=== PATIENT | female | born 1955 | race Caucasian/White ===

== ENCOUNTER 2021-07-10 10:06 | Emergency (ER) | payer OTHER, SELFPAY ==
[2021-07-10 10:15] VITALS: BP 159/57; PULSE 75; RESP 18; TEMP 36.1; O2SAT 98; BMI 24.0
[2021-07-10 13:01] VITALS: BP 150/71; PULSE 79; RESP 18; TEMP 36.6; O2SAT 96
--- NOTE | 2021-07-10 13:42 | ED_ITS ---
HPI - Headache General Chief Complaint: Headache Stated Complaint: head pain due to brain disease Time Seen by Provider: 07/10/21 12:53 Source: patient Mode of arrival: ambulatory Limitations: no limitations History of Present Illness HPI Narrative: 66-year-old female with a past medical history of white matter brain disease, chronic back and left leg pain after a tumor removal from the thigh here with complaints of generalized headache. Patient tells me that she has chronic headaches which are usually controlled with Fioricet. No associated dizziness, nausea, vomiting, vision changes, weakness, numbness or tingling. No speech change. No fevers or chills or neck pain associated. Patient tells me she ran out of her Fioricet and does not currently have a primary care doctor. She does have a neurologist and was door that she was seeing but is planning on changing to a different neurologist. Of note she tells me this headache is similar previous headaches and does not feel different. Last CT scan during ER visit on 03/05/2021. Also complaining of lower back pain and tells me she has underlying disc problems no radiation of pain. No numbness or tingling in the legs. No bowel or bladder incontinence. No numbness in the groin. No fevers or chills. Patient tells me she is currently taking hijs-lhm-eekisae Tylenol or Motrin with continued pain. 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 She had been taking oxycodone 30 mg several times a day until about 1 year ago. She tells me at that time she was quite confused and lethargic and was admitted to [facility] and polypharmacy was thought to be the cause of her symptoms. Since then she was taken off oxycodone. She is requesting Vicodin for pain for home. Also complaining of left thigh pain at the site of for tumor resection. 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 She had radiation of the site and has chronic pain there. Again requesting Vicodin for home. Related Data Previous Rx's Medication Instructions Recorded sliktypoyo-arhaguyttbceh-qxffowsx 1 cap PO Q6H PRN #10 cap 07/10/21 50 mg-300 mg-40 mg capsule (Fioricet) cyclobenzaprine 10 mg tablet 10 mg PO TID PRN #10 tab 07/10/21 lidocaine 5 % topical patch 1 patch TOPICAL DAILY #15 ea 07/10/21 (Lidoderm) Allergies Allergy/AdvReac Type Severity Reaction Status Date / Time fentanyl Allergy Unknown felt like Verified 07/10/21 10:15 everything was spinning methadone Allergy Unknown pass out Verified 07/10/21 10:15 morphine Allergy Unknown pass out Verified 07/10/21 10:15 Review of Systems Review of Systems: Yes all other systems are reviewed and are negative Constitutional: Constitutional: Reports no additional constitutional complaints, Denies body ache(s), Denies chills, Denies fever(s), Reports headache(s) and Denies weakness Eyes: Eyes: Reports no additional eye complaints and Denies change in vision ENT: Reports system reviewed and no additional complaints, except as documented, Denies dizziness, Reports headache(s), Denies nasal congestion, Denies nasal discharge and Denies neck pain Cardiovascular: Cardiovascular: Reports no additional cardiovascular complaints, Denies chest pain, Denies leg edema and Denies dyspnea Respiratory: Respiratory: Reports no additional respiratory complaints, Denies cough and Denies dyspnea Gastrointestinal: Gastrointestinal: Reports no additional gastrointestinal complaints, Denies abdominal pain, Denies diarrhea, Denies nausea and Denies v omiting Genitourinary: Genitourinary: Reports no additional female genitourinary complaints and Denies urinary incontinence Musculoskeletal: Musculoskeletal: Reports no additional musculoskeletal complaints, Reports back pain, Denies arthralgias, Denies joint swelling, Denies neck pain, Denies numbness and Denies tingling Integumentary/Breasts: Skin/Breast: Reports system reviewed and no additional complaints, except as docu and Denies rash Neurologic: Reports system reviewed and no additional complaints, except as documented, Denies Abnormal speech present, Denies dizziness, Reports headache(s), Denies numbness, Denies tingling and Denies weakness [facility] Past Medical History Attestation statement: The following information was validated with the patient. Source: old records reviewed and nursing notes reviewed Social History Social History Advance Directives: No Advance Directives Information Provided: Yes Physical Exam Vital Signs: Vital Signs: Last Vital Signs Temp 98 F 07/10/21 13:01 Pulse 79 07/10/21 13:01 Resp 18 07/10/21 13:01 BP 150/71 H 07/10/21 13:01 Pulse Ox 96 07/10/21 13:01 Body Mass Index 24.0 Const: General: cooperative, healthy appearing, comfortable and no acute distress Orientation/consciousness: patient oriented x3 Limitations: no limitations HENMT: Head: Yes normal to inspection Ears: hearing grossly normal bilaterally General nose exam: Normal external nose present Face and sinus: Yes normal facial exam Mouth: Normal oral and palatal mucosa present Throat: Yes posterior oropharynx normal, Yes tonsils normal and Yes uvula midli ne Eyes: General: appearance normal, both eyes and all related structures Pupils: Equal, round and reactive pupils present Neck: Neck: Yes normal visual inspection Chest: Chest palpation & inspection: normal inspection of the chest Resp: Effort & Inspection: normal respiratory effort Auscultation: clear to auscultation bilaterally Cardio: Rate: regular rate Rhythm: regular rhythm Peripheral pulses: Peripheral pulses 2+ throughout GI: Inspection: Yes normal to inspection Palpation (GI): Soft to palpation and nontender Auscultation: normal bowel sounds : General: Yes no CVA tenderness Back/Spine/Pelvis: Other: Unable to reproduce any midline tenderness, step- offs deformities Back: no CVA tenderness Thoracic/Lumbar Spine: thoracic and lumbar spine normal to inspection Skin: General skin exam: no rashes or lesions noted Neuro: General: patient oriented x3, no focal motor deficits and normal sensation to monofilament Cranial nerves: Yes CN's II-XII intact bilaterally, Yes Equal, round and reactive pupils present, Yes Bilaterally intact EOM present, Yes Nystagmus not present, Yes Normal facial strength present and Yes Midline tongue present Cognition (Neuro): normal cognition Speech: No Abnormal speech present Gait exam (Neuro): Normal gait present Motor exam (neuro): 5/5 motor strength present throughout Sensory Exam: Normal double simultaneous stimulation for sensation Extrem: Other: To the left side there is a healed surgical scar. Patient reports tenderness around the site. No palpable pain, redness or swelling General: Yes normal to inspection, Yes no pedal edema and Yes no calf tenderness Course Course Course Narrative: 66-year-old female here with chronic headaches which are typically relieved with Fioricet. Pain feels similar to her previous headaches. She relates this to white matter disease although I think this likely room from underlying migraines which she also tells me she has a history of. She had Fioricet which helps her headaches but ran out. Requesting a refill as she does not currently have a primary care doctor and is changing her neurologist. Also requesting pain medication for her chronic lower back and left thigh pain from a prior surgery. Had been taking oxycodone 30 mg 3 times a day until an episode of altered mental status causing her to be admitted to [facility] for 4 months. NO change, new injury or fall. In fact I am unable to reproduce any pain on exam. Requesting vicodin 10mg TID for chronic pain at home. At this point I explained to the patient that I will not be managing her chronic pain from the emergency department. Will be happy to offer alternatives that are nonnarcotic the ninfa cuadra was really not willing to try these. I did also offer Toradol injection while she was here in the emergency room but she declined this. -after lengthy discussion with patient I sent a small amount of refill for her Fioricet, low-dose muscle relaxant and medicated patches. Reviewed worrisome signs and symptoms of when to return to the emergency department. Comfortable discharge home. [facility] - Headache Medical Records Attestation: I reviewed the patient's medical records. Lab Data Attestation: I reviewed the patient's lab results. Discharge Plan Discharge Clinical Impression: Headache Patient Disposition: Home, Self-Care Instructions: Acute Headache (ED) Prescriptions: New stcazhnfxy-jaimdlkwtmewr-ojtx [Fioricet] 50-300-40 mg capsule 1 cap PO Q6H PRN (Reason: pain) Qty: 10 RF: 0 cyclobenzaprine 10 mg tablet 10 mg PO TID PRN (Reason: muscle spasm) Qty: 10 RF: 0 lidocaine [Lidoderm] 5 % adhesive patch,medicated 1 patch topical DAILY Qty: 15 RF: 0 Referrals: Physician,None [Primary Care Provider] - 2 days Discharge Date/Time: 07/10/21 14:05
== END 2021-07-10 14:05 | disposition home or self-care (01) ==
PROVIDERS: Emergency Provider Emergency Medicine
DX: R51.9 Headache, unspecified (principal); G93.89 Other specified disorders of brain; G89.29 Other chronic pain; M54.50 Low back pain, unspecified; M79.652 Pain in left thigh
CPT/HCPCS: 96372; 99283; 99284

== ENCOUNTER 2022-05-21 08:38 | Outpatient (REF) | payer OTHER, SELFPAY ==
--- NOTE | ~2022-05-21 | MM_ITS ---
EXAMINATION: MM SCREENING DIGITAL BREAST TOMOSYNTHESIS, BILATERAL CLINICAL INFORMATION: Screening. Asymptomatic. The lifetime risk of breast cancer based on the Tyrer-Cuzick Model is 10.4%. COMPARISON: Mammography: October 24, 2016 TECHNIQUE: Digital breast tomosynthesis is performed in both the craniocaudal and mediolateral oblique views along with computer-aided detection (CAD). Synthesized 2D images are generated from the tomosynthesis. FINDINGS: There are scattered areas of fibroglandular density (ACR BI-RADS breast composition Category b). There are no significant masses, abnormal calcifications, or other abnormalities. MM/MM tomosynthesis screening BI IMPRESSION: No significant changes from prior exam. ASSESSMENT: BI-RADS 1: Negative RECOMMENDATION: Routine annual mammography screening. This patient's information was entered into a reminder system with a target due date for their next mammogram.
== END 2022-05-21 08:39 | disposition home or self-care (01) ==
LOC: HO.MAMMO 08:38
PROVIDERS: PCP Internal Medicine; Visit Provider Internal Medicine
DX: Z12.31 Encounter for screening mammogram for malignant neoplasm of breast (principal)
CPT/HCPCS: 77063; 77067

== ENCOUNTER 2022-08-08 12:33 | Emergency (ER) | payer OTHER, SELFPAY ==
[2022-08-08 12:45] VITALS: BP 198/90; PULSE 67; RESP 18; O2SAT 97; BMI 30.3
--- NOTE | 2022-08-08 13:43 | ED.HA ---
HPI - Headache General Chief Complaint: Headache Stated Complaint: Medication refill? Brain disease Time Seen by Provider: 08/08/22 13:18 Source: patient Mode of arrival: ambulatory History of Present Illness HPI Narrative: 67-year-old female with a past medical history of white matter brain disease, chronic back and leg pain s/p tumor resection presenting to the ED complaining of acute on chronic headaches. Patient reports Fioricet is the only medication that helps with her chronic headaches. Denies any change or new symptoms from her typical. Denies headache be maximal in onset, visual loss/change, nausea, weakness, numbness MD elicited complaint: headache and migraine Onset (ago): day(s) Related Data Previous Rx's Medication Instructions Recorded ijqkmhqmkz-txirmmklvkhtd-leekugqt 1 cap PO Q6H PRN pain #10 caps 07/10/21 50 mg-300 mg-40 mg capsule (Fioricet) cyclobenzaprine 10 mg tablet 10 mg PO TID PRN muscle spasm #10 07/10/21 tabs lidocaine 5 % topical patch 1 patch topical DAILY #15 ea 07/10/21 (Lidoderm) mjkwyuktqp-mxmtayymbqeal-yojgvfuy 1 cap PO Q6H PRN headache #10 caps 08/08/22 50 mg-300 mg-40 mg capsule (Fioricet) Allergies Allergy/AdvReac Type Severity Reaction Status Date / Time fentanyl Allergy Unknown felt like Verified 07/10/21 10:15 everything was spinning methadone Allergy Unknown pass out Verified 07/10/21 10:15 morphine Allergy Unknown pass out Verified 07/10/21 10:15 Review of Systems Review of Systems: Constitutional: No Fever, No Chills, No Fatigue, No Malaise ENT/Mouth: No Ear Pain, No Nasal Congestion, No sore throat, No Rhinorrhea, No Swallowing Difficulty Eyes: No Eye Pain, No Swelling, No Redness, No Foreign Body, No Discharge, No Vision Changes Cardiovascular: No Chest Pain, No SOB, No Edema, No Palpitations Respiratory: No Cough, No Sputum, No Dyspnea Gastrointestinal: No Nausea, No Vomiting, No Diarrhea, No Constipation, No Abdominal pain Genitourinary: No Dysuria, No Urinary Frequency, No Hematuria, No Urinary Incontinence/retention, No Flank Pain Musculoskeletal: No joint pain, No Myalgias Skin: No Skin Lesions, No rash Neuro: No Weakness, No Numbness, No Paresthesias, No Loss of Consciousness, No Dizziness, + Headache Yes all other systems are reviewed and are negative Constitutional: Constitutional: Reports as per HPI Neurologic: Denies Abnormal speech present [facility] Past Medical History Attestation statement: The following information was validated with the patient. Social History Social History Advance Directives: Yes Advance Directives Information Provided: Yes Advance Directives on File: No Physical Exam Vital Signs: Vital Signs: Last Vital Signs Pulse 67 08/08/22 12:45 Resp 18 08/08/22 12:45 BP 198/90 H 08/08/22 12:45 Pulse Ox 97 08/08/22 12:45 O2 Del Method 08/08/22 12:45 BMI result Body Mass Index 30.3 Const: General: cooperative, healthy appearing, no acute distress, alert and awake Orientation/consciousness: patient oriented x3 Limitations: no limitations HEENT: Head: Yes normal to inspection and Yes atraumatic Ears: hearing grossly normal bilaterally General nose exam: Normal external nose present Face and sinus: Yes normal facial exam Eyes: General: appearance normal, both eyes and all related structures Pupils: Equal, round and reactive pupils present EOM: EOMs intact bilaterally Neck: Neck: Yes normal visual inspection and Yes no meningeal signs Resp: Effort & Inspection: normal respiratory effort and no respiratory distress Cardio: Rate: regular rate Heart sounds: S1 normal heart sound present and S2 normal heart sound present GI: Inspection: Yes normal to inspection Palpation (GI): Soft to palpation, nontender, no guarding and not rigid Skin: Rashes: no rashes Wounds: no wounds Neuro: General: patient oriented x3, gait normal, tone normal, moves all extremities, no meningeal signs, no focal motor deficits and CN's II-XI intact bilaterally Cranial nerves: Yes CN's II-XII intact bilaterally, Yes Equal, round and reactive pupils present and Yes Bilaterally intact EOM present Cognition (Neuro): normal cognition Speech: No Abnormal speech present Gait exam (Neuro): Normal gait present Motor exam (neuro): 5/5 motor strength present throughout Extrem: General: Yes normal to inspection MDM - Headache MDM Narrative Medical decision making narrative: 67-year-old female with a past medical history of white matter brain disease, chronic back and leg pain s/p tumor resection presenting to the ED complaining of acute on chronic headaches. On exam vital signs stable, NAD, nontoxic appearing, no focal neuro deficits. Concern for acute on chronic headaches. Low suspicion for SAH, meningitis/encephalitis, CVA/TIA Patient requesting prescription for Fioricet for 1 month, Will give patient 2 pills of Fioricet while in the ED and short prescription, had lengthy question about needed close follow-up with Neurology Differential Diagnosis Differential diagnosis: Likely migraine and headache Medical Records Attestation: I reviewed the patient's medical records. Lab Data Attestation: I reviewed the patient's lab results. Discharge Plan Discharge Clinical Impression: Chronic headache Patient Disposition: Home, Self-Care Instructions: Acute Headache (ED) Additional Instructions: Fioricet is for headaches, take as needed as prescribed. You need to follow-up with Neurology. Please also follow-up with your primary care doctor. If your symptoms change/persist, have constant worsening headache, nausea, vomiting, weakness return to the emergency department Prescriptions: New qkfhclqigl-zkrwlscvcxwit-tnwp [Fioricet] 50-300-40 mg capsule 1 cap PO Q6H PRN (Reason: headache) Qty: 10 0RF No Action mdubvwecyd-woaoxmbdnesox-jewc [Fioricet] 50-300-40 mg capsule 1 cap PO Q6H PRN (Reason: pain) Qty: 10 0RF cyclobenzaprine 10 mg tablet 10 mg PO TID PRN (Reason: muscle spasm) Qty: 10 0RF lidocaine [Lidoderm] 5 % adhesive patch,medicated 1 patch topical DAILY Qty: 15 0RF Rx Instructions: leave on most painful area for up to 12 hrs Referrals: [facility] [place] [facility] [Provider Group]
[2022-08-08] MEDS: Butalb/Acetamin/Caff 50/325/40 TABLET 2 TAB PO (14:05)
== END 2022-08-08 14:23 | disposition home or self-care (01) ==
PROVIDERS: Emergency Provider Emergency Medicine
DX: R51.9 Headache, unspecified (principal)
CPT/HCPCS: 99283

== ENCOUNTER 2022-08-14 07:59 | Emergency (ER) | payer OTHER, SELFPAY ==
[2022-08-14 08:10] VITALS: BP 240/103; PULSE 67; RESP 16; TEMP 36.7; O2SAT 96; BMI 28.3
[2022-08-14 09:00] VITALS: BP 238/107
--- NOTE | 2022-08-14 09:01 | PC.NURSE ---
Presents to ED with complaint of headaches. increased BP noted. fiorcet is the only thing that works for my headaches . Neuros intact. Amb with steady gait.
--- NOTE | 2022-08-14 09:23 | ED.GENADULT ---
HPI - General Adult General Chief complaint: Headache Stated complaint: headache sts has a brain disease Time Seen by Provider: 08/14/22 09:00 Source: patient Limitations: no limitations History of Present Illness HPI narrative: Patient presents to the ER complaining of a headache that is been ongoing for over 1 year. Patient has longstanding history of white matter disease since fall by a neurologist at [facility]. Patient states she usually takes Fioricet for headaches which makes them tolerable which she does not have any more. Patient also states she has not does not currently have a PCP. Patient is also concerned about her elevated blood pressure. Symptoms are tslj-xc-egvjzrbq pain is 8/10. Patient has made it quite clear she is not having a stroke, and [place] and she does not have MS at that has been ruled out by her neurologist. Patient denies any recent falls or trauma at times she has some associated nausea no vomiting at this time. Headache is similar to past headaches. No other complaints at this time Related Data Previous Rx's Medication Instructions Recorded pgxfcmskcu-nroqzdoazpunm-jzjuvfpp 1 cap PO Q6H PRN pain #10 caps 07/10/21 50 mg-300 mg-40 mg capsule (Fioricet) cyclobenzaprine 10 mg tablet 10 mg PO TID PRN muscle spasm #10 07/10/21 tabs lidocaine 5 % topical patch 1 patch topical DAILY #15 ea 07/10/21 (Lidoderm) amcizleyhm-kzewolycgbcdu-iumfyvby 1 cap PO Q6H PRN headache #10 caps 08/08/22 50 mg-300 mg-40 mg capsule (Fioricet) amlodipine 5 mg tablet 5 mg PO DAILY #30 tabs 08/14/22 iyhuesblol-fyjdxaopxsqqc-eufgzcjq 1 cap PO Q6H PRN pain #20 caps 08/14/22 50 mg-300 mg-40 mg capsule (Fioricet) Allergies Allergy/AdvReac Type Severity Reaction Status Date / Time fentanyl Allergy Unknown felt like Verified 07/10/21 10:15 everything was spinning methadone Allergy Unknown pass out Verified 07/10/21 10:15 morphine Allergy Unknown pass out Verified 07/10/21 10:15 Review of Systems Constitutional: Constitutional: Denies chills, Denies fever(s) and Reports headache(s) Eyes: Eyes: Denies change in vision, Denies diplopia and Denies loss of vision ENT: Reports headache(s) and Denies sore throat Cardiovascular: Cardiovascular: Denies chest pain and Denies dyspnea Respiratory: Respiratory: Denies cough and Denies dyspnea Gastrointestinal: Gastrointestinal: Denies abdominal pain, Reports nausea and Denies vomiting Musculoskeletal: Musculoskeletal: Denies myalgias Neurologic: Reports headache(s) and Denies loss of vision [facility] Social History Social History Advance Directives: No Physical Exam ED Vital Signs: Vital Signs - 24 hr 08/14/22 08:10 08/14/22 09:00 08/14/22 10:47 Temperature 98.0 F Pulse Rate 67 Respiratory Rate 16 Blood Pressure 240/103 H 238/107 H 185/89 H Pulse Oximetry 96 Oxygen Delivery Method Room Air 08/14/22 11:01 Temperature Pulse Rate 60 Respiratory Rate Blood Pressure 185/84 H Pulse Oximetry Oxygen Delivery Method BMI result Body Mass Index 28.3 vital signs have been reviewed as normal and appeared to be correct. Blood pressure normal. Heart rate normal. Respiration rate normal. Temperature normal. Oxygen saturation normal. Appearance: Alert. Oriented X3. No acute distress. Head: Normal external exam. Normocephalic. Atraumatic. No Heath signs noted. No raccoon eyes noted Eyes: PERRLA. EOMI. Conjunctiva and sclera normal. Eyelids normal. ENT: Pharynx normal. Uvula midline. Moist mucous membranes. Neck: Soft full range of motion, no JVD CVS: Heart regular rate and rhythm no murmurs and rubs Respiratory: Breath sounds are clear to auscultation bilaterally. No accessory muscle use noted. Abdomen: Soft nontender no rebound or guarding positive bowel sounds Back: No CVA tenderness. Full range of motion noted. Skin: Skin warm and dry. Normal skin color. Normal skin turgor. No rashes/lesions/lacerations noted. Extremities: No lower extremity edema. Extremities exhibit normal range of motion. Extremities nontender. Neuro: Oriented X 3. 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 No focal deficit noted. Course Course Course Narrative: Migraine headaches Chronic headaches Hypertensive emergency Hypertensive urgency White matter disease One Fioricet p.o. will recheck blood pressure after 20 minutes 09:[address] Lagunas so will give patient 10 mg labetalol IV at this time 5 mg amlodipine p.o. re-evaluate blood pressure. Will also check a CBC and BMP and UA. 11:22 a.m. Patient has responded to the labetalol and amlodipine Patient's blood pressure 197/85 will plan to discharge home start on amlodipine and Fioricet. Patient states symptoms has improved. Medications Administered Discontinued Medications Generic Name Dose Route Start Last Admin Trade Name Gerhardq PRN Reason Stop Dose Admin Acetaminophen/Butalbital/Caffeine 1 tab 08/14/22 09:22 08/14/22 09:36 Butalb/Acetamin/Caff 50/325/40 Tablet PO 08/14/22 09:23 1 tab ONCE ONE Administration Acetaminophen/Butalbital/Caffeine 1 tab 08/14/22 09:55 08/14/22 10:22 Butalb/Acetamin/Caff 50/325/40 Tablet PO 08/14/22 09:56 1 tab ONCE ONE Administration Amlodipine Besylate 5 mg 08/14/22 09:38 08/14/22 10:22 Amlodipine Besylate 5 Mg Tablet PO 08/14/22 09:39 5 mg ONCE ONE Administration Protocol Labetalol HCl 10 mg 08/14/22 09:38 08/14/22 10:35 Labetalol Hcl 100 Mg/20 Ml Vial IVPUSH 08/14/22 09:39 10 mg ONCE ONE Administration Medical Decision Making Lab Data Result diagrams: 08/14/22 10:29 08/14/22 10:29 Labs: Lab Results 08/14/22 08/14/22 Range/Units 10:29 10:29 WBC 8.1 (4.8-10.8) X10*3/uL RBC 5.15 (4.20-5.50) X10*6/uL Hgb 15.2 (12.0-16.0) g/dl Hct 45.1 (37.0-47.0) % MCV 87.6 (80.0-98.0) fL MCH 29.5 (27.0-33.0) pg MCHC 33.7 (31.0-35.0) g/dl RDW 11.9 (11.0-16.0) % Plt Count 261 (160-400) X10*3/uL MPV 10.4 (9.4-12.3) fL Immature Gran % (Auto) 0.2 (0.0-0.4) % Neut % (Auto) 60.5 (45-73) % Lymph % (Auto) 25.6 (20-40) % [place] % (Auto) 9.9 (2-11) % Eos % (Auto) 2.9 (0-4) % Baso % (Auto) 0.9 (0-2) % Lymph # (Auto) 2.1 (1.2-4.9) X10*3/uL [place] # (Auto) 0.8 (0.1-1.2) X10*3/uL Eos # (Auto) 0.2 (0.0-0.4) X10*3/uL Baso # (Auto) 0.1 (0.0-0.2) X10*3/uL Abs Immat Gran (auto) 0.02 (0.00-0.03) X10*3/uL Absolute Neuts (auto) 4.9 (2.0-8.3) x10*3/uL Absolute Nucleated RBC 0.000 (0.0-0.012) X10*3/uL Nucleated RBC % (auto) 0.0 (0.0-0.2) /100WBC Sodium 140 (135-145) mmol/L Potassium 4.4 (3.3-5.1) mmol/L Chloride 101 (96-108) mmol/L Carbon Dioxide 26 (22-29) mmol/L Anion Gap 17 (12-20) BUN 18 H (9-16) mg/dL Creatinine 0.78 (0.5-1.4) mg/dL Estim Creat Clear Calc 64.9 Estimated GFR > 60 Random Glucose 95 (60-115) mg/dL Calcium 9.4 (8.4-10.2) mg/dL Discharge Plan Discharge Clinical Impression: Headache, Hypertension Patient Disposition: Home, Self-Care Instructions: Acute Headache (ED), Hypertension (ED) Additional Instructions: Take medications as directed For further evaluation of hypertension needed to follow-up with PCP Return if symptoms worsen Prescriptions: New nzarcjnqkd-phzdoccossgfe-nvnh [Fioricet] 50-300-40 mg capsule 1 cap PO Q6H PRN (Reason: pain) Qty: 20 0RF amlodipine 5 mg tablet 5 mg PO DAILY Qty: 30 0RF No Action tyswmwblwp-xulhfcntqszle-oenk [Fioricet] 50-300-40 mg capsule 1 cap PO Q6H PRN (Reason: headache) Qty: 10 0RF mkijxydeud-qtwhqkwrrprng-jpcu [Fioricet] 50-300-40 mg capsule 1 cap PO Q6H PRN (Reason: pain) Qty: 10 0RF cyclobenzaprine 10 mg tablet 10 mg PO TID PRN (Reason: muscle spasm) Qty: 10 0RF lidocaine [Lidoderm] 5 % adhesive patch,medicated 1 patch topical DAILY Qty: 15 0RF Rx Instructions: leave on most painful area for up to 12 hrs
[2022-08-14] MEDS: Butalb/Acetamin/Caff 50/325/40 TABLET 1 TAB PO ×2 (09:36→10:22)
[2022-08-14] MEDS: amLODIPine Besylate 5 MG TABLET PO (10:22)
[2022-08-14] MEDS: Labetalol HCL 100 MG/20 ML VIAL 10 MG IVPUSH (10:35)
[2022-08-14 10:47] VITALS: BP 185/89
[2022-08-14 10:53] LABS: MANUAL DIFF FLAG NO
[2022-08-14 10:55] LABS: Basophils Absolute Auto 0.1 X10*3/uL (0.0-0.2); Basophils Percent Auto 0.9 % (0-2); Eosinophils Absolute Auto 0.2 X10*3/uL (0.0-0.4); Eosinophils Percent Auto 2.9 % (0-4); Hematocrit 45.1 % (37.0-47.0); Hemoglobin 15.2 g/dl (12.0-16.0); Imm Gran Abs Auto 0.02 X10*3/uL (0.00-0.03); Imm Gran Pct Auto 0.2 % (0.0-0.4); Lymphocytes Absolute Auto 2.1 X10*3/uL (1.2-4.9); Lymphocytes Percent Auto 25.6 % (20-40); Mean Corpuscular HGB Conc 33.7 g/dl (31.0-35.0); Mean Corpuscular Hemoglobin 29.5 pg (27.0-33.0); Mean Corpuscular Volume 87.6 fL (80.0-98.0); Mean Platelet Volume 10.4 fL (9.4-12.3); Monocytes Absolute Auto 0.8 X10*3/uL (0.1-1.2); Monocytes Percent Auto 9.9 % (2-11); Neutrophils Absolute Auto 4.9 x10*3/uL (2.0-8.3); Neutrophils Percent Auto 60.5 % (45-73); Platelet Count 261 X10*3/uL (160-400); Red Blood Count 5.15 X10*6/uL (4.20-5.50); Red Cell Distribution Width 11.9 % (11.0-16.0); White Blood Count 8.1 X10*3/uL (4.8-10.8)
[2022-08-14 11:01] VITALS: BP 185/84; PULSE 60
[2022-08-14 11:15] LABS: Anion Gap 17 (12-20); Blood Urea Nitrogen 18 mg/dL (9-16); Calcium 9.4 mg/dL (8.4-10.2); Carbon Dioxide 26 mmol/L (22-29); Chloride 101 mmol/L (96-108); Creatinine Clr Calc Pharmacy 64.9; Estimated Glomerular Filt Rate > 60; Glucose Random 95 mg/dL (60-115); Potassium 4.4 mmol/L (3.3-5.1); Sodium 140 mmol/L (135-145)
== END 2022-08-14 11:34 | disposition home or self-care (01) ==
PROVIDERS: Physician Assistant; Emergency Provider Emergency Medicine
DX: R51.9 Headache, unspecified (principal); I10 Essential (primary) hypertension; Z79.899 Other long term (current) drug therapy
CPT/HCPCS: 36415; 80048; 85025; 99283

== ENCOUNTER 2022-08-20 08:03 | Emergency (ER) | payer OTHER, SELFPAY ==
[2022-08-20 08:15] VITALS: BP 185/91; BP 187/84; PULSE 79; PULSE 88; RESP 18; TEMP 36.8; O2SAT 98; BMI 27.4
--- NOTE | 2022-08-20 08:16 | ED_ITS ---
HPI - General Adult General Chief complaint: Headache Stated complaint: REZA,BACK PAIN,HX BRAIN LESIONS PER EMS Time Seen by Provider: 08/20/22 08:07 Source: patient and EMS Mode of arrival: EMS Limitations: no limitations History of Present Illness HPI narrative: Patient is a 67 year old assigned female at with a history of migraines presenting to the emergency department today with a headache. Patient states that she was prescribed fioricet and that helped her headache but she ran out last night. Patient denies any dizziness, lightheadedness, abdominal pain, nausea, vomiting, fever, chills, blurry vision, double vision, loss of vision, chest pain, difficulty breathing, shortness of breath, back pain, night sweats, pain with urination, increased urinary frequency, increased urinary urgency, blood in her urine or stool, syncope or a near syncopal episode, recent trauma or falls, bowel incontinence, bladder incontinence, bowel retention, bladder retention, or any other complaints at this time. Onset (ago): hour(s) Location: head Radiation: non-radiation Severity: mild Severity scale (1-10): 3 Quality: aching and dull Pain Consistency: constant Relieving factors: other (fioricet) Exacerbating factors: none Associated symptoms: denies other symptoms Treatments prior to arrival: none Related Data Previous Rx's Medication Instructions Recorded xtfkzyhuhh-pewnqeckqhmic-nswtugyw 1 cap PO Q6H PRN pain #10 caps 07/10/21 50 mg-300 mg-40 mg capsule (Fioricet) cyclobenzaprine 10 mg tablet 10 mg PO TID PRN muscle spasm #10 07/10/21 tabs lidocaine 5 % topical patch 1 patch topical DAILY #15 ea 07/10/21 (Lidoderm) zwmyjgnavz-slnmicqqwnjvk-qqcbhpnc 1 cap PO Q6H PRN headache #10 caps 08/08/22 50 mg-300 mg-40 mg capsule (Fioricet) amlodipine 5 mg tablet 5 mg PO DAILY #30 tabs 08/14/22 pwrycsqvbf-raacgmsyvvrbm-xgbpwhcv 1 cap PO Q6H PRN pain #20 caps 08/14/22 50 mg-300 mg-40 mg capsule (Fioricet) czqmudulsu-szpjdqirwzpcb-vijeuryh 1 cap PO Q4H PRN pain #30 caps 08/20/22 50 mg-300 mg-40 mg capsule (Fioricet) Allergies Allergy/AdvReac Type Severity Reaction Status Date / Time fentanyl Allergy Unknown felt like Verified 07/10/21 10:15 everything was spinning methadone Allergy Unknown pass out Verified 07/10/21 10:15 morphine Allergy Unknown pass out Verified 07/10/21 10:15 Review of Systems Constitutional: Constitutional: Reports no additional constitutional complaints, Denies chills, Denies fever(s), Reports headache(s) and Denies night sweats Eyes: Eyes: Reports no additional eye complaints, Denies blurry vision, Denies change in vision, Denies diplopia, Denies eye discharge, Denies loss of vision and Denies eye pain ENT: Denies dizziness and Reports headache(s) Cardiovascular: Cardiovascular: Reports no additional cardiovascular complaints, Denies chest pain, Denies lightheadedness, Denies Loss of Consciousness and Denies dyspnea Respiratory: Respiratory: Reports no additional respiratory complaints and Denies dyspnea Gastrointestinal: Gastrointestinal: Reports no additional gastrointestinal complaints, Denies abdominal pain, Denies melena, Denies hematochezia, Denies change in bowel habits and Denies change in stool character Genitourinary: Genitourinary: Denies hematuria, Denies urinary frequency, Denies dysuria, Denies urinary incontinence, Denies urinary hesitancy and Denies urinary urgency Musculoskeletal: Musculoskeletal: Reports no additional musculoskeletal complaints, Denies numbness and Denies tingling Neurologic: Denies dizziness, Reports headache(s), Denies loss of vision, Denies numbness and Denies tingling Psychiatric: Psychiatric: Reports no additional psychiatric complaints Endocrine: Endocrine: Reports no additional endocrine complaints Hematologic/Lymphatic: Hematologic/Lymphatic: Reports no additional hematologic/lymphatic complaints Allergic/Immunologic: Allergic/Immunologic: Reports no additional al lergic/immunologic complaints FORMERLY [facility], 1928–1983 Past Medical History Attestation statement: The following information was validated with the patient. Source: old records reviewed Social History Social History Alcohol intake: never Smoked in Last 30 Days: No Use of substances other than those prescribed or required for medical reasons: No Advance Directives: No Physical Exam ED Vital Signs: Vital Signs - 24 hr 08/20/22 08:15 08/20/22 08:56 Temperature 98.2 F Pulse Rate 79 76 Respiratory Rate 18 14 Blood Pressure 185/91 H 147/73 H Pulse Oximetry 98 97 Oxygen Delivery Method Room Air Room Air BMI result Body Mass Index 27.4 Const General: cooperative, no acute distress, alert and awake Nutritional Appearance: well nourished Orientation/consciousness: patient oriented x3 Limitations: no limitations HENMT Head: Yes normal to inspection and Yes atraumatic Ears: hearing grossly normal bilaterally and external ears normal General nose exam: Normal external nose present, no nasal discharge noted and no epistaxis Face and sinus: Yes normal facial exam, No abrasion and No laceration Mouth: Normal oral and palatal mucosa present, no drooling and no muffled voice Eyes General: appearance normal, both eyes and all related structures Periorbital: periorbital findings normal Eyelids: Yes eyelids normal Conjunctivae: conjunctivae normal Pupils: Equal, round and reactive pupils present EOM: EOMs intact bilaterally Neck Neck: Yes normal visual inspection, Yes full ROM and Yes no lymphadenopathy Chest Chest palpation & inspection: normal inspection of the chest Resp Effort & Inspection: normal respiratory effort and able to speak in complete sentences Auscultation: clear to auscultation bilaterally Cardio Rate: regular rate Rhythm: regular rhythm GI Inspection: Yes normal to inspection Neuro General: patient oriented x3 and moves all extremities Cranial nerves: Yes Equal, round and reactive pupils present Cognition (Neuro): normal cognition Motor exam (neuro): 5/5 motor strength present throughout Sensory Exam: Normal double simultaneous stimulation for sensation Coordination: ymhwpv-af-npdv test normal Extrem General: Yes normal to inspection, Yes full ROM and Yes capillary refill normal Psych Appearance: grossly normal Mental Status: mental status grossly normal Affect: normal affect Attitude: cooperative Thought process: Normal thought process present Thought content: Normal thought content present Insight: Good insight present (Psych) Medications Administered Discontinued Medications Generic Name Dose Route Start Last Admin Trade Name Freq PRN Reason Stop Dose Admin Acetaminophen/Butalbital/Caffeine 1 tab 08/20/22 08:40 08/20/22 08:56 Butalb/Acetamin/Caff 50/325/40 Tablet PO 08/20/22 08:41 1 tab ONCE ONE Administration Hydrocodone Bitart/Acetaminophen 1 tab 08/20/22 08:40 08/20/22 08:56 Hydrocodone Bit/Acetam 5/325 Tablet PO 08/20/22 08:41 1 tab ONCE ONE Administration Medical Decision Making MDM Narrative Medical decision making narrative: Patient is a 67 year old assigned female at with a history of migraine headaches presenting to the emergency department today with a headache. Patient's physical exam was unremarkable. I explained my physical exam findings to the patient. I answered all questions asked by the patient. Patient received PO fioricet and [place] which she stated helped her symptoms significantly. I stressed the importance of the patient taking her medication as prescribed. I stressed the importance of the patient following up with her primary care provider. I stressed the importance of the patient returning to the emergency department immediately if her symptoms were to worsen or if she were to develop any dizziness, shortness of breath, difficulty breathing, chest pain, blurry vision, loss of vision, nausea, vomiting, abdominal pain, fever, chills, back pain, or any other complaints. Patient verbalized agreement and understanding with this treatment plan and discharge. Medical Records Medical records reviewed: Yes I reviewed the patient's medical records. Discharge Plan Discharge Clinical Impression: Migraine Patient Disposition: Home, Self-Care Instructions: Migraine Headache (ED) Additional Instructions: Follow up with your primary care provider. Return to the emergency department immediately if your symptoms worsen or if you develop any dizziness, shortness of breath, difficulty breathing, chest pain, blurry vision, loss of vision, nausea, vomiting, abdominal pain, fever, chills, back pain, or any other complaints. Prescriptions: New rdkptguksi-ntxwnfpsfbehg-ybgh [Fioricet] 50-300-40 mg capsule 1 cap PO Q4H PRN (Reason: pain) Qty: 30 0RF No Action xogvmiwdoa-thvggtetlvxkf-pdgo [Fioricet] 50-300-40 mg capsule 1 cap PO Q6H PRN (Reason: headache) Qty: 10 0RF hfzzlihxlm-ruurmsxuwzosm-bqlg [Fioricet] 50-300-40 mg capsule 1 cap PO Q6H PRN (Reason: pain) Qty: 20 0RF amlodipine 5 mg tablet 5 mg PO DAILY Qty: 30 0RF fjftlofomc-qycpfluatbktu-lwyj [Fioricet] 50-300-40 mg capsule 1 cap PO Q6H PRN (Reason: pain) Qty: 10 0RF cyclobenzaprine 10 mg tablet 10 mg PO TID PRN (Reason: muscle spasm) Qty: 10 0RF lidocaine [Lidoderm] 5 % adhesive patch,medicated 1 patch topical DAILY Qty: 15 0RF Rx Instructions: leave on most painful area for up to 12 hrs Referrals: [facility] [Provider Group] (Call to establish and follow up with a primary care provider. If you already have a primary care provider, please follow up with them. ) [facility], [facility] [Provider Group] (Call to establish and follow up with a primary care provider. If you already have a primary care provider, please follow up with them. ) [facility] [Provider Group] (Call to establish and follow up with a primary care provider. If you already have a primary care provider, please follow up with them. ) Print Language: Chilean
[2022-08-20 08:56] VITALS: BP 147/73; PULSE 76; RESP 14; O2SAT 97
[2022-08-20] MEDS: Butalb/Acetamin/Caff 50/325/40 TABLET 1 TAB PO (08:56)
[2022-08-20] MEDS: HYDROcodone Bit/Acetam 5/325 TABLET 1 TAB PO (08:56)
== END 2022-08-20 09:20 | disposition home or self-care (01) ==
PROVIDERS: Emergency Provider Emergency Medicine
DX: R51.9 Headache, unspecified (principal); M54.50 Low back pain, unspecified; Z79.899 Other long term (current) drug therapy
CPT/HCPCS: 99283; 99284

== ENCOUNTER 2022-08-26 02:23 | Emergency (ER) | payer OTHER, SELFPAY ==
--- NOTE | ~2022-08-26 | XR_ITS ---
EXAMINATION: XR CHEST CLINICAL INFORMATION: Cough, rule out pneumonia COMPARISON: None TECHNIQUE: Frontal view of the chest was obtained. FINDINGS: Lung volumes are symmetric. No focal consolidation is seen. No evidence of pneumothorax, pleural effusion, or pulmonary edema. The cardiomediastinal contour is unremarkable. Degenerative changes are noted in the spine. XR/XR chest 1V IMPRESSION: No acute cardiopulmonary findings.
--- NOTE | 2022-08-26 02:29 | ED.URI ---
HPI - URI/Sore Throat General Chief Complaint: General Medical Stated Complaint: strep throat Time Seen by Provider: 08/26/22 02:26 Source: patient and EMS Mode of arrival: EMS Limitations: no limitations History of Present Illness HPI Narrative: Patient comes to the emergency room complaining of 2-3 hours of sore throat. Patient denies fever chills, patient has been coughing for a couple of hours. Patient denies nausea vomiting or diarrhea, no shortness of breath, no chest pain. Related Data Previous Rx's Medication Instructions Recorded oztxhjqjzz-cujhvahnijhct-wyliacyp 1 cap PO Q6H PRN pain #10 caps 07/10/21 50 mg-300 mg-40 mg capsule (Fioricet) cyclobenzaprine 10 mg tablet 10 mg PO TID PRN muscle spasm #10 07/10/21 tabs lidocaine 5 % topical patch 1 patch topical DAILY #15 ea 07/10/21 (Lidoderm) rgmqidbuvo-dngfvoqxbfsta-riujwgbc 1 cap PO Q6H PRN headache #10 caps 08/08/22 50 mg-300 mg-40 mg capsule (Fioricet) amlodipine 5 mg tablet 5 mg PO DAILY #30 tabs 08/14/22 evfumewijq-mvexrvjytyfcv-fvgzhluf 1 cap PO Q6H PRN pain #20 caps 08/14/22 50 mg-300 mg-40 mg capsule (Fioricet) auatehkuxv-dvvroekqtwuxk-lauapdff 1 cap PO Q4H PRN pain #30 caps 08/20/22 50 mg-300 mg-40 mg capsule (Fioricet) ngobbfvahe-yjfitqlzhtozp-yhpteajo 1 cap PO .B.i.d. PRN pain #14 caps 08/26/22 50 mg-300 mg-40 mg capsule (Fioricet) Allergies Allergy/AdvReac Type Severity Reaction Status Date / Time fentanyl Allergy Unknown felt like Verified 07/10/21 10:15 everything was spinning methadone Allergy Unknown pass out Verified 07/10/21 10:15 morphine Allergy Unknown pass out Verified 07/10/21 10:15 Review of Systems Review of Systems: Constitutional : No Weight loss, No Fever, No Chills, No Night Sweats, No Fatigue, No Malaise ENT/Mouth : No Hearing loss, No Ear Pain, No Nasal Congestion, No Sinus Pain, No Hoarseness, complaining of mild sore throat, No Rhinorrhea, No Swallowing Difficulty Eyes: No Eye Pain, No Swelling, No Redness, No Foreign Body, No Discharge, No Vision Changes Cardiovascular : No Chest Pain, No SOB, No Dyspnea on Exertion, No Orthopnea, No Edema, No Palpitations Respiratory : No Cough, No Sputum, No Wheezing, No Smoke Exposure, No Dyspnea Gastrointestinal : No Nausea, No Vomiting, No Diarrhea, No Constipation, No abdominal Pain, No Hematochezia, No Melena Genitourinary : no irregular bleeding, No Dysuria, No Urinary Frequency, No Hematuria, No Urinary Incontinence, No Urgency, No Flank Pain, No Urinary Flow Changes, No Hesitancy Musculoskeletal : No joint pain, No Myalgias, No Joint Swelling Skin : No Skin Lesions, No rash Neuro : No Weakness, No Numbness, No Paresthesias, No Loss of Consciousness, No Dizziness, No Headache Psych : No Anxiety/Panic, No Depression, No SI/HI/AH/VH, No Social Issues, Heme/Lymph: No Bruising, No Bleeding,No Lymphadenopathy Endocrine : No Polyuria, No Polydipsia, No Temperature Intolerance [facility] Social History Social History Alcohol intake: never Advance Directives: No Advance Directives Information Provided: Yes Physical Exam Vital Signs: Vital Signs: Last Vital Signs Temp 98.3 F 08/26/22 02:30 Pulse 75 08/26/22 02:30 Resp 18 08/26/22 02:30 BP 156/89 H 08/26/22 02:30 Pulse Ox 95 08/26/22 02:30 O2 Del Method 08/26/22 02:30 BMI result Body Mass Index 31.8 Const: Other: Appearance: Alert. Oriented X3. No acute distress. Eyes: Pupils equal, round and reactive to light. ENT: Pharynx normal. Patient does not have tonsils, mildly erythematous oropharynx Neck: Normal inspection. Neck supple. No lymph nodes noted. No crepitus CVS: Normal heart rate and rhythm. Pulses normal. Normal S1 and S2 Respiratory: No respiratory distress. Breath sounds normal. No Wheezing. No rales Abdomen: Soft and nontender. No rigidity. No distention. Skin: Skin warm and dry. Normal skin color. Normal skin turgor. Extremities: No lower extremity edema. No Lacerations. No Rash Neuro: Oriented X 3. No motor deficit. No sensory deficit. Moving all extremities. No slurred speech. CN 2 through 12 grossly intact Psych: calm, cooperative, normal affect Course Course Course Narrative: Patient likely has a viral URI, strep test, COVID test, influenza and chest x-ray pending. Patient tested negative for strep, COVID, influenza, chest x-ray negative. Patient likely having a viral illness Patient was seen 1 dose of p.o. viscous lidocaine for symptomatic relief. Patient is requesting a refill for her migraine medication. Patient was seen here approximately 1 week ago, prescribed 30 tablets of Fioricet. Patient states that she takes 2 tablets b.i.d. and she ran out of them. I discussed with the patient that if she is using the mentalis, she needs to be seen by her primary care physician and by her neurologist. I agreed to give her a prescription of 14 tablets to give her enough time to get in touch with the PCP and with her neurologist, who she sees in [place], [place] Medications Administered Discontinued Medications Generic Name Dose Route Start Last Admin Trade Name Freceli PRN Reason Stop Dose Admin Lidocaine HCl 15 ml 08/26/22 03:36 08/26/22 03:44 Lidocaine Hcl Viscous 2 % 15 Ml Solution MUCOUS MEM 08/26/22 03:37 15 ml ONCE ONE Administration MDM - URI/Sore Throat Lab Data Labs: Lab Results 08/26/22 08/26/22 08/26/22 Range/Units 02:47 02:47 02:47 COVID-19 (GURDEEP) Negative (Negative) COVID-19 Clin Com See Note Influenza Type A (LAZARUS) Negative (Negative) Influenza Type B (LAZARUS) Negative (Negative) Influenza A & B Note See Note S. pyogenes GrpA LAZARUS Negative (Negative) Imaging Data Chest x-ray: Radiologist's impression: [address] [address] XRay Report Signed Patient: Rosa Elena Berger MR#: [id number] : 1955 Acct:[id number] Age/Sex: 67 / F ADM Date: 08/26/22 Loc: HO.ED Attending Dr: Ordering Physician: Madelyn Hernadez MD Date of Service: 08/26/22 Procedure(s): XR chest 1V Accession Number(s): [id number] cc: Madelyn Hernadez MD~ EXAMINATION: XR CHEST CLINICAL INFORMATION: Cough, rule out pneumonia COMPARISON: None TECHNIQUE: Frontal view of the chest was obtained. FINDINGS: Lung volumes are symmetric. No focal consolidation is seen. No evidence of pneumothorax, pleural effusion, or pulmonary edema. The cardiomediastinal contour is unremarkable. Degenerative changes are noted in the spine. XR/XR chest 1V IMPRESSION: No acute cardiopulmonary findings. Discharge Plan Discharge Clinical Impression: Acute viral pharyngitis Patient Disposition: Home, Self-Care Instructions: Pharyngitis (ED) Additional Instructions: Please follow-up with your primary care physician tomorrow. If you have any worsening or new symptoms, please return to the emergency room or call 911 Prescriptions: New xikktaqvmr-slukjkiweoltn-hbgg [Fioricet] 50-300-40 mg capsule 1 cap PO .B.i.d. PRN (Reason: pain) Qty: 14 0RF No Action tihenboqjs-xphkwzdvnzbga-hljy [Fioricet] 50-300-40 mg capsule 1 cap PO Q6H PRN (Reason: headache) Qty: 10 0RF xxxmbdsbxd-zwojvuivivmbl-cwbl [Fioricet] 50-300-40 mg capsule 1 cap PO Q6H PRN (Reason: pain) Qty: 20 0RF amlodipine 5 mg tablet 5 mg PO DAILY Qty: 30 0RF qjleohvxso-qjzmwcunpgmbq-tibe [Fioricet] 50-300-40 mg capsule 1 cap PO Q4H PRN (Reason: pain) Qty: 30 0RF gabxqjbzff-xhiivxpddyshl-luhu [Fioricet] 50-300-40 mg capsule 1 cap PO Q6H PRN (Reason: pain) Qty: 10 0RF cyclobenzaprine 10 mg tablet 10 mg PO TID PRN (Reason: muscle spasm) Qty: 10 0RF lidocaine [Lidoderm] 5 % adhesive patch,medicated 1 patch topical DAILY Qty: 15 0RF Rx Instructions: leave on most painful area for up to 12 hrs
[2022-08-26 02:30] VITALS: BP 130/80; BP 156/89; PULSE 75; RESP 18; TEMP 36.8; O2SAT 95; O2SAT 99; BMI 31.8
--- OUTSIDE RECORDS SUMMARY | 2022-08-26 02:44 | XMS_ITS | Continuity of Care Document ---
:1955 Author Organization [facility] Address [address] [place] [address]- Care Team Providers Name Role Phone Terell Mello MD Primary Care Physician Encounter [facility] Date(s): 07/02/21 - 07/02/[address] [address]- Encounter Diagnosis Headache (Final) - 07/02/21 Discharge Disposition: A-D/C Home Attending Physician: Colt Emery MD Admitting Physician: Colt Emery MD Referring Physician: Not on Staff, Referring MD Allergies, Adverse Reactions, Alerts Substance Reaction Severity Status codeine nausea Active ibuprofen Active clindamycin c diff Active morphine dizzy Active Antivert double vision Active Leslie liver enzymes off Active Benadryl Active Muscle Rub liver enzymes off Active statins swelling/rash Active fentaNYL diff breathing Active LaMICtal Drug fever Active Macular rash NexIUM liver enzymes off Active Immunizations Given and Recorded Vaccine Date Status Refusal Reason SARS-CoV-2 (COVID-19) mRNA BNT-162b2 vac 01/29/21 Given SARS-CoV-2 (COVID-19) mRNA BNT-162b2 vac 01/08/21 Given Medications aspirin 325 mg oral capsule 2 capsule = 650 mg, By Mouth, Daily, 0 Refills, Maintenance, 07/02/21 6:35:00 EDT, Partial fill uponpatient request if the prescription is for a schedule II opioid drug. Start Date: 07/02/21 Status: OrderedDocusate/Senna Tablet 2 tablet, By Mouth, 2 times a day, 0 Refills, Maintenance, 12/06/20 14:34:00 EST, Tablet, Partial fill upon patient request if the prescription is for a schedule II opioid drug. Start Date: 12/06/20 Status: Orderedduloxetine 30 mg oral enteric coated capsule 1 capsule = 30 mg, By Mouth, Daily, 0 Refills, Maintenance, 12/06/20 14:34:00 EST, Capsule, Partial fill upon patient request if the prescription is for a schedule II opioid drug. Start Date: 12/06/20 Status: OrderedFioricet oral capsule 1 capsule, By Mouth, Every 6 hours, PRN as needed, # 30 capsule, 0 Refills, Acute 07/03/21 7:20:00 EDT, 07/02/21 7:20:00 EDT, Capsule, [facility]/pharmacy #[id number], Partial fill upon patient request if the prescription is for a schedule II opioid drug., 1 capsu... Start Date: 07/02/21 Stop Date: 07/03/21 Status: OrderedFioricet Tablet 1 tab every 6, By Mouth, PRN Headache, 0 Refills, Maintenance, 07/02/21 6:36:00 EDT, Tablet, Partialfill upon patient request if the prescription is for a schedule II opioid drug. Start Date: 07/02/21 Status: OrderedFioricet Tablet 1 tablet, Tablet, By Mouth, Once, STAT, 07/02/21 7:13:00 EDT, Stop date 07/02/21 7:13:00 EDT Notes: Butalbital 50mg, Not to exceed 4000mg of Acetaminophen per 24 hours. 325mg, Caffeine 40mg pertablet Start Date: 07/02/21 Stop Date: 07/02/21 Status: Completedgabapentin 300 mg oral capsule 300 mg, 1, capsule, By Mouth, 3 times a day, # 90 capsule, Refills 0, Tot. Refills 0, Maintenance, 11/27/20 14:19:00 EST, Print Requisition Start Date: 11/27/20 Status: OrderedMaalox Plus Liquid 30 mL, By Mouth, Every 4 hours, PRN Dyspepsia, 0 Refills, Maintenance, 12/14/20 11:05:00 EDT, Suspension, Partial fill upon patient request if the prescription is for a schedule II opioid drug. Start Date: 12/14/20 Status: Orderedoxycodone 30 mg oral tablet, extended release 1 tablet = 30 mg, By Mouth, Every 12 hours, # 12 tablet, 0 Refills, Maintenance, 12/14/20 11:05:00 EDT, ER Tablet Start Date: 12/14/20 Status: OrderedRisperDAL 0.25 mg oral tablet 0.25 mg, 1, tablet, By Mouth, Daily at bedtime, Refills 0, Maintenance, 12/14/20 11:05:00 EDT, Partial fill upon patient request if the prescription is for a schedule II opioid drug. Start Date: 12/14/20 Status: OrderedTimolol 0.5% Ophth 1, drops, Eyes, Both, 2 times a day, Refills 0, Maintenance, 11/27/20 14:53:00 EST, Ophth Solution Start Date: 11/27/20 Status: Ordered Problem List Condition Effective Dates Status Health Status Informant Opiate dependence, Active continuous(Confirmed) Vital Signs Most recent to oldest 1 2 3 [Reference Range]: Height 160 cm 160 cm 160 cm (07/02/21 7:42 AM) (07/02/21 6:28 AM) (07/02/21 6:1 0 AM) Weight 60 kg 60 kg 60 kg (07/02/21 7:42 AM) (07/02/21 6:28 AM) (07/02/21 6:1 0 AM) Oxygen Saturation [94-100 99 % 99 % 99 % %] (07/02/21 7:42 AM) (07/02/21 6:28 AM) (07/02/21 6:1 0 AM) Pulse Rate [55-90 bpm] 74 bpm 71 bpm 74 bpm (07/02/21 7:42 AM) (07/02/21 6:28 AM) (07/02/21 6:1 0 AM) Body Mass Index 23.44 23.44 [18.5-24.99] (07/02/21 7:42 AM) (07/02/21 6:10 AM) Blood Pressure 152/99 mm Hg 146/88 mm Hg 125/86 mm Hg [90-138/55-84 mm Hg] *H* *H* (07/02/21 6: 10 AM) (07/02/21 7:42 AM) (07/02/21 6:28 AM) Respiratory Rate [16-30 16 br/min 16 br/min 20 br/mi n br/min] (07/02/21 7:44 AM) (07/02/21 7:42 AM) (07/02/21 6:2 8 AM) Temperature [96.8-100.4 98 DegF DegF] (07/02/21 6:10 AM) Mode of Delivery (Oxygen) Room air Room air Room a ir (07/02/21 7:42 AM) (07/02/21 6:28 AM) (07/02/21 6:1 0 AM) Blood pressure sites Arm, left Arm, left Arm, left (07/02/21 7:42 AM) (07/02/21 6:28 AM) (07/02/21 6:1 0 AM) Temperature Route Oral (07/02/21 6:10 AM) Dry Weight 60 kg 60 kg 60 kg (07/02/21 7:42 AM) (07/02/21 6:28 AM) (07/02/21 6:1 0 AM) Weight Obtained Via Patient/family stated Patient/family stated (07/02/21 6:28 AM) (07/02/21 6:10 AM) Dry Weight Obtained Via Patient/family stated Patient/family sta [place] (07/02/21 6:28 AM) (07/02/21 6:10 AM) Social History Social History Type Response Smoking Status Former smoker; Tobacco user in household: No entered on: 03/27/14 Sex
--- OUTSIDE RECORDS SUMMARY | 2022-08-26 02:44 | XMS_ITS | Continuity of Care Document ---
:1955 Author Organization [facility] Address Unavailable , Care Team Providers Name Role Phone Riaz SIMON, Terell Ornelas Primary Care Physician [place] [facility] [place]01[place] - 07/31/21 [facility] Allergies, Adverse Reactions, Alerts Substance Reaction Severity [...] opioid drug. Start Date: 12/06/20 Status: OrderedFioricet Tablet 1 tab every 6, By Mouth, PRN Headache, 0 Refills, Maintenance, 07/02/21 6:36:00 EDT, Tablet, Partialfill upon patient request if the prescription is for a schedule II opioid drug. Start Date: 07/02/21 Status: Orderedgabapentin 300 mg oral capsule 300 mg, 1, [...] Health Status Informant Opiate dependence, Active continuous(Confirmed) Social History Social History Type Response Smoking Status Former smoker; Tobacco user in household: No entered on: 03/27/14 Sex
--- OUTSIDE RECORDS SUMMARY | 2022-08-26 02:44 | XMS_ITS | Continuity of Care Document ---
:1955 Author Organization [facility] Address [address] [place] [address]- Care Team Providers Name Role Phone Riaz SIMON, Terell Ornelas Primary Care Physician Encounter [facility] Date(s): 10/25/20 - 11/27/[address] [address]- Discharge Disposition: A-Transfer SNF Attending Physician: Elver SIMON, Zoya Shin Admitting Physician: Justin Cornejo DO Referring Physician: Anjana SIMON, Yi Patricio Allergies, Adverse Reactions, Alerts Substance Reaction Severity Status codeine nausea Active clindamycin c diff Active morphine dizzy Active Antivert double vision Active Muscle Rub liver enzymes off Active statins swelling/rash Active NexIUM liver enzymes off Active LaMICtal Drug fever Active Macular rash ibuprofen Active Benadryl Active fentaNYL diff breathing Active Leslie liver enzymes off Active Medications acetaminophen 325 mg oral tablet 650 mg, By Mouth, Every 4 hours, PRN, Temperature Greater than 100.5, Refills 0, Maintenance, Pain ,Mild, 11/27/20 14:18:00 EST, Partial fill upon patient request if the prescription is for a scheduleII opioid drug. Start Date: 11/27/20 Status: Ordereddivalproex sodium 250 mg oral enteric coated tablet = 250 mg, By Mouth, 3 times a day, 0 Refills, Maintenance, 11/27/20 14:18:00 EST, Tablet, Partial fill upon patient request if the prescription is for a schedule II opioid drug. Start Date: 11/27/20 Status: Orderedduloxetine 60 mg oral enteric coated capsule 1 capsule = 60 mg, By Mouth, Daily, 0 Refills, Maintenance, 11/27/20 14:18:00 EST, Capsule, Partial fill upon patient request if the prescription is for a schedule II opioid drug. Start Date: 11/27/20 Status: Orderedgabapentin 300 mg oral capsule 300 mg, Capsule, By Mouth, 11/27/20 9:00:00 EST Start Date: 11/27/20 Stop Date: 11/27/20 Status: Completedgabapentin 300 mg oral capsule 300 mg, 1, capsule, By Mouth, 3 times a day, # 90 capsule, Refills 0, Tot. Refills 0, Maintenance, 11/27/20 14:19:00 EST, Print Requisition Start Date: 11/27/20 Status: Orderedmetoprolol 25 mg oral tablet 50 mg, Tablet, By Mouth, 11/27/20 9:00:00 EST Start Date: 11/27/20 Stop Date: 11/27/20 Status: Completedmetoprolol 25 mg oral tablet 50 mg, 2, tablet, By Mouth, 2 times a day, Refills 0, Maintenance, 11/27/20 14:19:00 EST, Partial fill upon patient request if the prescription is for a schedule II opioid drug. Start Date: 11/27/20 Status: Orderedmetoprolol 25 mg oral tablet 50 mg, Tablet, By Mouth, 11/26/20 21:00:00 EST Start Date: 11/26/20 Stop Date: 11/26/20 Status: CompletedMiraLax Powder 1 pack/packet = 17 Gm, By Mouth, Daily, PRN Constipation, 0 Refills, Maintenance, 11/27/20 14:19:00 EST, Powder, Partial fill upon patient request if the prescription is for a schedule II opioid drug. Start Date: 11/27/20 Status: OrderedoxyCODONE 10 mg oral tablet, extended release 30 mg, ER Tablet, By Mouth, Must be at least 10 hours between doses, 11/27/20 6:00:00 EST Start Date: 11/27/20 Stop Date: 11/27/20 Status: Completedoxycodone 30 mg oral tablet, extended release 1 tablet = 30 mg, By Mouth, Every 12 hours, # 60 tablet, 0 Refills, Maintenance, 11/27/20 14:18:00 EST, ER Tablet Start Date: 11/27/20 Status: OrderedSenna 8.6 mg oral tablet 17.2 mg, 2, tablet, By Mouth, 2 times a day, Refills 0, Maintenance, 11/27/20 14:19:00 EST, Tablet, Partial fill upon patient request if the prescription is for a schedule II opioid drug. Start Date: 11/27/20 Status: OrderedTimolol 0.5% Ophth 1, drops, Eyes, Both, 2 times a day, Refills 0, Maintenance, 11/27/20 14:53:00 EST, Ophth Solution Start Date: 11/27/20 Status: Ordered Problem List Condition Effective Dates Status Health Status Informant Opiate dependence, Active continuous(Confirmed) Results Orders for Microbiology Reports Name Date Blood Culture 11/20/20 Blood Culture #2 11/20/20 Urine Culture (URINE CULTURE) 11/19/20 Urine Culture (URINE CULTURE) 11/01/20 Microbiology Reports TEST:Blood Culture, Second Order STATUS:Auth (Verified) BODY SITE: SOURCE:Blood COLLECTED DATE/TIME:11/20/20 8:30 AMBlood Culture, Second Order SPECIMEN DESCRIPTION : BLOOD L AC SPECIAL REQUESTS : NONE CULTURE : NO GROWTH 5 DAYS. REPORT STATUS : FINAL 11/25/2020TEST:Blood Culture STATUS:Auth (Verified) BODY SITE: SOURCE:Blood COLLECTED DATE/TIME:11/20/20 8:20 AMBlood Culture SPECIMEN DESCRIPTION : BLOOD R AC SPECIAL REQUESTS : NONE CULTURE : NO GROWTH 5 DAYS. REPORT STATUS : FINAL 11/25/2020TEST:Urine Culture STATUS:Auth (Verified) BODY SITE: SOURCE:URINE COLLECTED DATE/TIME:11/19/20 10:58 AMUrine Culture SPECIMEN DESCRIPTION : URINE SPECIAL REQUESTS : NONE Reflexed from [id number] CULTURE : NO GROWTH REPORT STATUS : FINAL 11/20/2020TEST:Urine Culture STATUS:Auth (Verified) BODY SITE: SOURCE:URINE COLLECTED DATE/TIME:11/01/20 1:15 PMUrine Culture SPECIMEN DESCRIPTION : URINE SPECIAL REQUESTS : NONE Reflexed from [id number] CULTURE : >100,000 COL/ML CITROBACTER AMALONATICUS REPORT STATUS : FINAL 11/03/2020 ORGANISM >100,000 COL/ML CITROBACTER AMALONATICUS METHOD MIN. INHIB. CONC. (MCG/ML) AMPICILLIN RESISTANT AMPICILLIN/SULBACTAM RESISTANT AMOXICILLIN/CLAVULAN RESISTANT CEFAZOLIN RESISTANT CEFEPIME SUSCEPTIBLE CEFTRIAXONE RESISTANT CIPROFLOXACIN SUSCEPTIBLE ERTAPENEM SUSCEPTIBLE GENTAMICIN SUSCEPTIBLE LEVOFLOXACIN SUSCEPTIBLE MEROPENEM SUSCEPTIBLE NITROFURANTOIN INTERMEDIATE PIPERACILLIN/TAZOBAC SUSCEPTIBLE TRIMETH/SULFAMETHOX SUSCEPTIBLE TETRACYCLINE SUSCEPTIBLERadiology Reports Exam Date Time Procedure Performing Provider Status 11/19/20 10:00 AM Chest 2 Views Frontal and Lat Hudson Samuel; [facility] (Verified) Notes:(Chest 2 Views Frontal and Lat) Reason For Exam: FeverRESULT: Chest 2 Views Frontal and Lat Chest 2 Views Frontal and Lat Reason: Fever; Clinical Question(s): Pneumonia COMPARISON: 06/27/2019. FINDINGS: LINES AND TUBES: None. LUNGS AND PLEURA: Large lung volumes. Otherwise, lungs are clear. Normal pulmonary vascularity. No pleural effusion. No pneumothorax. HEART, MEDIASTINUM AND ALMA ROSA: Heart is normal in size. Aorta is somewhat tortuous. BONES AND SOFT TISSUES: No acute abnormality. Degenerative changes in the spine. Right upper quadrant, likely cholecystectomy clips. IMPRESSION: No acute abnormality. WSN: [id number] Ordering Physician: Denisse Eden Dictated By: Bryan Machado MD Dictated Date/Time: 11/19/20 11:19 a Reviewed By: Bryan Mcahado MD Signed By: Bryan Machado MD Signed Date/Time: 11/19/20 11:19 am Transcribed By: JAYLENE Transcribed Date/Time: 11/19/20 11:16 am Exam Date Time Procedure Performing Provider Status 10/25/20 5:03 AM Finger 4th Left Hand Donnie Becerril (Verif ied) Notes:(Finger 4th Left Hand) Reason For Exam: DeformityRESULT: Finger 4th Left Hand Left hand 3 views dated October 25, 2020. No prior studies are available. HISTORY: Pain. FINDINGS: This examination is mildly limited with the presence of a metallic ring on the third finger. There is dislocation of the total phalanx of the fourth finger posteriorly. This is associated with a fracture off the proximal portion of the terminal phalanx. The fracture fragment is displaced proximally and dorsally. There are significant arthritic changes in the visualized additional interphalangeal joints with loss of joint space and osteophyte formation. In addition, there are several small metallic foreign bodies demonstrated in the region of the interdigitating webspace between the third and fourth fingers and within the interdigital space of the fourth and fifth fingers. IMPRESSION: Fracture dislocation of the distal interphalangeal joint as described above. Significant arthritic changes elsewhere. Metallic foreign bodies. I am uncertain if these are in or on the patient. Examination 689[address]. Thank you for allowing me to participate in the care of this patient. WSN: [id number] Ordering Physician: Yi Yeung Dictated By: Hay Jay MD Dictated Date/Time: 10/25/20 7:51 am Reviewed By: Hay Jay MD Signed By: Hay Jay MD Signed Date/Time: 10/25/20 7:51 am Transcribed By: JAYLENE Transcribed Date/Time: 10/25/20 7:49 am Vital Signs Most recent to oldest 1 2 3 [Reference Range]: Height 160 cm 160 cm 160 cm (11/27/20 5:33 AM) (11/26/20 5:35 AM) (11/25/20 2:43 PM) Weight 50.4 kg 48.9 kg 70 kg (11/23/20 10:42 PM) (10/25/20 6:18 PM) (10/25/20 4: 24 PM) Oxygen Saturation [94-100 %] 97 % 99 % 96 % (11/27/20 5:33 AM) (11/26/20 8:00 PM) (11/26/20 5:35 A M) Pulse Rate [55-90 bpm] 85 bpm 67 bpm 73 bpm (11/27/20 9:45 AM) (11/27/20 5:33 AM) (11/26/20 8:02 P M) Body Mass Index [18.5-24.99] 19.1 27.34 27. 34 (10/25/20 6:18 PM) *H* *H* (10/25/20 4:24 PM) (10/25/20 2:12 PM) Blood Pressure [90-138/55-84 147/64 mm Hg 125/63 mm Hg 132 /65 mm Hg mm Hg] *H* (11/27/20 5:33 AM) (11/26/20 8:02 PM ) (11/27/20 9:45 AM) Respiratory Rate [16-30 16 br/min 16 br/min 18 br/mi n br/min] (11/27/20 10:37 AM) (11/27/20 9:45 AM) (11/27/20 6:16 AM) Temperature [96.8-100.4 DegF] 97.9 DegF 98.5 DegF 98 .3 DegF (11/27/20 5:33 AM) (11/26/20 8:00 PM) (11/26/20 5:35 A M) Liters per Minute 0 L/min (11/24/20 6:14 AM) Mode of Delivery (Oxygen) Room air Room air Room a ir (11/27/20 5:33 AM) (11/26/20 8:00 PM) (11/26/20 5:35 A M) Blood pressure sites Arm, left Arm, right Arm, left (11/27/20 5:33 AM) (11/26/20 8:00 PM) (11/26/20 5:35 A M) Temperature Route Oral Oral Oral (11/27/20 5:33 AM) (11/26/20 8:00 PM) (11/26/20 5:35 A M) Dry Weight 48.9 kg 70 kg 70 kg (10/25/20 6:18 PM) (10/25/20 4:24 PM) (10/25/20 2:1 2 PM) Weight Obtained Via Standing scale Bed scale Standing sca le (11/23/20 10:42 PM) (10/25/20 6:18 PM) (10/25/20 5: 32 AM) Dry Weight Obtained Via Standing scale (10/25/20 5:32 AM) Social History Social History Type Response Smoking Status Former smoker; Tobacco user in household: No entered on: 03/27/14 Sex
--- OUTSIDE RECORDS SUMMARY | 2022-08-26 02:44 | XMS_ITS | Continuity of Care Document ---
:1955 Author Organization [facility] Address [address] [place] [address]- Care Team Providers Name Role Phone Terell Mello MD Primary Care Physician Encounter [facility] Date(s): 02/26/21 - 02/26/[address] [address]- Discharge Disposition: A-D/C Home Attending Physician: Karen Ashton MD Admitting Physician: Karen Ashton MD Referring Physician: Not on Staff, Referring MD Allergies, Adverse Reactions, Alerts Substance Reaction Severity Status codeine nausea Active Antivert double vision Active statins swelling/rash Active NexIUM liver enzymes off Active ibuprofen Active Benadryl Active clindamycin c diff Active morphine dizzy Active fentaNYL diff breathing Active Leslie liver enzymes off Active Muscle Rub liver enzymes off Active LaMICtal Drug fever Active Macular rash Immunizations Given and Recorded Vaccine Date Status Refusal Reason SARS-CoV-2 (COVID-19) mRNA BNT-162b2 vac 01/29/21 Given SARS-CoV-2 (COVID-19) mRNA BNT-162b2 vac 01/08/21 Given Medications acetaminophen 325 mg oral tablet 650 mg, By Mouth, Every 4 hours, PRN, Temperature Greater than 100.5, Refills 0, Maintenance, Pain ,Mild, 11/27/20 14:18:00 EST, Partial fill upon patient request if the prescription is for a scheduleII opioid drug. Start Date: 11/27/20 Status: Ordereddivalproex sodium 500 mg oral enteric coated tablet = 500 mg, By Mouth, 2 times a day, 0 Refills, Maintenance, 12/06/20 14:34:00 EST, Tablet, Partial fill upon patient request if the prescription is for a schedule II opioid drug. Start Date: 12/06/20 Status: OrderedDocusate/Senna Tablet 2 tablet, By Mouth, [...] II opioid drug. Start Date: 12/06/20 Status: Orderedgabapentin 300 mg oral capsule 300 [...] II opioid drug. Start Date: 12/14/20 Status: OrderedrisperiDONE 0.5 mg oral tablet, disintegrating = 0.5 mg, By Mouth, 2 times a day, PRN Agitation, Psychosis, 0 Refills, Maintenance, 12/14/20 11:06:00 EDT, DIS Tablet, Partial fill upon patient request if the prescription is for a schedule II opioiddrug. Start Date: 12/14/20 Status: OrderedTimolol 0.5% Ophth 1, drops, Eyes, Both, 2 times a day, Refills 0, Maintenance, 11/27/20 14:53:00 EST, Ophth Solution Start Date: 11/27/20 Status: OrderedtraZODone 50 mg oral tablet 25 mg, 0.5, tablet, By Mouth, Daily at bedtime, PRN, MAY REPEAT X1, Refills 0, Maintenance, Insomnia, 12/14/20 11:06:00 EDT, Partial fill upon patient request if the prescription is for a schedule II opioid drug. Start Date: 12/14/20 Status: Ordered Problem List Condition Effective Dates Status Health Status Informant Opiate dependence, Active continuous(Confirmed) Vital Signs Most recent to oldest [Reference Range]: 1 Height 160 cm (02/26/21 4:59 AM) Weight 56.1 kg (02/26/21 4:59 AM) Oxygen Saturation [94-100 %] 100 % (02/26/21 4:59 AM) Pulse Rate [55-90 bpm] 89 bpm (02/26/21 4:59 AM) Blood Pressure [90-138/55-84 mm Hg] 164/97 mm Hg *H* (02/26/21 4:59 AM) Respiratory Rate [16-30 br/min] 16 br/min (02/26/21 4:59 AM) Temperature [96.8-100.4 DegF] 97.0 DegF (02/26/21 4:59 AM) Mode of Delivery (Oxygen) Room air (02/26/21 4:59 AM) Temperature Route Temporal (02/26/21 4:59 AM) Dry Weight 56.1 kg (02/26/21 4:59 AM) Weight Obtained Via Standing scale (02/26/21 4:59 AM) Dry Weight Obtained Via Standing scale (02/26/21 4:59 AM) Social History Social History Type Response Smoking Status Former smoker; Tobacco user in household: No entered on: 03/27/14 Sex
--- OUTSIDE RECORDS SUMMARY | 2022-08-26 02:44 | XMS_ITS | Continuity of Care Document ---
:1955 Author Organization [facility] Address Unavailable , Care Team Providers Name Role Phone Riaz SIMON, Terell Ornelas Primary Care Physician Encounter [facility] Date(s): 11/01/21 - 12/01/21 [facility] Allergies, Adverse Reactions, Alerts Substance [...]
--- OUTSIDE RECORDS SUMMARY | 2022-08-26 02:44 | XMS_ITS | Continuity of Care Document ---
:1955 Author Organization [facility] Address [address] [place] [address]- Care Team Providers Name Role Phone Terell Mello MD Primary Care Physician Encounter [facility] [id number] Date(s): 01/05/22 - 01/05/[address] [address]- Encounter Diagnosis Tooth pain (Final) - 01/05/22 Discharge Disposition: A-D/C Home Attending Physician: Toro Garza MD Admitting Physician: Toro Garza MD Referring Physician: Not on Staff, Referring [...] Start Date: 12/06/20 Status: OrderedFioricet oral capsule 2 capsule, By Mouth, 2 times a day, PRN as needed, not to exceed 6 capsules/day, # 40 capsule, 0 Refills, Acute 01/19/22 7:47:00 EDT, 01/05/22 7:47:00 EDT, Capsule, [id number], Partial fill upon patient request if the prescription is for a matthew... Start Date: 01/05/22 Stop Date: 01/19/22 Status: OrderedFioricet oral capsule 2 capsule, By Mouth, 2 times a day, PRN as needed, not to exceed 6 capsules/day, # 40 capsule, 0 Refills, Acute 01/19/22 8:17:00 EDT, 01/05/22 8:17:00 EDT, Capsule, [id number], Partial fill upon patient request if the prescription is fo... Start Date: 01/05/22 Stop Date: 01/19/22 Status: OrderedFioricet Tablet 1 tab every 6, By Mouth, PRN Headache, 0 Refills, Maintenance, 07/02/21 6:36:00 EDT, Tablet, Partialfill upon patient request if the prescription is for a schedule II opioid drug. Start Date: 07/02/21 Status: OrderedFioricet Tablet 2 tablet, Tablet, By Mouth, Once, PRN for Headache, STAT, 01/05/22 7:19:00 EDT Notes: Butalbital 50mg, Not to exceed 4000mg of Acetaminophen per 24 hours. 325mg, Caffeine 40mg pertablet Start Date: 01/05/22 Stop Date: 01/05/22 Status: Completedgabapentin 300 mg oral capsule 300 [...] EDT, ER Tablet Start Date: 12/14/20 Status: Orderedpenicillin V potassium 500 mg oral tablet 1 tablet = 500 mg, By Mouth, Every 8 hours, for 10 days, # 30 tablet, 0 Refills, Acute 01/15/22 7:48:00 EDT, 01/05/22 7:48:00 EDT, Tablet, [id number], Partial fill upon patient request if the prescription is for a schedule II opioid drug., 160... Start Date: 01/05/22 Stop Date: 01/15/22 Status: Orderedpenicillin V potassium 500 mg oral tablet 1 tablet = 500 mg, By Mouth, Every 8 hours, for 10 days, # 30 tablet, 0 Refills, Acute 01/15/22 8:17:00 EDT, 01/05/22 8:17:00 EDT, Tablet, [id number], Partial fill upon patient request if the prescription is for a schedule II opioid tere... Start Date: 01/05/22 Stop Date: 01/15/22 Status: OrderedPropranolol 160 mg, By Mouth, Daily in AM, Refills 0, Maintenance, 12/20/21 6:58:00 EDT, Partial fill upon patient request if the prescription is for a schedule II opioid drug. Start Date: 12/20/21 Status: OrderedRisperDAL 0.25 mg oral tablet 0.25 [...] [Reference Range]: Height 160 cm 160 cm (01/05/22 7:59 AM) (01/05/22 7:17 AM) Weight 65 kg 65 kg (01/05/22 7:59 AM) (01/05/22 7:17 AM) Oxygen Saturation [94-100 97 % 98 % %] (01/05/22 7:59 AM) (01/05/22 6:39 AM) Pulse Rate [55-90 bpm] 70 bpm 73 bpm (01/05/22 7:59 AM) (01/05/22 6:39 AM) Body Mass Index 25.39 [18.5-24.99] *H* (01/05/22 7:59 AM) Blood Pressure 189/91 mm Hg 179/83 mm Hg [90-138/55-84 mm Hg] *H* *H* (01/05/22 7:59 AM) (01/05/22 6:39 AM) Respiratory Rate [16-30 18 br/min 18 br/min 18 br/mi n br/min] (01/05/22 7:59 AM) (01/05/22 7:56 AM) (01/05/22 6:3 9 AM) Temperature [96.8-100.4 98.7 DegF 98.3 DegF DegF] (01/05/22 7:59 AM) (01/05/22 6:39 AM) Liters per Minute 0 L/min (01/05/22 6:39 AM) Mode of Delivery (Oxygen) Room air Room air (01/05/22 7:59 AM) (01/05/22 6:39 AM) Blood pressure sites Arm, left Arm, left (01/05/22 7:59 AM) (01/05/22 6:39 AM) Temperature Route Temporal Oral (01/05/22 7:59 AM) (01/05/22 6:39 AM) Dry Weight 65 kg 65 kg (01/05/22 7:59 AM) (01/05/22 7:17 AM) Weight Obtained Via Patient/family stated (01/05/22 7:17 AM) Dry Weight Obtained Via Patient/family stated (01/05/22 7:17 AM) Social History Social History Type Response Smoking Status Former smoker; Tobacco user in household: No entered on: 03/27/14 Sex
--- OUTSIDE RECORDS SUMMARY | 2022-08-26 02:44 | XMS_ITS | Continuity of Care Document ---
:1955 Author Organization [facility] Address [address] [place] [id number]- Care Team Providers Name Role Phone Terell Mello MD Primary Care Physician Encounter [facility] Date(s): 02/26/21 - 03/28/21 [facility] [address] [place] [id number] Attending Physician: Trudy Hinson Admitting Physician: [id number] Referring Physician: Admtr, [id number] Allergies, Adverse Reactions, Alerts Substance Reaction Severity Status codeine nausea Active ibuprofen Active Leslie liver enzymes off Active Benadryl Active Muscle Rub liver enzymes off Active statins swelling/rash Active fentaNYL diff breathing Active LaMICtal Drug fever Active Macular rash NexIUM liver enzymes off Active Antivert double vision Active clindamycin c diff Active morphine dizzy Active Immunizations Given and Recorded Vaccine Date [...]
--- OUTSIDE RECORDS SUMMARY | 2022-08-26 02:44 | XMS_ITS | Continuity of Care Document ---
:1955 Author Organization [facility] Address [address] [place] [address]- Care Team Providers Name Role Phone Terell Mello MD Primary Care Physician Encounter [facility] [id number] Date(s): 02/18/22 - 02/18/[address] [address]- Discharge Disposition: A-D/C Home Attending Physician: Toro Garza MD Admitting Physician: Toro Garza MD Referring Physician: Not on Staff, Referring MD Allergies, Adverse Reactions, Alerts Substance Reaction Severity Status codeine nausea Active NexIUM liver enzymes off Active ibuprofen Active Benadryl Active statins swelling/rash Active clindamycin c diff Active morphine dizzy Active fentaNYL diff breathing Active Antivert double vision Active Leslie liver enzymes off Active Muscle Rub liver enzymes off Active LaMICtal Drug fever Active Macular rash Immunizations Given and Recorded Vaccine Date Status Refusal Reason SARS-CoV-2 (COVID-19) mRNA BNT-162b2 vac 01/29/21 Given SARS-CoV-2 (COVID-19) mRNA BNT-162b2 vac 01/08/21 Given Medications acetaminophen-caffeine 325 mg-65 mg oral tablet 2 tablet, By Mouth, Every 12 hours, not to exceed 8 tablets/day, # 30 tablet, 0 Refills, Acute 03/21/22 7:02:00 EDT, 02/18/22 7:01:00 EDT, Tablet, [facility] #[id number], Partial fill upon patient request if the prescription is for a schedule II opioid . Start Date: 02/18/22 Stop Date: 03/21/22 Status: Orderedaspirin 325 mg oral capsule 2 capsule = [...] Tablet 2 tablet, Tablet, By Mouth, Once, STAT, 02/18/22 6:54:00 EDT, Stop date 02/18/22 6:54:00 EDT Notes: Butalbital 50mg, Not to exceed 4000mg of Acetaminophen per 24 hours. 325mg, Caffeine 40mg pertablet Start Date: 02/18/22 Stop Date: 02/18/22 Status: Completedgabapentin 300 mg oral capsule 300 [...] EDT, ER Tablet Start Date: 12/14/20 Status: OrderedPropranolol 160 mg, By Mouth, Daily [...] 2 3 [Reference Range]: Height 160 cm (02/18/22 6:12 AM) Weight 68 kg (02/18/22 6:12 AM) Oxygen Saturation [94-100 100 % 97 % %] (02/18/22 7:38 AM) (02/18/22 6:00 AM) Pulse Rate [55-90 bpm] 63 bpm 64 bpm (02/18/22 7:38 AM) (02/18/22 6:00 AM) Blood Pressure 157/92 mm Hg 124/62 mm Hg [90-138/55-84 mm Hg] *H* (02/18/22 6:00 AM) (02/18/22 7:38 AM) Respiratory Rate [16-30 18 br/min 18 br/min 18 br/mi n br/min] (02/18/22 7:38 AM) (02/18/22 7:32 AM) (02/18/22 6:0 0 AM) Temperature [96.8-100.4 97.8 DegF 97.8 DegF DegF] (02/18/22 7:38 AM) (02/18/22 6:00 AM) Liters per Minute 0 L/min (02/18/22 6:00 AM) Mode of Delivery (Oxygen) Room air Room air (02/18/22 7:38 AM) (02/18/22 6:00 AM) Blood pressure sites Arm, right Arm, right (02/18/22 7:38 AM) (02/18/22 6:00 AM) Temperature Route Temporal Oral (02/18/22 7:38 AM) (02/18/22 6:00 AM) Dry Weight 68 kg (02/18/22 6:12 AM) Weight Obtained Via Patient/family stated (02/18/22 6:12 AM) Dry Weight Obtained Via Patient/family stated (02/18/22 6:12 AM) Social History Social History Type Response Smoking Status Former smoker; Tobacco user in household: No entered on: 03/27/14 Sex
--- OUTSIDE RECORDS SUMMARY | 2022-08-26 02:44 | XMS_ITS | Continuity of Care Document ---
:1955 Author Organization [facility] Address [address] [place] [address]- Care Team Providers Name Role Phone Terell Mello MD [id number] [address] [place] [id number] Attending Physician: Jose Luis Curran DO Admitting Physician: Jose Luis Curran DO Referring Physician: Terell Mello MD Allergies, Adverse Reactions, Alerts Substance Reaction [...]
--- OUTSIDE RECORDS SUMMARY | 2022-08-26 02:44 | XMS_ITS | Continuity of Care Document ---
:1955 Author Organization [facility] Address Unavailable , Care Team Providers Name Role Phone Riaz SIMON, Terell Ornelas Primary Care Physician Encounter [facility] Date(s): 10/28/21 - 11/27/21 [facility] Allergies, Adverse Reactions, Alerts Substance [...]
--- OUTSIDE RECORDS SUMMARY | 2022-08-26 02:44 | XMS_ITS | Continuity of Care Document ---
:1955 Author Organization [facility] Address [address] [place] [address]- Care Team Providers Name Role Phone Terell Mello MD Primary Care Physician Encounter [facility] Date(s): 03/13/21 - 03/13/[address] [address]- Discharge Disposition: A-D/C Walkout Attending Physician: John Lawson MD Admitting Physician: John Lawson MD Referring Physician: Not on Staff, Referring [...]
--- OUTSIDE RECORDS SUMMARY | 2022-08-26 02:44 | XMS_ITS | Continuity of Care Document ---
:1955 Author Organization [facility] Address [address] [place] [address]- Care Team Providers Name Role Phone Terell Mello MD Primary Care Physician Encounter [facility] NBR [id number] Date(s): 12/20/21 - 12/20/[address] [address]- Discharge Disposition: A-D/C Home Attending Physician: Toro [...] oral capsule 1 capsule, By Mouth, Every 4 hours, PRN as needed, # 30 capsule, 0 Refills, Acute 12/27/21 8:06:00 EDT, 12/20/21 8:06:00 EDT, Capsule, [id number], Partial fill upon patient request if the prescription is for a schedule II opioid drug.,... Start Date: 12/20/21 Stop Date: 12/27/21 Status: OrderedFioricet Tablet 1 tab every 6, By Mouth, PRN Headache, 0 Refills, Maintenance, 07/02/21 6:36:00 EDT, Tablet, Partialfill upon patient request if the prescription is for a schedule II opioid drug. Start Date: 07/02/21 Status: OrderedFioricet Tablet 1 tablet, Tablet, By Mouth, Once, PRN for Headache, STAT, 12/20/21 7:59:00 EDT Notes: Butalbital 50mg, APAP 325mg, Caffeine 40mg per tablet Start Date: 12/20/21 Stop Date: 12/20/21 Status: Completedgabapentin 300 mg oral capsule 300 [...] EDT, ER Tablet Start Date: 12/14/20 Status: OrderedoxyCODONE 5 mg oral tablet 5 mg, Tablet, By Mouth, Once, STAT, 12/20/21 8:00:00 EDT, Stop date 12/20/21 8:00:00 EDT Start Date: 12/20/21 Stop Date: 12/20/21 Status: CompletedoxyCODONE 5 mg oral tablet 5 mg, 1, tablet, By Mouth, Every 6 hours, PRN, may partially fill, # 7 tablet, Refills 0, Tot. Refills 0, Acute 12/23/21 12:01:00 EDT, for pain, 12/20/21 12:01:00 EDT, Route to Pharmacy Electronically,[facility]/pharmacy #[id number], Partial fill upon patient req... Start Date: 12/20/21 Stop Date: 12/23/21 Status: OrderedPropranolol 160 mg, By Mouth, Daily [...] [Reference Range]: Height 160 cm 160 cm (12/20/21 6:54 AM) (12/20/21 6:49 AM) Weight 66 kg (12/20/21 6:54 AM) Oxygen Saturation [94-100 98 % %] (12/20/21 6:49 AM) Pulse Rate [55-90 bpm] 66 bpm (12/20/21 6:49 AM) Blood Pressure 169/106 mm Hg [90-138/55-84 mm Hg] *H* (12/20/21 6:49 AM) Respiratory Rate [16-30 18 br/min 18 br/min 16 br/mi n br/min] (12/20/21 8:12 AM) (12/20/21 8:12 AM) (12/20/21 6:4 9 AM) Temperature [96.8-100.4 98.4 DegF DegF] (12/20/21 6:49 AM) Mode of Delivery (Oxygen) Room air (12/20/21 6:49 AM) Blood pressure sites Arm, left (12/20/21 6:49 AM) Temperature Route Oral (12/20/21 6:49 AM) Dry Weight 66 kg 66 kg (12/20/21 6:54 AM) (12/20/21 6:49 AM) Weight Obtained Via Patient/family stated (12/20/21 6:49 AM) Dry Weight Obtained Via Patient/family stated (12/20/21 6:49 AM) Social History Social History Type Response Smoking Status Former smoker; Tobacco user in household: No entered on: 03/27/14 Sex
--- OUTSIDE RECORDS SUMMARY | 2022-08-26 02:44 | XMS_ITS | Continuity of Care Document ---
:1955 Author Organization [facility] Address [address] [place] [address]- Care Team Providers Name Role Phone Terell Mello MD Primary Care Physician [id number] Date(s): 06/28/22 - 06/28/[address] [address]- Encounter Diagnosis Drug-seeking behavior (Final) - 06/28/22 Encounter for medication counseling (Final) - 06/28/22 Chronic headache disorder (Final) - 06/28/22 Discharge Disposition: A-D/C Home Attending Physician: Clovis Berrios MD Admitting Physician: Clovis Berrios MD Referring Physician: Not on Staff, Referring MD Allergies, Adverse Reactions, Alerts Substance Reaction Severity Status codeine nausea Active ibuprofen Active morphine dizzy Active Antivert double vision Active Leslie liver enzymes off Active statins swelling/rash Active fentaNYL diff breathing Active Immunizations Given and Recorded Vaccine Date [...] EST, Print Requisition Start Date: 11/27/20 Status: OrderedLisinopril By Mouth, Daily, 0 Refills, Maintenance, 06/28/22 9:08:00 EDT, Partial fill upon patient request if the prescription is for a schedule II opioid drug. Start Date: 06/28/22 Status: OrderedRisperDAL 0.25 mg oral tablet 0.25 [...] Date: 11/27/20 Status: Ordered Problem List Condition Confirmation Course Effective Dates Status Health I nformant Status Opiate dependence, Confirmed Active continuous Chronic dementia with Confirmed Active behavioral disturbance Drug-seeking behavior Confirmed Active Benzodiazepine abuse, Confirmed Active episodic Opiate abuse, Confirmed Active episodic Polypharmacy Confirmed Active Vital Signs Most recent to oldest [Reference Range]: 1 2 Height 160 cm 160 cm (06/28/22 10:12 AM) (06/28/22 9:03 AM) Weight 73 kg 73 kg (06/28/22 10:12 AM) (06/28/22 9:03 AM) Oxygen Saturation [94-100 %] 95 % (06/28/22 9:04 AM) Pulse Rate [55-90 bpm] 80 bpm (06/28/22 9:04 AM) Blood Pressure [90-138/55-84 mm Hg] 140/89 mm Hg *H* (06/28/22 9:04 AM) Respiratory Rate [16-30 br/min] 18 br/min (06/28/22 9:04 AM) Temperature [96.8-100.4 DegF] 97.0 DegF (06/28/22 9:04 AM) Mode of Delivery (Oxygen) Room air (06/28/22 9:04 AM) Temperature Route Temporal (06/28/22 9:04 AM) Dry Weight 73 kg 73 kg (06/28/22 10:12 AM) (06/28/22 9:03 AM) Social History Social History Type Response Smoking Status Former smoker; Tobacco user in household: No entered on: 03/27/14 Sex Patient Care team information PersonnelName: Riaz SIMON, Terell Ornelas Address: Address: [address] [place], [place] [address]
--- OUTSIDE RECORDS SUMMARY | 2022-08-26 02:44 | XMS_ITS | Continuity of Care Document ---
:1955 Author Organization [facility] Address Unavailable , Care Team Providers Name Role Phone Riaz SIMON, Terell Ornelas Primary Care Physician [place] [facility] [place] Date(s): 10/31/21 - 01/05/22 [facility] Attending Physician: Verito Brush NP Admitting Physician: Verito Brush NP Allergies, Adverse Reactions, Alerts Substance Reaction Severity [...] 01/15/22 7:48:00 EDT, 01/05/22 7:48:00 EDT, Tablet, [facility]/pharmacy #[id number], Partial fill upon patient request if [...]
--- OUTSIDE RECORDS SUMMARY | 2022-08-26 02:44 | XMS_ITS | Continuity of Care Document ---
:1955 Author Organization [facility] Address [address] [place] [address]- Care Team Providers Name Role Phone Terell Mello MD Primary Care Physician Encounter [facility] Date(s): 06/03/21 - 06/03/[address] [address]- Encounter Diagnosis Headache (Final) - 06/03/21 Back pain (Final) - 06/03/21 Discharge Disposition: A-D/C Home Attending Physician: John Lawson MD Admitting Physician: [...] (COVID-19) mRNA BNT-162b2 vac 01/08/21 Given Medications Docusate/Senna Tablet 2 tablet, By Mouth, 2 times [...] needed, # 30 capsule, 0 Refills, Acute 06/04/21 9:16:00 EDT, 06/03/21 9:15:00 EDT, Capsule, [facility]/pharmacy #[id number], Partial fill upon patient request if the prescription is for a schedule II opioid drug., 1 capsu... Start Date: 06/03/21 Stop Date: 06/04/21 Status: Orderedgabapentin 300 mg oral capsule 300 [...] OrderedoxyCODONE 5 mg oral tablet 5 mg, 1, tablet, By Mouth, Every 6 hours, PRN, # 7 tablet, Refills 0, Tot. Refills 0, Acute :16:00 EDT, as needed for pain, 06/03/21 9:16:00 EDT, Route to Pharmacy Electronically, [facility]/pharmacy #[id number], Partial fill upon patient request if the... Start Date: 06/03/21 Stop Date: 06/04/21 Status: OrderedRisperDAL 0.25 mg oral tablet 0.25 [...] 1 2 Height 160 cm 160 cm (06/03/21 9:40 AM) (06/03/21 5:58 AM) Weight 57 kg 57 kg (06/03/21 9:40 AM) (06/03/21 5:58 AM) Oxygen Saturation [94-100 %] 99 % (06/03/21 5:58 AM) Pulse Rate [55-90 bpm] 81 bpm (06/03/21 5:58 AM) Blood Pressure [90-138/55-84 mm Hg] 164/83 mm Hg *H* (06/03/21 5:58 AM) Respiratory Rate [16-30 br/min] 16 br/min (06/03/21 5:58 AM) Temperature [96.8-100.4 DegF] 98.4 DegF (06/03/21 5:58 AM) Mode of Delivery (Oxygen) Room air (06/03/21 5:58 AM) Blood pressure sites Arm, left (06/03/21 5:58 AM) Temperature Route Oral (06/03/21 5:58 AM) Dry Weight 57 kg 57 kg (06/03/21 9:40 AM) (06/03/21 5:58 AM) Weight Obtained Via Patient/family stated (06/03/21 5:58 AM) Dry Weight Obtained Via Patient/family stated (06/03/21 5:58 AM) Social History Social History Type Response Smoking Status Former smoker; Tobacco user in household: No entered on: 03/27/14 Sex
--- OUTSIDE RECORDS SUMMARY | 2022-08-26 02:44 | XMS_ITS | Continuity of Care Document ---
:1955 Author Organization [facility] Address [address] [place] [address]- Care Team Providers Name Role Phone Abel Diamond MD Primary Care Physician Encounter [facility] Date(s): 03/29/20 - 04/28/20 [facility] [address] [place] [address]- Attending Physician: Trudy Hinson Admitting Physician: Trudy Hinson Referring Physician: AdmtrTrudy Allergies, Adverse Reactions, Alerts Substance Reaction Severity Status codeine nausea Active ibuprofen Active clindamycin c diff Active morphine dizzy Active Antivert double vision Active Leslie liver enzymes off Active Benadryl Active Muscle Rub liver enzymes off Active statins swelling/rash Active fentaNYL diff breathing Active LaMICtal Drug fever Active Macular rash NexIUM liver enzymes off Active Medications MiraLax = 17 Gm, By Mouth, 0 Refills, Maintenance, 01/05/18 13:10:39 EDT Start Date: 01/05/18 Status: Orderedmorphine 30 mg oral tablet, immediate release = 30 mg, By Mouth, Every 4 hours, PRN Pain , Severe, hold for sedation, 0 Refills, Maintenance, 06/28/19 13:22:31 EDT, Tablet, Partial fill upon patient request Start Date: 06/28/19 Status: Orderedpotassium chloride 20 mEq oral powder for reconstitution 1 pack/packet, By Mouth, Daily, # 7 pack/packet, 0 Refills, Maintenance, 06/28/19 13:45:10 EDT, REC Powder Start Date: 06/28/19 Stop Date: 07/05/19 Status: OrderedTimolol By Mouth, 2 times a day, 0 Refills, Maintenance, 03/27/14 8:49:54 Start Date: 03/27/14 Status: OrderedXanax 0.5 mg oral tablet 2 mg, By Mouth, Every 6 hours, hold for sedation, Refills 0, Maintenance, 06/28/19 13:22:41 EDT Start Date: 06/28/19 Status: Ordered Problem List Condition Effective Dates Status Health Status Informant History of medical Active problems(Confirmed)1 Low back pain(Confirmed) Active 1Pain relevant problem list includes: See below Social History Social History Type Response Smoking Status Former smoker; Tobacco user in household: No entered on: 03/27/14 Sex
--- OUTSIDE RECORDS SUMMARY | 2022-08-26 02:44 | XMS_ITS | Continuity of Care Document ---
:1955 Author Organization [facility] Address [address] [place] [address]- Care Team Providers Name Role Phone Terell Mello MD Primary Care Physician [place] [facility] 04/22[place]22 - 05/22/22 [facility] [address] [place] [id number] Attending Physician: Trudy Hinson Admitting Physician: AdmNikko [id number] Referring Physician: Admtr, Ar8 Allergies, Adverse Reactions, [...] Health Status Informant Opiate dependence, Active continuous(Confirmed) Chronic dementia with behavioral Active disturbance(Confirmed) Drug-seeking behavior(Confirmed) Active Benzodiazepine abuse, Active episodic(Confirmed) Opiate abuse, episodic(Confirmed) Active Polypharmacy(Confirmed) Active Social History Social History Type Response Smoking Status Former smoker; Tobacco user in household: No entered on: 03/27/14 Sex Care Team PersonnelName: Riaz SIMON, Terell Ornelas Address: [address] [place] [id number]
--- OUTSIDE RECORDS SUMMARY | 2022-08-26 02:44 | XMS_ITS | Continuity of Care Document ---
:1955 Author Organization [facility] Address Unavailable , Care Team Providers Name Role Phone Riaz SIMON, Terell Ornelas Primary Care Physician [place] [facility] [place](s): 08/20/21 - 12/18/21 [facility] Attending Physician: Verito Beckford NP Admitting Physician: Verito Beckford NP Allergies, Adverse Reactions, Alerts Substance Reaction [...]
--- OUTSIDE RECORDS SUMMARY | 2022-08-26 02:44 | XMS_ITS | Continuity of Care Document ---
:1955 Author Organization [facility] Address [address] [place] [address]- Care Team Providers Name Role Phone Terell Mello MD Primary Care Physician Encounter [facility] NBR [id number] Date(s): 01/21/22 - 01/21/[address] [address]- Discharge Disposition: A-D/C Walkout Attending Physician: Toro Garza MD Admitting Physician: Toro Garza MD Referring Physician: Not on Staff, Referring MD Allergies, Adverse Reactions, Alerts Substance Reaction Severity Status codeine nausea Active ibuprofen Active clindamycin c diff Active morphine dizzy Active Benadryl Active fentaNYL diff breathing Active NexIUM liver enzymes off Active statins swelling/rash Active Antivert double vision Active Leslie liver [...]
--- OUTSIDE RECORDS SUMMARY | 2022-08-26 02:44 | XMS_ITS | Continuity of Care Document ---
:1955 Author Organization [facility] Address [address] [place] [address]- Care Team Providers Name Role Phone Riaz SIMON, Terell Ornelas Primary Care Physician Encounter [facility] [place] Date(s): 07/11/21 - 10/26/[address] [address]- Attending Physician: Katerin Ramos NP Admitting Physician: Katerin Ramos NP Referring Physician: Katerin Ramos NP Allergies, Adverse Reactions, Alerts Substance Reaction Severity Status codeine nausea Active statins swelling/rash Active fentaNYL diff breathing Active NexIUM liver enzymes off Active ibuprofen [...]
--- OUTSIDE RECORDS SUMMARY | 2022-08-26 02:44 | XMS_ITS | Continuity of Care Document ---
:1955 Author Organization [facility] Address Unavailable , Care Team Providers Name Role Phone Riaz SIMON, Terell Ornelas Primary Care Physician Encounter [facility] Date(s): 07/01/21 - 07/31/21 [facility] Allergies, Adverse Reactions, Alerts Substance Reaction [...]
--- OUTSIDE RECORDS SUMMARY | 2022-08-26 02:44 | XMS_ITS | Continuity of Care Document ---
:1955 Author Organization [facility] Address [address] [place] [address]- Care Team Providers Name Role Phone Terell Mello MD Primary Care Physician Encounter [facility] Date(s): 02/12/22 - 02/12/[address] [address]- Discharge Disposition: A-D/C Walkout Attending Physician: Wilman Styles DO Admitting Physician: Wilman Styles DO Referring Physician: Not on Staff, Referring MD Allergies, Adverse Reactions, Alerts Substance Reaction Severity Status codeine nausea Active ibuprofen Active clindamycin c diff Active morphine dizzy Active Benadryl Active statins swelling/rash Active fentaNYL diff breathing Active NexIUM liver enzymes off Active Antivert double vision Active Leslie liver [...] 1 2 Height 160 cm 160 cm (02/12/22 6:17 AM) (02/12/22 6:14 AM) Weight 66 kg 66 kg (02/12/22 6:17 AM) (02/12/22 6:14 AM) Oxygen Saturation [94-100 %] 98 % (02/12/22 6:14 AM) Pulse Rate [55-90 bpm] 68 bpm (02/12/22 6:14 AM) Body Mass Index [18.5-24.99] 25.78 *H* (02/12/22 6:14 AM) Blood Pressure [90-138/55-84 mm Hg] 164/82 mm Hg *H* (02/12/22 6:14 AM) Respiratory Rate [16-30 br/min] 16 br/min (02/12/22 6:14 AM) Temperature [96.8-100.4 DegF] 99 DegF (02/12/22 6:14 AM) Mode of Delivery (Oxygen) Room air (02/12/22 6:14 AM) Blood pressure sites Arm, right (02/12/22 6:14 AM) Temperature Route Temporal (02/12/22 6:14 AM) Dry Weight 66 kg 66 kg (02/12/22 6:17 AM) (02/12/22 6:14 AM) Social History Social History Type Response Smoking Status Former smoker; Tobacco user in household: No entered on: 03/27/14 Sex
--- OUTSIDE RECORDS SUMMARY | 2022-08-26 02:45 | XMS_ITS | Continuity of Care Document ---
:1955 Author Organization [facility] Address [address] [place] [address]- Care Team Providers Name Role Phone Terell Mello MD Primary Care Physician [place] [facility] [place]s): 08/20/21 - 09/19/21 [facility] [address] [place] [id number] Attending Physician: Trudy Hinson Admitting Physician: AdmTrudy milligan Referring Physician: [id number] Allergies, Adverse Reactions, Alerts Substance Reaction Severity [...]
--- OUTSIDE RECORDS SUMMARY | 2022-08-26 02:45 | XMS_ITS | Continuity of Care Document ---
:1955 Author Organization [facility] Address [address] [place] [address]- Care Team Providers Name Role Phone Terell Mello MD Primary Care Physician Encounter [facility] Date(s): 09/06/21 - 09/06/[address] [address]- Discharge Disposition: A-D/C Walkout Attending Physician: Monty Olivo MD Admitting Physician: Monty Olivo MD Referring Physician: Not on Staff, Referring [...]
--- OUTSIDE RECORDS SUMMARY | 2022-08-26 02:45 | XMS_ITS | Continuity of Care Document ---
:1955 Author Organization [facility] Address Unavailable , Care Team Providers Name Role Phone Riaz SIMON, Terell Ornelas Primary Care Physician Encounter [facility] Date(s): 12/06/21 - 01/05/22 [facility] Attending Physician: Trudy Hinson Admitting Physician: Trudy Hinson Referring Physician: Trudy Hinson Allergies, Adverse Reactions, Alerts Substance Reaction Severity Status codeine nausea Active ibuprofen Active Benadryl Active NexIUM liver enzymes off Active statins swelling/rash Active clindamycin c diff [...] 01/15/22 7:48:00 EDT, 01/05/22 7:48:00 EDT, Tablet, [facility]/pharmacy #[id number], Partial fill upon patient request [...]
--- OUTSIDE RECORDS SUMMARY | 2022-08-26 02:45 | XMS_ITS | Continuity of Care Document ---
:1955 Author Organization [facility] Address [address] [place] [address]- Care Team Providers Name Role Phone Terell Mello MD Primary Care Physician Encounter [facility] Date(s): 02/02/22 - 02/02/[address] [address]- Discharge Disposition: A-D/C Home Attending Physician: Colt [...] (COVID-19) mRNA BNT-162b2 vac 01/08/21 Given Medications acetaminophen/butalbital/caffeine 325 mg-50 mg-40 mg oral tablet 2 tablet, By Mouth, Every 4 hours, PRN as needed, for 7 days, not to exceed 6 tablets/day, # 42 tablet, 0 Refills, Acute 02/09/22 7:30:00 EDT, 02/02/22 7:30:00 EDT, Tablet, [facility] #[id number], Partial fill upon patient request if the prescripti... Start Date: 02/02/22 Stop Date: 02/09/22 Status: Orderedaspirin 325 mg oral capsule 2 [...] drug. Start Date: 12/06/20 Status: OrderedFioricet Tablet 2 tablet, Tablet, By Mouth, Once, PRN for Headache, STAT, 02/02/22 7:08:00 EDT Notes: Butalbital 50mg, Not to exceed 4000mg of Acetaminophen per 24 hours. 325mg, Caffeine 40mg pertablet Start Date: 02/02/22 Stop Date: 02/02/22 Status: CompletedFioricet Tablet 1 tab every 6, By Mouth, [...] to oldest [Reference Range]: 1 2 Height 0 cm (02/02/22 6:51 AM) Weight 64 kg (02/02/22 6:51 AM) Oxygen Saturation [94-100 %] 100 % (02/02/22 6:04 AM) Pulse Rate [55-90 bpm] 61 bpm (02/02/22 6:04 AM) Blood Pressure [90-138/55-84 mm Hg] 161/66 mm Hg *H* (02/02/22 6:04 AM) Respiratory Rate [16-30 br/min] 18 br/min 18 br/mi n (02/02/22 7:41 AM) (02/02/22 6:04 AM) Temperature [96.8-100.4 DegF] 98.4 DegF (02/02/22 6:04 AM) Liters per Minute 0 L/min (02/02/22 6:04 AM) Mode of Delivery (Oxygen) Room air (02/02/22 6:04 AM) Blood pressure sites Arm, right (02/02/22 6:04 AM) Temperature Route Oral (02/02/22 6:04 AM) Dry Weight 64 kg (02/02/22 6:51 AM) Social History Social History Type Response Smoking Status Former smoker; Tobacco user in household: No entered on: 03/27/14 Sex
--- OUTSIDE RECORDS SUMMARY | 2022-08-26 02:45 | XMS_ITS ---
:1955 External Reference #:[id number] Author Care Team Providers Name Role Phone [facility] Referring Provider [phone] Allergies None recorded. Medications Name Status Start Date Stop Date ? ? Aimovig Autoinjector 140 mg/mL subcutaneous auto-injector Active ? Not available INJECT 1 ML UNDER THE SKIN FOR ONE DOSE amlodipine 2.5 mg tablet Active ? Not tk ilable TAKE 1 TABLET BY MOUTH EVERY DAY amoxicillin 500 mg capsule Active ? Not a vailable TAKE 1 CAPSULE BY MOUTH 3 TIMES A DAY FOR 10 DAYS amoxicillin 500 mg tablet Active ? Not av ailable TAKE 1 TABLET BY MOUTH EVERY 8 HOURS UNTIL GONE cffvizddik-unnncyxifwzxo-meixzybx 50 mg-300 mg-40 mg capsule Act irma ? Not available TAKE 2 CAPSULES BY MOUTH TWICE A DAY NEEDED DO NOT EXCEED 6 CAPSULES/DAY sgcysuzgjh-ztjdtkqpxogmm-gsxnguhj 50 mg-325 mg-40 mg tablet Acti ve ? Not available TAKE 2 TABLETS BY MOUTH EVERY 12 HOURS NEEDED cetirizine 10 mg tablet Active ? Not avai lable TAKE 1 TABLET BY MOUTH EVERY DAY NEEDED FOR ITCHING FOR 30 D AYS clonazepam 0.5 mg tablet Active ? Not tk ilable TAKE 1 TABLET BY MOUTH NIGHTLY clonazepam 1 mg tablet Active ? Not avail able TAKE ONE TABLET BY MOUTH TWICE A DAY NEEDED cyclobenzaprine 10 mg tablet Active ? Not available TAKE 1 TABLET BY MOUTH 3 TIMES A DAY NEEDED FOR MUSCLE SPASM divalproex 500 mg tablet,delayed release Active ? Not available TAKE ONE TABLET BY MOUTH EVERY EVENING duloxetine 30 mg capsule,delayed release Active ? Not available TAKE 1 CAPSULE BY MOUTH EVERY DAY hydroxyzine HCl 10 mg tablet Active ? Not available TAKE 1 TABLET BY MOUTH TWICE A DAY NEEDED FOR 15 DAYS hydroxyzine HCl 25 mg tablet Active ? Not available TAKE 1 TABLET BY MOUTH EVERY 8 HOURS FOR 2 DAYS indomethacin 50 mg capsule Active ? Not a vailable TAKE ONE CAPSULE BY MOUTH EVERY DAY WITH MEALS NEEDED FOR HE ADACHE ketorolac 30 mg/mL (1 mL) injection solution Active ? Not available Inject 15 mg by intramuscular route for 1 day. lisinopril 10 mg-hydrochlorothiazide 12.5 mg tablet Active ? Not available TAKE 1 TABLET BY MOUTH EVERY DAY lisinopril 20 mg-hydrochlorothiazide 25 mg tablet Active ? Not available TAKE ONE TABLET BY MOUTH ONCE DAILY lisinopril 40 mg tablet Active ? Not avai lable TAKE ONE TABLET BY MOUTH DAILY melatonin 3 mg tablet Active ? Not availa ble TAKE 1 TABLET BY MOUTH EVERY DAY AT BEDTIME NEEDED FOR 30 DA YS naltrexone 50 mg tablet Active ? Not avai lable TAKE 1 TABLET BY MOUTH EVERY DAY AT NIGHT nortriptyline 25 mg capsule Active ? Not available TAKE 1 CAPSULE BY MOUTH ONCE DAILY AT B EDTIME FOR 1 WEEK, THEN INCREASE 2 CAPSULES DAILY AT BEDTIME ondansetron HCl 4 mg tablet Active ? Not available TAKE 1 TABLET BY MOUTH 3 TIMES A DAY NEEDED FOR NAUSEA FOR 1 0 DAYS oxycodone 5 mg tablet Active ? Not availa ble TAKE 1 TABLET BY MOUTH EVERY 6 HOURS NEEDED FOR PAIN penicillin V potassium 500 mg tablet Active ? Not available TAKE 1 TABLET BY MOUTH EVERY 8 HOURS FOR 10 DAYS promethazine 25 mg tablet Active ? Not av ailable TAKE 1 TABLET (25 MG TOTAL) BY MOUTH DAILY NEEDED (HEADACHE) . propranolol ER 120 mg capsule,24 hr,extended release Active ? Not available TAKE 1 CAPSULE BY MOUTH EVERY DAY FOR 30 DAYS propranolol ER 160 mg capsule,24 hr,extended release Active ? Not available TAKE 1 CAPSULE BY MOUTH EVERY DAY FOR 30 DAYS propranolol ER 80 mg capsule,24 hr,extended release Active ? Not available TAKE 1 CAPSULE BY MOUTH EVERY DAY FOR 30 DAYS risperidone 0.25 mg tablet Active ? Not a vailable TAKE 1 TABLET (0.25 MG TOTAL) BY MOUTH EVERY EVENING. rizatriptan 10 mg tablet Active ? Not tk ilable 1 TABLET ORALLY ONCE A DAY NEEDED FOR HEADACHE 15 DAYS ropinirole 0.25 mg tablet Active ? Not av ailable TAKE 1 TABLET BY MOUTH NIGHTLY ropinirole 0.5 mg tablet Active ? Not tk ilable TAKE 1 TABLET BY MOUTH 1-3 HOURS BEFORE BEDTIME DAILY rosuvastatin 10 mg tablet Active ? Not av ailable TAKE ONE TABLET BY MOUTH ONCE DAILY timolol maleate 0.5 % eye drops Active ? Not available INSTILL 1 DROP INTO BOTH EYES TWICE DAILY topiramate 100 mg tablet Active ? Not tk ilable TAKE 1 TABLET BY MOUTH EVERY DAY FOR 30 DAYS topiramate 25 mg tablet Active ? Not avai lable TAKE 1 TABLET BY MOUTH EVERY DAY FOR 30 DAYS trazodone 100 mg tablet Active ? Not avai lable TAKE 1 TABLET BY MOUTH NIGHTLY Ubrelvy 50 mg tablet Active ? Not availab le PLEASE SEE ATTACHED FOR DETAILED DIRECTIONS venlafaxine 37.5 mg tablet Active ? Not a vailable TAKE 1 TABLET BY MOUTH EVERY DAY WITH FOOD FOR 30 DAYS venlafaxine ER 150 mg capsule,extended release 24 hr Active ? Not available TAKE 1 CAPSULE BY MOUTH DAILY WITH FOOD Problems None recorded. Procedures None recorded. Results Lab Results None recorded. Past Encounters 08/06/2022 Headache Micaela Plata MD: [address] [place] [address], [place] [address], Ph. 08/05/2022 Migraine Taryn Jenkins MD: [address] [place], [place] [address] [address], Ph. 11/24/2021 Headache Amara Hall MD: [address] [place], [place] [address] [address], Ph. 11/23/2021 Natalio Cody MD: [address] [place] [address], [place] [address], Ph. Social History None recorded. Vaccine List None recorded. Plan of Care Reminders Provider Appointments None recorded. ? ? Lab None recorded. ? ? Referral None recorded. ? ? Procedures None recorded. ? ? Surgeries None recorded. ? ? Imaging None recorded. ? ? Vitals 08/06/2022 02:13PM Urgent Care Blood Pressure (1) 180/90 mm[Hg] (2) 180/90 mm[Hg] 08/05/2022 04:50PM Urgent Care Blood Pressure (1) 162/98 mm[Hg] (2) 162/98 mm[Hg] 11/24/2021 09:32AM Urgent Care Blood Pressure 161/100 mm[Hg] 11/23/2021 09:41PM Urgent Care Blood Pressure 142/82 mm[Hg]
--- OUTSIDE RECORDS SUMMARY | 2022-08-26 02:45 | XMS_ITS | Continuity of Care Document ---
:1955 Author Organization [facility] Address [address] [place] [address]- Care Team Providers Name Role Phone Julian SIMON, Carter Boggs Primary Care Physician Encounter [facility] Date(s): 02/26/22 - 02/26/[address] [address]- Discharge Disposition: A-D/C Walkout Attending Physician: Neo Liz MD Admitting Physician: Neo Liz MD Referring Physician: Not on Staff, Referring [...] 03/21/22 7:02:00 EDT, 02/18/22 7:01:00 EDT, Tablet, [id number], Partial fill upon patient request if the [...] oldest [Reference Range]: 1 Height 160 cm (02/26/22 11:47 AM) Weight 68 kg (02/26/22 11:47 AM) Oxygen Saturation [94-100 %] 98 % (02/26/22 11:49 AM) Pulse Rate [55-90 bpm] 76 bpm (02/26/22 11:49 AM) Blood Pressure [90-138/55-84 mm Hg] 152/72 mm Hg *H* (02/26/22 11:49 AM) Respiratory Rate [16-30 br/min] 16 br/min (02/26/22 11:49 AM) Temperature [96.8-100.4 DegF] 98.2 DegF (02/26/22 11:49 AM) Mode of Delivery (Oxygen) Room air (02/26/22 11:49 AM) Blood pressure sites Arm, left (02/26/22 11:49 AM) Temperature Route Oral (02/26/22 11:49 AM) Dry Weight 68 kg (02/26/22 11:47 AM) Social History Social History Type Response Smoking Status Former smoker; Tobacco user in household: No entered on: 03/27/14 Sex
--- OUTSIDE RECORDS SUMMARY | 2022-08-26 02:45 | XMS_ITS | Continuity of Care Document ---
:1955 Author Organization [facility] Address [address] [place] [address]- Care Team Providers Name Role Phone Riaz SIMON, Terell Ornelas Primary Care Physician Encounter [facility] Date(s): 12/31/21 - 02/05/[address] [address] Attending Physician: Verito Brush NP Admitting Physician: Verito Brush NP Referring Physician: Verito Brush NP Allergies, Adverse Reactions, [...]
--- OUTSIDE RECORDS SUMMARY | 2022-08-26 02:45 | XMS_ITS | Encounter Summary ---
:1955 External Reference #:[id number] Author Care Team Providers Name Role Phone [facility] Referring Provider [phone] Reason for Visit Headache, Pain Assessment and Plan Assessment Note service called for migraine REZA found 67 elissa with hx chronic migraine REZA , white matter lesion smost likely due to chronic small vessel changes ([facility] note 12/02/2021), c/o 1d acute REZA c/w prior migraine features with improvement to IM ketorlac no new neurologic impairment A&Ox3, not confused, easily answers ques tions, no new focal neurologic deficit administed IM ketorlac, known to be effe ctive for pt return to primary team and oingoing atte mpts prevent REZA notify service if worsening/no improveme nt 1. Migraine Discussion Note: None recorded.Patient educational handouts: No information available. Plan of Care Reminders Provider Appointments None recorded. ? ? Lab None recorded. ? ? Referral None recorded. ? ? Procedures None recorded. ? ? Surgeries None recorded. ? ? Imaging None recorded. ? ? Medications Name Start Date ? ? Aimovig Autoinjector 140 mg/mL subcutaneous auto-injec tor ? INJECT 1 ML UNDER THE SKIN FOR ONE DOSE amlodipine 2.5 mg tablet ? TAKE 1 TABLET BY MOUTH EVERY DAY amoxicillin 500 mg capsule ? TAKE 1 CAPSULE BY MOUTH 3 TIMES A DAY FOR 10 DAYS amoxicillin 500 mg tablet ? TAKE 1 TABLET BY MOUTH EVERY 8 HOURS UNTIL GONE cseanzzxrw-xxxpbzxbegqno-vkpdilim 50 mg-300 mg-40 mg c apsule ? TAKE 2 CAPSULES BY MOUTH TWICE A DAY NEEDED DO NOT EXCEED 6 CAPSULES/DAY dghftfycsp-nphfhiywbekyo-fwybdhga 50 mg-325 mg-40 mg t ablet ? TAKE 2 TABLETS BY MOUTH EVERY 12 HOURS NEEDED cetirizine 10 mg tablet ? TAKE 1 TABLET BY MOUTH EVERY DAY NEEDED FOR ITCHIN G FOR 30 DAYS clonazepam 0.5 mg tablet ? TAKE 1 TABLET BY MOUTH NIGHTLY clonazepam 1 mg tablet ? TAKE ONE TABLET BY MOUTH TWICE A DAY NEEDED cyclobenzaprine 10 mg tablet ? TAKE 1 TABLET BY MOUTH 3 TIMES A DAY NEEDED FOR MU SCLE SPASM divalproex 500 mg tablet,delayed release ? TAKE ONE TABLET BY MOUTH EVERY EVENING duloxetine 30 mg capsule,delayed release ? TAKE 1 CAPSULE BY MOUTH EVERY DAY hydroxyzine HCl 10 mg tablet ? TAKE 1 TABLET BY MOUTH TWICE A DAY NEEDED FOR 15 D AYS hydroxyzine HCl 25 mg tablet ? TAKE 1 TABLET BY MOUTH EVERY 8 HOURS FOR 2 DAYS indomethacin 50 mg capsule ? TAKE ONE CAPSULE BY MOUTH EVERY DAY WITH MEALS NEE DED FOR HEADACHE ketorolac 30 mg/mL (1 mL) injection solution ? Inject 15 mg by intramuscular route for 1 day. lisinopril 10 mg-hydrochlorothiazide 12.5 mg tablet ? TAKE 1 TABLET BY MOUTH EVERY DAY lisinopril 20 mg-hydrochlorothiazide 25 mg tablet ? TAKE ONE TABLET BY MOUTH ONCE DAILY lisinopril 40 mg tablet ? TAKE ONE TABLET BY MOUTH DAILY melatonin 3 mg tablet ? TAKE 1 TABLET BY MOUTH EVERY DAY AT BEDTIME NEEDED FOR 30 DAYS naltrexone 50 mg tablet ? TAKE 1 TABLET BY MOUTH EVERY DAY AT NIGHT nortriptyline 25 mg capsule ? TAKE 1 CAPSULE BY MOUTH ONCE DAILY AT B EDTIME FOR 1 WEEK, THEN INCREASE 2 CAPSULES DAILY AT BEDTIME ondansetron HCl 4 mg tablet ? TAKE 1 TABLET BY MOUTH 3 TIMES A DAY NEEDED FOR NA USEA FOR 10 DAYS oxycodone 5 mg tablet ? TAKE 1 TABLET BY MOUTH EVERY 6 HOURS NEEDED FOR PA IN penicillin V potassium 500 mg tablet ? TAKE 1 TABLET BY MOUTH EVERY 8 HOURS FOR 10 DAYS promethazine 25 mg tablet ? TAKE 1 TABLET (25 MG TOTAL) BY MOUTH DAILY NEEDED (HEADACHE). propranolol ER 120 mg capsule,24 hr,extended release ? TAKE 1 CAPSULE BY MOUTH EVERY DAY FOR 30 DAYS propranolol ER 160 mg capsule,24 hr,extended release ? TAKE 1 CAPSULE BY MOUTH EVERY DAY FOR 30 DAYS propranolol ER 80 mg capsule,24 hr,extended release ? TAKE 1 CAPSULE BY MOUTH EVERY DAY FOR 30 DAYS risperidone 0.25 mg tablet ? TAKE 1 TABLET (0.25 MG TOTAL) BY MOUTH EVERY EVENING. rizatriptan 10 mg tablet ? 1 TABLET ORALLY ONCE A DAY NEEDED FOR HEADACHE 15 DAYS ropinirole 0.25 mg tablet ? TAKE 1 TABLET BY MOUTH NIGHTLY ropinirole 0.5 mg tablet ? TAKE 1 TABLET BY MOUTH 1-3 HOURS BEFORE BEDTIME DAILY rosuvastatin 10 mg tablet ? TAKE ONE TABLET BY MOUTH ONCE DAILY timolol maleate 0.5 % eye drops ? INSTILL 1 DROP INTO BOTH EYES TWICE DAILY topiramate 100 mg tablet ? TAKE 1 TABLET BY MOUTH EVERY DAY FOR 30 DAYS topiramate 25 mg tablet ? TAKE 1 TABLET BY MOUTH EVERY DAY FOR 30 DAYS trazodone 100 mg tablet ? TAKE 1 TABLET BY MOUTH NIGHTLY Ubrelvy 50 mg tablet ? PLEASE SEE ATTACHED FOR DETAILED DIRECTIONS venlafaxine 37.5 mg tablet ? TAKE 1 TABLET BY MOUTH EVERY DAY WITH FOOD FOR 30 DAY S venlafaxine ER 150 mg capsule,extended release 24 hr ? TAKE 1 CAPSULE BY MOUTH DAILY WITH FOOD Medications Administered None recorded. Vitals Blood Pressure (1) 162/98 mm[Hg] (2) 162/98 mm[Hg] Results Lab Results None recorded. Allergies None recorded. Problems None recorded. Procedures None recorded. Vaccine List None recorded. Social History None recorded. Functional Status Unknown. Past Encounters 08/05/2022 Migraine Taryn Jenkins MD: [address] [facility], [place] [address], Ph. History of Present Illness Note: <p><strong>HPI: </strong>

Danial is a 67 y/o reporting she has a white matter brain dx and has been told she has a ton of lesions on her brain. Today, she is reporting a REZA 8/10 & backache 8/10. Reports pain in her coccyx going up her back all the way to her head. Reports pain is radiating into her left leg. Reports some abd pain but pain is not unbearable. Back pain is chronic but is worse today. Mbr reports a hx of 2 back surgeries. Mbr states head feels like it has knives in it and today. Denies any weakness to arm, face or leg. Reports some facial, BUE&BLE numbness that is due to having received chemo in the past. Speech is clr. Mbr is able tospeak in complete sentences. Mbr doesn't sound confused over the phone. Mbr reports being able to ambulate without difficulty. Mbr reports being able to void without difficulty. Denies any incon tinence or urinary retention. Given her s/sxs mbkathrin was advised to go to the ED. Mbr declined stating that it is not practical. Mbr also states that the trip is too long and she thinks she would vomit ifshe would have to ride in a vehicle. Mbr states that she would like for a medic to come check her out & take her vitals and maybe give her injection. Reports having received this service before. CODE: Unknown ALLERGIES: Leslie, benadryl, codeine, clindamycin, fentanyl, morphine, nexium, statins, seroquel PMHx: Brain lesion, white matter dx, Malignant neoplasm, DDD, post laminectomy, OA, glaucoma, anxiety d/o, HTN, chronic daily REZA, chronic back pain, cerebrovascular dx
............ ................................................................................ .................................................

<strong>[facility] Nursing Assessment: </strong>

Comments: 1:10p- Call to member several times to further triage and assess stability and safety of waiting for an [facility] visit vs seeking higher level of care. No answer, bozena Pennington Spoke to member request [facility] visit for complaint of headache requesting IM Toradol injection has had good relief with similar symptoms Refuse ED at this time but agree is symptoms progress to seek more emergent care</p><p>............................................................... ..............................................................................<b r>
<strong>Business Center Attendant Note: </strong>

Pt presents awake and alert c/o chronic headache and back ache. Pt sts when headache gets this bad she usually receives a toradol injectionand that makes the pain bearable. [facility] contacted and pay was administered 30 mg IM toradol in the right deltoid w/o any adverse reactions.
...................................................... ................................................................................ .......

<strong>Disposition: </strong>

Fulfilled</p> Review of Systems None recorded. Physical Exam None recorded.
--- OUTSIDE RECORDS SUMMARY | 2022-08-26 02:45 | XMS_ITS | Encounter Summary ---
:1955 External Reference #:[id number] Author Care Team Providers Name Role Phone [facility] Referring Provider [phone] Reason for Visit Headache, Pain Assessment and Plan Assessment Note Ms. Rosa Elena Berger is a 67yoF w/ a PmHx of neurodegenerative white matter disease and chronic headache/pain who is seen today for her chronic pain symptoms. Ms. Berger reports that over the past few days she has had worsening of her chronic leg an d head pain. She was seen by [facility] yesterday and given a dose of IM toradol, which she states helped her pain and is hoping for a second dose today. She has no new symptoms and is otherwise at her baseline. VSS. Irrigation Supervisor on site reports that she appears at her baseline. Will provide a dose of IM toradol for pain control and she will follow up with her providers as scheduled. 1. Headache Discussion Note: None recorded.Patient educational handouts: No [...] BY MOUTH EVERY 8 HOURS UNTIL GONE eydkwhswyn-qdhvlcjxhbgww-vcposvsc 50 mg-300 mg-40 mg c apsule ? TAKE 2 CAPSULES BY MOUTH TWICE A DAY NEEDED DO NOT EXCEED 6 CAPSULES/DAY mmvulwgrmi-vhrcjstormqib-wqtzmzab 50 mg-325 mg-40 mg t ablet ? [...] Administered None recorded. Vitals Blood Pressure (1) 180/90 mm[Hg] (2) 180/90 mm[Hg] Results Lab Results None recorded. Allergies None recorded. Problems None recorded. Procedures None recorded. Vaccine List None recorded. Social History None recorded. Functional Status Unknown. Past Encounters 08/06/2022 Headache Micaela Plata MD: [address] [place] [phone], Ph. 08/05/2022 Migraine Taryn Jenkins MD: [address] [place] [address] [place] [address], Ph. History of Present Illness Note: <p><strong>HPI: </strong>

Mbr calling into the [facility] asking for I [facility] to come back out to see her again for same headache, leg and back pain that she had yesterday.Pleease see 08/05/22 [facility] referral and [facility] HV report. Mbr reported [facility] saw her yesterday for same s/s and they gave her a Toradol injection which was effective. Mbr stated that she is hoping to get another injection today. Placed [facility] HV request for today. Danial is a 67 y/o female with white matter brain dx. PMHx: Brain lesion, white matter dx, Malignant neoplasm, DDD, post laminectomy, OA, glaucoma, anxiety d/o, HTN, chronic daily REZA, chronic back pain, cerebrovascular dx. ALLERGIES: Leslie, benadryl, codeine, clindamycin, fentanyl, morphine, nexium, statins, seroquel. Call back number for Danial is [phone]. Sent GC activity to CP alerting CP about this call and TE. Danial is also cortney=opal reach her PCP for follow up as well but has not been able to get through to PCP.
........ ................................................................................ .....................................................

<strong>CRC Nursing Assessment: </strong>

Comments: CRC RN DID NOT NEED FURTHER INFO</p><p>................ ................................................................................ .............................................

<strong>Irrigation Supervisor Note: </strong>

Sent to evaluate pt c/o chronic reza/back pain/l leg pain. Upon arrival, pt is found dancing to music in living room. Pt is awake and alert, airway open and patent, breathing regular. Pt states that she had [facility] visit yesterday and received toradol IM, found relief and is requesting more toradol today. Pt is in no acute distress at this time, speaking in complete sentences. Skin is pink, warm, dry. PERRL. Speaking in full sentences. Pt states pain is no different than normal and cannot take OTCoral pain medication due to GI upset. Pain is reported 05/07 and baseline. Consulted [facility] who ordered 30mg of IM toradol at this time. Medication administered without incident. There were no further concerns or questions and pt is well-aware of red flags.
....................................... ................................................................................ ......................

<strong>Disposition: </strong>

Fulfilled</p> Review of Systems None recorded. Physical Exam None recorded.
--- OUTSIDE RECORDS SUMMARY | 2022-08-26 02:45 | XMS_ITS | Continuity of Care Document ---
:[address] [facility] Address [address] [place] [address]- Care Team Providers Name Role Phone Abel Diamond MD Primary Care Physician Encounter [facility] [id number] Date(s): 03/13/20 - 04/28/20 [facility] [address] [place] [address]- Attending Physician: Nikhil Lewis MD Allergies, Adverse Reactions, Alerts Substance Reaction [...]
--- OUTSIDE RECORDS SUMMARY | 2022-08-26 02:45 | XMS_ITS | Continuity of Care Document ---
:1955 Author Organization [facility] Address [address] [place] [address]- Care Team Providers Name Role Phone Terell Mello MD Primary Care Physician Encounter [facility] Date(s): 05/19/22 - 06/18/22 [facility] [address] [place] [address]- [place] Allergies, Adverse Reactions, Alerts Substance Reaction Severity [...] Team PersonnelName: Riaz SIMON, Terell Ornelas Address: [address] [place] [id number]
--- OUTSIDE RECORDS SUMMARY | 2022-08-26 02:45 | XMS_ITS | Continuity of Care Document ---
:1955 Author Organization [facility] Address [address] [place] [address]- Care Team Providers Name Role Phone Riaz SIMON, Terell Ornelas Primary Care Physician Encounter [facility] Date(s): 08/29/21 - 10/30/[address] [address]- Attending Physician: Katerin Ramos NP Admitting Physician: [...]
[2022-08-26 03:01] LABS: Strep A Nucleic Acid Negative (Negative)
[2022-08-26 03:04] LABS: COVID-19 Test Negative (Negative); IDNOW Serial# BCCEAD1C
[2022-08-26 03:08] LABS: IDNOW Serial# 16C4AD1C; Influenza A Negative (Negative); Influenza B2 Negative (Negative)
[2022-08-26] MEDS: Lidocaine HCl Viscous 2 % 15 ML SOLUTION MUCOUS MEM (03:44)
--- NOTE | 2022-08-26 04:20 | PC.NURSE ---
pt requesting to speak with Dr. Hernadez regarding script for fioricet. pt states she has a brain disease and needs a new script for fioricet, pt states to this rn that cannot get in to see new PCP until november 2022. made aware. will discuss with franca
== END 2022-08-26 04:23 | disposition home or self-care (01) ==
PROVIDERS: Emergency Provider Emergency Medicine
DX: J02.9 Acute pharyngitis, unspecified (principal); R05.9 Cough, unspecified; Z79.899 Other long term (current) drug therapy; Z20.822 Contact with and (suspected) exposure to COVID-19
CPT/HCPCS: 71045; 87502; 87635; 87651; 99283

== ENCOUNTER 2022-08-30 07:20 | Emergency (ER) | payer OTHER, SELFPAY ==
[2022-08-30 07:38] VITALS: BP 196/100; BP 210/110; PULSE 77; PULSE 78; RESP 18; TEMP 36.3; O2SAT 96; O2SAT 97; BMI 29.7
[2022-08-30 08:48] VITALS: BP 185/96; PULSE 83; RESP 18; TEMP 36.8; O2SAT 98
--- NOTE | 2022-08-30 09:19 | ED_ITS ---
HPI - General Adult General Chief complaint: Headache Stated complaint: REZA,BACK PAIN PER EMS Time Seen by Provider: 08/30/22 08:54 Source: patient History of Present Illness HPI narrative: 67-year-old female presents to the emergency department today complaining of headache and hypertension. The patient states she ran out of her medications. There are no new complaints. Patient states she will be seeing a new physician next month. The patient was recently seen here and had prescriptions for Fioricet and amlodipine filled. Reviewed numbers with patient and it appears that she has been taking too many of the pills, as there are no more left. Advised patient of such. She states she is not taking them inappropriately. Related Data Previous Rx's Medication Instructions Recorded jdtiwlgshu-tdjxnhehgfffr-grhkbuca 1 cap PO Q6H PRN pain #10 caps 07/10/21 50 mg-300 mg-40 mg capsule (Fioricet) cyclobenzaprine 10 mg tablet 10 mg PO TID PRN muscle spasm #10 07/10/21 tabs lidocaine 5 % topical patch 1 patch topical DAILY #15 ea 07/10/21 (Lidoderm) liplgbsjum-heugbvcemlkfd-oyeettic 1 cap PO Q6H PRN headache #10 caps 08/08/22 50 mg-300 mg-40 mg capsule (Fioricet) amlodipine 5 mg tablet 5 mg PO DAILY #30 tabs 08/14/22 zjglrjvtyn-tmonyuuevxzgs-adkxuqwf 1 cap PO Q6H PRN pain #20 caps 08/14/22 50 mg-300 mg-40 mg capsule (Fioricet) wirxstylqd-ddumyocyqgexk-xtzjqiom 1 cap PO Q4H PRN pain #30 caps 08/20/22 50 mg-300 mg-40 mg capsule (Fioricet) ohvinnpnay-tbzgxxjsppasf-dhpoochq 1 cap PO .B.i.d. PRN pain #14 caps 08/26/22 50 mg-300 mg-40 mg capsule (Fioricet) amlodipine 5 mg tablet 5 mg PO DAILY #30 tabs 08/30/22 awzguwkyeh-hxqtmvgtzhvxc-pavezpda 2 cap PO QAM #30 caps 08/30/22 50 mg-300 mg-40 mg capsule (Fioricet) Allergies Allergy/AdvReac Type Severity Reaction Status Date / Time fentanyl AdvReac Intermediate felt like Verified 08/30/22 07:38 everything was spinning methadone AdvReac Intermediate pass out Verified 08/30/22 07:38 morphine AdvReac Intermediate pass out Verified 08/30/22 07:38 Review of Systems Constitutional: Constitutional: Denies chills, Denies fatigue and Reports headache(s) ENT: Reports headache(s) Cardiovascular: Cardiovascular: Denies chest pain and Denies dyspnea Respiratory: Respiratory: Denies cough and Denies dyspnea Neurologic: Reports headache(s) Endocrine: Endocrine: Denies fatigue [facility] Social History Social History Alcohol intake: never Smoked in Last 30 Days: Yes Use of substances other than those prescribed or required for medical reasons: No Advance Directives: No Advance Directives Information Provided: Yes Physical Exam ED Vital Signs: Vital Signs - 24 hr 08/30/22 07:38 08/30/22 08:48 Temperature 97.4 F 98.2 F Pulse Rate 77 83 Respiratory Rate 18 18 Blood Pressure 210/110 H 185/96 H Pulse Oximetry 96 98 Oxygen Delivery Method Room Air Room Air BMI result Body Mass Index 29.7 Medical Decision Making MDM Narrative Medical decision making narrative: Discussed potential misuse of the patient's medications. Instructed the patient that she needed to get a primary care doctor for continuance of prescription medications. Discharge Plan Discharge Clinical Impression: Prescription refill Headache Qualifiers: Headache type: unspecified Hypertension Qualifiers: Hypertension type: unspecified Qualified Code(s): I10 - Essential (primary) hypertension Patient Disposition: Home, Self-Care Instructions: Chronic Hypertension (ED), General Headache (ED) Additional Instructions: It is important that you follow up with a primary care doctor. It is not ideal for you to be coming to the ER for prescription refills, as this is something you should have done through a primary doctor who can follow your progress and make changes as needed. Prescriptions: New amlodipine 5 mg tablet 5 mg PO DAILY Qty: 30 0RF zdkmuuopid-nqgokxtrljims-nlic [Fioricet] 50-300-40 mg capsule 2 cap PO QAM Qty: 30 0RF Rx Instructions: do not exceed 6 caps per day No Action vcpjapuiiw-tdayfzitomnzs-zaqb [Fioricet] 50-300-40 mg capsule 1 cap PO Q6H PRN (Reason: headache) Qty: 10 0RF vqqtcjmjho-rwirepjbrxluo-iaza [Fioricet] 50-300-40 mg capsule 1 cap PO Q6H PRN (Reason: pain) Qty: 20 0RF amlodipine 5 mg tablet 5 mg PO DAILY Qty: 30 0RF owaltroehw-oksvvuaefqkco-dxlq [Fioricet] 50-300-40 mg capsule 1 cap PO Q4H PRN (Reason: pain) Qty: 30 0RF litffrgjvp-nsyokmrnhcgqf-vhco [Fioricet] 50-300-40 mg capsule 1 cap PO .B.i.d. PRN (Reason: pain) Qty: 14 0RF rdcotushrr-nrivujgdqjgeu-ftsx [Fioricet] 50-300-40 mg capsule 1 cap PO Q6H PRN (Reason: pain) Qty: 10 0RF cyclobenzaprine 10 mg tablet 10 mg PO TID PRN (Reason: muscle spasm) Qty: 10 0RF lidocaine [Lidoderm] 5 % adhesive patch,medicated 1 patch topical DAILY Qty: 15 0RF Rx Instructions: leave on most painful area for up to 12 hrs
== END 2022-08-30 09:37 | disposition home or self-care (01) ==
PROVIDERS: Emergency Provider Emergency Medicine
DX: R51.9 Headache, unspecified (principal); I10 Essential (primary) hypertension
CPT/HCPCS: 99282; 99283; 99284

== ENCOUNTER 2022-09-06 05:30 | Emergency (ER) | payer OTHER, SELFPAY ==
[2022-09-06 05:37] VITALS: BP 176/87; BP 192/82; PULSE 64; PULSE 67; RESP 14; TEMP 36.7; O2SAT 97; O2SAT 98; BMI 29.7
[2022-09-06 05:51] VITALS: BP 192/82; PULSE 59; RESP 11; TEMP 36.6; O2SAT 98
--- NOTE | 2022-09-06 06:09 | ED_ITS ---
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 When asked if she understands this can cause harm she talks about going to [employer] for 2 years and mentions she is friends with a surgeon from [facility]. She reports she last took fioricet at 2am today jsut prior to arrival but needs more and her PCP and Neurologist in [place] will not Rx it. No change in baseline from her chronic headaches MD elicited complaint: headache and migraine Pertinent past history: migraines Onset (ago): year(s) Onset description: gradually and while at rest Location: diffuse Severity: similar to previous episodes Quality & Timing: dull, squeezing, constant and pressure Exacerbating factors: none Relieving factors: prescription medication (fioricet is the only thing that helps her) Context: other (chronic pain) Associated symptoms: none Treatments prior to arrival: other (aspirin, benadryl, fioricet 2am) Related Data Previous Rx's Medication Instructions Recorded wsvmcawhbg-qiebqyrtibmsa-mwvtjfnx 1 cap PO Q6H PRN pain #10 caps 07/10/21 50 mg-300 mg-40 mg capsule (Fioricet) cyclobenzaprine 10 mg tablet 10 mg PO TID PRN muscle spasm #10 07/10/21 tabs lidocaine 5 % topical patch 1 patch topical DAILY #15 ea 07/10/21 (Lidoderm) tomgrldciy-xtfgdagenxxbs-ciicckyo 1 cap PO Q6H PRN headache #10 caps 08/08/22 50 mg-300 mg-40 mg capsule (Fioricet) amlodipine 5 mg tablet 5 mg PO DAILY #30 tabs 08/14/22 bfgpbjfisa-wexsptaswqnly-qoclowlc 1 cap PO Q6H PRN pain #20 caps 08/14/22 50 mg-300 mg-40 mg capsule (Fioricet) mbptdybdaa-zhrgghjghpkru-vvhjoebn 1 cap PO Q4H PRN pain #30 caps 08/20/22 50 mg-300 mg-40 mg capsule (Fioricet) btcqstvwxg-qfukibxodvprg-mhirdkjz 1 cap PO .B.i.d. PRN pain #14 caps 08/26/22 50 mg-300 mg-40 mg capsule (Fioricet) amlodipine 5 mg tablet 5 mg PO DAILY #30 tabs 08/30/22 pmqqervyfj-nivratajwcszj-ffuudvjk 2 cap PO QAM #30 caps 08/30/22 50 mg-300 mg-40 mg capsule (Fioricet) clywgirqzb-hczzvxljfdzvg-retdptca 2 tab PO Q6H PRN pain #12 tabs 09/06/22 50 mg-325 mg-40 mg tablet Allergies Allergy/AdvReac Type Severity Reaction Status Date / Time fentanyl AdvReac Intermediate felt like Verified 08/30/22 07:38 everything was spinning methadone AdvReac Intermediate pass out Verified 08/30/22 07:38 morphine AdvReac Intermediate pass out Verified 08/30/22 07:38 Review of Systems Review of Systems: Constitutional : No Fever, No Chills, No Fatigue ENT/Mouth : No sore throat, No Rhinorrhea Eyes: No Eye Pain, No Swelling, No Redness Cardiovascular : No Chest Pain, No SOB, No Dyspnea on Exertion Respiratory : No Cough, No Sputum Gastrointestinal : No Nausea, No Vomiting, No Diarrhea, No abdominal Pain Genitourinary : No Dysuria, No Urinary Frequency, No Hematuria, Musculoskeletal : No joint pain, No Myalgias, No Joint Swelling Skin : No Skin Lesions, No rash Neuro : No Weakness, No Numbness, No Dizziness, positive Headache Psych : No Anxiety/Panic, No Depression Heme/Lymph: No Bruising, No Bleeding,No Lymphadenopathy Endocrine : No Polyuria, No Polydipsia All other systems reviewed and are negative PMFSH Past Medical History Attestation statement: The following information was validated with the patient. 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7 Appearance: Alert. Oriented X3. No acute distress. Eyes: Pupils equal, round and reactive to light. ENT: Pharynx normal. Neck: Normal inspection. Neck supple. CVS: Normal heart rate and rhythm. Pulses normal. Respiratory: No respiratory distress. Breath sounds normal. Abdomen: Soft and nontender. Skin: Skin warm and dry. Normal skin color. Normal skin turgor. Extremities: No lower extremity edema. No calf ttp Neuro: Oriented X 3. No motor deficit. No sensory deficit. 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 This is a chronic issue no fevers no focal deficits not on thinners doubt [employer] infection or SAH. The patient had fioricet at 2am. I have agreed to get her through the weekend only but then she needs to see a PCP or her Neurologist it is inappropriate at this time for the ED to continue to schedule these medications for weeks at a time. The patient made references I will just pay out of pocket if insurance won't cover it . The patient is asking for more fioricet in the ED which I have refused. The patient was offered other medications but she refused. She is repeatedly asking for fioricet in the ED but at this time I am refusing, she is only here wanting fioricet refusing labs, workup, other medications. Stable for DC and PCP follow up. Message sent to case management at this time for them to follow up given her repeat visits Differential Diagnoses: Differential diagnosis (chronic headache, tension headache, medication overuse headache) Non-ED record review: Review of External (Non-ED) Record External record reviewed:: Office record ([facility]urology notes from [facility]) and Prior outpatient radiology Tests considered but not performed: Tests Considered But Not Performed (CT scan but patient did not want workup in ED) Discharge Plan Discharge Clinical Impression: Headache Qualifiers: Headache type: unspecified Headache chronicity pattern: acute headache Intractability: intractable Qualified Code(s): R51.9 - Headache, unspecified Patient Disposition: Home, Self-Care Instructions: General Headache (ED) Additional Instructions: return to ED for any worsening symptoms or concerns please follow up with your primary care as soon as possible, liver enzyme testing was offered given the fioricet you take - please avoid additional tylenol products Prescriptions: New zhuoyahwpd-ehivvqgrooyvr-xvgb 50-325-40 mg tablet 2 tab PO Q6H PRN (Reason: pain) Qty: 12 0RF Rx Instructions: do not exceed 6 tabs per 24 hrs No Action lmqowfmdhv-guiyvijyvoico-yeog [Fioricet] 50-300-40 mg capsule 1 cap PO Q6H PRN (Reason: headache) Qty: 10 0RF laxpkcauxy-qoettpeyuehhq-qayq [Fioricet] 50-300-40 mg capsule 1 cap PO Q6H PRN (Reason: pain) Qty: 20 0RF amlodipine 5 mg tablet 5 mg PO DAILY Qty: 30 0RF ncsajasvuy-qmzgnxpsmfvhk-jwpr [Fioricet] 50-300-40 mg capsule 1 cap PO Q4H PRN (Reason: pain) Qty: 30 0RF febrnzuwty-mflkonsprpshg-ippa [Fioricet] 50-300-40 mg capsule 1 cap PO .B.i.d. PRN (Reason: pain) Qty: 14 0RF sztcwnytcv-iwxcnlqdnbcci-wwws [Fioricet] 50-300-40 mg capsule 1 cap PO Q6H PRN (Reason: pain) Qty: 10 0RF cyclobenzaprine 10 mg tablet 10 mg PO TID PRN (Reason: muscle spasm) Qty: 10 0RF lidocaine [Lidoderm] 5 % adhesive patch,medicated 1 patch topical DAILY Qty: 15 0RF Rx Instructions: leave on most painful area for up to 12 hrs amlodipine 5 mg tablet 5 mg PO DAILY Qty: 30 0RF uwinqkmftg-encqfyhjptymf-ytzt [Fioricet] 50-300-40 mg capsule 2 cap PO QAM Qty: 30 0RF Rx Instructions: do not exceed 6 caps per day
--- NOTE | 2022-09-06 06:27 | PC.NURSE ---
Discharge instructions reviewed with pt. Pt verbalizes understanding.
== END 2022-09-06 06:28 | disposition home or self-care (01) ==
PROVIDERS: Emergency Provider Emergency Medicine; PCP Internal Medicine
DX: R51.9 Headache, unspecified (principal); Z79.899 Other long term (current) drug therapy
CPT/HCPCS: 99283; 99284

== ENCOUNTER 2022-09-08 05:30 | Emergency (ER) | payer OTHER, SELFPAY ==
[2022-09-08 05:35] VITALS: BP 158/100; BP 186/91; PULSE 76; RESP 16; O2SAT 97; O2SAT 99; BMI 29.4
--- NOTE | 2022-09-08 05:48 | ED_ITS ---
HPI - Headache General Chief Complaint: Headache Stated Complaint: REZA Time Seen by Provider: 09/08/22 05:33 Source: patient and EMS Mode of arrival: EMS Limitations: no limitations History of Present Illness HPI Narrative: Patient comes to the emergency room complaining of a chronic headache that she has had 480 years. Patient has had multiple ED visits, complaining of chronic headache. Patient denies visual changes, no chest pain or shortness of breath. Of note, patient has been seen here 7 times in the last 2 months, always requesting a prescription for Fioricet. Related Data Previous Rx's Medication Instructions Recorded qevtpspvjv-gljgsxesgpqzn-susxuyyu 1 cap PO Q6H PRN pain #10 caps 07/10/21 50 mg-300 mg-40 mg capsule (Fioricet) cyclobenzaprine 10 mg tablet 10 mg PO TID PRN muscle spasm #10 07/10/21 tabs lidocaine 5 % topical patch 1 patch topical DAILY #15 ea 07/10/21 (Lidoderm) wbvonepaym-rwfaqmbvnywca-axbijgwc 1 cap PO Q6H PRN headache #10 caps 08/08/22 50 mg-300 mg-40 mg capsule (Fioricet) amlodipine 5 mg tablet 5 mg PO DAILY #30 tabs 08/14/22 jslxuywszx-yfqzcrxreztlj-hotesrsu 1 cap PO Q6H PRN pain #20 caps 08/14/22 50 mg-300 mg-40 mg capsule (Fioricet) twhkgpwazc-mrcesbcfoibmx-nvrzndci 1 cap PO Q4H PRN pain #30 caps 08/20/22 50 mg-300 mg-40 mg capsule (Fioricet) tlbrojxwgj-zjmkvbltzdmoq-jnfrjqsl 1 cap PO .B.i.d. PRN pain #14 caps 08/26/22 50 mg-300 mg-40 mg capsule (Fioricet) amlodipine 5 mg tablet 5 mg PO DAILY #30 tabs 08/30/22 ktqdttunys-zdhlfbwbopydz-igybrctp 2 cap PO QAM #30 caps 08/30/22 50 mg-300 mg-40 mg capsule (Fioricet) sgjdbechfp-ridfsndakwels-yembqqgw 2 tab PO Q6H PRN pain #12 tabs 09/06/22 50 mg-325 mg-40 mg tablet Allergies Allergy/AdvReac Type Severity Reaction Status Date / Time fentanyl AdvReac Intermediate felt like Verified 08/30/22 07:38 everything was spinning methadone AdvReac Intermediate pass out Verified 08/30/22 07:38 morphine AdvReac Intermediate pass out Verified 08/30/22 07:38 Review of Systems Review of Systems: Constitutional : No Weight loss, No Fever, No Chills, No Night Sweats, No Fatigue, No Malaise ENT/Mouth : No Hearing loss, No Ear Pain, No Nasal Congestion, No Sinus Pain, No Hoarseness, No sore throat, No Rhinorrhea, No Swallowing Difficulty Eyes: No Eye Pain, No Swelling, No Redness, No Foreign Body, No Discharge, No Vision Changes Cardiovascular : No Chest Pain, No SOB, No Dyspnea on Exertion, No Orthopnea, No Edema, No Palpitations Respiratory : No Cough, No Sputum, No Wheezing, No Smoke Exposure, No Dyspnea Gastrointestinal : No Nausea, No Vomiting, No Diarrhea, No Constipation, No abdominal Pain, No Hematochezia, No Melena Genitourinary : no irregular bleeding, No Dysuria, No Urinary Frequency, No Hematuria, No Urinary Incontinence, No Urgency, No Flank Pain, No Urinary Flow Changes, No Hesitancy Musculoskeletal : No joint pain, No Myalgias, No Joint Swelling Skin : No Skin Lesions, No rash Neuro : No Weakness, No Numbness, No Paresthesias, No Loss of Consciousness, No Dizziness, chronic Headache Psych : No Anxiety/Panic, No Depression, No SI/HI/AH/VH, No Social Issues, Heme/Lymph: No Bruising, No Bleeding,No Lymphadenopathy Endocrine : No Polyuria, No Polydipsia, No Temperature Intolerance PMFSH Past Medical History Medical History HTN (hypertension) Migraines 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 Oriented X3. No acute distress. Well-appearing Eyes: Pupils equal, round and reactive to light. ENT: Pharynx normal. No photophobia Neck: Normal inspection. Neck supple. No lymph nodes noted. No crepitus CVS: Normal heart rate and rhythm. Pulses normal. Normal S1 and S2 Respiratory: No respiratory distress. Breath sounds normal. No Wheezing. No rales Abdomen: Soft and nontender. No rigidity. No distention. Skin: Skin warm and dry. Normal skin color. Normal skin turgor. Extremities: No lower extremity edema. No Lacerations. No Rash Neuro: Oriented X 3. No motor deficit. No sensory deficit. Moving all extremities. No slurred speech. CN 2 through 12 grossly intact Psych: calm, cooperative, normal affect Course Course Course Narrative: I offered the patient to treat her current headache episode with Toradol, patient refused. Patient has been seen here multiple times for Fioricet prescription. I have seen the patient in the past, I had a prolonged discussion with the patient in her other visit the patient needs to follow-up with Neurology. Every time the patient comes, she states that she is unable and unwilling to go to see her neurologist in [place]. Patient has been given referrals to our neurologist, she has not set up appointments. Patient comes every time she runs out of [email or web address] for more prescriptions. Reviewing patient's medical chart, Dr. Almanzar saw the patient and had the same conversation with the patient. Patient is very adamant and insistent that she wants prescriptions for Fioricet. At this time, after another prolonged discussion with the patient, patient will receive 2 tablets of Fioricet, and I will not provide a prescription. Per Dr. Almanzar's note, she also ask Case Management to be involved due to her repeated visits. I will provide patient with the phone number for Dr. Dela Cruz to follow up with him. Patient refused any other medications other than Fioricet, patient declined any further workup. Patient is stable for discharge, discussed with the patient she needs to follow-up with primary care physician and also to call Dr. Dela Cruz office today to schedule an appointment. Of note, patient is very talkative, walking around the emergency room, talking to patient's and sitters. Patient does not seem in pain. Patient is receiving 2 tablets of Fioricet, and as mentioned above, she will be discharged without a prescription. Patient is overusing her medication. In July of this year, patient felt a prescription for 74 tablets. On September 01, patient was given a prescription for 24 tablets. Patient states that she only takes 2 tablets a day. However, she already ran out of her previous prescription which was provided from this ED. Today she is supposed to have 10 tablets left, but already used them. Medical Decision Making Medical Decision Making Differential Diagnoses: Differential diagnosis Discharge Plan Discharge Clinical Impression: Chronic headache Patient Disposition: Home, Self-Care Instructions: Acute Headache (ED) Additional Instructions: Please follow-up with your primary care physician tomorrow. If you have any worsening or new symptoms, please return to the emergency room or call 911 Prescriptions: No Action buriosxfrk-lpdgbvnobhscd-iwxw [Fioricet] 50-300-40 mg capsule 1 cap PO Q6H PRN (Reason: headache) Qty: 10 0RF efsgzifeqg-vssauiydfrfev-qkpp [Fioricet] 50-300-40 mg capsule 1 cap PO Q6H PRN (Reason: pain) Qty: 20 0RF amlodipine 5 mg tablet 5 mg PO DAILY Qty: 30 0RF wmogaynbjs-pjbtlyarbirbb-vsvl [Fioricet] 50-300-40 mg capsule 1 cap PO Q4H PRN (Reason: pain) Qty: 30 0RF mvvgtxqcyh-gxwnlkihlceyf-tnzf [Fioricet] 50-300-40 mg capsule 1 cap PO .B.i.d. PRN (Reason: pain) Qty: 14 0RF oqoipbxrfb-whuqztoovyhls-fenv 50-325-40 mg tablet 2 tab PO Q6H PRN (Reason: pain) Qty: 12 0RF Rx Instructions: do not exceed 6 tabs per 24 hrs rdsmuiocta-vxdxrpijbpzbs-acdo [Fioricet] 50-300-40 mg capsule 1 cap PO Q6H PRN (Reason: pain) Qty: 10 0RF cyclobenzaprine 10 mg tablet 10 mg PO TID PRN (Reason: muscle spasm) Qty: 10 0RF lidocaine [Lidoderm] 5 % adhesive patch,medicated 1 patch topical DAILY Qty: 15 0RF Rx Instructions: leave on most painful area for up to 12 hrs amlodipine 5 mg tablet 5 mg PO DAILY Qty: 30 0RF gsceooieeh-turziwalrfwzc-lvyp [Fioricet] 50-300-40 mg capsule 2 cap PO QAM Qty: 30 0RF Rx Instructions: do not exceed 6 caps per day Referrals: Nabil Dela Cruz MD [Physician] - 1 day (chronic headache)
[2022-09-08 05:52] VITALS: BP 163/86; PULSE 70; RESP 16; TEMP 36.8; O2SAT 98
[2022-09-08] MEDS: Butalb/Acetamin/Caff 50/325/40 TABLET 1 TAB PO ×2 (06:00)
== END 2022-09-08 06:16 | disposition home or self-care (01) ==
PROVIDERS: Emergency Provider Emergency Medicine; PCP Internal Medicine
DX: R51.9 Headache, unspecified (principal); Z76.5 Malingerer [conscious simulation]
CPT/HCPCS: 99283; 99284

== ENCOUNTER 2022-09-10 03:31 | Emergency (ER) | payer OTHER, SELFPAY ==
[2022-09-10 03:36] VITALS: BP 189/92; BP 196/95; PULSE 72; PULSE 77; RESP 18; TEMP 36.3; O2SAT 97; O2SAT 98; BMI 28.3
[2022-09-10] MEDS: Ondansetron ODT 4 MG TAB.RAPDIS TRANSLINGU (03:58)
--- NOTE | 2022-09-10 05:52 | PC.NURSE ---
Pt called for triage reassessment, pt refused vitals. Pt states they have a friend coming to pick them up. This RN explained the risk of leaving with out see an MD. Pt still understands, pt is leaving.
== END 2022-09-10 06:35 | disposition left against medical advice (07) ==
PROVIDERS: Emergency Provider Emergency Medicine
DX: R51.9 Headache, unspecified (principal)
CPT/HCPCS: 99281; 99283

== ENCOUNTER 2022-09-23 02:49 | Emergency (ER) | payer OTHER, SELFPAY ==
[2022-09-23 03:14] VITALS: BP 186/139; PULSE 103; RESP 20; TEMP 36.8; O2SAT 94; BMI 29.2
--- NOTE | 2022-09-23 06:00 | PC.NURSE ---
Pt was called for triage reassessment, pt was not in waiting room. Pt was outside in front ER, Pt refused reassessment are reported that they were leaving. This RN educated on risk of LWBS. Pt still left.
== END 2022-09-23 06:02 | disposition left against medical advice (07) ==
PROVIDERS: Emergency Provider Emergency Medicine
DX: R51.9 Headache, unspecified (principal)
CPT/HCPCS: 99281

== ENCOUNTER 2022-10-06 12:15 | Emergency (ER) | payer OTHER, SELFPAY ==
[2022-10-06 12:39] VITALS: BP 158/88; PULSE 80; RESP 18; TEMP 36.7; O2SAT 98; BMI 29.7
--- NOTE | 2022-10-06 13:02 | ED_ITS ---
HPI - Headache General Chief Complaint: Headache Stated Complaint: HEAD PAIN Time Seen by Provider: 10/06/22 12:54 Source: patient Mode of arrival: ambulatory Limitations: no limitations History of Present Illness HPI Narrative: Patient comes to the emergency room complaining of chronic headache. Patient comes to the emergency room for refills of Fioricet. Patient has no neurological deficits. Patient states that she try getting an appointment with Neurology in [place] but they are not seen patients for the next couple of months since the Ceja bulb. Patient also states that she went to see a primary care physician this morning, but according to the patient, the PCPs office had triple booking and the patient can be seen. Of note, patient has history of misuse of Fioricet Related Data Previous Rx's Medication Instructions Recorded eeigoejdjd-vpfyeqzfqedfq-huqixruq 1 cap PO Q6H PRN pain #10 caps 07/10/21 50 mg-300 mg-40 mg capsule (Fioricet) cyclobenzaprine 10 mg tablet 10 mg PO TID PRN muscle spasm #10 07/10/21 tabs lidocaine 5 % topical patch 1 patch topical DAILY #15 ea 07/10/21 (Lidoderm) dykwyrmjfm-vbnagvsabelvl-esgmhkwg 1 cap PO Q6H PRN headache #10 caps 08/08/22 50 mg-300 mg-40 mg capsule (Fioricet) amlodipine 5 mg tablet 5 mg PO DAILY #30 tabs 08/14/22 abnmcoormc-dxfapartjgbnm-ymelivav 1 cap PO Q6H PRN pain #20 caps 08/14/22 50 mg-300 mg-40 mg capsule (Fioricet) phmdceygeq-egbdvooropcyi-vzzjxgpu 1 cap PO Q4H PRN pain #30 caps 08/20/22 50 mg-300 mg-40 mg capsule (Fioricet) wbaltvtiir-jivdeapwfztao-jazlpmvf 1 cap PO .B.i.d. PRN pain #14 caps 08/26/22 50 mg-300 mg-40 mg capsule (Fioricet) amlodipine 5 mg tablet 5 mg PO DAILY #30 tabs 08/30/22 rxpkyyegxy-dlmsxgheoysxl-mhjyqflb 2 cap PO QAM #30 caps 08/30/22 50 mg-300 mg-40 mg capsule (Fioricet) xuskplihab-ievdzvorduwgn-lxrvgfqm 2 tab PO Q6H PRN pain #12 tabs 09/06/22 50 mg-325 mg-40 mg tablet qshblzzjnm-yoosmiknbosnm-ffefxqel 1 cap PO BID PRN pain #6 caps 10/06/22 50 mg-300 mg-40 mg capsule (Fioricet) Allergies Allergy/AdvReac Type Severity Reaction Status Date / Time fentanyl AdvReac Intermediate felt like Verified 08/30/22 07:38 everything was spinning methadone AdvReac Intermediate pass out Verified 08/30/22 07:38 morphine AdvReac Intermediate pass out Verified 08/30/22 07:38 Review of Systems Review of Systems: Constitutional : No Weight loss, No Fever, No Chills, No Night Sweats, No Fatigue, No Malaise ENT/Mouth : No Hearing loss, No Ear Pain, No Nasal Congestion, No Sinus Pain, No Hoarseness, No sore throat, No Rhinorrhea, No Swallowing Difficulty Eyes: No Eye Pain, No Swelling, No Redness, No Foreign Body, No Discharge, No Vision Changes Cardiovascular : No Chest Pain, No SOB, No Dyspnea on Exertion, No Orthopnea, No Edema, No Palpitations Respiratory : No Cough, No Sputum, No Wheezing, No Smoke Exposure, No Dyspnea Gastrointestinal : No Nausea, No Vomiting, No Diarrhea, No Constipation, No abdominal Pain, No Hematochezia, No Melena Genitourinary : no irregular bleeding, No Dysuria, No Urinary Frequency, No Hematuria, No Urinary Incontinence, No Urgency, No Flank Pain, No Urinary Flow Changes, No Hesitancy Musculoskeletal : No joint pain, No Myalgias, No Joint Swelling Skin : No Skin Lesions, No rash Neuro : No Weakness, No Numbness, No Paresthesias, No Loss of Consciousness, No Dizziness, complaining of chronic Headache Psych : No Anxiety/Panic, No Depression, No SI/HI/AH/VH, No Social Issues, Heme/Lymph: No Bruising, No Bleeding,No Lymphadenopathy Endocrine : No Polyuria, No Polydipsia, No Temperature Intolerance Constitutional: Constitutional: Reports excessive sweating Endocrine: Endocrine: Reports excessive sweating PMFSH Past Medical History Medical History HTN (hypertension) Migraines 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 Oriented X3. No acute distress. Well-appearing, talking on the phone, laughing Eyes: Pupils equal, round and reactive to light. ENT: Pharynx normal. Neck: Normal inspection. Neck supple. No lymph nodes noted. No crepitus CVS: Normal heart rate and rhythm. Pulses normal. Normal S1 and S2 Respiratory: No respiratory distress. Breath sounds normal. No Wheezing. No rales Abdomen: Soft and nontender. No rigidity. No distention. Skin: Skin warm and dry. Normal skin color. Normal skin turgor. Extremities: No lower extremity edema. No Lacerations. No Rash Neuro: Oriented X 3. No motor deficit. No sensory deficit. Moving all extremities. No slurred speech. CN 2 through 12 grossly intact Psych: calm, cooperative, normal affect Course Course Course Narrative: Patient wants a prescription for Fioricet. These visits, me and other providers have discussed with the patient that we cannot keep providing long-term prescriptions for Fioricet. 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 Patient was given 2 tablets of Fioricet in the emergency room. Patient has history of overusing Fioricet, running out of tablets before they are due to run out Patient declined IV medications for headache treatment or any imaging. Patient states that she has a sick partner at home and needs to get to her as soon as possible, requesting to tablets and to be discharged Differential Diagnosis Differential Diagnoses: The differential diagnosis associated with the presentation includes (Migraine headache, tension headache) Tests considered The following testing was considered but not selected: A CT scan was considered. Patient has panic attacks. However, patient declined Prescription Management I considered prescription management with: Pain Medication (I consider prescribing ibuprofen and/or Tylenol, patient declined, the only prescription that patient request was very sad) Discharge Plan Discharge Clinical Impression: Chronic headache Patient Disposition: Home, Self-Care Instructions: Migraine Headache (ED) Additional Instructions: Please follow-up with your primary care physician tomorrow. If you have any wo rsening or new symptoms, please return to the emergency room or call 911 Prescriptions: New bkvxxzsoro-whglaskrqoytp-yepl [Fioricet] 50-300-40 mg capsule 1 cap PO BID PRN (Reason: pain) Qty: 6 0RF No Action suqxmqbfqw-vllctbkhsbmiq-wqct [Fioricet] 50-300-40 mg capsule 1 cap PO Q6H PRN (Reason: headache) Qty: 10 0RF llnthzzpfx-bvruxmldvvwnj-ulca [Fioricet] 50-300-40 mg capsule 1 cap PO Q6H PRN (Reason: pain) Qty: 20 0RF amlodipine 5 mg tablet 5 mg PO DAILY Qty: 30 0RF rnpzawbjuc-vdxgvzlndmayc-iixs [Fioricet] 50-300-40 mg capsule 1 cap PO Q4H PRN (Reason: pain) Qty: 30 0RF fbmuvvuxqr-cnuijctbfqqff-flzr [Fioricet] 50-300-40 mg capsule 1 cap PO .B.i.d. PRN (Reason: pain) Qty: 14 0RF csauuxlpvh-wcawoxcaklqrw-ched 50-325-40 mg tablet 2 tab PO Q6H PRN (Reason: pain) Qty: 12 0RF Rx Instructions: do not exceed 6 tabs per 24 hrs nzmwebybiy-xltgmrrejzddv-kois [Fioricet] 50-300-40 mg capsule 1 cap PO Q6H PRN (Reason: pain) Qty: 10 0RF cyclobenzaprine 10 mg tablet 10 mg PO TID PRN (Reason: muscle spasm) Qty: 10 0RF lidocaine [Lidoderm] 5 % adhesive patch,medicated 1 patch topical DAILY Qty: 15 0RF Rx Instructions: leave on most painful area for up to 12 hrs amlodipine 5 mg tablet 5 mg PO DAILY Qty: 30 0RF hzluwfihef-hxdhxyilyeunj-uqmk [Fioricet] 50-300-40 mg capsule 2 cap PO QAM Qty: 30 0RF Rx Instructions: do not exceed 6 caps per day
[2022-10-06] MEDS: Butalb/Acetamin/Caff 50/325/40 TABLET 2 TAB PO (13:11)
== END 2022-10-06 13:24 | disposition home or self-care (01) ==
LOC: HO.ED 13:16
PROVIDERS: Emergency Provider Emergency Medicine
DX: R51.9 Headache, unspecified (principal)
CPT/HCPCS: 99283

== ENCOUNTER 2022-10-08 05:13 | Emergency (ER) | payer OTHER, SELFPAY ==
[2022-10-08 05:15] VITALS: BP 176/90; BP 179/95; PULSE 66; PULSE 85; RESP 16; TEMP 36.4; O2SAT 97; BMI 28.3
--- NOTE | 2022-10-08 05:19 | PC.NURSE ---
MD Hernadez assessing pt.
--- NOTE | 2022-10-08 05:28 | ED.HA ---
HPI - Headache General Chief Complaint: Headache Stated Complaint: headache Time Seen by Provider: 10/08/22 05:27 Source: patient and EMS Mode of arrival: EMS Limitations: no limitations History of Present Illness HPI Narrative: Patient comes in the emergency room complaining of chronic headache again. Every time that she runs out of [employer], patient comes seeking for more prescriptions. Today, patient said that yesterday she went to see her primary care physician and they double booked her appointment. I saw the patient 2 days ago, and she told me the same story. Patient complaining of pressure sensation in her head. No other neurological deficits. Related Data Previous Rx's Medication Instructions Recorded xoecpseagm-utmszzpekxkwu-qvlylrfp 1 cap PO Q6H PRN pain #10 caps 07/10/21 50 mg-300 mg-40 mg capsule (Fioricet) cyclobenzaprine 10 mg tablet 10 mg PO TID PRN muscle spasm #10 07/10/21 tabs lidocaine 5 % topical patch 1 patch topical DAILY #15 ea 07/10/21 (Lidoderm) yphspufvat-ykeckcgqfxwvh-qijohbsw 1 cap PO Q6H PRN headache #10 caps 08/08/22 50 mg-300 mg-40 mg capsule (Fioricet) amlodipine 5 mg tablet 5 mg PO DAILY #30 tabs 08/14/22 rjldjrbxtn-gzipwmraqkqbw-gxvirlah 1 cap PO Q6H PRN pain #20 caps 08/14/22 50 mg-300 mg-40 mg capsule (Fioricet) uvgsbvdpmu-xphujkanvtykr-cowxmltt 1 cap PO Q4H PRN pain #30 caps 08/20/22 50 mg-300 mg-40 mg capsule (Fioricet) qvlkmnarfs-laqplyatthugy-azkymlac 1 cap PO .B.i.d. PRN pain #14 caps 08/26/22 50 mg-300 mg-40 mg capsule (Fioricet) amlodipine 5 mg tablet 5 mg PO DAILY #30 tabs 08/30/22 nuicrmyuct-qvzrvqinqzvxz-atvqpmux 2 cap PO QAM #30 caps 08/30/22 50 mg-300 mg-40 mg capsule (Fioricet) cbwmzzkfzn-uwqtwyjbbzkze-noutrdab 2 tab PO Q6H PRN pain #12 tabs 09/06/22 50 mg-325 mg-40 mg tablet lbmoesvzey-yqizhdwqqfjab-imipyorc 1 cap PO BID PRN pain #6 caps 10/06/22 50 mg-300 mg-40 mg capsule (Fioricet) Allergies Allergy/AdvReac Type Severity Reaction Status Date / Time fentanyl AdvReac Intermediate felt like Verified 08/30/22 07:38 everything was spinning methadone AdvReac Intermediate pass out Verified 08/30/22 07:38 morphine AdvReac Intermediate pass out Verified 08/30/22 07:38 Review of Systems Review of Systems: Constitutional : No Weight loss, No Fever, No Chills, No Night Sweats, No Fatigue, No Malaise ENT/Mouth : No Hearing loss, No Ear Pain, No Nasal Congestion, No Sinus Pain, No Hoarseness, No sore throat, No Rhinorrhea, No Swallowing Difficulty Eyes: No Eye Pain, No Swelling, No Redness, No Foreign Body, No Discharge, No Vision Changes Cardiovascular : No Chest Pain, No SOB, No Dyspnea on Exertion, No Orthopnea, No Edema, No Palpitations Respiratory : No Cough, No Sputum, No Wheezing, No Smoke Exposure, No Dyspnea Gastrointestinal : No Nausea, No Vomiting, No Diarrhea, No Constipation, No abdominal Pain, No Hematochezia, No Melena Genitourinary : no irregular bleeding, No Dysuria, No Urinary Frequency, No Hematuria, No Urinary Incontinence, No Urgency, No Flank Pain, No Urinary Flow Changes, No Hesitancy Musculoskeletal : No joint pain, No Myalgias, No Joint Swelling Skin : No Skin Lesions, No rash Neuro : No Weakness, No Numbness, No Paresthesias, No Loss of Consciousness, No Dizziness, chronic Headache Psych : No Anxiety/Panic, No Depression, No SI/HI/AH/VH, No Social Issues, Heme/Lymph: No Bruising, No Bleeding,No Lymphadenopathy Endocrine : No Polyuria, No Polydipsia, No Temperature Intolerance [facility] Past Medical History Medical History HTN (hypertension) Migraines 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 Oriented X3. No acute distress. Well-appearing Eyes: Pupils equal, round and reactive to light. ENT: Pharynx normal. Neck: Normal inspection. Neck supple. No lymph nodes noted. No crepitus CVS: Normal heart rate and rhythm. Pulses normal. Normal S1 and S2 Respiratory: No respiratory distress. Breath sounds normal. No Wheezing. No rales Abdomen: Soft and nontender. No rigidity. No distention. Skin: Skin warm and dry. Normal skin color. Normal skin turgor. Extremities: No lower extremity edema. No Lacerations. No Rash Neuro: Oriented X 3. No motor deficit. No sensory deficit. Moving all extremities. No slurred speech. CN 2 through 12 grossly intact Psych: calm, cooperative, normal affect Course Course Course Narrative: I offered the patient again a full workup, blood work, imaging. Patient states that she does not want a workup, she only wants a Fioricet and Reglan. Patient was given 2 tablets of Fioricet and Reglan. I discussed with the patient that I will pass the message to case management, hopefully we can help the patient provide her with a new PCP or a neurology consult. Patient states that she refuses to go to [facility]. Patient has been seen in [place] as before. Patient states that she feels very emotional going to [facility] via ambulance or chair been and does not want to do that. Medical Decision Making Differential Diagnosis Differential Diagnoses: The differential diagnosis associated with the presentation includes (Chronic headache, tension headache) Tests considered The following testing was considered but not selected: I considered doing a full workup including labs and head CT scan, obtaining previous records from [facility] and [facility]. However, patient declined. Patient only wanted the medication. Discharge Plan Discharge Clinical Impression: Chronic headache Patient Disposition: Home, Self-Care Instructions: General Headache (ED) Additional Instructions: Please follow-up with your primary care physician tomorrow. If you have any worsening or new symptoms, please return to the emergency room or call 911 Prescriptions: No Action ynujuromiu-rdpepjstwkors-iasd [Fioricet] 50-300-40 mg capsule 1 cap PO Q6H PRN (Reason: headache) Qty: 10 0RF yigmminpda-dhxytekbvwrxd-iuxz [Fioricet] 50-300-40 mg capsule 1 cap PO Q6H PRN (Reason: pain) Qty: 20 0RF amlodipine 5 mg tablet 5 mg PO DAILY Qty: 30 0RF tesddqxmws-rjjyymwcsqhwl-usod [Fioricet] 50-300-40 mg capsule 1 cap PO Q4H PRN (Reason: pain) Qty: 30 0RF vukemboehs-pippeywacvykz-qlrb [Fioricet] 50-300-40 mg capsule 1 cap PO .B.i.d. PRN (Reason: pain) Qty: 14 0RF mlujrgxobt-gudlwntbdwzyy-eqky 50-325-40 mg tablet 2 tab PO Q6H PRN (Reason: pain) Qty: 12 0RF Rx Instructions: do not exceed 6 tabs per 24 hrs dazeooztup-cqkyvxdhtiigs-yvck [Fioricet] 50-300-40 mg capsule 1 cap PO BID PRN (Reason: pain) Qty: 6 0RF naqievawew-dhlorcpxcfadb-chsc [Fioricet] 50-300-40 mg capsule 1 cap PO Q6H PRN (Reason: pain) Qty: 10 0RF cyclobenzaprine 10 mg tablet 10 mg PO TID PRN (Reason: muscle spasm) Qty: 10 0RF lidocaine [Lidoderm] 5 % adhesive patch,medicated 1 patch topical DAILY Qty: 15 0RF Rx Instructions: leave on most painful area for up to 12 hrs amlodipine 5 mg tablet 5 mg PO DAILY Qty: 30 0RF jinpdijxqt-bknevmkhqnzej-bxid [Fioricet] 50-300-40 mg capsule 2 cap PO QAM Qty: 30 0RF Rx Instructions: do not exceed 6 caps per day
[2022-10-08] MEDS: Butalb/Acetamin/Caff 50/325/40 TABLET 2 TAB PO (05:35)
[2022-10-08] MEDS: Promethazine HCL 25 MG TABLET 50 MG PO (05:35)
--- NOTE | 2022-10-08 08:37 | MHC.CM.ED ---
Received case management consult overnight. Patient has already been discharged from the ER. Patient is active with [facility]. There is concern that patient comes to the ER for fiorciet that she is abusing. Patient has a healthcare consultant with [facility]. T/W notified Bhavana, transitions of care nurse for [facility] that patient was in the er and requested healthcare consultant reach out to patient. [facility] will reach out to the patient.
== END 2022-10-08 05:37 | disposition home or self-care (01) ==
PROVIDERS: Emergency Provider Emergency Medicine; PCP Internal Medicine
DX: R51.9 Headache, unspecified (principal)
CPT/HCPCS: 99283

== ENCOUNTER 2022-11-03 08:58 | Emergency (ER) | payer OTHER, SELFPAY ==
[2022-11-03 09:21] VITALS: BP 168/78; PULSE 89; RESP 18; TEMP 36.8; O2SAT 97; BMI 29.2
== END 2022-11-03 11:11 | disposition left against medical advice (07) ==
PROVIDERS: Emergency Provider Emergency Medicine
DX: R51.9 Headache, unspecified (principal)
CPT/HCPCS: 99281

== ENCOUNTER 2022-11-08 05:02 | Emergency (ER) | payer OTHER, SELFPAY ==
--- NOTE | 2022-11-08 | ECG_ITS ---
Test Reason : HTN Blood Pressure : / mmHG Vent. Rate : 084 BPM Atrial Rate : 084 BPM P-R Int : 170 ms QRS Dur : 084 ms QT Int : 388 ms P-R-T Axes : 060 011 044 degrees QTc Int : 458 ms Normal sinus rhythm Normal ECG No previous ECGs available Referred By: Judith Martínez Electronically Signed By:LISA KEYES MD
[2022-11-08 05:09] VITALS: BP 229/128; PULSE 92; RESP 16; TEMP 36.6; O2SAT 99; BMI 28.3
[2022-11-08 06:15] VITALS: BP 217/127; PULSE 85; RESP 12; O2SAT 97
--- NOTE | 2022-11-08 06:55 | ED_ITS ---
HPI - Headache General Chief Complaint: Headache Stated Complaint: brain disease, headache, legion back of head Time Seen by Provider: 11/08/22 06:37 Source: patient Mode of arrival: ambulatory History of Present Illness HPI Narrative: 67-year-old female who is typically seen at [facility] for ?white matter disease? and also has underlying history of hypertension presents with awakening with a headache this morning that is primarily at the back of her head and she denies any associated double vision, dizziness, slurred speech, unilateral w eakness/numbness/tingling and denies any GI or symptoms and otherwise denies any shortness of breath/chest pain/palpitations. Patient states that she is followed by Dr. Quintanilla for her condition and attempted to contact him twice yesterday but did not receive any answer. Patient is demanding Fioricet as well as a prescription for Fioricet. She is declining to me at this time for any head CT. Related Data Previous Rx's Medication Instructions Recorded fbsosjyyna-hishdomoirevy-hcozuqms 1 cap PO Q6H PRN pain #10 caps 07/10/21 50 mg-300 mg-40 mg capsule (Fioricet) cyclobenzaprine 10 mg tablet 10 mg PO TID PRN muscle spasm #10 07/10/21 tabs lidocaine 5 % topical patch 1 patch topical DAILY #15 ea 07/10/21 (Lidoderm) sgzxtdfakz-crxhpllkivnsr-cetjrxdz 1 cap PO Q6H PRN headache #10 caps 08/08/22 50 mg-300 mg-40 mg capsule (Fioricet) amlodipine 5 mg tablet 5 mg PO DAILY #30 tabs 08/14/22 vetvnbcegb-giieyvexzagnf-fwzgupho 1 cap PO Q6H PRN pain #20 caps 08/14/22 50 mg-300 mg-40 mg capsule (Fioricet) bismvrhwet-rmjwnywidbvgc-wietluwy 1 cap PO Q4H PRN pain #30 caps 08/20/22 50 mg-300 mg-40 mg capsule (Fioricet) euluwqrvkv-peqvwakinwqse-usnfwlzc 1 cap PO .B.i.d. PRN pain #14 caps 08/26/22 50 mg-300 mg-40 mg capsule (Fioricet) amlodipine 5 mg tablet 5 mg PO DAILY #30 tabs 08/30/22 ipeizqedbr-uhmryrdqaesaz-udkcdwcq 2 cap PO QAM #30 caps 08/30/22 50 mg-300 mg-40 mg capsule (Fioricet) ilhnyseieo-knjfbrycekoxz-vpzsmfjf 2 tab PO Q6H PRN pain #12 tabs 09/06/22 50 mg-325 mg-40 mg tablet tzvghymgdk-dvgdozuvtsqli-juldypqp 1 cap PO BID PRN pain #6 caps 10/06/22 50 mg-300 mg-40 mg capsule (Fioricet) Allergies Allergy/AdvReac Type Severity Reaction Status Date / Time fentanyl AdvReac Intermediate felt like Verified 11/08/22 05:19 everything was spinning morphine AdvReac Intermediate pass out Verified 11/08/22 05:19 Review of Systems Review of Systems: Pertinent positives and negatives as stated in [facility] Past Medical History Source: nursing notes reviewed Medical History HTN (hypertension) Migraines 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 GENERAL: Well developed, well nourished, in no acute distress. HEAD: Normocephalic/atraumatic EYES: PERRLA, EOMI EARS: Ext canals without abnormality LUNGS: Normal breath sounds. No adventitious sounds or accessory muscle use. SpO2<98> CARDIOVASCULAR: Regular rate and rhythm without noted murmurs ABDOMEN: Soft, non-tender, non-distended with bowel sounds. MUSCULOSKELETAL: No tenderness, deformities, or effusions noted on gross inspection. EXTREMITIES: No cyanosis, clubbing or edema. SKIN: Inspection of the skin reveals no rashes NEUROLOGIC: Alert and oriented x 4. Strength and sensation to light touch were grossly intact x 4, no facial asymmetry, no pronator drift, cranial nerves 2-12 are grossly intact. Medications Administered Discontinued Medications Generic Name Dose Route Start Last Admin Trade Name Leland PRN Reason Stop Dose Admin Acetaminophen/Butalbital/Caffeine 1 tab 11/08/22 06:49 11/08/22 07:09 Butalb/Acetamin/Caff 50/325/40 Tablet PO 11/08/22 06:50 1 tab ONCE ONE Administration Labetalol HCl 5 mg 11/08/22 06:49 11/08/22 07:09 Labetalol Hcl 100 Mg/20 Ml Vial IVPUSH 11/08/22 06:50 5 mg ONCE ONE Administration Medical Decision Making Medical Decision Making [facility] Narrative: 67-year-old female who presents for headache, noted to be in hypertensive urgency, I reviewed all of her lab work and my interpretation is that patient's symptoms are primarily related to her high blood pressure as there are no focal findings and patient is declining any imaging of her head. I ordered labetalol as well as Fioricet for the patient. I was then later informed by the nursing staff that patient walked out and declined CT of the head. Differential Diagnosis Differential Diagnoses: The differential diagnosis associated with the presentation includes Please see the discussion above Lab Data MDM Lab Attestation statement: I reviewed the patient's lab results. Please see the discussion above 11/08/22 06:51 11/08/22 06:51 Labs: Lab Results 11/08/22 11/08/22 11/08/22 Range/Units 06:51 06:51 06:51 WBC 7.4 (4.8-10.8) X10*3/uL RBC 4.98 (4.20-5.50) X10*6/uL Hgb 14.8 (12.0-16.0) g/dl Hct 43.3 (37.0-47.0) % MCV 86.9 (80.0-98.0) fL MCH 29.7 (27.0-33.0) pg MCHC 34.2 (31.0-35.0) g/dl RDW 12.0 (11.0-16.0) % Plt Count 275 (160-400) X10*3/uL MPV 9.7 (9.4-12.3) fL Immature Gran % (Auto) 0.3 (0.0-0.4) % Neut % (Auto) 69.3 (45-73) % Lymph % (Auto) 18.4 L (20-40) % Guthrie % (Auto) 8.0 (2-11) % Eos % (Auto) 3.2 (0-4) % Baso % (Auto) 0.8 (0-2) % Lymph # (Auto) 1.4 (1.2-4.9) X10*3/uL Guthrie # (Auto) 0.6 (0.1-1.2) X10*3/uL Eos # (Auto) 0.2 (0.0-0.4) X10*3/uL Baso # (Auto) 0.1 (0.0-0.2) X10*3/uL Abs Immat Gran (auto) 0.02 (0.00-0.03) X10*3/uL Absolute Neuts (auto) 5.1 (2.0-8.3) x10*3/uL Absolute Nucleated RBC 0.000 (0.0-0.012) X10*3/uL Nucleated RBC % (auto) 0.0 (0.0-0.2) /100WBC Sodium 139 (135-145) mmol/L Potassium 4.0 (3.3-5.1) mmol/L Chloride 103 (96-108) mmol/L Carbon Dioxide 24 (22-29) mmol/L Anion Gap 16 (12-20) BUN 18 H (9-16) mg/dL Creatinine 0.71 (0.5-1.4) mg/dL Estim Creat Clear Calc 71.3 Estimated GFR > 60 Random Glucose 100 (60-115) mg/dL Calcium 9.4 (8.4-10.2) mg/dL Total Bilirubin 0.4 (0.0-1.0) mg/dL AST 20 (5-31) U/L ALT 15 (0-31) U/L Alkaline Phosphatase 133 H (39-117) U/L Troponin I High Sens 5.7 (<3.5-17.0) ng/L Total Protein 7.2 (6.5-8.0) g/dL Albumin 4.1 (3.5-5.0) g/dL Independent Interpretation I performed an independent interpretation of an: EKG Interpretation: Normal sinus rhythm, HR-84, no STEMI, WI/QRS/QTC is within normal limits. External Record Review External record reviewed: Outpatient record and Prior outpatient labs Chronic Conditions Patient?s care impacted by: Hypertension Critical Care Time Critical Care Time Critical Care Time: Yes Total Critical Care Time: 30 Attestation: I personally attest to this time spent taking care of the patient. Discharge Plan Discharge Clinical Impression: Headache, Hypertensive crisis Patient Disposition: Elopement Prescriptions: No Action mdogkddnem-gdqizzybczlyf-vqkr [Fioricet] 50-300-40 mg capsule 1 cap PO Q6H PRN (Reason: headache) Qty: 10 0RF wlnkejumpb-glhpkzxcwdfvn-ekel [Fioricet] 50-300-40 mg capsule 1 cap PO Q6H PRN (Reason: pain) Qty: 20 0RF amlodipine 5 mg tablet 5 mg PO DAILY Qty: 30 0RF zcsbyfuuth-nnqehvnkwyhmm-uyps [Fioricet] 50-300-40 mg capsule 1 cap PO Q4H PRN (Reason: pain) Qty: 30 0RF qdmofonvbh-bdgwtasdnfcuc-ydtx [Fioricet] 50-300-40 mg capsule 1 cap PO .B.i.d. PRN (Reason: pain) Qty: 14 0RF pzjmmloyqr-bxjiympzyuvem-oknw 50-325-40 mg tablet 2 tab PO Q6H PRN (Reason: pain) Qty: 12 0RF Rx Instructions: do not exceed 6 tabs per 24 hrs bwbvbjfpso-ratgstrhyexzw-vqca [Fioricet] 50-300-40 mg capsule 1 cap PO BID PRN (Reason: pain) Qty: 6 0RF hasrvvupvu-wlwnsfzcoqlji-ueop [Fioricet] 50-300-40 mg capsule 1 cap PO Q6H PRN (Reason: pain) Qty: 10 0RF cyclobenzaprine 10 mg tablet 10 mg PO TID PRN (Reason: muscle spasm) Qty: 10 0RF lidocaine [Lidoderm] 5 % adhesive patch,medicated 1 patch topical DAILY Qty: 15 0RF Rx Instructions: leave on most painful area for up to 12 hrs amlodipine 5 mg tablet 5 mg PO DAILY Qty: 30 0RF siochmzzce-ptjgyjuazjosw-rgql [Fioricet] 50-300-40 mg capsule 2 cap PO QAM Qty: 30 0RF Rx Instructions: do not exceed 6 caps per day Referrals: Rowdy Quintanilla MD [Physician] - Interventions: ED Discharge Assessment Last Done: 11/08/22 07:45 Discharge Date/Time: 11/08/22 07:47
[2022-11-08 06:57] LABS: Basophils Absolute Auto 0.1 X10*3/uL (0.0-0.2); Basophils Percent Auto 0.8 % (0-2); Eosinophils Absolute Auto 0.2 X10*3/uL (0.0-0.4); Eosinophils Percent Auto 3.2 % (0-4); Hematocrit 43.3 % (37.0-47.0); Hemoglobin 14.8 g/dl (12.0-16.0); Imm Gran Abs Auto 0.02 X10*3/uL (0.00-0.03); Imm Gran Pct Auto 0.3 % (0.0-0.4); Lymphocytes Absolute Auto 1.4 X10*3/uL (1.2-4.9); Lymphocytes Percent Auto 18.4 % (20-40); MANUAL DIFF FLAG NO; Mean Corpuscular HGB Conc 34.2 g/dl (31.0-35.0); Mean Corpuscular Hemoglobin 29.7 pg (27.0-33.0); Mean Corpuscular Volume 86.9 fL (80.0-98.0); Mean Platelet Volume 9.7 fL (9.4-12.3); Monocytes Absolute Auto 0.6 X10*3/uL (0.1-1.2); Neutrophils Absolute Auto 5.1 x10*3/uL (2.0-8.3); Neutrophils Percent Auto 69.3 % (45-73); Platelet Count 275 X10*3/uL (160-400); Red Blood Count 4.98 X10*6/uL (4.20-5.50); White Blood Count 7.4 X10*3/uL (4.8-10.8)
[2022-11-08 07:02] VITALS: BP 214/108; PULSE 84; RESP 13; O2SAT 98
[2022-11-08] MEDS: Labetalol HCL 100 MG/20 ML VIAL IVPUSH (07:09)
[2022-11-08] MEDS: Butalb/Acetamin/Caff 50/325/40 TABLET 1 TAB PO (07:09)
[2022-11-08 07:18] LABS: Troponin-I High Sensitivity 5.7 ng/L (<3.5-17.0)
[2022-11-08 07:20] LABS: Alanine Aminotransferase 15 U/L (0-31); Albumin Level 4.1 g/dL (3.5-5.0); Alkaline Phosphatase 133 U/L (39-117); Anion Gap 16 (12-20); Aspartate Amino Transferase 20 U/L (5-31); Bilirubin Total 0.4 mg/dL (0.0-1.0); Blood Urea Nitrogen 18 mg/dL (9-16); Calcium 9.4 mg/dL (8.4-10.2); Carbon Dioxide 24 mmol/L (22-29); Chloride 103 mmol/L (96-108); Creatinine Clr Calc Pharmacy 71.3; Estimated Glomerular Filt Rate > 60; Glucose Random 100 mg/dL (60-115); Sodium 139 mmol/L (135-145); Total Protein 7.2 g/dL (6.5-8.0)
== END 2022-11-08 07:47 | disposition left against medical advice (07) ==
PROVIDERS: Emergency Provider Student in an Organized Health Care Education/Training Program
DX: I16.0 Hypertensive urgency (principal); R51.9 Headache, unspecified; R90.82 White matter disease, unspecified; I10 Essential (primary) hypertension; Z79.899 Other long term (current) drug therapy
CPT/HCPCS: 36415; 80053; 84484; 85025; 93005; 96374; 99284; 99285

== ENCOUNTER 2022-11-16 01:27 | Emergency (ER) | payer OTHER, SELFPAY ==
[2022-11-16 01:35] VITALS: BP 168/77; PULSE 84; RESP 20; TEMP 36.9; O2SAT 99; BMI 28.3
--- NOTE | 2022-11-16 02:08 | ED.HA ---
HPI - Headache General Chief Complaint: Headache Stated Complaint: Brain disease, head lesions Time Seen by Provider: 11/16/22 01:57 Source: patient Mode of arrival: ambulatory Limitations: no limitations History of Present Illness HPI Narrative: Patient with white matter disease of the brain with chronic headaches usually gets better with Fioricet but has not taken her Fioricet for last 2 days also she missed her lisinopril 10 mg , headache which is usual for her with light sensitivity with slight nausea no vomiting no fever no chills no light sensitivity patient check his blood pressure was elevated at home on arrival was 168/77 patient has been here frequently for same Related Data Previous Rx's Medication Instructions Recorded norenfbtvh-biryqpiqwvajq-olbbjdew 1 cap PO Q6H PRN pain #10 caps 07/10/21 50 mg-300 mg-40 mg capsule (Fioricet) cyclobenzaprine 10 mg tablet 10 mg PO TID PRN muscle spasm #10 07/10/21 tabs lidocaine 5 % topical patch 1 patch topical DAILY #15 ea 07/10/21 (Lidoderm) ypiywmzmcn-hdnomgpikjofo-jrstwlxj 1 cap PO Q6H PRN headache #10 caps 08/08/22 50 mg-300 mg-40 mg capsule (Fioricet) amlodipine 5 mg tablet 5 mg PO DAILY #30 tabs 08/14/22 cbkpfuplbb-vxdqkrtrmsxst-pfuzzlsq 1 cap PO Q6H PRN pain #20 caps 08/14/22 50 mg-300 mg-40 mg capsule (Fioricet) ctkergzyok-mryxgvitvhfna-jwyshlee 1 cap PO Q4H PRN pain #30 caps 08/20/22 50 mg-300 mg-40 mg capsule (Fioricet) xydpobffoj-mvekvbevdkstq-swhysgag 1 cap PO .B.i.d. PRN pain #14 caps 08/26/22 50 mg-300 mg-40 mg capsule (Fioricet) amlodipine 5 mg tablet 5 mg PO DAILY #30 tabs 08/30/22 erdannkfyn-dvkmifncmkgtx-ipkedwup 2 cap PO QAM #30 caps 08/30/22 50 mg-300 mg-40 mg capsule (Fioricet) zyvazphyzk-cbzpzaygukhaz-lpxntmby 2 tab PO Q6H PRN pain #12 tabs 09/06/22 50 mg-325 mg-40 mg tablet hdtctpcrtt-iskxwwxjtvhzd-ywemahfk 1 cap PO BID PRN pain #6 caps 10/06/22 50 mg-300 mg-40 mg capsule (Fioricet) kuwdreiqaj-fsjhhetpgbgds-mtrwsmvo 1 cap PO Q6H PRN headache #20 caps 11/16/22 50 mg-300 mg-40 mg capsule (Fioricet) lisinopril 10 mg tablet 10 mg PO DAILY #30 tabs 11/16/22 Allergies Allergy/AdvReac Type Severity Reaction Status Date / Time fentanyl AdvReac Intermediate felt like Verified 11/08/22 05:19 everything was spinning morphine AdvReac Intermediate pass out Verified 11/08/22 05:19 Review of Systems Review of Systems: Yes all other systems are reviewed and are negative [facility] Past Medical History Medical History HTN (hypertension) Migraines 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 Oriented X3. No acute distress. Eyes: PERRLA, No Nystagmus ENT: Pharynx normal. Oral Mucosa moist no temporal artery tenderness Neck: Normal inspection. Neck supple. CVS: Normal heart rate and rhythm. Pulses normal. Respiratory: No respiratory distress. Equal air entry bilateral, no wheezing/rales/rhonchi Abdomen: Soft and nontender. Bowel sounds are present, no mass palpable, no CVA tenderness Skin: Skin warm and dry. Normal skin color. Normal skin turgor. Extremities: No lower extremity edema. No calf tenderness Neuro: Oriented X 3. No motor deficit. No sensory deficit.No cerebellar signs , cranial nerves II-XII intact Medications Administered Discontinued Medications Generic Name Dose Route Start Last Admin Trade Name Freq PRN Reason Stop Dose Admin Acetaminophen/Butalbital/Caffeine 1 tab 11/16/22 02:16 11/16/22 02:42 Butalb/Acetamin/Caff 50/325/40 Tablet PO 11/16/22 02:17 1 tab ONCE ONE Administration Lisinopril 10 mg 11/16/22 02:17 11/16/22 02:43 Lisinopril 10 Mg Tablet PO 11/16/22 02:18 10 mg ONCE ONE Administration Protocol Ondansetron HCl 4 mg 11/16/22 02:25 11/16/22 02:43 Ondansetron Odt 4 Mg Tab.Rapdis TRANSLINGU 11/16/22 02:26 4 mg ONCE ONE Administration Medical Decision Making Medical Decision Making MDM Narrative: Will discharge patient home on Fioricet also given lisinopril which she does not have at home Differential Diagnosis Migraine headache/chronic headache Discharge Plan Discharge Clinical Impression: Headache Patient Disposition: Home, Self-Care Instructions: Chronic Hypertension (ED), General Headache (ED) Additional Instructions: Take blood pressure medication daily and Fioricet as prescribed and follow-up with PCP Prescriptions: New zwilkcwaxb-osnugowicgqdx-lbid [Fioricet] 50-300-40 mg capsule 1 cap PO Q6H PRN (Reason: headache) Qty: 20 0RF lisinopril 10 mg tablet 10 mg PO DAILY Qty: 30 0RF No Action cefkqoxjva-tcgpxbraklian-bfpl [Fioricet] 50-300-40 mg capsule 1 cap PO Q6H PRN (Reason: headache) Qty: 10 0RF nnwslegprt-bfsbvnnqsazec-mfnt [Fioricet] 50-300-40 mg capsule 1 cap PO Q6H PRN (Reason: pain) Qty: 20 0RF amlodipine 5 mg tablet 5 mg PO DAILY Qty: 30 0RF pxcdaewbuw-cykeazoixhdnb-gbav [Fioricet] 50-300-40 mg capsule 1 cap PO Q4H PRN (Reason: pain) Qty: 30 0RF hrohfpjdan-ueaimuuwdwriq-krgb [Fioricet] 50-300-40 mg capsule 1 cap PO .B.i.d. PRN (Reason: pain) Qty: 14 0RF oehoptayog-pzdcerrpxqbef-hrfh 50-325-40 mg tablet 2 tab PO Q6H PRN (Reason: pain) Qty: 12 0RF Rx Instructions: do not exceed 6 tabs per 24 hrs blbnhyhree-ewlwmzhdxrbsf-sims [Fioricet] 50-300-40 mg capsule 1 cap PO BID PRN (Reason: pain) Qty: 6 0RF gbapfgvjdc-sikbqzgkelnfv-htpx [Fioricet] 50-300-40 mg capsule 1 cap PO Q6H PRN (Reason: pain) Qty: 10 0RF cyclobenzaprine 10 mg tablet 10 mg PO TID PRN (Reason: muscle spasm) Qty: 10 0RF lidocaine [Lidoderm] 5 % adhesive patch,medicated 1 patch topical DAILY Qty: 15 0RF Rx Instructions: leave on most painful area for up to 12 hrs amlodipine 5 mg tablet 5 mg PO DAILY Qty: 30 0RF nmdkroseuk-nubsdusjndfhi-opjp [Fioricet] 50-300-40 mg capsule 2 cap PO QAM Qty: 30 0RF Rx Instructions: do not exceed 6 caps per day Interventions: ED Discharge Assessment Last Done: 11/16/22 04:52 Discharge Date/Time: 11/16/22 04:51
[2022-11-16 02:14] VITALS: BP 150/94; PULSE 85; RESP 16; TEMP 36.8; O2SAT 98
[2022-11-16] MEDS: Butalb/Acetamin/Caff 50/325/40 TABLET 1 TAB PO (02:42)
[2022-11-16] MEDS: lisinopriL 10 MG TABLET PO (02:43)
[2022-11-16] MEDS: Ondansetron ODT 4 MG TAB.RAPDIS TRANSLINGU (02:43)
--- NOTE | 2022-11-16 02:57 | PC.NURSE ---
pt left prior to discharge instructions being given/explained
--- NOTE | 2022-11-16 02:58 | PC.NURSE ---
pt left prior to administering med ordered
--- NOTE | 2022-11-16 17:45 | PC.NURSE ---
Returned fiorcet to pharmacy per pharmacy's instructions after speaking to charge (HEIDI Luna). Pt left prior to this nurse being able to administer med and give discharge paperwork.
== END 2022-11-16 04:51 | disposition home or self-care (01) ==
PROVIDERS: Emergency Provider Internal Medicine
DX: R51.9 Headache, unspecified (principal); R11.2 Nausea with vomiting, unspecified; Z79.899 Other long term (current) drug therapy
CPT/HCPCS: 99283

== ENCOUNTER 2022-11-20 02:32 | Emergency (ER) | payer OTHER, SELFPAY ==
--- NOTE | 2022-11-20 05:10 | ED.HA ---
HPI - Headache General Time Seen by Provider: 11/20/22 05:10 Source: patient Mode of arrival: ambulatory Limitations: no limitations History of Present Illness HPI Narrative: Patient with white matter brain disease with chronic headache on few days been here multiple times says her doctor is not available who gives a few days per records she been to different hospitals for same asking for Fioricet patient was seen here last time was 11/16 head was given 20 tablets of Fioricet Related Data Previous Rx's Medication Instructions Recorded ghdhjxdkkc-mnjunugvbwybg-yzehagwb 1 cap PO Q6H PRN pain #10 caps 07/10/21 50 mg-300 mg-40 mg capsule (Fioricet) cyclobenzaprine 10 mg tablet 10 mg PO TID PRN muscle spasm #10 07/10/21 tabs lidocaine 5 % topical patch 1 patch topical DAILY #15 ea 07/10/21 (Lidoderm) ixzoktccsd-asvjrhmgsyxzb-lujmyjbf 1 cap PO Q6H PRN headache #10 caps 08/08/22 50 mg-300 mg-40 mg capsule (Fioricet) amlodipine 5 mg tablet 5 mg PO DAILY #30 tabs 08/14/22 prtobcznkq-njhyisprunqlo-qddkfvtg 1 cap PO Q6H PRN pain #20 caps 08/14/22 50 mg-300 mg-40 mg capsule (Fioricet) royjouvvxr-nnrbppejdsrgq-cscakyra 1 cap PO Q4H PRN pain #30 caps 08/20/22 50 mg-300 mg-40 mg capsule (Fioricet) upsmlkxyna-iekozcqebuxnl-klkahtrc 1 cap PO .B.i.d. PRN pain #14 caps 08/26/22 50 mg-300 mg-40 mg capsule (Fioricet) amlodipine 5 mg tablet 5 mg PO DAILY #30 tabs 08/30/22 oxrsegqpxg-iicranygnmehd-royfufdv 2 cap PO QAM #30 caps 08/30/22 50 mg-300 mg-40 mg capsule (Fioricet) gmhepjowjw-dpoqrgtqeqjhw-rphpgwtw 2 tab PO Q6H PRN pain #12 tabs 09/06/22 50 mg-325 mg-40 mg tablet ihcnxeyuus-lcvjafjmuvrji-kmhotexr 1 cap PO BID PRN pain #6 caps 10/06/22 50 mg-300 mg-40 mg capsule (Fioricet) nswfsbeulz-lvqrdkkwgxufu-rctqknaq 1 cap PO Q6H PRN headache #20 caps 11/16/22 50 mg-300 mg-40 mg capsule (Fioricet) lisinopril 10 mg tablet 10 mg PO DAILY #30 tabs 11/16/22 Allergies Allergy/AdvReac Type Severity Reaction Status Date / Time fentanyl AdvReac Intermediate felt like Verified 11/08/22 05:19 everything was spinning morphine AdvReac Intermediate pass out Verified 11/08/22 05:19 Review of Systems Review of Systems: Yes all other systems are reviewed and are negative [facility] Past Medical History Medical History HTN (hypertension) Migraines 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 Oriented X3. No acute distress. Eyes: PERRLA, No Nystagmus ENT: Pharynx normal. Oral Mucosa moist Neck: Normal inspection. Neck supple. CVS: Normal heart rate and rhythm. Pulses normal. Respiratory: No respiratory distress. Equal air entry bilateral, no wheezing/rales/rhonchi Abdomen: Soft and nontender. Bowel sounds are present, no mass palpable, no CVA tenderness Skin: Skin warm and dry. Normal skin color. Normal skin turgor. Extremities: No lower extremity edema. No calf tenderness Neuro: Oriented X 3. No motor deficit. No sensory deficit.No cerebellar signs , cranial nerves II-XII intact Medical Decision Making Medical Decision Making MDM Narrative: Patient again reinforced to follow up with primary care doctor/neurologist not to shop at ERs for Fioricet. Prescription of Fioricet again give advised to see Dr. Dela Cruz neurologist if she cannot find PCP Discharge Plan Discharge Clinical Impression: Headache Patient Disposition: Home, Self-Care Instructions: General Headache (ED) Additional Instructions: Follow-up with neurologist/PCP for further management Prescriptions: No Action vxbujthtkj-zvquvmzajbtsp-bovx [Fioricet] 50-300-40 mg capsule 1 cap PO Q6H PRN (Reason: headache) Qty: 10 0RF pxpnwbhjqk-vdgegjngshhrp-etoa [Fioricet] 50-300-40 mg capsule 1 cap PO Q6H PRN (Reason: pain) Qty: 20 0RF amlodipine 5 mg tablet 5 mg PO DAILY Qty: 30 0RF dwvxgoukpq-acwotzliaiaeq-ttdm [Fioricet] 50-300-40 mg capsule 1 cap PO Q4H PRN (Reason: pain) Qty: 30 0RF xaypcjvcgc-loglzxpvqrtdn-ezfw [Fioricet] 50-300-40 mg capsule 1 cap PO .B.i.d. PRN (Reason: pain) Qty: 14 0RF kjrolfjtno-tyfpqkucsobqk-xbwz 50-325-40 mg tablet 2 tab PO Q6H PRN (Reason: pain) Qty: 12 0RF Rx Instructions: do not exceed 6 tabs per 24 hrs ywhmqjqvlx-ixbwxvrdnqhmf-muux [Fioricet] 50-300-40 mg capsule 1 cap PO BID PRN (Reason: pain) Qty: 6 0RF pkzsbanjvy-cthlswsmiwcrl-rtqb [Fioricet] 50-300-40 mg capsule 1 cap PO Q6H PRN (Reason: headache) Qty: 20 0RF lisinopril 10 mg tablet 10 mg PO DAILY Qty: 30 0RF avastpwlvk-jmgqrdfyfdjaa-xmjp [Fioricet] 50-300-40 mg capsule 1 cap PO Q6H PRN (Reason: pain) Qty: 10 0RF cyclobenzaprine 10 mg tablet 10 mg PO TID PRN (Reason: muscle spasm) Qty: 10 0RF lidocaine [Lidoderm] 5 % adhesive patch,medicated 1 patch topical DAILY Qty: 15 0RF Rx Instructions: leave on most painful area for up to 12 hrs amlodipine 5 mg tablet 5 mg PO DAILY Qty: 30 0RF uuobqedlch-miejmsxwctxzv-flrt [Fioricet] 50-300-40 mg capsule 2 cap PO QAM Qty: 30 0RF Rx Instructions: do not exceed 6 caps per day Referrals: Nabil Dela Cruz MD [Physician] - 2 days
[2022-11-20] MEDS: Butalb/Acetamin/Caff 50/325/40 TABLET 2 TAB PO (05:23)
--- NOTE | 2022-11-20 05:31 | PC.NURSE ---
Pt ambulatory in room, down hallway and impatiently asking when the MD would see her. Pt then asking for her fioricet and DC paperwork, after MD left room. Pt able to hold a conversation. Brought in cans of soda to enjoy while waiting. Pt here with friend. Pt would not wait for DC paperwork or vitals. Pt understands to follow up with Jose De Jesus.
--- NOTE | 2022-11-20 05:34 | PC.NURSE ---
See paper triage form and paperwork.
== END 2022-11-20 05:34 | disposition home or self-care (01) ==
PROVIDERS: Emergency Provider Internal Medicine
DX: R51.9 Headache, unspecified (principal); I10 Essential (primary) hypertension; Z79.899 Other long term (current) drug therapy
CPT/HCPCS: 99281; 99283

== ENCOUNTER 2022-11-25 13:32 | Emergency (ER) | payer OTHER, SELFPAY ==
[2022-11-25 14:08] VITALS: BP 194/88; PULSE 76; RESP 18; TEMP 36.6; O2SAT 97; BMI 28.3
--- NOTE | 2022-11-25 14:08 | ED_ITS ---
HPI - Headache General Chief Complaint: Headache Stated Complaint: Migraine Related Data Previous Rx's Medication Instructions Recorded axkluyigsb-wtqvbjfjqtaeg-oufqrddn 1 cap PO Q6H PRN pain #10 caps 07/10/21 50 mg-300 mg-40 mg capsule (Fioricet) cyclobenzaprine 10 mg tablet 10 mg PO TID PRN muscle spasm #10 07/10/21 tabs lidocaine 5 % topical patch 1 patch topical DAILY #15 ea 07/10/21 (Lidoderm) hqxrwlmswa-arpubcmqmewjb-slhyskzn 1 cap PO Q6H PRN headache #10 caps 08/08/22 50 mg-300 mg-40 mg capsule (Fioricet) amlodipine 5 mg tablet 5 mg PO DAILY #30 tabs 08/14/22 lqupudmnry-zbrsjxciuftct-wdefqnav 1 cap PO Q6H PRN pain #20 caps 08/14/22 50 mg-300 mg-40 mg capsule (Fioricet) hprqmznels-qrgfsdzjocbxv-ipjkdfzn 1 cap PO Q4H PRN pain #30 caps 08/20/22 50 mg-300 mg-40 mg capsule (Fioricet) tvkdftkxkv-zxfuaboaxnmwr-dgrmudgz 1 cap PO .B.i.d. PRN pain #14 caps 08/26/22 50 mg-300 mg-40 mg capsule (Fioricet) amlodipine 5 mg tablet 5 mg PO DAILY #30 tabs 08/30/22 cepqqefzzv-qnyjvxaggagmc-efnsqbiz 2 cap PO QAM #30 caps 08/30/22 50 mg-300 mg-40 mg capsule (Fioricet) kqjnkathax-hnujwnjinscfc-qrlbhbdc 2 tab PO Q6H PRN pain #12 tabs 09/06/22 50 mg-325 mg-40 mg tablet znmyirmhqy-jhsunuyeecofw-sinowkrz 1 cap PO BID PRN pain #6 caps 10/06/22 50 mg-300 mg-40 mg capsule (Fioricet) dlksmrguhe-elvuranhcaerv-gnekgffj 1 cap PO Q6H PRN headache #20 caps 11/16/22 50 mg-300 mg-40 mg capsule (Fioricet) lisinopril 10 mg tablet 10 mg PO DAILY #30 tabs 11/16/22 Allergies Allergy/AdvReac Type Severity Reaction Status Date / Time fentanyl AdvReac Intermediate felt like Verified 11/08/22 05:19 everything was spinning morphine AdvReac Intermediate pass out Verified 11/08/22 05:19 [facility] Past Medical History Medical History HTN (hypertension) Migraines 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 Social History Social History Alcohol intake: never Patient Tobacco Use Status: Never used Tobacco Advance Directives: No Advance Directives Information Provided: No Physical Exam Vital Signs: Vital Signs: Last Vital Signs Temp 97.9 F 11/25/22 14:08 Pulse 76 11/25/22 14:08 Resp 18 11/25/22 14:08 BP 194/88 H 11/25/22 14:08 Pulse Ox 97 11/25/22 14:08 O2 Del Method 11/25/22 14:08 BMI result Body Mass Index 28.3 Course Course Course Narrative: YURIDIA--67-year-old female with a past medical history of hypertension, migraines, white matter brain disease presenting to the ED complaining of acute on chronic migraine headache. Reports Fioricet is the only medication that helps her headaches. Patient has been seen in our ED multiple times for similar symptoms, most recently 11/20 last filled Fioricet prescription on 11/22 Ambulating with steady gait Discharge Plan Discharge Clinical Impression: Headache Patient Disposition: Elopement Prescriptions: No Action ibejqlokui-jzifuubaxfzbn-agyz [Fioricet] 50-300-40 mg capsule 1 cap PO Q6H PRN (Reason: headache) Qty: 10 0RF yfqbvuoujt-waeigzeafwcex-pemu [Fioricet] 50-300-40 mg capsule 1 cap PO Q6H PRN (Reason: pain) Qty: 20 0RF amlodipine 5 mg tablet 5 mg PO DAILY Qty: 30 0RF llfxrhyyac-xwpbxtkrdjsql-vdvs [Fioricet] 50-300-40 mg capsule 1 cap PO Q4H PRN (Reason: pain) Qty: 30 0RF ruzrkbnnck-bgeynphgbumut-kmsn [Fioricet] 50-300-40 mg capsule 1 cap PO .B.i.d. PRN (Reason: pain) Qty: 14 0RF ddacmuqlpm-iagxfzxafvhnu-zjfr 50-325-40 mg tablet 2 tab PO Q6H PRN (Reason: pain) Qty: 12 0RF Rx Instructions: do not exceed 6 tabs per 24 hrs dwkssbqaar-alijgkuivbneh-qjox [Fioricet] 50-300-40 mg capsule 1 cap PO BID PRN (Reason: pain) Qty: 6 0RF gnauwsrqqc-khpipufgnykar-domh [Fioricet] 50-300-40 mg capsule 1 cap PO Q6H PRN (Reason: headache) Qty: 20 0RF lisinopril 10 mg tablet 10 mg PO DAILY Qty: 30 0RF aerwdhofyc-lmigoyzpzshak-bgap [Fioricet] 50-300-40 mg capsule 1 cap PO Q6H PRN (Reason: pain) Qty: 10 0RF cyclobenzaprine 10 mg tablet 10 mg PO TID PRN (Reason: muscle spasm) Qty: 10 0RF lidocaine [Lidoderm] 5 % adhesive patch,medicated 1 patch topical DAILY Qty: 15 0RF Rx Instructions: leave on most painful area for up to 12 hrs amlodipine 5 mg tablet 5 mg PO DAILY Qty: 30 0RF swnpistdqt-xljeawqifycjf-kcpn [Fioricet] 50-300-40 mg capsule 2 cap PO QAM Qty: 30 0RF Rx Instructions: do not exceed 6 caps per day Interventions: ED Discharge Assessment Last Done: 11/25/22 14:58 Discharge Date/Time: 11/25/22 14:59
== END 2022-11-25 14:59 | disposition left against medical advice (07) ==
PROVIDERS: Emergency Provider Emergency Medicine
DX: R51.9 Headache, unspecified (principal); Z79.899 Other long term (current) drug therapy
CPT/HCPCS: 99281; 99282

== ENCOUNTER 2022-11-26 02:10 | Emergency (ER) | payer OTHER, SELFPAY ==
[2022-11-26 02:19] VITALS: BP 179/101; PULSE 99; RESP 16; TEMP 37; O2SAT 98; BMI 28.3
== END 2022-11-26 07:03 | disposition left against medical advice (07) ==
PROVIDERS: Emergency Provider Emergency Medicine
DX: R51.9 Headache, unspecified (principal); I10 Essential (primary) hypertension; I99.8 Other disorder of circulatory system
CPT/HCPCS: 99281

== ENCOUNTER 2022-11-27 22:08 | Emergency (ER) | payer OTHER, SELFPAY ==
[2022-11-27 22:12] VITALS: BP 175/87; PULSE 80; RESP 16; TEMP 36.5; O2SAT 98; BMI 28.3
== END 2022-11-27 22:41 | disposition left against medical advice (07) ==
PROVIDERS: Emergency Provider Emergency Medicine
DX: R51.9 Headache, unspecified (principal)
CPT/HCPCS: 99281

== ENCOUNTER 2022-12-05 00:35 | Emergency (ER) | payer OTHER, SELFPAY ==
[2022-12-05 01:12] VITALS: BP 142/72; BP 186/107; PULSE 100; PULSE 81; RESP 16; TEMP 36.6; O2SAT 97; O2SAT 98; BMI 28.3
--- NOTE | 2022-12-05 04:05 | PC.NURSE ---
pt a&o, no sob or chest pain, provider aware that patient ride is coming. Assured patient that provider will be as soon as she can.
[2022-12-05 04:16] VITALS: BP 238/116; PULSE 82; RESP 18; TEMP 36.3; O2SAT 99
--- NOTE | 2022-12-05 04:25 | ED_ITS ---
HPI - General Adult General Chief complaint: General Medical Stated complaint: Not Feeling Well Time Seen by Provider: 12/05/22 04:32 Source: patient and EMS Mode of arrival: EMS Limitations: no limitations History of Present Illness HPI narrative: Patient comes to the emergency room complaining of a headache. Patient has been evaluated multiple times for headache. However, in triage patient's blood pressure was 186/107. The patient was seen was 238/116. Patient states that she does not want a head CT and does not want blood work. Patient requesting Fioricet and agrees to take blood pressure medications. Patient states she ran out of lisinopril and has not taking it for approximately 48 hours. Patient denies chest pain or shortness of breath, no visual changes Related Data Previous Rx's Medication Instructions Recorded torbwyktyg-hzymisdhxiiwl-fbsqsdqj 1 cap PO Q6H PRN pain #10 caps 07/10/21 50 mg-300 mg-40 mg capsule (Fioricet) cyclobenzaprine 10 mg tablet 10 mg PO TID PRN muscle spasm #10 07/10/21 tabs lidocaine 5 % topical patch 1 patch topical DAILY #15 ea 07/10/21 (Lidoderm) nknjupdgyo-muupeymxtfesd-dojvrawl 1 cap PO Q6H PRN headache #10 caps 08/08/22 50 mg-300 mg-40 mg capsule (Fioricet) amlodipine 5 mg tablet 5 mg PO DAILY #30 tabs 08/14/22 trzhqmofzd-icqxzyunlurmm-ztytqwrs 1 cap PO Q6H PRN pain #20 caps 08/14/22 50 mg-300 mg-40 mg capsule (Fioricet) fygntzarir-vxfjpyeyjfwal-mqfglmnf 1 cap PO Q4H PRN pain #30 caps 08/20/22 50 mg-300 mg-40 mg capsule (Fioricet) htkzaliuij-jfccnxqrvcyse-wfmnjdbs 1 cap PO .B.i.d. PRN pain #14 caps 08/26/22 50 mg-300 mg-40 mg capsule (Fioricet) amlodipine 5 mg tablet 5 mg PO DAILY #30 tabs 08/30/22 gsmwxougvf-eqywnslpeteto-tbjjtyiu 2 cap PO QAM #30 caps 08/30/22 50 mg-300 mg-40 mg capsule (Fioricet) gugnaehsiv-qbjimafmhykqj-tsuitbwl 2 tab PO Q6H PRN pain #12 tabs 09/06/22 50 mg-325 mg-40 mg tablet geatlagria-oampciwimevkt-zpluwjok 1 cap PO BID PRN pain #6 caps 10/06/22 50 mg-300 mg-40 mg capsule (Fioricet) lyhhbgwohp-eekoxpabuluqs-dagmsxzv 1 cap PO Q6H PRN headache #20 caps 11/16/22 50 mg-300 mg-40 mg capsule (Fioricet) lisinopril 10 mg tablet 10 mg PO DAILY #30 tabs 11/16/22 lisinopril 40 mg tablet 40 mg PO DAILY #30 tabs 12/05/22 Allergies Allergy/AdvReac Type Severity Reaction Status Date / Time fentanyl AdvReac Intermediate felt like Verified 11/08/22 05:19 everything was spinning morphine AdvReac Intermediate pass out Verified 11/08/22 05:19 Review of Systems Review of Systems: Constitutional : No Weight loss, No Fever, No Chills, No Night Sweats, No Fatigue, No Malaise ENT/Mouth : No Hearing loss, No Ear Pain, No Nasal Congestion, No Sinus Pain, No Hoarseness, No sore throat, No Rhinorrhea, No Swallowing Difficulty Eyes: No Eye Pain, No Swelling, No Redness, No Foreign Body, No Discharge, No Vision Changes Cardiovascular : No Chest Pain, No SOB, No Dyspnea on Exertion, No Orthopnea, No Edema, No Palpitations Respiratory : No Cough, No Sputum, No Wheezing, No Smoke Exposure, No Dyspnea Gastrointestinal : No Nausea, No Vomiting, No Diarrhea, No Constipation, No abdominal Pain, No Hematochezia, No Melena Genitourinary : no irregular bleeding, No Dysuria, No Urinary Frequency, No Hematuria, No Urinary Incontinence, No Urgency, No Flank Pain, No Urinary Flow Changes, No Hesitancy Musculoskeletal : No joint pain, No Myalgias, No Joint Swelling Skin : No Skin Lesions, No rash Neuro : No Weakness, No Numbness, No Paresthesias, No Loss of Consciousness, No Dizziness, complaining of chronic Headache Psych : No Anxiety/Panic, No Depression, No SI/HI/AH/VH, No Social Issues, Heme/Lymph: No Bruising, No Bleeding,No Lymphadenopathy Endocrine : No Polyuria, No Polydipsia, No Temperature Intolerance PMFSH Past Medical History Medical History HTN (hypertension) Migraines 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 Oriented X3. No acute distress. Well appearing Eyes: Pupils equal, round and reactive to light. ENT: Pharynx normal. Neck: Normal inspection. Neck supple. No lymph nodes noted. No crepitus CVS: Normal heart rate and rhythm. Pulses normal. Normal S1 and S2 Respiratory: No respiratory distress. Breath sounds normal. No Wheezing. No rales Abdomen: Soft and nontender. No rigidity. No distention. Skin: Skin warm and dry. Normal skin color. Normal skin turgor. Extremities: No lower extremity edema. No Lacerations. No Rash Neuro: Oriented X 3. No motor deficit. No sensory deficit. Moving all extremities. No slurred speech. CN 2 through 12 grossly intact Psych: calm, cooperative, normal affect Course Course Course Narrative: -patient refuses to have a head CT scan. Patient understands the blood pressure is so high and with a headache, this could potentially be a brain bleed. Patient understands but patient still declines. -patient given p.o. labetalol 100 mg and 2 tablets Fioricet. -patient's labs pending Medications Administered Discontinued Medications Generic Name Dose Route Start Last Admin Trade Name Freq PRN Reason Stop Dose Admin Acetaminophen/Butalbital/Caffeine 2 tab 12/05/22 04:24 12/05/22 04:32 Butalb/Acetamin/Caff 50/325/40 Tablet PO 12/05/22 04:25 2 tab ONCE ONE Administration Labetalol HCl 100 mg 12/05/22 04:24 12/05/22 04:33 Labetalol Hcl 100 Mg Tablet PO 12/05/22 04:25 100 mg ONCE ONE Administration Protocol Medical Decision Making Medical Decision Making MDM Narrative: -I was informed by the patient's nurse that the patient eloped. Patient's last blood pressure read 210/112. Patient received 100 mg p.o. labetalol and she was supposed to get 10 mg of amlodipine. The patient did not get it before she eloped. Patient was found in the waiting room, patient states that she is waiting for her ride and is unwilling to come back again. States she has to go to court today Differential Diagnosis Differential Diagnoses: The differential diagnosis associated with the presentation includes (Intracerebral hemorrhage, hypertensive emergency, CVA, migraine headache) Lab Data [facility] Lab Attestation statement: I reviewed the patient's lab results. 12/05/22 04:51 12/05/22 04:51 Labs: Lab Results 12/05/22 Range/Units 04:51 WBC 9.4 (4.8-10.8) X10*3/uL RBC 5.16 (4.20-5.50) X10*6/uL Hgb 15.3 (12.0-16.0) g/dl Hct 45.6 (37.0-47.0) % MCV 88.4 (80.0-98.0) fL MCH 29.7 (27.0-33.0) pg MCHC 33.6 (31.0-35.0) g/dl RDW 12.3 (11.0-16.0) % Plt Count 323 (160-400) X10*3/uL MPV 9.6 (9.4-12.3) fL Immature Gran % (Auto) 0.2 (0.0-0.4) % Neut % (Auto) 71.0 (45-73) % Lymph % (Auto) 19.3 L (20-40) % Crawford % (Auto) 6.9 (2-11) % Eos % (Auto) 2.0 (0-4) % Baso % (Auto) 0.6 (0-2) % Lymph # (Auto) 1.8 (1.2-4.9) X10*3/uL Crawford # (Auto) 0.7 (0.1-1.2) X10*3/uL Eos # (Auto) 0.2 (0.0-0.4) X10*3/uL Baso # (Auto) 0.1 (0.0-0.2) X10*3/uL Abs Immat Gran (auto) 0.02 (0.00-0.03) X10*3/uL Absolute Neuts (auto) 6.7 (2.0-8.3) x10*3/uL Absolute Nucleated RBC 0.000 (0.0-0.012) X10*3/uL Nucleated RBC % (auto) 0.0 (0.0-0.2) /100WBC Discharge Plan Discharge Clinical Impression: Headache, Severe hypertension Patient Disposition: Elopement Prescriptions: New lisinopril 40 mg tablet 40 mg PO DAILY Qty: 30 2RF No Action hcmskuitdj-qxstpekbzqbnp-rgfe [Fioricet] 50-300-40 mg capsule 1 cap PO Q6H PRN (Reason: headache) Qty: 10 0RF zpzjgmavfe-wqfatneghbszu-zxvr [Fioricet] 50-300-40 mg capsule 1 cap PO Q6H PRN (Reason: pain) Qty: 20 0RF amlodipine 5 mg tablet 5 mg PO DAILY Qty: 30 0RF qkdxmggdni-zjktyuumandgt-degu [Fioricet] 50-300-40 mg capsule 1 cap PO Q4H PRN (Reason: pain) Qty: 30 0RF ixvlvufhla-lqkdqsexgsmkm-pnxk [Fioricet] 50-300-40 mg capsule 1 cap PO .B.i.d. PRN (Reason: pain) Qty: 14 0RF ucmixxruov-iqfxwvajjpbfu-yaox 50-325-40 mg tablet 2 tab PO Q6H PRN (Reason: pain) Qty: 12 0RF Rx Instructions: do not exceed 6 tabs per 24 hrs pjdglweqre-gnqfzakcdkzkw-lvmh [Fioricet] 50-300-40 mg capsule 1 cap PO BID PRN (Reason: pain) Qty: 6 0RF cymhpfggwv-zqbevgqakesoe-vvwz [Fioricet] 50-300-40 mg capsule 1 cap PO Q6H PRN (Reason: headache) Qty: 20 0RF lisinopril 10 mg tablet 10 mg PO DAILY Qty: 30 0RF ltwpcrxebd-drxnevasdfjci-itts [Fioricet] 50-300-40 mg capsule 1 cap PO Q6H PRN (Reason: pain) Qty: 10 0RF cyclobenzaprine 10 mg tablet 10 mg PO TID PRN (Reason: muscle spasm) Qty: 10 0RF lidocaine [Lidoderm] 5 % adhesive patch,medicated 1 patch topical DAILY Qty: 15 0RF Rx Instructions: leave on most painful area for up to 12 hrs amlodipine 5 mg tablet 5 mg PO DAILY Qty: 30 0RF mgjmpurvxu-rkkldddkoduwr-epnw [Fioricet] 50-300-40 mg capsule 2 cap PO QAM Qty: 30 0RF Rx Instructions: do not exceed 6 caps per day
[2022-12-05] MEDS: Butalb/Acetamin/Caff 50/325/40 TABLET 2 TAB PO (04:32)
[2022-12-05] MEDS: Labetalol HCL 100 MG TABLET PO (04:33)
[2022-12-05 04:56] LABS: MANUAL DIFF FLAG NO
[2022-12-05 04:57] VITALS: BP 210/112
[2022-12-05 04:57] LABS: Basophils Absolute Auto 0.1 X10*3/uL (0.0-0.2); Basophils Percent Auto 0.6 % (0-2); Eosinophils Absolute Auto 0.2 X10*3/uL (0.0-0.4); Hematocrit 45.6 % (37.0-47.0); Hemoglobin 15.3 g/dl (12.0-16.0); Imm Gran Abs Auto 0.02 X10*3/uL (0.00-0.03); Imm Gran Pct Auto 0.2 % (0.0-0.4); Lymphocytes Absolute Auto 1.8 X10*3/uL (1.2-4.9); Lymphocytes Percent Auto 19.3 % (20-40); Mean Corpuscular HGB Conc 33.6 g/dl (31.0-35.0); Mean Corpuscular Hemoglobin 29.7 pg (27.0-33.0); Mean Corpuscular Volume 88.4 fL (80.0-98.0); Mean Platelet Volume 9.6 fL (9.4-12.3); Monocytes Absolute Auto 0.7 X10*3/uL (0.1-1.2); Monocytes Percent Auto 6.9 % (2-11); Neutrophils Absolute Auto 6.7 x10*3/uL (2.0-8.3); Platelet Count 323 X10*3/uL (160-400); Red Blood Count 5.16 X10*6/uL (4.20-5.50); Red Cell Distribution Width 12.3 % (11.0-16.0); White Blood Count 9.4 X10*3/uL (4.8-10.8)
--- NOTE | 2022-12-05 04:58 | MHC.EDTECH ---
Pt refused ekg Dr reyes made aware
--- NOTE | 2022-12-05 05:11 | MHC.EDTECH ---
Pt Eloped @ 5am due to ride being here.
[2022-12-05 05:18] LABS: Troponin-I High Sensitivity 5.6 ng/L (<3.5-17.0)
[2022-12-05 05:20] LABS: Anion Gap 13 (12-20); Blood Urea Nitrogen 22 mg/dL (9-16); Calcium 9.7 mg/dL (8.4-10.2); Carbon Dioxide 29 mmol/L (22-29); Chloride 104 mmol/L (96-108); Creatinine Clr Calc Pharmacy 59.6; Estimated Glomerular Filt Rate > 60; Glucose Random 126 mg/dL (60-115); Potassium 3.7 mmol/L (3.3-5.1); Sodium 142 mmol/L (135-145)
--- NOTE | 2022-12-05 05:20 | PC.NURSE ---
Attempted to medicated pt, pt eloped, provider is aware.
== END 2022-12-05 05:21 | disposition left against medical advice (07) ==
PROVIDERS: Emergency Provider Emergency Medicine
DX: R51.9 Headache, unspecified (principal); I16.9 Hypertensive crisis, unspecified; R90.82 White matter disease, unspecified; G43.909 Migraine, unspecified, not intractable, without status migrainosus
CPT/HCPCS: 36415; 80048; 84484; 85025; 99283; 99284

== ENCOUNTER 2022-12-17 07:41 | Emergency (ER) | payer OTHER, SELFPAY ==
[2022-12-17 07:55] VITALS: BP 133/100; PULSE 88; RESP 16; TEMP 36.7; O2SAT 98; BMI 27.3
--- NOTE | 2022-12-17 09:07 | ED.GENADULT ---
HPI - General Adult General Chief complaint: Headache Stated complaint: Headache Time Seen by Provider: 12/17/22 09:06 Source: patient Mode of arrival: ambulatory Limitations: no limitations History of Present Illness HPI narrative: Patient is a 67 year old assigned female at with a history of HTN and migraines presenting to the emergency department today requesting additional fiorcet. Patient states that she has an appointment with the neurologist at the end of this month but can't wait that long due to the pain. Patient has been seen here multiple times for this. Patient denies any dizziness, lightheadedness, abdominal pain, nausea, vomiting, fever, chills, blurry vision, double vision, loss of vision, chest pain, difficulty breathing, shortness of breath, back pain, night sweats, pain with urination, increased urinary frequency, increased urinary urgency, blood in her urine or stool, syncope or a near syncopal episode, recent trauma or falls, bowel incontinence, bladder incontinence, bowel retention, bladder retention, or any other complaints at this time. Onset (ago): day(s) Location: head Radiation: non-radiation Severity: mild Severity scale (1-10): 3 Quality: aching and dull Pain Consistency: constant Relieving factors: none Exacerbating factors: none Associated symptoms: denies other symptoms Treatments prior to arrival: none Related Data Previous Rx's Medication Instructions Recorded jcaumtmuoz-ljsotozhymdhk-iylnsebh 1 cap PO Q6H PRN pain #10 caps 07/10/21 50 mg-300 mg-40 mg capsule (Fioricet) cyclobenzaprine 10 mg tablet 10 mg PO TID PRN muscle spasm #10 07/10/21 tabs lidocaine 5 % topical patch 1 patch topical DAILY #15 ea 07/10/21 (Lidoderm) ernnbejelr-glbybqnsstbae-umbitpdi 1 cap PO Q6H PRN headache #10 caps 08/08/22 50 mg-300 mg-40 mg capsule (Fioricet) amlodipine 5 mg tablet 5 mg PO DAILY #30 tabs 08/14/22 fsinesxmxp-qngyhadkgozwt-lotpxrdu 1 cap PO Q6H PRN pain #20 caps 08/14/22 50 mg-300 mg-40 mg capsule (Fioricet) getutcccsw-lyenchrtuqind-hiadpxqs 1 cap PO Q4H PRN pain #30 caps 11/23/22 50 mg-300 mg-40 mg capsule (Fioricet) vwqkaabteb-exhwnvynhotyg-ftrkpywc 1 cap PO .B.i.d. PRN pain #14 caps 08/26/22 50 mg-300 mg-40 mg capsule (Fioricet) amlodipine 5 mg tablet 5 mg PO DAILY #30 tabs 08/30/22 jfgqckxglo-nssyyzrgexmnk-pbfxuixf 2 cap PO QAM #30 caps 08/30/22 50 mg-300 mg-40 mg capsule (Fioricet) hkdrhonywk-hbqtigabqllmd-qrftauvo 2 tab PO Q6H PRN pain #12 tabs 09/06/22 50 mg-325 mg-40 mg tablet fotprkiqig-pzlszgnrhchqr-jgsimkls 1 cap PO BID PRN pain #6 caps 10/06/22 50 mg-300 mg-40 mg capsule (Fioricet) inqroegnwd-lngdwsbvomzel-kmilonhy 1 cap PO Q6H PRN headache #20 caps 11/16/22 50 mg-300 mg-40 mg capsule (Fioricet) lisinopril 10 mg tablet 10 mg PO DAILY #30 tabs 11/16/22 lisinopril 40 mg tablet 40 mg PO DAILY #30 tabs 12/05/22 uhntfgyqcw-entmrdjneqioz-dnyyoeva 2 cap PO Q4-6H PRN pain #30 caps 12/17/22 50 mg-300 mg-40 mg capsule (Fioricet) Allergies Allergy/AdvReac Type Severity Reaction Status Date / Time fentanyl AdvReac Intermediate felt like Verified 12/17/22 08:01 everything was spinning morphine AdvReac Intermediate pass out Verified 12/17/22 08:01 Review of Systems Constitutional: Constitutional: Reports no additional constitutional complaints, Denies chills, Denies fever(s), Reports headache(s) and Denies night sweats Eyes: Eyes: Reports no additional eye complaints, Denies blurry vision, Denies change in vision, Denies diplopia, Denies eye discharge, Denies loss of vision and Denies eye pain ENT: Denies dizziness and Reports headache(s) Cardiovascular: Cardiovascular: Reports no additional cardiovascular complaints, Denies chest pain, Denies lightheadedness, Denies Loss of Consciousness and Denies dyspnea Respiratory: Respiratory: Reports no additional respiratory complaints and Denies dyspnea Gastrointestinal: Gastrointestinal: Reports no additional gastrointestinal complaints, Denies abdominal pain, Denies melena, Denies hematochezia, Denies change in bowel habits and Denies change in stool character Genitourinary: Genitourinary: Denies hematuria, Denies urinary frequency, Denies dysuria, Denies urinary incontinence, Denies urinary hesitancy and Denies urinary urgency Musculoskeletal: Musculoskeletal: Reports no additional musculoskeletal complaints, Denies numbness and Denies tingling Neurologic: Denies dizziness, Reports headache(s), Denies loss of vision, Denies numbness and Denies tingling Psychiatric: Psychiatric: Reports no additional psychiatric complaints Endocrine: Endocrine: Reports no additional endocrine complaints Hematologic/Lymphatic: Hematologic/Lymphatic: Reports no additional hematologic/lymphatic complaints Allergic/Immunologic: Allergic/Immunologic: Reports no additional allergic/immunologic complaints PMFSH Past Medical History Attestation statement: The following information was validated with the patient. 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 Social History Social History Alcohol intake: never Patient Tobacco Use Status: Never used Tobacco Advance Directives: No Physical Exam ED Vital Signs: Vital Signs - 24 hr 12/17/22 07:55 Temperature 98.1 F Pulse Rate 88 Respiratory Rate 16 Blood Pressure 133/100 H Pulse Oximetry 98 Oxygen Delivery Method Room Air BMI result Body Mass Index 27.3 Const General: cooperative, no acute distress, alert and awake Nutritional Appearance: well nourished Orientation/consciousness: patient oriented x3 Limitations: no limitations [facility] Head: Yes normal to inspection and Yes atraumatic Ears: hearing grossly normal bilaterally and external ears normal General nose exam: Normal external nose present, no nasal discharge noted and no epistaxis Face and sinus: Yes normal facial exam, No abrasion and No laceration Mouth: Normal oral and palatal mucosa present, no drooling and no muffled voice Eyes General: appearance normal, both eyes and all related structures Periorbital: periorbital findings normal Eyelids: Yes eyelids normal Conjunctivae: conjunctivae normal Pupils: Equal, round and reactive pupils present EOM: EOMs intact bilaterally Neck Neck: Yes normal visual inspection, Yes full ROM and Yes no lymphadenopathy Chest Chest palpation & inspection: normal inspection of the chest Resp Effort & Inspection: normal respiratory effort and able to speak in complete sentences Auscultation: clear to auscultation bilaterally Cardio Rate: regular rate Rhythm: regular rhythm GI Inspection: Yes normal to inspection Palpation (GI): Soft to palpation, not firm, nontender and no guarding Neuro General: patient oriented x3 and moves all extremities Cranial nerves: Yes Equal, round and reactive pupils present Cognition (Neuro): normal cognition Motor exam (neuro): 5/5 motor strength present throughout Sensory Exam: Normal double simultaneous stimulation for sensation Coordination: idmdom-yx-qmnm test normal Extrem General: Yes normal to inspection, Yes full ROM and Yes capillary refill normal Psych Appearance: grossly normal Mental Status: mental status grossly normal Affect: normal affect Attitude: cooperative Thought process: Normal thought process present Thought content: Normal thought content present Insight: Good insight present (Psych) Medical Decision Making Medical Decision Making MDM Narrative: Patient is a 67 year old assigned female at with a history of HTN and migraines presenting to the emergency department today with a headache, requesting Fiorcet. Patient's physical exam was unremarkable. I explained my physical exam findings as to the patient. I answered all questions asked by the patient. I stressed the importance of the patient taking her medication as prescribed. I stressed the importance of the patient following up with her primary care provider and her neurologist, as scheduled. I stressed the importance of the patient returning to the emergency department immediately if her symptoms were to worsen or if she were to develop any dizziness, shortness of breath, difficulty breathing, chest pain, blurry vision, loss of vision, nausea, vomiting, abdominal pain, fever, chills, back pain, or any other complaints. Patient verbalized agreement and understanding with this treatment plan and discharge. Differential Diagnosis Differential Diagnoses: The differential diagnosis associated with the presentation includes migraine Discharge Plan Discharge Clinical Impression: Migraine Patient Disposition: Home, Self-Care Instructions: Migraine Headache (ED) Additional Instructions: Follow up with your primary care provider and your neurologist. Return to the emergency department immediately if your symptoms worsen or if you develop any dizziness, shortness of breath, difficulty breathing, chest pain, blurry vision, loss of vision, nausea, vomiting, abdominal pain, fever, chills, back pain, or any other complaints. Prescriptions: New iixvigxuow-gmabszaxmtqlz-jcni [Fioricet] 50-300-40 mg capsule 2 cap PO Q4-6H PRN (Reason: pain) Qty: 30 0RF Rx Instructions: do not exceed 6 caps per day No Action jihqcuikwr-kggnbnppmowob-usbf [Fioricet] 50-300-40 mg capsule 1 cap PO Q6H PRN (Reason: headache) Qty: 10 0RF nvqidvezxq-aicrhgrqyzgfh-uema [Fioricet] 50-300-40 mg capsule 1 cap PO Q6H PRN (Reason: pain) Qty: 20 0RF amlodipine 5 mg tablet 5 mg PO DAILY Qty: 30 0RF xvdatgtmhg-uidvcutnnfqgv-kxed [Fioricet] 50-300-40 mg capsule 1 cap PO Q4H PRN (Reason: pain) Qty: 30 0RF uhnaoeewul-sfghbldwofpwb-nyvo [Fioricet] 50-300-40 mg capsule 1 cap PO .B.i.d. PRN (Reason: pain) Qty: 14 0RF cdgkrhkusm-uaweowyarqvuu-slnl 50-325-40 mg tablet 2 tab PO Q6H PRN (Reason: pain) Qty: 12 0RF Rx Instructions: do not exceed 6 tabs per 24 hrs zmucjnoszg-rnfdxrweuorhz-vglt [Fioricet] 50-300-40 mg capsule 1 cap PO BID PRN (Reason: pain) Qty: 6 0RF blufxmayru-oezdivmjprbvp-wjhv [Fioricet] 50-300-40 mg capsule 1 cap PO Q6H PRN (Reason: headache) Qty: 20 0RF lisinopril 10 mg tablet 10 mg PO DAILY Qty: 30 0RF wxgobfidni-scdyzergqdqlz-ehdm [Fioricet] 50-300-40 mg capsule 1 cap PO Q6H PRN (Reason: pain) Qty: 10 0RF cyclobenzaprine 10 mg tablet 10 mg PO TID PRN (Reason: muscle spasm) Qty: 10 0RF lidocaine [Lidoderm] 5 % adhesive patch,medicated 1 patch topical DAILY Qty: 15 0RF Rx Instructions: leave on most painful area for up to 12 hrs amlodipine 5 mg tablet 5 mg PO DAILY Qty: 30 0RF uwyceiflxl-zacrbkijrgacj-ewid [Fioricet] 50-300-40 mg capsule 2 cap PO QAM Qty: 30 0RF Rx Instructions: do not exceed 6 caps per day lisinopril 40 mg tablet 40 mg PO DAILY Qty: 30 2RF Referrals: [facility] Family Medicine [Provider Group] (Call to establish and follow up with a primary care provider.) [facility] Primary Care, Wanda [Provider Group] (Call to establish and follow up with a primary care provider.) [facility] Primary Care,Velma [Provider Group] (Call to establish and follow up with a primary care provider.) [facility] [place] Neuro/Sleep [Provider Group] (GO TO YOUR APPPOINTMENT SCHEDULED) Discharge Date/Time: 12/17/22 09:29 Print Language: Slovak
== END 2022-12-17 09:29 | disposition home or self-care (01) ==
PROVIDERS: Emergency Provider Emergency Medicine
DX: G43.909 Migraine, unspecified, not intractable, without status migrainosus (principal); I10 Essential (primary) hypertension; Z79.899 Other long term (current) drug therapy
CPT/HCPCS: 99281; 99283

== ENCOUNTER 2022-12-27 04:39 | Emergency (ER) | payer OTHER, SELFPAY ==
[2022-12-27 04:42] VITALS: BP 161/137; PULSE 106; O2SAT 98
[2022-12-27 05:43] VITALS: BP 179/92; PULSE 105; RESP 16; TEMP 36.7; O2SAT 99; BMI 27.4
== END 2022-12-27 08:04 | disposition left against medical advice (07) ==
PROVIDERS: Emergency Provider Emergency Medicine
DX: R51.9 Headache, unspecified (principal)
CPT/HCPCS: 99281

== ENCOUNTER 2022-12-28 23:39 | Emergency (ER) | payer OTHER, SELFPAY ==
[2022-12-28 23:49] VITALS: BP 158/79; BP 174/107; PULSE 91; PULSE 98; RESP 18; TEMP 37.2; O2SAT 97; O2SAT 98; BMI 27.7
--- NOTE | 2022-12-29 00:06 | PC.NURSE ---
Patient BIBA for evaluation and management of headache. Patient reports she is here to get prescription for mediation for headache. VSS. Patient refused to change in the hospital attire. Patient also refused blood draw. Patient waiting to be seen by the provider. call lara within patient's reach.
--- NOTE | 2022-12-29 01:27 | ED.HA ---
HPI - Headache General Chief Complaint: Headache Stated Complaint: HEADACHE Time Seen by Provider: 12/29/22 00:14 History of Present Illness HPI Narrative: Patient is a 67-year-old female presented today with having headache that is been ongoing for the last 8 years. There is no fever no chills. There is no neck pain. Patient has been followed by a neurologist at [facility]. Patient had multiple MRIs done. The MRI showed possible lesions in the brain consistent with MS. Although further MRI done if these spinal cord did not show any additional lesions. Patient was being treated for MS at 1 point in time but she cannot tolerate the treatments. Continue to have the headaches. Patient went to see her neurologist but she refused to give any more Fiorcets. Patient decided to come to ED for further evaluation. Related Data Previous Rx's Medication Instructions Recorded fdrccpydbt-txanivokzhkom-wtpnpsda 1 cap PO Q6H PRN pain #10 caps 07/10/21 50 mg-300 mg-40 mg capsule (Fioricet) cyclobenzaprine 10 mg tablet 10 mg PO TID PRN muscle spasm #10 07/10/21 tabs lidocaine 5 % topical patch 1 patch topical DAILY #15 ea 07/10/21 (Lidoderm) qgjsphckqs-cbzqomzyjegrt-etppasnk 1 cap PO Q6H PRN headache #10 caps 08/08/22 50 mg-300 mg-40 mg capsule (Fioricet) amlodipine 5 mg tablet 5 mg PO DAILY #30 tabs 08/14/22 qryrnkbris-jxlorkgzwqill-julfsqeh 1 cap PO Q6H PRN pain #20 caps 08/14/22 50 mg-300 mg-40 mg capsule (Fioricet) ljlxfpgmlk-gxwnwocfrruxn-dbxdipxi 1 cap PO Q4H PRN pain #30 caps 08/20/22 50 mg-300 mg-40 mg capsule (Fioricet) nriogcjlhq-woslplearjvac-acxoaabi 1 cap PO .B.i.d. PRN pain #14 caps 08/26/22 50 mg-300 mg-40 mg capsule (Fioricet) amlodipine 5 mg tablet 5 mg PO DAILY #30 tabs 08/30/22 qbtiysskgt-tmbynhiqkyibh-ynespbgf 2 cap PO QAM #30 caps 08/30/22 50 mg-300 mg-40 mg capsule (Fioricet) ahihpmqeyc-ogiqwkhxvfrgz-bfijoict 2 tab PO Q6H PRN pain #12 tabs 09/06/22 50 mg-325 mg-40 mg tablet ylhohdgffj-rwwfitjsjyxvr-xnjxwlli 1 cap PO BID PRN pain #6 caps 10/06/22 50 mg-300 mg-40 mg capsule (Fioricet) gbnuileqrz-wjiljftznooel-cphhaojy 1 cap PO Q6H PRN headache #20 caps 11/16/22 50 mg-300 mg-40 mg capsule (Fioricet) lisinopril 10 mg tablet 10 mg PO DAILY #30 tabs 11/16/22 lisinopril 40 mg tablet 40 mg PO DAILY #30 tabs 12/05/22 cpfweqkmdz-emzmwoxuwvbmw-ahgqomkc 2 cap PO Q4-6H PRN pain #30 caps 12/17/22 50 mg-300 mg-40 mg capsule (Fioricet) Allergies Allergy/AdvReac Type Severity Reaction Status Date / Time fentanyl AdvReac Intermediate felt like Verified 12/17/22 08:01 everything was spinning morphine AdvReac Intermediate pass out Verified 12/17/22 08:01 Review of Systems Review of Systems: No fever no chills no focal weakness no nausea no vomiting Yes all other systems are reviewed and are negative PMFSH Past Medical History Attestation statement: The following information was validated with the patient. 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 Oriented X3. No acute distress. Eyes: Pupils equal, round and reactive to light. ENT: Pharynx normal. Neck: Normal inspection. Neck supple. No lymph nodes noted. No crepitus CVS: Normal heart rate and rhythm. Pulses normal. Normal S1 and S2 Respiratory: No respiratory distress. Breath sounds normal. No Wheezing. No rales Abdomen: Soft and nontender. No rigidity. No distention. good BS x4 Skin: Skin warm and dry. Normal skin color. Normal skin turgor. Extremities: No lower extremity edema. Neurovascular intact to all extremities. No Lacerations. No Rash Neuro: Oriented X 3. No motor deficit. No sensory deficit. Moving all extermities. No slurred speech. Finger-nose grossly intact. Rapid alternating movement grossly intact. Cranial nerves grossly intact. NIH stroke scale was 0. Medical Decision Making Medical Decision Making MDM Narrative: Patient has a history of chronic headache. Question etiology. Has been worked up at [facility] with multiple MRIs. Patient's old chart was reviewed. The note from the neurologist states patient was not to be given any more Fiocet prescription. Patient was confronted with this finding. Along with the chronic headache patient is neurologically intact. There is no signs of intracranial bleeding. There was no evidence or history to suggest patient has meningitis. Patient claims that the headache has been fairly constant she feels very uncomfortable wanted a script for the medication. Explained to patient she needs to follow-up. Will give 1 dose of medication here in the emergency department. She states understanding. Differential Diagnosis Differential Diagnoses: The differential diagnosis associated with the presentation includes External Record Review External record reviewed: Office record From [facility] neurology noted Discharge Plan Discharge Clinical Impression: Headache Patient Disposition: Home, Self-Care Instructions: General Headache (ED) Prescriptions: No Action ruytpalblj-sknxfjoguypms-dtjc [Fioricet] 50-300-40 mg capsule 1 cap PO Q6H PRN (Reason: headache) Qty: 10 0RF crltaqmeoc-xrdgxmroinnza-vyde [Fioricet] 50-300-40 mg capsule 1 cap PO Q6H PRN (Reason: pain) Qty: 20 0RF amlodipine 5 mg tablet 5 mg PO DAILY Qty: 30 0RF bzhvcqtkfu-qggqqmxukhxed-wjmn [Fioricet] 50-300-40 mg capsule 1 cap PO Q4H PRN (Reason: pain) Qty: 30 0RF lpdrwladyb-mbiyekblfealh-qizz [Fioricet] 50-300-40 mg capsule 1 cap PO .B.i.d. PRN (Reason: pain) Qty: 14 0RF gtsplysojw-gcbcsqeavuxnf-uakp 50-325-40 mg tablet 2 tab PO Q6H PRN (Reason: pain) Qty: 12 0RF Rx Instructions: do not exceed 6 tabs per 24 hrs bmsztbxjgk-edijzxxmtrldp-dlzc [Fioricet] 50-300-40 mg capsule 1 cap PO BID PRN (Reason: pain) Qty: 6 0RF rqwipjgzlw-zgpfuitfwjpfk-mitq [Fioricet] 50-300-40 mg capsule 1 cap PO Q6H PRN (Reason: headache) Qty: 20 0RF lisinopril 10 mg tablet 10 mg PO DAILY Qty: 30 0RF xuzagrmlec-rmndnjfdfetmc-govg [Fioricet] 50-300-40 mg capsule 2 cap PO Q4-6H PRN (Reason: pain) Qty: 30 0RF Rx Instructions: do not exceed 6 caps per day dogzazskhq-rzdsosahsofxy-yfsk [Fioricet] 50-300-40 mg capsule 1 cap PO Q6H PRN (Reason: pain) Qty: 10 0RF cyclobenzaprine 10 mg tablet 10 mg PO TID PRN (Reason: muscle spasm) Qty: 10 0RF lidocaine [Lidoderm] 5 % adhesive patch,medicated 1 patch topical DAILY Qty: 15 0RF Rx Instructions: leave on most painful area for up to 12 hrs amlodipine 5 mg tablet 5 mg PO DAILY Qty: 30 0RF yibhkkniny-dfclsyakjszps-wfbk [Fioricet] 50-300-40 mg capsule 2 cap PO QAM Qty: 30 0RF Rx Instructions: do not exceed 6 caps per day lisinopril 40 mg tablet 40 mg PO DAILY Qty: 30 2RF Referrals: Physician,Unknown J [Primary Care Provider] - (Please follow-up with your neurologist at [facility].)
[2022-12-29] MEDS: Butalb/Acetamin/Caff 50/325/40 TABLET 1 TAB PO (01:43)
[2022-12-29 01:50] VITALS: BP 138/84; PULSE 89; RESP 16; TEMP 36.8; O2SAT 98
== END 2022-12-29 01:51 | disposition home or self-care (01) ==
PROVIDERS: Emergency Provider Emergency Medicine Emergency Medical Services
DX: R51.9 Headache, unspecified (principal)
CPT/HCPCS: 99283; 99284

== ENCOUNTER 2023-01-20 05:20 | Emergency (ER) | payer OTHER, SELFPAY ==
--- NOTE | 2023-01-20 05:15 | ED.HA ---
HPI - Headache General Chief Complaint: Headache Stated Complaint: Headache Source: patient and EMS Mode of arrival: EMS Limitations: no limitations History of Present Illness HPI Narrative: Patient with multiple visits for headache treated with flexeril and refill of her blood pressure meds. She states she wants az SIMON elicited complaint: headache Onset (ago): day(s) Onset description: gradually Location: occipital Quality & Timing: aching Associated symptoms: none Related Data Previous Rx's Medication Instructions Recorded atvrvpezpj-hxgmrklkzhuur-vdshnlgd 1 cap PO Q6H PRN pain #10 caps 07/10/21 50 mg-300 mg-40 mg capsule (Fioricet) cyclobenzaprine 10 mg tablet 10 mg PO TID PRN muscle spasm #10 07/10/21 tabs lidocaine 5 % topical patch 1 patch topical DAILY #15 ea 07/10/21 (Lidoderm) xwfkktmqft-rnboscloudsyu-vtsimdfw 1 cap PO Q6H PRN headache #10 caps 08/08/22 50 mg-300 mg-40 mg capsule (Fioricet) amlodipine 5 mg tablet 5 mg PO DAILY #30 tabs 08/14/22 gafweewyco-fckbdqknivynk-jernfvyj 1 cap PO Q6H PRN pain #20 caps 08/14/22 50 mg-300 mg-40 mg capsule (Fioricet) tgwwyszkbu-ilxfpnqkjyrdn-mtcmaffs 1 cap PO Q4H PRN pain #30 caps 08/20/22 50 mg-300 mg-40 mg capsule (Fioricet) siptprxyje-xbzgdeapwkyri-mlbbpvro 1 cap PO .B.i.d. PRN pain #14 caps 08/26/22 50 mg-300 mg-40 mg capsule (Fioricet) amlodipine 5 mg tablet 5 mg PO DAILY #30 tabs 08/30/22 gyhpgooghg-klqumxhkrachf-bbnlmqgr 2 cap PO QAM #30 caps 08/30/22 50 mg-300 mg-40 mg capsule (Fioricet) otmpmiskxo-qplyeroscutjw-avgtbmrh 2 tab PO Q6H PRN pain #12 tabs 09/06/22 50 mg-325 mg-40 mg tablet himhwglpzd-zavsxxcfmadbq-hrktbdaf 1 cap PO BID PRN pain #6 caps 10/06/22 50 mg-300 mg-40 mg capsule (Fioricet) upuemnacdy-pbqkxudbwkwxe-wctyefan 1 cap PO Q6H PRN headache #20 caps 11/16/22 50 mg-300 mg-40 mg capsule (Fioricet) lisinopril 10 mg tablet 10 mg PO DAILY #30 tabs 11/16/22 lisinopril 40 mg tablet 40 mg PO DAILY #30 tabs 12/05/22 gvbfobppra-wijueaslpjjke-yaazpmqi 2 cap PO Q4-6H PRN pain #30 caps 12/17/22 50 mg-300 mg-40 mg capsule (Fioricet) amitriptyline 50 mg tablet 50 mg PO BEDTIME #20 tabs 01/20/23 Allergies Allergy/AdvReac Type Severity Reaction Status Date / Time fentanyl AdvReac Intermediate felt like Verified 12/17/22 08:01 everything was spinning morphine AdvReac Intermediate pass out Verified 12/17/22 08:01 Review of Systems Review of Systems: Yes all other systems are reviewed and are negative Constitutional: Comments: headache Neurologic: Denies Sensory deficit (Neuro) [facility] Past Medical History Medical History HTN (hypertension) Migraines 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 Social History Social History Alcohol intake: never Patient Tobacco Use Status: Never used Tobacco Physical Exam Const: General: healthy appearing Nutritional Appearance: average body habitus Orientation/consciousness: oriented to person and patient oriented x3 Limitations: no limitations HEENT: Head: Yes normal to inspection Ears: external ears normal General nose exam: Normal external nose present Mouth: Normal oral and palatal mucosa present and oropharynx normal Throat: Yes posterior oropharynx normal Eyes: General: appearance normal, both eyes and all related structures Neck: Other: supple Neck: Yes normal visual inspection Chest: Chest palpation & inspection: normal inspection of the chest Resp: Auscultation: clear to auscultation bilaterally Cardio: Jugular venous distension: no JVD Rate: regular rate Rhythm: regular rhythm Heart sounds: S1 normal heart sound present and S2 normal heart sound present GI: Inspection: Yes normal to inspection Palpation (GI): Soft to palpation, nontender and No hepatosplenomegaly present Auscultation: normal bowel sounds : General: Yes no CVA tenderness Back/Spine/Pelvis: Back: no CVA tenderness Skin: General skin exam: no rashes or lesions noted Neuro: General: oriented to person and patient oriented x3 Cranial nerves: Yes CN's II-XII intact bilaterally Motor exam (neuro): 5/5 motor strength present throughout Sensory Exam: No Sensory deficit (Neuro) Extrem: General: Yes normal to inspection Psych: Appearance: grossly normal Course Reevaluation(s) Reevaluation #1: patient is non focal with a history of the same, will dc home Time: 05:26 Medical Decision Making Differential Diagnosis Differential Diagnoses: The differential diagnosis associated with the presentation includes (headache, migraine, MS, chronic pain) Tests considered The following testing was considered but not selected: Considered getting a head Ct but patient is nonfocal and at baseline with a long history of the same, nothing acute. Social Determinants patient does not have a primary physician which is the basis of her problems Discharge Plan Discharge Clinical Impression: Chronic headache Patient Disposition: Home, Self-Care Instructions: Chronic Pain (ED), Acute Headache (ED) Prescriptions: New amitriptyline 50 mg tablet 50 mg PO BEDTIME Qty: 20 0RF No Action zehudaozau-kdvgzcobjanaj-kmys [Fioricet] 50-300-40 mg capsule 1 cap PO Q6H PRN (Reason: headache) Qty: 10 0RF slnuyfldfc-txhhtznpjrbju-frkg [Fioricet] 50-300-40 mg capsule 1 cap PO Q6H PRN (Reason: pain) Qty: 20 0RF amlodipine 5 mg tablet 5 mg PO DAILY Qty: 30 0RF svteoofzdr-qrubnzldbbwao-bzrc [Fioricet] 50-300-40 mg capsule 1 cap PO Q4H PRN (Reason: pain) Qty: 30 0RF kzaktmbolf-acsbqsltsptjv-vbux [Fioricet] 50-300-40 mg capsule 1 cap PO .B.i.d. PRN (Reason: pain) Qty: 14 0RF jlerrmibcy-hmixqxqenlxdy-iuaz 50-325-40 mg tablet 2 tab PO Q6H PRN (Reason: pain) Qty: 12 0RF Rx Instructions: do not exceed 6 tabs per 24 hrs rxbymoyoqd-abmiktsmbfafi-xqhw [Fioricet] 50-300-40 mg capsule 1 cap PO BID PRN (Reason: pain) Qty: 6 0RF gnintrcxtx-jyuldpgrhdfnd-zozs [Fioricet] 50-300-40 mg capsule 1 cap PO Q6H PRN (Reason: headache) Qty: 20 0RF lisinopril 10 mg tablet 10 mg PO DAILY Qty: 30 0RF ohulbkevrv-gwispgfwqayuc-latw [Fioricet] 50-300-40 mg capsule 2 cap PO Q4-6H PRN (Reason: pain) Qty: 30 0RF Rx Instructions: do not exceed 6 caps per day ajtszolxxf-xnkgkykqawxsr-tdez [Fioricet] 50-300-40 mg capsule 1 cap PO Q6H PRN (Reason: pain) Qty: 10 0RF cyclobenzaprine 10 mg tablet 10 mg PO TID PRN (Reason: muscle spasm) Qty: 10 0RF lidocaine [Lidoderm] 5 % adhesive patch,medicated 1 patch topical DAILY Qty: 15 0RF Rx Instructions: leave on most painful area for up to 12 hrs amlodipine 5 mg tablet 5 mg PO DAILY Qty: 30 0RF kqfeypzjyj-ytgbgfmryjygs-ipio [Fioricet] 50-300-40 mg capsule 2 cap PO QAM Qty: 30 0RF Rx Instructions: do not exceed 6 caps per day lisinopril 40 mg tablet 40 mg PO DAILY Qty: 30 2RF Referrals: Nabil Dela Cruz MD [Physician] - 1 week
[2023-01-20 05:18] VITALS: BP 150/90; PULSE 112; O2SAT 98
[2023-01-20 05:23] VITALS: BP 147/82; PULSE 106; RESP 20; TEMP 36.7; O2SAT 98; BMI 29.2
[2023-01-20 05:35] VITALS: BP 148/81; PULSE 104; RESP 16; TEMP 36.1; O2SAT 98
--- NOTE | 2023-01-20 05:36 | MHC.EDTECH ---
pt refused to change into hospital attire ,rn aware .
[2023-01-20] MEDS: Butalb/Acetamin/Caff 50/325/40 TABLET 2 TAB PO (05:39)
== END 2023-01-20 06:37 | disposition home or self-care (01) ==
PROVIDERS: Emergency Provider Emergency Medicine
DX: R51.9 Headache, unspecified (principal); Z79.899 Other long term (current) drug therapy
CPT/HCPCS: 99283

== ENCOUNTER 2023-01-23 06:26 | Emergency (ER) | payer OTHER, SELFPAY ==
[2023-01-23 06:29] VITALS: BP 161/87; PULSE 106; RESP 18; TEMP 36.5; O2SAT 99; BMI 28.7
--- NOTE | 2023-01-23 07:39 | ED_ITS ---
HPI - Headache General Chief Complaint: Headache Stated Complaint: HEADACHE Time Seen by Provider: 01/23/23 07:29 Source: patient Mode of arrival: EMS Limitations: no limitations History of Present Illness HPI Narrative: This is a 67 years old female presented by ambulance complaining of headache, patient has long standing history of a headache she has several MRI in the past, she had why matter lesion by last MRI of 2021, MS was ruled out, she has been evaluated at [facility] December 03 she was referred [facility]. The patient denies any fever chills vomiting, she states that she ran out of the Fioricet she is requesting a refill. MD elicited complaint: headache Onset (ago): year(s) Onset description: gradually Location: diffuse Severity: mild Quality & Timing: aching and throbbing Relieving factors: nothing Associated symptoms: none Related Data Previous Rx's Medication Instructions Recorded kvqppoqzff-sxdemryygltip-iurngnzf 1 cap PO Q6H PRN pain #10 caps 07/10/21 50 mg-300 mg-40 mg capsule (Fioricet) cyclobenzaprine 10 mg tablet 10 mg PO TID PRN muscle spasm #10 07/10/21 tabs lidocaine 5 % topical patch 1 patch topical DAILY #15 ea 07/10/21 (Lidoderm) rvgeymmhir-baqckfxmdwogy-fudzyofs 1 cap PO Q6H PRN headache #10 caps 08/08/22 50 mg-300 mg-40 mg capsule (Fioricet) amlodipine 5 mg tablet 5 mg PO DAILY #30 tabs 08/14/22 vwhjnghsxo-fqnarlrgquggy-oopotgqp 1 cap PO Q6H PRN pain #20 caps 08/14/22 50 mg-300 mg-40 mg capsule (Fioricet) thqvywxlpo-rbxwziqczwfgq-pqwlouhh 1 cap PO Q4H PRN pain #30 caps 08/20/22 50 mg-300 mg-40 mg capsule (Fioricet) aandghjjih-knbxffanjqouj-cpeagnzc 1 cap PO .B.i.d. PRN pain #14 caps 08/26/22 50 mg-300 mg-40 mg capsule (Fioricet) amlodipine 5 mg tablet 5 mg PO DAILY #30 tabs 08/30/22 ilmiiwejyf-kknyeldniyjus-wydqjcqh 2 cap PO QAM #30 caps 08/30/22 50 mg-300 mg-40 mg capsule (Fioricet) urdizuzgjh-ersjzqswpwvye-xzpeehsa 2 tab PO Q6H PRN pain #12 tabs 09/06/22 50 mg-325 mg-40 mg tablet kpsaejqeax-zudeevkamvzuf-tatafuzp 1 cap PO BID PRN pain #6 caps 10/06/22 50 mg-300 mg-40 mg capsule (Fioricet) ltxrmwnwhb-dbeqzxulmwjle-uhomriee 1 cap PO Q6H PRN headache #20 caps 11/16/22 50 mg-300 mg-40 mg capsule (Fioricet) lisinopril 10 mg tablet 10 mg PO DAILY #30 tabs 11/16/22 lisinopril 40 mg tablet 40 mg PO DAILY #30 tabs 12/05/22 ccmkpklnkt-dainykuqilihk-bsunozgx 2 cap PO Q4-6H PRN pain #30 caps 12/17/22 50 mg-300 mg-40 mg capsule (Fioricet) amitriptyline 50 mg tablet 50 mg PO BEDTIME #20 tabs 01/20/23 tzntkjsyyo-qtpnsphxlaslk-ndydylab 1 cap PO TID PRN pain #12 caps 01/23/23 50 mg-300 mg-40 mg capsule (Fioricet) Allergies Allergy/AdvReac Type Severity Reaction Status Date / Time fentanyl AdvReac Intermediate felt like Verified 01/23/23 06:34 everything was spinning morphine AdvReac Intermediate pass out Verified 01/23/23 06:34 Review of Systems Constitutional: Constitutional: Denies fever(s) Gastrointestinal: Gastrointestinal: Denies nausea and Denies vomiting Neurologic: Reports system reviewed and no additional complaints, except as documented [facility] Past Medical History [facility] Narrative: Chronic headache, leiomyosarcoma of the left femur, glaucoma, chronic back pain Medical History HTN (hypertension) Migraines 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 Social History Social History Alcohol intake: never Patient Tobacco Use Status: Never used Tobacco Advance Directives: Yes Advance Directives Information Provided: Yes Advance Directives on File: No Physical Exam Vital Signs: Vital Signs: Last Vital Signs Temp 97.7 F 01/23/23 06:29 Pulse 106 H 01/23/23 06:29 Resp 18 01/23/23 06:29 BP 161/87 H 01/23/23 06:29 Pulse Ox 99 01/23/23 06:29 O2 Del Method Room Air 01/23/23 06:29 BMI result Body Mass Index 28.7 Const: Other: She looks well when a sore she is was ambulating in the room were in not acute distress General: cooperative, healthy appearing, comfortable and no acute distress Nutritional Appearance: average body habitus Orientation/consciousness: patient oriented x3 HEENT: Other: He Head: Yes normal to inspection General nose exam: Normal external nose present Mouth: Normal oral and palatal mucosa present Eyes: General: appearance normal, both eyes and all related structures EOM: EOMs intact bilaterally Neck: Neck: Yes normal visual inspection, Yes full ROM, Yes no lymphadenopathy and Yes no meningeal signs Chest: Chest palpation & inspection: normal inspection of the chest Resp: Effort & Inspection: normal respiratory effort Auscultation: clear to auscultation bilaterally Cardio: Jugular venous distension: no JVD Rate: regular rate Rhythm: r egular rhythm GI: Inspection: Yes normal to inspection Palpation (GI): Soft to palpation Skin: General skin exam: no rashes or lesions noted and elasticity normal Lesions: no lesions Rashes: no rashes Neuro: General: patient oriented x3 and no meningeal signs Cranial nerves: Yes CN's II-XII intact bilaterally Motor exam (neuro): 5/5 motor strength present throughout and Pronator motor function not present Medical Decision Making Medical Decision Making MDM Narrative: Patient presented with chronic headache requesting a refill for Fioricet I do not think she need any imaging of the brain she had multiple MRI headache is chronic Differential Diagnosis Differential Diagnoses: The differential diagnosis associated with the presentation includes Chronic headache/migraine, I do not she has a subarachnoid bleed that this is a gradual-onset chronic headache no worse headache ever no sudden, today she has meningitis she has no fever neck is supple Admission/Observation Consideration of admission/observation: Escalation of care including admission/observation considered External Record Review External record reviewed: Inpatient record and Outside ED record ([facility] VISIT 12/03/2021) Tests considered The following testing was considered but not selected: CT scan of the head not done because the headache is chronic and she had multiple MRI Prescription Management I considered prescription management with: Pain Medication Discharge Plan Discharge Clinical Impression: Headache Patient Disposition: Home, Self-Care Instructions: Acute Headache (DC) Additional Instructions: Please follow-up with your family physician and your neurologist as scheduled on January 28 Prescriptions: New cehjbcyzua-gnsocypcoemcq-yssy [Fioricet] 50-300-40 mg capsule 1 cap PO TID PRN (Reason: pain) Qty: 12 0RF No Action hjejoswhlv-zawgcpqeasmyq-ewxe [Fioricet] 50-300-40 mg capsule 1 cap PO Q6H PRN (Reason: headache) Qty: 10 0RF asmnpdvvin-mlogemdwxlaqm-teea [Fioricet] 50-300-40 mg capsule 1 cap PO Q6H PRN (Reason: pain) Qty: 20 0RF amlodipine 5 mg tablet 5 mg PO DAILY Qty: 30 0RF hoxscghyeq-xckvuvahbpvkb-eoas [Fioricet] 50-300-40 mg capsule 1 cap PO Q4H PRN (Reason: pain) Qty: 30 0RF riwdffxusy-bwykskoyftzyd-pphy [Fioricet] 50-300-40 mg capsule 1 cap PO .B.i.d. PRN (Reason: pain) Qty: 14 0RF bqvgevvssh-edyijtagqhjnb-aens 50-325-40 mg tablet 2 tab PO Q6H PRN (Reason: pain) Qty: 12 0RF Rx Instructions: do not exceed 6 tabs per 24 hrs vfkpymhtpg-trmkjgrvrftay-cbjy [Fioricet] 50-300-40 mg capsule 1 cap PO BID PRN (Reason: pain) Qty: 6 0RF clfivlhjqy-rwothedjsrjwo-swur [Fioricet] 50-300-40 mg capsule 1 cap PO Q6H PRN (Reason: headache) Qty: 20 0RF lisinopril 10 mg tablet 10 mg PO DAILY Qty: 30 0RF cvdiujbace-earwqofgggbsg-aotv [Fioricet] 50-300-40 mg capsule 2 cap PO Q4-6H PRN (Reason: pain) Qty: 30 0RF Rx Instructions: do not exceed 6 caps per day ostdkrrcze-cvywnmzukkfnb-pzpj [Fioricet] 50-300-40 mg capsule 1 cap PO Q6H PRN (Reason: pain) Qty: 10 0RF cyclobenzaprine 10 mg tablet 10 mg PO TID PRN (Reason: muscle spasm) Qty: 10 0RF lidocaine [Lidoderm] 5 % adhesive patch,medicated 1 patch topical DAILY Qty: 15 0RF Rx Instructions: leave on most painful area for up to 12 hrs amlodipine 5 mg tablet 5 mg PO DAILY Qty: 30 0RF pkfsdnqqbu-hfrcsyafjxrej-bnbd [Fioricet] 50-300-40 mg capsule 2 cap PO QAM Qty: 30 0RF Rx Instructions: do not exceed 6 caps per day lisinopril 40 mg tablet 40 mg PO DAILY Qty: 30 2RF amitriptyline 50 mg tablet 50 mg PO BEDTIME Qty: 20 0RF Interventions: ED Discharge Assessment Last Done: 01/23/23 07:59 Discharge Date/Time: 01/23/23 08:00
== END 2023-01-23 08:00 | disposition home or self-care (01) ==
PROVIDERS: Emergency Provider Emergency Medicine
DX: R51.9 Headache, unspecified (principal); I10 Essential (primary) hypertension; Z79.899 Other long term (current) drug therapy
CPT/HCPCS: 99283

== ENCOUNTER 2023-01-29 09:06 | Emergency (ER) | payer OTHER, SELFPAY ==
[2023-01-29 09:11] VITALS: BP 165/84; PULSE 107; RESP 18; TEMP 36.1; O2SAT 97; BMI 28.9
[2023-01-29] MEDS: Butalb/Acetamin/Caff 50/325/40 TABLET 2 TAB PO (10:02)
--- NOTE | 2023-01-29 10:37 | ED.HA ---
HPI - Headache General Chief Complaint: Headache Stated Complaint: headache Time Seen by Provider: 01/29/23 09:25 Source: patient Mode of arrival: ambulatory Limitations: no limitations History of Present Illness HPI Narrative: 67-year-old female with chronic headaches presents with headache and unable to refill medications. Patient is currently in between doctors. She is set to see Neurology and primary care in the next week. Patient's pain today as severe. Occipital which is typical for her. The pain does not radiate. Pain can be worse with light and sound. There is no neck pain or stiffness. There is no sudden onset. There is no nausea vomiting at this time. Symptoms could also include agitation according to partner. She has no focal deficits. She has been no fevers or chills. No change in mentation. No additional complaints. Related Data Previous Rx's Medication Instructions Recorded nqmpasiqwm-qlgjfgvxdwkwi-oulhlpqx 1 cap PO Q6H PRN pain #10 caps 07/10/21 50 mg-300 mg-40 mg capsule (Fioricet) cyclobenzaprine 10 mg tablet 10 mg PO TID PRN muscle spasm #10 07/10/21 tabs lidocaine 5 % topical patch 1 patch topical DAILY #15 ea 07/10/21 (Lidoderm) hbwhoowxzz-haykkoeopsadc-oqvzclgr 1 cap PO Q6H PRN headache #10 caps 08/08/22 50 mg-300 mg-40 mg capsule (Fioricet) amlodipine 5 mg tablet 5 mg PO DAILY #30 tabs 08/14/22 yyxiyydsuh-luiviztvdsiro-lkmmtpem 1 cap PO Q6H PRN pain #20 caps 08/14/22 50 mg-300 mg-40 mg capsule (Fioricet) jwrhybxyuu-hxwpltbenkyjk-vnzusbke 1 cap PO Q4H PRN pain #30 caps 08/20/22 50 mg-300 mg-40 mg capsule (Fioricet) vdzyrgbquc-xsyxrrzvrbard-opyocolq 1 cap PO .B.i.d. PRN pain #14 caps 08/26/22 50 mg-300 mg-40 mg capsule (Fioricet) amlodipine 5 mg tablet 5 mg PO DAILY #30 tabs 08/30/22 hzbunfqmrl-jogsqhhxdfhic-lesrkffj 2 cap PO QAM #30 caps 08/30/22 50 mg-300 mg-40 mg capsule (Fioricet) ajeyuwnrpm-weprtusoxuydl-yockwjny 2 tab PO Q6H PRN pain #12 tabs 09/06/22 50 mg-325 mg-40 mg tablet fvpkmoqueo-ramqodtslmdwb-mtepcqfk 1 cap PO BID PRN pain #6 caps 10/06/22 50 mg-300 mg-40 mg capsule (Fioricet) uswpnvilpo-grpqsrverruje-slomorwa 1 cap PO Q6H PRN headache #20 caps 11/16/22 50 mg-300 mg-40 mg capsule (Fioricet) lisinopril 10 mg tablet 10 mg PO DAILY #30 tabs 11/16/22 lisinopril 40 mg tablet 40 mg PO DAILY #30 tabs 12/05/22 ajknhnbgrc-ohpqkvvloymeg-rbhvleil 2 cap PO Q4-6H PRN pain #30 caps 12/17/22 50 mg-300 mg-40 mg capsule (Fioricet) amitriptyline 50 mg tablet 50 mg PO BEDTIME #20 tabs 01/20/23 wjiskdqlzp-skahytlszgadx-evkkzqge 1 cap PO TID PRN pain #12 caps 01/23/23 50 mg-300 mg-40 mg capsule (Fioricet) daxopmaxau-uibbankiqikum-ennqbgzg 1 cap PO Q8H PRN pain #6 caps 01/29/23 50 mg-300 mg-40 mg capsule (Fioricet) Allergies Allergy/AdvReac Type Severity Reaction Status Date / Time fentanyl AdvReac Intermediate felt like Verified 01/23/23 06:34 everything was spinning morphine AdvReac Intermediate pass out Verified 01/23/23 06:34 [facility] Past Medical History Medical History HTN (hypertension) Migraines 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 Social History Social History Alcohol intake: never Patient Tobacco Use Status: Never used Tobacco Advance Directives: No Advance Directives Information Provided: Yes Physical Exam Vital Signs: Vital Signs: Last Vital Signs Temp 97 F 01/29/23 09:11 Pulse 107 H 01/29/23 09:11 Resp 18 01/29/23 09:11 BP 165/84 H 01/29/23 09:11 Pulse Ox 97 01/29/23 09:11 O2 Del Method Room Air 01/29/23 09:11 BMI result Body Mass Index 28.9 GEN: Well developed, no acute distress, alert, oriented HEENT: Normocephalic, atraumatic, normal external ears, nose appears normal, no oropharyngeal edema or exudates Eyes: Normal to appearance Neck: Supple, no lymphadenopathy Respiratory: Talks in complete sentences, no respiratory distress, clear to auscultation bilaterally Cardiovascular: Regular rate and rhythm, no murmurs rubs or gallops Abdomen: Soft, nontender, nondistended, no guarding, no rebound Back: No CVA tenderness Extremities: No clubbing cyanosis or edema Neurologic: No focal neurologic deficits, cranial nerves 2-12 intact, strength is 5/5 bilaterally Skin: No rash Course Course Course Narrative: 67-year-old female with chronic headaches presents for evaluation and unable to get medications. Patient was here just a few days ago receiving a total of 12 tablets of Fioricet. Parent Fioricet is the only medication that helps her pain. Unfortunately, patient is currently between neurologist and primary care providers. Patient's symptoms are typical. She does not appear to warrant a CT scan given extensive previous workup in typical symptoms. There is no indication for laboratory analysis as well. She did receive Fioricet 2 tablets here in the emergency department. I did fill a small amount of medications for her. We had an extensive conversation about the management of chronic conditions in particular, chronic pain from the emergency department. I have instructed her at this time that is quite possible that she will not receive any further prescriptions for her chronic pain medication. This is best performed by a primary care doctor or specialist. She is understanding of this. Her partner is also aware of this and is on board. Again, our discussion was that long to generally, the emergency department is not the appropriate place to treat chronic conditions especially chronic pain with controlled substances. Patient was understanding and aware that further ongoing prescriptions of Fioricet are likely to be not possible. Medications Administered Discontinued Medications Generic Name Dose Route Start Last Admin Trade Name Freq PRN Reason Stop Dose Admin Acetaminophen/Butalbital/Caffeine 2 tab 01/29/23 09:56 01/29/23 10:02 Butalb/Acetamin/Caff 50/325/40 Tablet PO 01/29/23 09:57 2 tab ONCE ONE Administration Medical Decision Making Medical Decision Making MDM Narrative: 67-year-old female presents with severe headache. Patient has history chronic headaches. She has been to the emergency department for refills of Fioricet multiple times. She was here on January 23 receiving 12 tablets of Fioricet. Today in the emergency department I will provide her with 2 tablets in a very small prescription of Fioricet to cover her for the next 3 days. Her headache is typical for her it is not sudden onset. It is not a thunderclap headache. She has no neck stiffness, rigidity. Her examination is benign. Gait is stable. There are no focal neurologic deficits. There is no indication for emergent imaging at this time. Independent Historian Clinical information obtained from an independent historian. History obtained from or confirmed by: Spouse External Record Review External record reviewed: Outpatient record Prescription Management I considered prescription management with: Pain Medication Discharge Plan Discharge Clinical Impression: Chronic headache Patient Disposition: Home, Self-Care Instructions: Acute Headache (ED) Additional Instructions: You were evaluated today for chronic headaches. Currently her situation is somewhat difficult since your in between care. Later this month you have an appointment with primary care as well as Neurology. We had a discussion regarding the management of chronic pain and prescriptions from the emergency department. Today you receive Fioricet 2 tablets while in the emergency department. I did provide a small prescription of Fioricet to cover you through the weekend. Going forward, is possible that you may not receive chronic pain medications through the emergency department. Is recommended at these medications be managed longitudinally through primary care or other consultants. Certainly for any changes of your pain, worsening headaches, intractable headaches or any other concerning symptoms, you should be re-evaluated in the emergency department. Prescriptions: New jrqnxfmzuc-basbesnfcwzdv-venb [Fioricet] 50-300-40 mg capsule 1 cap PO Q8H PRN (Reason: pain) Qty: 6 0RF No Action uxdkwhthzh-phbehuwlnobgx-alos [Fioricet] 50-300-40 mg capsule 1 cap PO Q6H PRN (Reason: headache) Qty: 10 0RF vxpiraylyd-zpqzhgozyqryy-qqac [Fioricet] 50-300-40 mg capsule 1 cap PO Q6H PRN (Reason: pain) Qty: 20 0RF amlodipine 5 mg tablet 5 mg PO DAILY Qty: 30 0RF dzeswhuwww-wgptyoxxzxzbx-sduj [Fioricet] 50-300-40 mg capsule 1 cap PO Q4H PRN (Reason: pain) Qty: 30 0RF chjexnxboh-lcsopkikvrwqi-qnfl [Fioricet] 50-300-40 mg capsule 1 cap PO .B.i.d. PRN (Reason: pain) Qty: 14 0RF xdshoyyqim-jpdaxkkiotsfo-ryqf 50-325-40 mg tablet 2 tab PO Q6H PRN (Reason: pain) Qty: 12 0RF Rx Instructions: do not exceed 6 tabs per 24 hrs dnjhrssbtz-xzodicglgoqoj-mpqd [Fioricet] 50-300-40 mg capsule 1 cap PO BID PRN (Reason: pain) Qty: 6 0RF xxcrqkfuza-zxxswfxfcqsqn-biwn [Fioricet] 50-300-40 mg capsule 1 cap PO Q6H PRN (Reason: headache) Qty: 20 0RF lisinopril 10 mg tablet 10 mg PO DAILY Qty: 30 0RF vvdgowzldt-thxxsuktctedv-fvgr [Fioricet] 50-300-40 mg capsule 2 cap PO Q4-6H PRN (Reason: pain) Qty: 30 0RF Rx Instructions: do not exceed 6 caps per day ckgbsmgqbk-tuexbnomkutiw-zmym [Fioricet] 50-300-40 mg capsule 1 cap PO Q6H PRN (Reason: pain) Qty: 10 0RF cyclobenzaprine 10 mg tablet 10 mg PO TID PRN (Reason: muscle spasm) Qty: 10 0RF lidocaine [Lidoderm] 5 % adhesive patch,medicated 1 patch topical DAILY Qty: 15 0RF Rx Instructions: leave on most painful area for up to 12 hrs amlodipine 5 mg tablet 5 mg PO DAILY Qty: 30 0RF fiujtxrlsx-ckwxylmjolugb-nrvm [Fioricet] 50-300-40 mg capsule 2 cap PO QAM Qty: 30 0RF Rx Instructions: do not exceed 6 caps per day lisinopril 40 mg tablet 40 mg PO DAILY Qty: 30 2RF amitriptyline 50 mg tablet 50 mg PO BEDTIME Qty: 20 0RF lzyfvetgmz-bzlihnvrngcav-yagj [Fioricet] 50-300-40 mg capsule 1 cap PO TID PRN (Reason: pain) Qty: 12 0RF Referrals: Physician,None [Primary Care Provider] -
--- NOTE | 2023-01-29 10:44 | PC.NURSE ---
PT WAS SEEN BY DR DIAZ FOR CHRONIC HEADACHE COMPLAINT. SHE WAS MEDICATED CHARTED
== END 2023-01-29 10:46 | disposition home or self-care (01) ==
PROVIDERS: Emergency Provider Emergency Medicine
DX: R51.9 Headache, unspecified (principal); I10 Essential (primary) hypertension; Z79.899 Other long term (current) drug therapy
CPT/HCPCS: 99283

== ENCOUNTER 2023-02-26 15:45 | Emergency (ER) | payer OTHER, SELFPAY | END 2023-02-26 17:51 | disposition left against medical advice (07) | PROVIDERS: Emergency Provider Emergency Medicine | DX: R51.9 Headache, unspecified (principal) ==

== ENCOUNTER 2023-09-02 05:16 | Emergency (ER) | payer OTHER, SELFPAY ==
[2023-09-02 05:23] VITALS: BP 187/94; PULSE 96; O2SAT 97
[2023-09-02 05:24] VITALS: BP 148/79; PULSE 95; RESP 16; TEMP 37.1; O2SAT 97
[2023-09-02 05:25] VITALS: BMI 28.3
--- OUTSIDE RECORDS SUMMARY | 2023-09-02 05:37 | XMS_ITS | Continuity of Care Document ---
Author Name Unknown Organization [facility] Address [address] [place] [address]- Care Team Providers Care Cardroom Manager Name Role Phone Martir ELAM, Melany Zarco Primary Care Physician Encounter [facility] [id number] Date(s): 11/03/22 - 01/02/23 [facility] [address] [place] [address]- Attending Physician: Not on Staff, Attending MD Allergies, Adverse Reactions, Alerts Substance Reaction [...] Refills, Maintenance, 07/02/21 6:35:00 EDT, Partial fill upon patient request if the prescription is for a schedule II opioid drug. Start Date: 07/02/21 Status: Ordered Docusate/Senna Tablet 2 tablet, By Mouth, 2 times a day, 0 Refills, Maintenance, 12/06/20 14:34:00 EST, Tablet, Partial fill upon patient request if the prescription is for a schedule II opioid drug. Start Date: 12/06/20 Status: Ordered duloxetine 30 mg oral enteric coated capsule 1 capsule = 30 mg, By Mouth, Daily, 0 Refills, Maintenance, 12/06/20 14:34:00 EST, Capsule, Partialfill upon patient request if the prescription is for a schedule II opioid drug. Start Date: 12/06/20 Status: Ordered Fioricet Tablet 1 tab every 6, By Mouth, PRN Headache, 0 Refills, Maintenance, 07/02/21 6:36:00 EDT, Tablet, Partial fill upon patient request if the prescription is for a schedule II opioid drug. Start Date: 07/02/21 Status: Ordered Lisinopril = 10 mg, By Mouth, Daily, 0 Refills, Maintenance, 06/28/22 9:08:00 EDT, Partial fill upon patient request if the prescription is for a schedule II opioid drug. Start Date: 06/28/22 Status: Ordered RisperDAL 0.25 mg oral tablet 0.25 mg, 1, tablet, By Mouth, Daily at bedtime, Refills 0, Maintenance, 12/14/20 11:05:00 EDT, Partial fill upon patient request if the prescription is for a schedule II opioid drug. Start Date: 12/14/20 Status: Ordered Timolol 0.5% Ophth 1, drops, Eyes, Both, 2 times a day, Refills 0, Maintenance, 11/27/20 14:53:00 EST, Ophth Solution Start Date: 11/27/20 Status: Ordered Problem List Condition Confirmation Course Effective Dates Status H ealth Status Informant Opiate dependence, continuous Confirmed Active Chronic dementia with behavioral disturbance Confirmed Active Drug-seeking behavior Confirmed Active Benzodiazepine abuse, episodic Confirmed Active Opiate abuse, episodic Confirmed Active Polypharmacy Confirmed Active Social History Social History Type Response Smoking Status Former smoker; Tobac co user in household: No entered on: 03/27/14 Sex Patient Care team information Care Team Personnel Name: Melany Mcmahan NP Position: S PCO Associate Professional Member Role: PCP Address: Address: [address] [place] [address] [place] [address]- Care Team Related Persons Name: CHRIS HURTADO Address: home [address] [place], [place] Name: ESTEE DIAZ Address: home [address] [place], [place] Name: KELLY DIAZ Address: home [address] [place] [address]
--- OUTSIDE RECORDS SUMMARY | 2023-09-02 05:37 | XMS_ITS | Continuity of Care Document ---
Author Name Unknown Organization [facility] Address [address], [address], [address] [place] [id number]- Care Team Providers Care Commissioning Editor Name Role Phone Not on Staff, PCP Primary Care Physician Unavail able Encounter [facility] Date(s): 02/16/23 - 03/18/23 [facility] [address], [address], [address] [place] [id number]- Allergies, Adverse Reactions, Alerts Substance Reaction Severity Status codeine nausea Active ibuprofen Active morphine dizzy Active Antivert double vision Active Leslie liver enzymes off Active statins swelling/rash Active fentaNYL diff breathing Active Immunizations Given and Recorded Vaccine Date Status Refusal Reason SARS-CoV-2 (COVID-19) mRNA BNT-162b2 vac 01/29/21 Given SARS-CoV-2 (COVID-19) mRNA BNT-162b2 vac 01/08/21 Given Medications amitriptyline 25 mg oral tablet 50 mg, 2, tablet, By Mouth, Daily at bedtime, Refills 0, Maintenance, 03/06/23 15:23:00 EDT, Partial fill upon patient request if the prescription is for a schedule II opioid drug. Start Date: 03/06/23 Status: Ordered aspirin 325 mg oral capsule 1 capsule = 325 mg, By Mouth, Daily, 0 Refills, Maintenance, 07/02/21 6:35:00 EDT, Partial fill upon patient request if the prescription is for a schedule II opioid drug. Start Date: 07/02/21 Status: Ordered divalproex sodium 500 mg oral enteric coated tablet = 500 mg, By Mouth, 2 times a day, 0 Refills, Maintenance, 03/06/23 15:23:00 EDT, Tablet, Partial fill upon patient request if the prescription is for a schedule II opioid drug. Start Date: 03/06/23 Status: Ordered Muscle Rub back, Topically, 3 times a day, PRN as needed, Maintenance, 03/02/23 9:36:00 EDT, Partial fill uponpatient request if the prescription is for a schedule II opioid drug. Start Date: 03/02/23 Status: Ordered olanzapine 5 mg oral tablet 5 mg, 1, tablet, By Mouth, 3 times a day, PRN, Refills 0, Maintenance, Agitation, 03/06/23 15:25:00EDT, Partial fill upon patient request if the prescription is for a schedule II opioid drug. Start Date: 03/06/23 Status: Ordered RisperDAL 1 mg oral tablet 1 mg, 1, tablet, By Mouth, 2 times a day, Refills 0, Maintenance, 03/06/23 15:23:00 EDT, Partial fill upon patient request if the prescription is for a schedule II opioid drug. Start Date: 03/06/23 Status: Ordered Timolol 0.5% Ophth 1, drops, Eyes, Both, 2 times a day, Refills 0, Maintenance, 11/27/20 14:53:00 EST, Ophth Solution Start Date: 11/27/20 Status: Ordered Zyprexa Inj = 7.5 mg, Intramuscular, Every 12 hours, PRN Agitation, 0 Refills, Maintenance, 03/06/23 15:25:00 EDT, Injection, Partial fill upon patient request if the prescription is for a schedule II opioid drug. Start Date: 03/06/23 Status: Ordered Problem List Condition Confirmation Course [...] Care team information Care Team Personnel Name: Monique Del Castillo RN Position: [facility] RN Member Role: Primary Care Nurse Name: Guilherme Arriaga RN Position: S RN Member Role: Primary Care Nurse Name: Not on Staff, PCP Position: S Physician (General Medicine) Member Role: PCP Name: Yun Hill RN Position: S RN Member Role: Primary Care Nurse Name: oMlly GORDON, Esperanza Position: [facility] RN Member Role: Primary Care Nurse Care Team Related Persons Name: CHRIS HURTADO Address: home [address] [place] [address] Name: ESTEE DIAZ Address: home [address] [place] [address] Name: KELLY DIAZ Address: [place] [address]
--- OUTSIDE RECORDS SUMMARY | 2023-09-02 05:37 | XMS_ITS | Continuity of Care Document ---
Author Name Unknown Organization [facility] Address [address] [place] [address]- Care Team Providers Care Iron Pourer Name Role Phone Martir ELAM, Melany Zarco Primary Care Physician [phone] Encounter [facility] Date(s): 11/29/22 - 11/29/[address] [address]- Discharge Disposition: A-D/C Home Attending Physician: Wilman Styles DO Admitting Physician: [...] Start Date: 12/06/20 Status: Ordered Fioricet Tablet 2 tablet, Tablet, By Mouth, Once, PRN for Headache, STAT, 11/29/22 4:20:00 EST Notes: Butalbital 50mg, Acetaminophen 325mg, Caffeine 40mg per tablet Start Date: 11/29/22 Stop Date: 11/29/22 Status: Completed Fioricet Tablet 1 tab every 6, By [...] abuse, episodic Confirmed Active Polypharmacy Confirmed Active Vital Signs Most recent to oldest [Reference Range]: 1 2 Height 160 cm (11/29/22 3:45 AM) 160 cm (11/29/22 3:42 AM) Weight 74 kg (11/29/22 3:45 AM) 74 kg (11/29/22 3:42 AM) Oxygen Saturation [94-100 %] 98 % (11/29/22 3:45 AM) Pulse Rate [55-90 bpm] 81 bpm (11/29/22 3:45 AM) Body Mass Index [18.5-24.99 kg/m2] 28.91 kg/m2 *H* (11/29/22 3:45 AM) Blood Pressure [90-138/55-84 mm Hg] 179/ 91mm Hg *H* (11/29/22 3:45 AM) Respiratory Rate [16-30 br/min] 18 br/mi n (11/29/22 4:24 AM) 13 br/min *L* (11/29/22 3:45 AM) Liters per Minute 0 L/min (11/29/22 3:45 AM) Mode of Delivery (Oxygen) Room air (11/29/22 3:45 AM) Blood pressure sites Arm, left (11/29/22 3:45 AM) Dry Weight 74 kg (11/29/22 3:45 AM) 74 kg (11/29/22 3:42 AM) Weight Obtained Via Patient/family state d (11/29/22 3:42 AM) Dry Weight Obtained Via Patient/family s tated (11/29/22 3:42 AM) Social History Social History Type Response Smoking Status Former smoker; Tobac co user in household: No entered on: 03/27/14 Sex Patient Care team information Care Team Personnel Name: Melany Mcmahan NP Position: [facility] PCO Associate Professional Member Role: PCP Address: Address: [address] [place] [address] - Name: Graciela Castro RN Position: [facility] ED RN W/OE and Tasks Member Role: Patient Care Provider Name: Wilman Styles DO Position: [facility] ED Medicine MD Member Role: Admitting Physician Address: Address: [address] [place] [address] [place] [address]- Name: Kusum Ward Position: [facility] ED TA [facility] Member Role: Press Washer Care Team Related Persons Name: CHRIS UHRTADO Address: home [address] [place], [place] Name: ESTEE DIAZ Address: home [address] [place], [place] Name: KELLY DIAZ Address: home [address] [place] [id number]
--- OUTSIDE RECORDS SUMMARY | 2023-09-02 05:38 | XMS_ITS | Continuity of Care Document ---
Author Name Unknown Organization [facility] Address [address] [place] [address]- Care Team Providers Care Customer Service Manager Name Role Phone Not on Staff, PCP Primary Care Physician Unavail able Encounter [facility] Date(s): 05/26/23 - 06/25/23 [facility] [address] [place], [place] [address] Attending Physician: Trudy Hinson Admitting Physician: Trudy Hinson Referring Physician: AdmtrTrudy Allergies, Adverse Reactions, Alerts Substance Reaction Severity Status codeine nausea Active ibuprofen Active morphine dizzy Active Antivert double vision Active Leslie liver enzymes off Active statins swelling/rash Active fentaNYL diff breathing Active Immunizations Given and Recorded Vaccine Date Status Refusal Reason influenza virus vaccine, inactivated 12/14/22 [place] rded influenza virus vaccine, inactivated 06/06/21 [place] rded influenza virus vaccine, inactivated 06/02/12 [place] rded [id number] bivalent booster vax 09/13/22 Recorded SARS-CoV-2 (COVID-19) mRNA-1273 vaccine 08/07/21 R ecorded SARS-CoV-2 (COVID-19) mRNA BNT-162b2 vac 01/29/21 Given SARS-CoV-2 (COVID-19) mRNA BNT-162b2 vac 01/08/21 Given tetanus-diphtheria toxoids (Td) 06/10/18 Recorded tetanus/diphtheria/pertussis, acel(Tdap) 05/25/12 Recorded Medications amitriptyline 50 mg oral tablet 1 tablet = 50 mg, By Mouth, Daily at bedtime, # 90 tablet, 0 Refills, Maintenance, 06/20/23 3:22:00EDT, Tablet, Partial fill upon patient request if the prescription is for a schedule II opioid drug. Start Date: 06/20/23 Status: Ordered lisinopril 20 mg oral tablet 20 mg, 1, tablet, By Mouth, Daily, # 30 tablet, Refills 0, Maintenance, 06/20/23 3:21:00 EDT, Partial fill upon patient request if the prescription is for a schedule II opioid drug. Start Date: 06/20/23 Status: Ordered LORazepam 1 mg oral tablet 1 tablet = 1 mg, By Mouth, 3 times a day, PRN for anxiety, 0 Refills, Maintenance, 06/20/23 3:24:00EDT, Tablet, Partial fill upon patient request if the prescription is for a schedule II opioid drug. Start Date: 06/20/23 Status: Ordered QUEtiapine 100 mg oral tablet 100 mg, 1, tablet, By Mouth, 3 times a day, # 270 tablet, Refills 0, Maintenance, 06/20/23 3:21:00 EDT, Partial fill upon patient request if the prescription is for a schedule II opioid drug. Start Date: 06/20/23 Status: Ordered Timolol 0.5% Ophth 1, drops, [...] Care team information Care Team Personnel Name: Lizeth Vidal RN Position: [facility] Outreach Member Role: Primary Care Nurse Name: Mayela Panchal RN Position: [facility] RN Member Role: Primary Care Nurse Name: Guilherme Arriaga RN Position: [facility] RN Member Role: Primary Care Nurse Name: Paolo Bello RN Position: [facility] RN Member Role: Primary Care Nurse Name: Not on Staff, PCP Position: [facility] Physician (General Medicine) Member Role: PCP Name: Giovana Figueredo RN Position: [facility] RN Member Role: Primary Care Nurse Name: Tosin Figueredo RN Position: [facility] RN Member Role: Primary Care Nurse Name: Fidel Brush RN Position: [facility] RN Member Role: Primary Care Nurse Name: Esperanza Barnes RN Position: [facility] RN Member Role: Primary Care Nurse Name: Janet Mckeon RN Position: [facility] RN Member Role: Primary Care Nurse Name: Evelyn Mcfadden RN Position: [facility] RN Member Role: Primary Care Nurse Care Team Related Persons Name: GENESISCHRIS Address: home [address] [place] [address] Name: ESTEE DIAZ Address: home [address] [place] [address] Name: KELLY DIAZ Address: [place] [address]
--- OUTSIDE RECORDS SUMMARY | 2023-09-02 05:38 | XMS_ITS | Continuity of Care Document ---
Author Name Unknown Organization [facility] ter Address [address] [place] [id number]- Care Team Providers Care Relay Adjuster Name Role Phone Not on Staff, PCP Primary Care Physician Unavail able Encounter [facility] Date(s): 06/19/23 - 06/30/[address] [id number]- Discharge Disposition: A-Transfer SNF Attending Physician: Clovis Jameson MD Admitting Physician: Ashley Malagon MD Referring Physician: Not on Staff, Referring [...] influenza virus vaccine, inactivated 06/02/12 [place] rded [id number] bivalent booster vax 09/13/22 Recorded SARS-CoV-2 (COVID-19) [...] opioid drug. Start Date: 06/20/23 Status: Ordered Fioricet Tablet 1 tablet, Tablet, By Mouth, Daily, PRN for Headache, Routine, 06/30/23 10:51:00 EDT Notes: acetaminophen/butalbital/caffeine 325 mg-50 mg-40 mg oral tablet Start Date: 06/30/23 Stop Date: 07/01/23 Status: Discontinued lisinopril 20 mg oral tablet 40 mg, By Mouth, Daily, Refills 0, Maintenance, 06/29/23 14:26:00 EDT, Partial fill upon patient request if the prescription is for a schedule II opioid drug. Start Date: 06/29/23 Status: Ordered LORazepam 1 mg oral tablet [...] Ophth Solution Start Date: 11/27/20 Status: Ordered traZODone 50 mg oral tablet 50 mg, By Mouth, Daily at bedtime, PRN, Refills 0, Maintenance, Agitation, 06/29/23 14:26:00 EDT, Partial fill upon patient request if the prescription is for a schedule II opioid drug. Start Date: 06/29/23 Status: Ordered Problem List Condition Confirmation Course Effective Dates Status H ealth Status Informant Opiate dependence, continuous Confirmed Active Chronic dementia with behavioral disturbance Confirmed Active Drug-seeking behavior Confirmed Active Benzodiazepine abuse, episodic Confirmed Active Opiate abuse, episodic Confirmed Active Polypharmacy Confirmed Active Results Radiology Reports * Exam Date Time Procedure Performing Provider Status 06/19/23 8:[address] Lumbar Spine W/O Contrast Mercedes Parnell; Auth (Verified) Notes: (CT Lumbar Spine W/O Contrast) Reason For Exam: Spine fracture, lumbar, traumatic;Other: RESULT: CT Lumbar Spine W/O Contrast CT Lumbar Spine W/O Contrast Hx of Present Illness: pt presenting after mechanical fall although poor historian due to confusion, 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 Bone and soft tissue algorithms were reconstructed along with coronal and sagittal reformats. Weight-based protocol using automatic tube modulation was used to optimize exposure parameters. CTDIvol Body: 34.50 mGy, DLP Body: 927 mGy*cm. COMPARISON: None FINDINGS: Welding Specialist View Findings, Lines and Tubes: None. Spine: No fractures or bone lesion. Normal alignment. Loss of disc height at L5-S1. No significant spinal canal stenosis. Soft tissues: No acute abnormality in the paravertebral soft tissues. Visualized aorta is unremarkable. Atherosclerosis of the visualized aorta and iliac arteries. Partially imaged right renal cysts are identified. A few scattered colonic diverticula are seen. IMPRESSION: No acute fracture or spondylolisthesis of the lumbar spine. WSN: [id number] Ordering Physician: Pamella Bryan Dictated By: Zheng Menendez MD Dictated Date/Time: 06/19/23 9:30 am Reviewed By: Shon SIMON Arecaden Signed By: Zheng Menendez MD Signed Date/Time: 06/19/23 9:30 am Transcribed By: JAYLENE Transcribed Date/Time: 06/19/23 9:24 am * Exam Date Time Procedure Performing Provider Status 06/19/23 8:29 AM Knee 1 or 2 Views Right Colt Wick; Auth (Verified) Notes: (Knee 1 or 2 Views Right) Reason For Exam: Pain RESULT: Knee 1 or 2 Views Right Knee 1 or 2 Views Right, 2 views INDICATION: Posttraumatic pain. 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 FINDINGS: No acute fracture or dislocation. There is moderate to advanced tricompartmental osteoarthritis most notably in the medial and patellofemoral joint compartments. There is a small joint effusion. IMPRESSION: No acute fracture or dislocation. WSN: [id number] Ordering Physician: Pamella Bryan Dictated By: Regan Hernandez MD Dictated Date/Time: 06/19/23 9:11 am Reviewed By: Regna Hernandez MD Signed By: Regan Hernandez MD Signed Date/Time: 06/19/23 9:11 am Transcribed By: JAYLENE Transcribed Date/Time: 06/19/23 9:10 am * Exam Date Time Procedure Performing Provider Status 06/19/23 8:29 AM Wrist Comp Min 3 Views Right Shamika B lula; Auth (Verified) Notes: (Wrist Comp Min 3 Views Right) Reason For Exam: Pain RESULT: Wrist Comp Min 3 Views Right Wrist Comp Min 3 Views Right Hx of Present Illness: pt presenting after mechanical fall although poor historian due to confusion, 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 FINDINGS: No acute fracture or dislocation. There is deformity of the distal radius suggesting an old healed fracture. There is a small osseousfragment off the ulnar aspect of the distal radius also likely chronic. There are degenerative changes at the base of the thumb. There is moderate soft tissue edema. IMPRESSION: No convincing evidence of an acute fracture, if clinical concern persists CT imaging is recommended. WSN: [id number] Ordering Physician: Pamella Bryan Dictated By: Regan Hernandez MD Dictated Date/Time: 06/19/23 9:09 am Reviewed By: Regan Hernandez MD Signed By: Regan Hernandez MD Signed Date/Time: 06/19/23 9:09 am Transcribed By: JAYLENE Transcribed Date/Time: 06/19/23 9:08 am * Exam Date Time Procedure Performing Provider Status 06/19/23 8:[address] Cervical Spine W/O Contrast Kamala Parnell; Auth (Verified) Notes: (CT Cervical Spine W/O Contrast) Reason For Exam: Neck trauma, dangerous injury mechanism;Other: RESULT: CT Cervical Spine W/O Contrast CT Head/Brain W/O Contrast, CT Cervical Spine W/O Contrast INDICATION: Hx of Present Illness: pt presenting after mechanical fall although poor historian due to confusion, 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 Automatic tube modulation was used for the cervical spine and iterative dose reconstruction was used for both the head and cervical spine to optimize scan parameters and image quality. CTDIvol Body: 10.20 mGy, DLP Body: 274 mGy*cm. CTDIvol Head: 39.60 mGy, DLP Head: 672 mGy*cm. COMPARISON: 03/02/[address] cervical spine dated 10/25/2020. FINDINGS: Welding Specialist View Findings, Lines and Tubes: None. BRAIN AND EXTRA-AXIAL SPACES: No parenchymal hemorrhage, midline shift, or mass effect. Sahu-white matter differentiation is wellpreserved. No acute infarct. Ventricles, sulci, and basilar cisterns are normal. Mild to moderate right matter hypodensities, similar to prior examination. No subarachnoid hemorrhage. No subdural or epidural collection. CALVARIUM, SKULL BASE, AND SOFT TISSUES: No fractures or suspicious bony lesions. The paranasal sinuses and mastoid air cells are clear. Visualized orbits and globes are intact. Patient is status post bilateral cataract surgery. The extracranial soft tissues are unremarkable. CERVICAL SPINE: No fracture. No acute osseous abnormalities. Normal alignment. Mild straightening of the normal cervical lordosis, which may be positional versus muscle spasm. No locked or perched facet. Mild multilevel spondylosis, similar to the prior examination. OTHER BONES: No acute abnormality. CERVICAL SOFT TISSUES AND LUNG APICES: Normal soft tissues. Visualized lung apices are clear. IMPRESSION: No acute abnormality of the head or cervical spine. Chronic stable findings as described above. WSN: [id number] Ordering Physician: Pamella Bryan Dictated By: Zheng Menendez MD Dictated Date/Time: 06/19/23 9:13 am Reviewed By: Zheng Menendez MD Signed By: Zheng Menendez MD Signed Date/Time: 06/19/23 9:13 am Transcribed By: JAYLENE Transcribed Date/Time: 06/19/23 8:57 am * Exam Date Time Procedure Performing Provider Status 06/19/23 8:[address] Head/Brain W/O Contrast Marisa Parnell; Auth (Verified) Notes: (CT Head/Brain W/O Contrast) Reason For Exam: Trauma RESULT: CT Head/Brain W/O Contrast CT Head/Brain W/O Contrast, CT Cervical Spine W/O Contrast INDICATION: Hx of Present Illness: pt presenting after mechanical fall although poor historian due to confusion, 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 Automatic tube modulation was used for the cervical spine and iterative dose reconstruction was used for both the head and cervical spine to optimize scan parameters and image quality. CTDIvol Body: 10.20 mGy, DLP Body: 274 mGy*cm. CTDIvol Head: 39.60 mGy, DLP Head: 672 mGy*cm. COMPARISON: 03/02/[address] cervical spine dated 10/25/2020. FINDINGS: Welding Specialist View Findings, Lines and Tubes: None. BRAIN AND EXTRA-AXIAL SPACES: No parenchymal hemorrhage, midline shift, or mass effect. Sahu-white matter differentiation is wellpreserved. No acute infarct. Ventricles, sulci, and basilar cisterns are normal. Mild to moderate right matter hypodensities, similar to prior examination. No subarachnoid hemorrhage. No subdural or epidural collection. CALVARIUM, SKULL BASE, AND SOFT TISSUES: No fractures or suspicious bony lesions. The paranasal sinuses and mastoid air cells are clear. Visualized orbits and globes are intact. Patient is status post bilateral cataract surgery. The extracranial soft tissues are unremarkable. CERVICAL SPINE: No fracture. No acute osseous abnormalities. Normal alignment. Mild straightening of the normal cervical lordosis, which may be positional versus muscle spasm. No locked or perched facet. Mild multilevel spondylosis, similar to the prior examination. OTHER BONES: No acute abnormality. CERVICAL SOFT TISSUES AND LUNG APICES: Normal soft tissues. Visualized lung apices are clear. IMPRESSION: No acute abnormality of the head or cervical spine. Chronic stable findings as described above. WSN: [id number] Ordering Physician: Pamella Bryan Dictated By: Zheng Menendez MD Dictated Date/Time: 06/19/23 9:13 am Reviewed By: Zheng Menendez MD Signed By: Zheng Menendez MD Signed Date/Time: 06/19/23 9:13 am Transcribed By: JAYLENE Transcribed Date/Time: 06/19/23 8:57 am Vital Signs Most recent to oldest [Reference Range]: 1 2 3 Weight 67.5 kg (06/19/23 5:47 PM) Oxygen Saturation [94-100 %] 100 % (06/30/23 12:33 PM) 100 % (06/30/23 5:00 AM) 99 % (06/29/23 8:00 PM) Pulse Rate [55-90 bpm] 81 bpm (06/30/23 12:33 PM) 73 bpm (06/30/23 8:14 AM) 78 bpm (06/30/23 5:00 AM) Blood Pressure [90-138/55-84 mm Hg] 144/70mm Hg *H* (06/30/23 12:33 PM) 149/77mm Hg *H* (06/30/23 8:14 AM) 129/72mm Hg (06/30/23 5:00 AM) Respiratory Rate [16-30 br/min] 17 br/min (06/30/23 12:33 PM) 18 br/min (06/30/23 10:42 AM) 18 br/min (06/30/23 5:00 AM) Temperature [96.8-100.4 DegF] 98.4 DegF (06/30/23 12:33 PM) 97.7 DegF (06/30/23 5:00 AM) 98.4 DegF (06/29/23 8:00 PM) Mode of Delivery (Oxygen) Room air (06/30/23 12:33 PM) Room air (06/30/23 5:00 AM) Room air (06/29/23 8:00 PM) Blood pressure sites Arm, right (06/30/23 12:33 PM) Arm, left (06/30/23 8:14 AM) Arm, left (06/30/23 5:00 AM) Temperature Route Oral (06/30/23 12:33 PM) Oral (10/3/23 5:00 AM) Oral (06/29/23 8:00 PM) Dry Weight 67.5 kg (06/19/23 5:47 PM) Weight Obtained Via Bed scale (06/19/23 5:47 PM) Dry Weight Obtained Via Bed scale (06/19/23 5:47 PM) Social History Social History Type Response Smoking Status Former smoker; Tobac co user in household: No entered on: 03/27/14 Sex History and physical note * Zabrina Multani DO S: PERFORM, MODIFY, MODIFY, MODIFY, MODIFY, MODIFY, MODIFY, MODIFY Event Display: History and Physical Hospital Authored Date: [id number] Patient: ??SHIVAM DENIS ? Age:??68 Years?Sex:??Female?:??1955?? Chief Complaint/Reason for Consultation pt coming from home after witness fall by partner, no LOC, denies blood thinners, states it was mechanical, pt is confused, states has a brain disease , History of Present Illness This is a 68-year-old female with past medical history including hypertension, chronic small vesselischemic disease, lumbar disc disease, chronic headache, chronic pain, history of benzodiazepine and opiate use, drug-seeking behavior, and cognitive impairment, who currently presents to the hospital via EMS after she was reportedly found on the floor after an unwitnessed fall.?? The patient is a vague historian, and??currently not making sense, but??per the ED note she mentioned??tripping, causing her to fall..?? Her partner Emily was contacted by phone and reports that she awoke this morning??and found the patient on the floor, unable to get up.?She is not sure if the patient??had a syncopal episode or not. ??She does report that the patient was hospitalized??for most of the [facility] in their geriatric mello. ??At baseline, the patient has??confusion. ??She did??note that the patient??appeared to be losing her words ??yesterday. In the ED, the patient was noted to have stable vital signs except for elevated blood pressure in the 150s to 180s systolic and was afebrile.?? Laboratory assessment on this patient was unremarkable with a normal white count.?? She was noted to have an elevated alk phos of 124 which was previously known, with otherwise normal LFTs.?? High-sensitivity troponin was 18 and 17, and BNP was 267.?? UA showed 1+ albumin with 1+ leukocytes and 2 WBCs.?? The patient did undergo CT scan of the head as well as cervical spine that showed noacute abnormality, with multilevel spondylosis noted, and mild to moderate white matter hypodensities that were similar to prior exam.?? She also underwent CT of the lumbar spine that showed no fracture or spondylolisthesis.?? Right knee and right wrist x-ray were obtained and no acute fracture wasfound.?? She was noted in the ED to have evidence of a cellulitis over her right wrist.?? She was initiated on treatment with vancomycin for this.?? In addition, the patient did have some agitation in the ED and was given Haldol and Zyprexa with improvement.?? The patient is now admitted for further management. Review of Systems A complete review of systems could not be obtained from this patient??due to her confusion. Objective ? Vital Signs?? Temperature: 98 DegF (06/19/23 11:23:00) Temperature Route: Oral (06/19/23 11:23:00) Pulse Rate:??98 bpm??High (06/19/23 11:23:00) Respiratory Rate:??11 br/min??Low (06/19/23 11:23:00) Systolic Blood Pressure:??189 mm Hg??High (06/19/23 11:23:00) Diastolic Blood Pressure: 73 mm Hg (06/19/23 11:23:00) Blood pressure sites: Arm, right (06/19/23 11:23:00) Mean Arterial Pressure: 112 mm Hg (06/19/23 11:23:00) Pulse Pressure: 116 mm Hg (06/19/23 11:23:00) Oxygen Saturation: 100 % (06/19/23 11:23:00) Mode of Delivery (Oxygen): Room air (06/19/23 11:23:00) Early Warning Score: 0 (06/19/23 17:28:04) ? Physical Exam General: Alert, in no acute cardiopulmonary distress. Mental Status: Oriented to person, place and time. Normal affect. Head: Normocephalic. Eyes: Pupils are equal, round and reactive to light. Extraocular muscles intact. Ear, Nose and Throat: Oropharynx clear, mucous membranes moist. Ears and nose without masses, lesions or deformities. Trachea midline. Neck: Supple, Full range of motion. Respiratory: Clear to auscultation and percussion. No wheezing, rales or rhonchi. Cardiovascular: Heart sounds normal. Regular rate and rhythm, no murmurs, rubs or gallops. Gastrointestinal: Abdomen soft, non-tender, non-distended. Normal bowel sounds. No pulsatile mass. No hepatosplenomegaly. Neurologic: Cranial nerves II-XII grossly intact. No focal neurological deficits. Moves all extremities spontaneously. Sensation intact bilaterally. Skin: Right wrist erythematous region on dorsal aspect.. No petechiae or purpura. No edema. Musculoskeletal: No cyanosis or clubbing. No gross deformities. Normal range of motion. Assessment/Plan This is a 68-year-old female with past medical history as noted above,??who presents to the hospital today after she was found??on the floor??by her??partner??this morning.?? She is now admitted herefor further management. ?? Fall ??(W19.XXXA) vs?Syncope ??(R55) This patient will be admitted to an inpatient telemetry bed.?? She presents with a fall and possible syncopal episode.?? Imaging in the ED was fairly unremarkable.?? The exact etiology of her episodeis unclear, possibly mechanical fall, though she might have had a syncopal episode.?? We will monitor her on telemetry to see if she has any significant dysrhythmia that may explain her symptoms.?? Head CT was obtained in the ED and noted to be negative. We will ask PT to assess this patient. ?? Cellulitis ??(L03.90) Patient noted to have some??erythema on the??posterior aspect??of her right wrist. ??There is some associated increased warmth of this area as well.?? Wrist x-ray showed no evidence of fracture, but there was some moderate soft tissue edema noted.?? We will continue her on Ancef for now to cover possible cellulitis. ?? Dementia. Discussed patient's meds with her??significant other,??but cannot confirm. ??We will continue patient on her??Seroquel??for now.?? Patient may benefit from??geriatric consult??as she is here.? Hypertension. Patient noted to have elevated blood pressure??and we will order hydralazine as needed. ??She will also be resumed on her home lisinopril. ?? CODE STATUS. ??Patient is a??DNR??per her??partner who is also her healthcare proxy. ?? DVT prophylaxis. ??We will use subcu Lovenox and encourage early mobilization. ?? Patient seen on??June 19, 2023. Total time spent with patient and in coordination of care: including reviewing the chart/medical records, speaking with the patient, formulating and discussing the treatment plan, and documenting thefindings and encounter: ??70 + min ? Histories Allergies Allergies ?(Active and Proposed Allergies Only) morphine? (Severity: Unknown severity, Onset: Unknown) ?Reactions: dizzy codeine? (Severity: Unknown severity, Onset: Unknown) ?Reactions: nausea Antivert? (Severity: Unknown severity, Onset: Unknown) ?Reactions: double vision ibuprofen? (Severity: Unknown severity, Onset: Unknown) Leslie? (Severity: Unknown severity, Onset: Unknown) ?Reactions: liver enzymes off statins? (Severity: Unknown severity, Onset: Unknown) ?Reactions: swelling/rash fentaNYL? (Severity: Unknown severity, Onset: Unknown) ?Reactions: diff breathing ? Past Medical History/Problem List Active Problems??(6) Benzodiazepine abuse, episodic Chronic dementia with behavioral disturbance Drug-seeking behavior Opiate abuse, episodic Opiate dependence, continuous Polypharmacy ? Past Surgical History L5-S1 back surgery Leiomyosarcoma removal left leg ?? Social History Patient lives with her partner. Alcohol Details:??Use: Never. Substance Abuse Details:??Use: Past. ??Type: Marijuana. ??Other: had certificate, did reduce pain. Tobacco Details:??Use: 1/2 ppd currently.? Family Medical History Father late 50s of cancer, unclear source.?? Mother age 90??of Alzeimer's dementia Medications Home Medications??(based on patient's recent external??med??fill history, but could not confirm with patient or her??partner.) amiTRIPTYLINE (amitriptyline 50 mg oral tablet)?1?tab(s)?50?Milligram?By Mouth?Daily at bedtime Lisinopril (lisinopril 20 mg oral tablet)?20?Milligram?1?tablet?By Mouth?Daily Lorazepam (LORazepam 1 mg oral tablet)?1?tab(s)?1?Milligram?By Mouth?3 times a day?as needed?for anxiety Quetiapine (QUEtiapine 100 mg oral tablet)?100?Milligram?1?tablet?By Mouth?3 times a day Timolol Ophthalmic (Timolol 0.5% Ophth)?1?Drops?Eyes, Both?2 times a day ? Results Recent Labs BLOOD COUNT & DIFF WBC 10.7 k/mm3 ()?? 06/19/2023 06:50 RBC 4.78 m/mm3 ()?? 06/19/2023 06:50 Hgb 14.4 Gm/dL ()?? 06/19/2023 06:50 Hct 42.7 % ()?? 06/19/2023 06:50 MCV 89.3 femtoliters ()?? 06/19/2023 06:50 MCH 30.1 pg ()?? 06/19/2023 06:50 MCHC 33.7 g/dL ()?? 06/19/2023 06:50 Platelet Count 273 k/mm3 ()?? 06/19/2023 06:50 RDW-SD 38.1 femtoliters ()?? 06/19/2023 06:50 MPV 10.9 femtoliters ()?? 06/19/2023 06:50 Nucleated RBC (Automated) 0.0 #/100 WBC'S ()?? 06/19/2023 06:50 Abs. NRBC 0.0 k/mm3 ()?? 06/19/2023 06:50 Abs. Neut 8.6 k/mm3 (High)?? 06/19/2023 06:50 Abs. Lymph 1.1 k/mm3 ()?? 06/19/2023 06:50 Abs. [place] Stone 0.9 k/mm3 ()?? 06/19/2023 06:50 Abs. Eo 0.0 k/mm3 ()?? 06/19/2023 06:50 Abs. Baso 0.0 k/mm3 ()?? 06/19/2023 06:50 Neut % 80.6 % (High)?? 06/19/2023 06:50 Lymph % 9.9 % (Low)?? 06/19/2023 06:50 [place] % 8.8 % ()?? 06/19/2023 06:50 Eos % 0.2 % ()?? 06/19/2023 06:50 Baso % 0.3 % ()?? 06/19/2023 06:50 Imm Gran 0.2 % ()?? 06/19/2023 06:50 Abs. Imm Gran 0.0 k/mm3 ()?? 06/19/2023 06:50 ?? CARDIAC Nt-Probnp 267 pg/mL (High)?? 06/19/2023 07:57 High Sensitivity Troponin (HSTnT) 17 ng/L (High)?? 06/19/2023 09:57 ?? CHEM GENERAL Sodium 138 mmol/L ()?? 06/19/2023 07:57 Potassium 3.7 mmol/L ()?? 06/19/2023 07:57 Chloride 98 mmol/L ()?? 06/19/2023 07:57 Bicarbonate Level 26 mmol/L ()?? 06/19/2023 07:57 Anion Gap 14 ()?? 06/19/2023 07:57 Glucose Level 112 mg/dL (High)?? 06/19/2023 07:57 Glucose, POC 103 mg/dL (High)?? 06/19/2023 08:13 BUN 21 mg/dL ()?? 06/19/2023 07:57 Creatinine-Blood 0.9 mg/dL ()?? 06/19/2023 07:57 Estimated GFR Creatinine 70 ML/MIN/1.73 M2 ()?? 06/19/2023 07:57 Calcium 10.1 mg/dL ()?? 06/19/2023 07:57 Protein, Total 7.6 Gm/dL ()?? 06/19/2023 07:57 Albumin 4.7 Gm/dL ()?? 06/19/2023 07:57 AG Ratio 1.6 ()?? 06/19/2023 07:57 Alkaline Phosphatase 124 units/L (High)?? 06/19/2023 07:57 AST (SGOT) 20 units/L ()?? 06/19/2023 07:57 ALT (SGPT) 16 units/L ()?? 06/19/2023 07:57 Bilirubin, Total 0.5 mg/dL ()?? 06/19/2023 07:57 ?? ENDOCRINE/TUMOR MARKER TSH 2.38 uIU/mL ()?? 06/19/2023 07:57 ?? UA/URINALYSIS Appear/Color, Urine YELLOW ()?? 06/19/2023 10:25 Specific [place], Urine 1.019 ()?? 06/19/2023 10:25 pH, Urine 6.0 ()?? 06/19/2023 10:25 Albumin, Urine 1+ (Abnormal)?? 06/19/2023 10:25 Glucose, Urine NEGATIVE ()?? 06/19/2023 10:25 Ketones, Urine NEGATIVE ()?? 06/19/2023 10:25 Bilirubin, Urine NEGATIVE ()?? 06/19/2023 10:25 Hemoglobin, Urine NEGATIVE ()?? 06/19/2023 10:25 Nitrite, Urine NEGATIVE ()?? 06/19/2023 10:25 Leukocyte, Urine 1+ (Abnormal)?? 06/19/2023 10:25 Urobilinogen NORMAL mg/dL ()?? 06/19/2023 10:25 WBC's, Urine 2 /HPF ()?? 06/19/2023 10:25 RBC's, Urine <1 /HPF ()?? 06/19/2023 10:25 Bacteria SLIGHT HPF (Abnormal)?? 06/19/2023 10:25 Squamous Epith 1 /HPF ()?? 06/19/2023 10:25 Hyaline Cast 1 LPF ()?? 06/19/2023 10:25 Mucus SLIGHT /LPF ()?? 06/19/2023 10:25 Hold Urine Culture Testing available 48 hours from time of collection. ()?? 06/19/2023 10:25 ?? VIROLOGY COVID-19 by RT-PCR NEGATIVE ()?? 06/19/2023 06:50 ?(06/19/2023 08:29 EDT Knee 1 or 2 Views Right) IMPRESSION:? No acute fracture or dislocation.?? [1] ?? (06/19/2023 08:29 EDT Wrist Comp Min 3 Views Right) IMPRESSION:? No convincing evidence of an acute fracture, if clinical concern persists CT imaging is recommended.?? [2] ?? (06/19/2023 08:[address] Head/Brain and cervical spine??W/O Contrast) IMPRESSION: ?? No acute abnormality of the head or cervical spine. ?? Chronic stable findings as described above. ?? (06/19/2023 08:[address] Lumbar Spine W/O Contrast) IMPRESSION:? No acute fracture or spondylolisthesis of the lumbar spine. [3] [1]??Knee 1 or 2 Views Right; Regan Hernandez MD 06/19/2023 08:29 EDT [2]??Wrist Comp Min 3 Views Right; Regan Hernandez MD 06/19/2023 08:29 EDT [3]??CT Lumbar Spine W/O Contrast; Shon SIMON , Arecaden 06/19/2023 08:09 EDT EKG study * Event Display: EKG Authored Date: * Event Display: ECG 12-Lead Authored Date: Please click on pdf link to open report * Event Display: ECG 12-Lead Authored Date: Ventricular Rate: 92 BPM Atrial Rate: 92 BPM P-R Interval: 174 ms QRS Duration: 86 ms Q-T Interval: 382 ms QTC Calculation(Bazett): 472 ms P Sturg[place]: 55 degrees R Sturg[place]: 32 degrees T Sturgis: 26 degrees Normal sinus rhythm Nonspecific ST and T wave abnormality When compared with ECG of 20-JUN-2023 08:57, No significant change Confirmed by GAVIN CEE ([id number]) on 06/23/2023 4:29:23 PM Nedrow: GAVIN CEE * Event Display: EKG Authored Date: * Event Display: ECG 12-Lead Authored Date: Please click on pdf link to open report * Event Display: ECG 12-Lead Authored Date: Ventricular Rate: 99 BPM Atrial Rate: 99 BPM P-R Interval: 194 ms QRS Duration: 88 ms Q-T Interval: 366 ms QTC Calculation(Bazett): 469 ms P Sturg[place]: 40 degrees R Sturgis: 18 degrees T Sturg[place]: 47 degrees Normal sinus rhythm Minimal voltage criteria for LVH, may be normal variant Nonspecific T wave abnormality Abnormal ECG When compared with ECG of 02-MAR-2023 05:34, Minimal criteria for Septal infarct are no longer Present Confirmed by AURY PATEL MD ([id number]) on 06/21/2023 1:34:54 PM Nedrow: AURY PATEL MD Heart * Event Display: Echocardiogram - Complete Authored Date: [id number] Transthoracic Echocardiography Report (TTE) Patient Demographics Patient Name SHIVAM DENIS Date of Study 06/23/2023 Corporate Gender Female Facility Race Ethnicity Date of 1955 Height: 68.5 inches Age 68 year(s) Weight: 149.92 pounds Accession Number [id number] BSA: 1.82 m2 Room Number [id number] BMI: 22.46 kg/m2 Referring Physician Jeremi Martínez MD Interpreting Alonso Hernandez MD Physician [employer] [place] [facility] Fellow Robin Ball MD Mariia Indications Syncope. Clinical History HTN, opiate use Study Data Type of Study TTE procedure:Echo Complete-Doppler, Colorflow, M-Mode. Study Date06/23/2023 Start Time: 08:38 AM [place] [facility] [place] Status: Echo lab Patient Status: Routine Technical Quality: Adequate Blood Pressure:124/67 mmHg EKG: Normal sinus rhythm HR: 84 bpm 2D Measurements LV Diastolic Dimension: 3.1 cm LV Systolic Dimension: 1.5 cm LV Septum Diastolic: 1.2 cm LV PW Diastolic: 1.1 cm AO Root Dimension: 2.66 cm LA ESV (BP):31 ml LVOT Stroke Volume: 60.92 ml LA ESV Index: 17 ml/m2 Stroke Volume Index33.47 ml/m2 LVOT: 2 cm Cardiac Index:2.81 l/min/m2 Doppler Measurements MV Peak E-Wave: 64.6 cm/s MV Peak A-Wave: 110 cm/s LVOT Peak Velocity: 110 cm/s MV E/A Ratio: 0.59 LVOT VTI19.4 cm MV P1/2t: 71 msec TR Velocity:185 cm/s MV Deceleration Time: 243 msec TR Gradient:13.69 mmHg MV Area (PHT): 3.1 cm2 E' Septal Velocity: 4.79 cm/s E' Lateral Velocity: 9.79 cm/s E/Med E':13.49695 E/Lat E':6.80251 Cardiac Anatomy Left Ventricle/Interventricular Septum The left ventricular size is normal. There is mild concentric left ventricular hypertrophy. The LV systolic function is vigorous. The left ventricular ejection fraction is 65-70%. There are no definite regional wall motion abnormalities. There is mid cavity obliteration without obstruction. Diastolic function is probably normal. Left Atrium/Interatrial Septum The left atrium is normal in size. There is an atrial septal aneurysm. Aortic Valve The aortic valve is poorly visualized. There is no aortic stenosis. There is no aortic regurgitation. Mitral Valve There is moderate posterior mitral annular calcification. There is trace mitral regurgitation. There is no significant mitral stenosis. Aorta The ascending aorta and aortic root are normal in size. Right Ventricle The right ventricle is normal in size and function. Right Atrium The right atrium is normal in size. Pulmonic Valve The pulmonic valve is normal in structure and function. There is no pulmonic regurgitation. Tricuspid Valve The tricuspid valve is grossly normal. There is trace tricuspid valve regurgitation. Pumonary Artery The pulmonary artery appears normal. Venous Structures The inferior vena cava appears normal. Inferior vena cava inspiratory collapse is normal. Pericardium/Extracardiac There is no pericardial effusion. There is a moderate left-sided pleural effusion. Summary 1) The LV systolic function is vigorous. The left ventricular ejection fraction is 65-70%. There are no definite regional wall motion abnormalities. 2) There is mid cavity obliteration without obstruction. 3) There is mild concentric left ventricular hypertrophy. 4) The right ventricle is normal in size and function. 5) There is moderate posterior mitral annular calcification. There is trace mitral regurgitation. There is no significant mitral stenosis. Comparison No prior study available for comparison. Signature * Event Display: Echocardiogram - Complete Authored Date: * Event Display: Echocardiogram - Complete Authored Date: Hospital Progress note * Angel Flower: PERFORM, SIGN, VERIFY, SIGN, MODIFY Event Display: Progress Note [facility] Authored Date: [id number] Patient: SHIVAM DENIS Age: 68 years Sex: Female : 1955 Associated Diagnoses: None Author: Angel Flower Findings Problem Related to Alteration in Safety : Alteration in Safety/new 06/30/2023 9:40 EDT Alteration in Safety Related to Injury Goals & Outcomes, Safety Psychosocial support will be provided to Pt/S.O. as needed, Pt/caregiver will state understanding of plan/goals of care, Pt will remain safe & injury free, Pt/caregiver will be offered appropriate resources & support, Pt/caregiver will verbalize understanding ofthe D/C plan Interventions, Safety Provide info on community resources for education, support, Provide teaching as needed, Discuss unsafe practices & situations with pt/S.O., Instruct pt on maintaining a safeenvironment, One on one observation, [place] pt frequently, Redirection; reorientation, Talk to patient regarding concerns BH Goals/Interventions, Safety Yes Safety, Problem Start 06/27/2023 11:55 Reviewed plan with, Safety Patient Patient Progression, Safety Pt progressing according to plan . Nursing Data Vital Signs : VITAL SIGNS SECTION 06/30/2023 8:14 EDT Pulse Rate 73 bpm Systolic Blood Pressure 149 mm Hg H Diastolic Blood Pressure 77 mm Hg Blood pressure sites Arm, left Pulse Pressure 72 mm Hg 06/30/2023 5:11 EDT Early Warning Score 2.00 06/30/2023 5:00 EDT Temperature 97.7 DegF Temperature Route Oral Pulse Rate 78 bpm Respiratory Rate 18 br/min Systolic Blood Pressure 129 mm Hg Diastolic Blood Pressure 72 mm Hg Blood pressure sites Arm, left Pulse Pressure 57 mm Hg Oxygen Saturation 100 % Mode of Delivery (Oxygen) Room air . Evaluation Head: Normocephalic, atraumatic Eyes: Anicteric, vision grossly intact. Ears: no auricular pain, erythema or exudate observed. Nose: nares patent Throat: Trachea midline. no erythema or exudates observed. Tongue midline, anterioposterior pillarsrise symmetrically, Chest rise symmetrical. Breathing is non-labored. No use of accessory muscles or cyanosis observed.No clubbing observed. Pt lung sounds clear to auscultation, SpO2 98-100% on RA. Pt denies shortnessof breath or difficulty breathing. Pt denies cough. Pt denies chest pain or discomfort. Pt afebrile. S1,S2 heard, on auscultation. Peripheral pulses present and equal bilaterally. No edema observed, pt skin observed to be warm and dry, no JVD observed. Positive bowel sounds x4, pt denies n/v/d. Pt on regular diet tolerating well. Medications taken whole, no swallowing difficulty observed/reported by patient. Pt denies abdominal pain, no tenderness to palpation. Pt voiding independently. Pt denies dysuria, urgency, frequency, hesitancy or difficulty urinating,no bladder distension observed. Activity as tolerated. Positive movement and ROM in all 4 extremities. No joint tenderness or swelling observed. Skin in tact, anicteric. Pt repositions independently for decubitus prevention Patient alert and oriented to person, place, speech clear. CN II-XII grossly intact. Pupils equal round and reactive to light, EOMI, no nystagmus observed. Positive motor function x4 extremities, motor function symmetrical. Sensation intact bilaterally. Pt c/o headache, given fioricet per MD orders, resting comfortably on reassessment Plan of care updated, call lara within reach, will continue to monitor for comfort and safety.. Discharge Information Case Management Discharge Plan : Case Management Discharge Plan Data 06/29/2023 15:28 EDT Discharge Level of Care at Discharge senior care facility Discharge Nursing Homes/Rehab Facilities [facility] Discharge Transportation Arranged [facility] [address] [facility] [id number] Discharge Arranged Transport Date/Time 06/29/2023 16:30 Mode of Transportation Arranged Ambulance Name of Agency #1 [facility] Categories #1 Occupational Therapy, Physical Therapy, Intermediate Service Comments #1 An ambulance was arranged through [facility] to transport patient today @ 430pm * Angel Flower: PERFORM Event Display: Progress Note Hospital Authored Date: Patient discharged SNF, left unit via stretcher with ambulance personnel. Patient's HCP verbalized understanding of discharge plan. * Celsa Medina RN: PERFORM, SIGN, VERIFY, MODIFY, SIGN Event Display: Progress Note Hospital Authored Date: [id number] Patient: SHIVAM DENIS Age: 68 years Sex: Female : 1955 Associated Diagnoses: None Author: Celsa Medina RN Findings Problem Related to Alteration in Safety : Alteration in Safety/new 06/29/2023 13:00 EDT Alteration in Safety Related to Injury Goals & Outcomes, Safety Psychosocial support will be provided to Pt/S.O. as needed, Pt/caregiver will state understanding of plan/goals of care, Pt will remain safe & injury free, Pt/caregiver will be offered appropriate resources & support, Pt/caregiver will verbalize understanding ofthe D/C plan Interventions, Safety Provide info on community resources for education, support, Provide teaching as needed BH Goals/Interventions, Safety Yes Safety, Problem Start 06/27/2023 11:55 Reviewed plan with, Safety Patient Patient Progression, Safety Pt progressing according to plan . Nursing Data Vital Signs : VITAL SIGNS SECTION 06/29/2023 9:11 EDT Pulse Rate 82 bpm Respiratory Rate 16 br/min Systolic Blood Pressure 122 mm Hg Diastolic Blood Pressure 73 mm Hg Blood pressure sites Arm, right Mean Arterial Pressure 89 mm Hg Pulse Pressure 49 mm Hg Oxygen Saturation 99 % Mode of Delivery (Oxygen) Room air . Evaluation Patient is alert and oriented x3, able to communicate needs. Report headache, medicated per NOV. ptwondering the unit, but easily re-directable back to her room. . Patient appear to be resting in bed at this time. Vital signs stable, Safety checks completed, bed in lowest position, bed alarm on, Call lara within reach. See biophysical assessment.. * Romain Wilson MD: PERFORM Event Display: Progress Note Hospital Authored Date: Patient: ??SHIVAM DENIS ? Age:??68 Years?Sex:??Female?:??1955?? Subjective No acute events overnight,??this morning is again complaining of??severe headache.?? Does not appear to be in distress,??but describes headache as 10 out of 10 pain for her head (not the worst pain of her life,??but the worst headache she has had).?Difficult to elicit??clear description of headache, describes it as??pressure??that feels like her head is going to explode,??alternately describes the pain as??at the top of her head,??and??left frontal.?? Says it is constant but sometimes throbs,??no nausea/vomiting/photophobia.?? May have??photophobia,??but does not avoid walking??into the bright hallway.?? Asks for??Fioricet??as this is the only medication that helps,??and says she is not concerned about??medication rebound headache, because she has not??had it in months, when remindedthat she has had every day for the last??3 days??does not??believe this. Review of Systems Negative for chest pain difficulty breathing,??dizziness, lightheadedness, decreased appetite. Positive for??headache. Objective Vital Signs?? Temperature: 97.3 DegF (06/29/23 05:43:00) Temperature Route: Oral (06/29/23 05:43:00) Pulse Rate: 82 bpm (06/29/23 09:11:00) Respiratory Rate: 16 br/min (06/29/23 09:11:00) Systolic Blood Pressure: 122 mm Hg (06/29/23 09:11:00) Diastolic Blood Pressure: 73 mm Hg (06/29/23 09:11:00) Blood pressure sites: Arm, right (06/29/23 09:11:00) Mean Arterial Pressure: 89 mm Hg (06/29/23 09:11:00) Pulse Pressure: 49 mm Hg (06/29/23 09:11:00) Oxygen Saturation: 99 % (06/29/23 09:11:00) Mode of Delivery (Oxygen): Room air (06/29/23 09:11:00) Early Warning Score: 2 (06/29/23 09:18:47) ? Physical Exam Constitutional: Alert, pacing hallway, no apparent acute distress Mental status: able to ask and answer questions but with obvious confusion based on some of her answers/questions. Respiratory: Clear to auscultation with good air movement bilaterally. No wheezing, rales or rhonchi. Cardiovascular: S1 S2??normal with regular rate.??No murmurs, rubs or gallops. Neurologic: Moves all extremities spontaneously. No gross focal deficits. Musculoskeletal: No cyanosis or clubbing. No gross deformities. Normal range of motion. Psychiatric:?? Oriented to person and time. Calm, cooperative. Clearly confused though. Results Recent Labs No labs resulted between 06/28/2023 00:00 and 06/29/2023 12:28? Assessment/Plan 68yr old with history of hypertension, chronic small vessel ischemic disease, lumbar disc disease, chronic headache, chronic pain, history of benzodiazepine and opiate use, and cognitive impairment, who presents to the hospital after she was found on the floor by her partner. She is admitted for fall work-up and course complicated by hyperactive delirium on baseline of chronic dementia. ?? Updates today:??No new updates, state review due to positive preadmission screen (treated for inpatient psychiatry). Accepted at [facility]. Pending state approval for discharge. Case managementworking on this. ?? Headache Difficult to elicit clear history but seems consistent with tension type headache. No symptoms of migraine/cluster/sinus headache - give Fioricet for now, consider alternatives in the future ?? Dementia ??Hyperactive delirium Patient has known history of cognitive impairment and dementia Evaluated by psych on 03/02/2023 and impression was dementia with behaviors. Reported previously to be tangential, agitated and restless and confirmed with partner that this is a gradual decline/baseline, not an acute change. ??-Trazodone as needed (has not needed PRNs) ??-Continue home Seroquel 100 mg 3 times a day ??-Can consider previous recommendations of psychiatry at [facility] to 50 mg twice daily and risperidone 0.5 mg twice daily ??-Delirium precautions ?? Fall (W19.XXXA) vs Syncope (R55) ??Orthostatic hypotension - resolved Found on the floor by her partner, patient is unable to provide history. CT imaging of head and lumbar spine is largely unremarkable. Telemetry was unremarkable and EKG is nonsignificant. Falls most likely mechanical/orthostatic. Positive for orthostatic hypotension (Lying 155/57 HR 89. Sitting 102/85 HR 103. Standing 98/62 HR 97). Resolved after fluid bolus. Echo and EKG reassuring. ??- blood pressure stable today, no additional falls ??- continuing to work with PT ?? Nonpurulent cellulitis (L03.90) - resolved Patient noted to have some erythema and warmth on the posterior aspect of her right wrist. Wrist x-ray showed no evidence of fracture, but there was some moderate soft tissue edema noted. Patient thinks she may have fallen on something but poor historian. Likely edema from injury now converting to bruise rather than cellulitis. ??- Bruising improved ??- s/p 3 days doxycycline ?? Hypertensive urgency vs emergency - resolved BP of 219/123 on 06/22, unable to determine if symptomatic due to delirium/dementia. Improved today with increased dose of lisenopril ??- s/p 10mg IV labetalol ??- continue lisinopril 40mg daily ?? Quality metrics: CODE STATUS. Patient is a DNR per her partner who is also her healthcare proxy. DVT prophylaxis. Subcutaneous Lovenox and encourage early mobilization. Diet: Regular ?? Patient seen and discussed with attending Dr. Jameson ?? Romain Wilson MD Internal Medicine - Pediatrics, PGY1 Please contact via iRewardChart or page [phone]? * Gisell SIMON, Cl[place]is Zarco: PERFORM Event Display: Progress Note Hospital Authored Date: Attending Attestation: I have??seen and evaluated??SHIVAM CIRA, on 06/29/23. ??I have??reviewed the patient???s medical history, findings on examination, diagnosis, and treatment. I have discussed the case and its management with the resident and agree with the findings and plan as documented in the resident???s note.? _ ? Note * Alfredo Thompson MD: PERFORM Event Display: Discharge/Transfer Note Hospital Authored Date: Patient: ??SHIVAM DENIS ? Age:??68 Years?Sex:??Female?:??1955?? 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 _ Discharge Medications amiTRIPTYLINE (amitriptyline 50 mg oral tablet)?1?tab(s)?50?Milligram?By Mouth?Daily at bedtime Lisinopril (lisinopril 20 mg oral tablet)?40?Milligram?By Mouth?Daily Lorazepam (LORazepam 1 mg oral tablet)?1?tab(s)?1?Milligram?By Mouth?3 times a day?as needed?for anxiety Quetiapine (QUEtiapine 100 mg oral tablet)?100?Milligram?1?tablet?By Mouth?3 times a day Timolol Ophthalmic (Timolol 0.5% Ophth)?1?Drops?Eyes, Both?2 times a day Trazodone (traZODone 50 mg oral tablet)?50?Milligram?By Mouth?Daily at bedtime?as needed?Agitation ? Medications Started Trazodone (traZODone 50 mg oral tablet)?50?Milligram?By Mouth?Daily at bedtime?as needed?Agitation Medications Discontinued None Doses Changed Lisinopril increased to 40mg daily (increased from 20mg daily) Allergies Allergies ?(Active and Proposed Allergies Only) morphine? (Severity: Unknown severity, Onset: Unknown) ?Reactions: dizzy codeine? (Severity: Unknown severity, Onset: Unknown) ?Reactions: nausea Antivert? (Severity: Unknown severity, Onset: Unknown) ?Reactions: double vision ibuprofen? (Severity: Unknown severity, Onset: Unknown) Leslie? (Severity: Unknown severity, Onset: Unknown) ?Reactions: liver enzymes off statins? (Severity: Unknown severity, Onset: Unknown) ?Reactions: swelling/rash fentaNYL? (Severity: Unknown severity, Onset: Unknown) ?Reactions: diff breathing ? PCP Follow-Up/Heads-Up Please follow up in 1-2 weeks - Repeat BMP to ensure lytes stable - Would repeat orthostatic vitals at next visit - Patient with chronic headaches needing Fioricet repeatedly. Unclear if this is related to her dementia or if true headaches. Never seemed to be in distress or with other secondary symptoms. Could trial Excedrin outpatient. Hospital Course Patient is a 68-year-old female with a past medical history of hypertension, chronic small vessel ischemia, lumbar disc disease, chronic headache, chronic pain, history of benzodiazepine and opioid use, dementia presented initially on 06/19 by EMS as she was found on the floor after an unwitnessed fall. She had full syncope work-up including remaining on chair and couch maker which did not show any abnormalities and echocardiogram on 06/23 which was within normal limits. There is also no concern for seizure-like activity while she was inpatient. PT did assess patient who felt that she was not appropriate for going home unless she had 24/7 supervision and roommate recommended transfer to a long-termcare facility. Overall it was felt that her fall/syncopal event was most likely mechanical in etiology and likely was not a true syncopal event. While inpatient there was also concern for possible cellulitis of the posterior aspect of the right wrist for which she received 3 days of doxycycline andhas resolved at this point. She likely also has progressing dementia for which she should continue o n her current regiment. Overall patient is doing well without any further medical issues and is ready for discharge. Family have opted to transfer patient to long-term care facility where she will have reliable 24/7 support as family are unable to provide this. ?? Headache Difficult to elicit clear history but seems consistent with tension type headache. No symptoms of migraine/cluster/sinus headache Requests Fioricet constantly and doesn't remember taking it. No secondary headache symptoms pointing towards any specific cause. Possibly medication overuse related. ?? Recommendations: - Could consider??Excedrin outpatient vs acetaminophen if patient agreeable (was refusing while inpatient) ?? Dementia Hyperactive delirium Patient has known history of cognitive impairment and dementia Evaluated by psych on 03/02/2023 and impression was dementia with behaviors. Reported previously to be tangential, agitated and restless and confirmed with partner that this is a gradual decline/baseline, not an acute change. ?? Recommendations: ??-Trazodone??50mg daily at bedtime as needed for agitation ??-Continue home Seroquel 100 mg 3 times a day ??-Can consider previous recommendations of psychiatry at [facility] to 50 mg twice daily and risperidone 0.5 mg twice daily if current regiment failing ?? Fall (W19.XXXA) vs Syncope (R55) ??Orthostatic hypotension - resolved Found on the floor by her partner, patient is unable to provide history. CT imaging of head and lumbar spine is largely unremarkable. Telemetry was unremarkable and EKG is nonsignificant. Falls most likely mechanical/orthostatic. Positive for orthostatic hypotension (Lying 155/57 HR 89. Sitting 102/85 HR 103. Standing 98/62 HR 97). Resolved after fluid bolus. Echo and EKG reassuring. ?? 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 Nonpurulent cellulitis (L03.90) - resolved Patient noted to have some erythema and warmth on the posterior aspect of her right wrist. Wrist x-ray showed no evidence of fracture, but there was some moderate soft tissue edema noted. Patient thinks she may have fallen on something but poor historian. Likely edema from injury now converting to bruise rather than cellulitis. s/p 3 days of doxycycline with resolution. ?? Recommendations: - F/u outpatient and ensure no repeat symptoms ?? Hypertensive urgency vs emergency - resolved BP of 219/123 on 06/22, unable to determine if symptomatic due to delirium/dementia. Improved with increased dose of lisinopril ?? Recommendations: ??- Increased home lisinopril to??40mg daily (increase from 20mg daily) ? Objective Vital Signs?? Temperature: 97.7 DegF (06/30/23 05:00:00) Temperature Route: Oral (06/30/23 05:00:00) Pulse Rate: 78 bpm (06/30/23 05:00:00) Pulse Rate, Lyin bpm (06/29/23 17:49:00) Systolic Blood Pressure, Lyin mm Hg (06/29/23 17:49:00) Diastolic Blood Pressure, Lyin mm Hg (06/29/23 17:49:00) Pulse Rate, Sittin bpm (06/29/23 17:49:00) Systolic Blood Pressure, Sittin mm Hg (06/29/23 17:49:00) Diastolic Blood Pressure, Sittin mm Hg (06/29/23 17:49:00) Pulse Rate, Standin bpm (06/29/23 17:49:00) Systolic Blood Pressure, Standin mm Hg (06/29/23 17:49:00) Diastolic Blood Pressure, Standin mm Hg (06/29/23 17:49:00) Respiratory Rate: 18 br/min (06/30/23 05:00:00) Systolic Blood Pressure: 129 mm Hg (06/30/23 05:00:00) Diastolic Blood Pressure: 72 mm Hg (06/30/23 05:00:00) Blood pressure sites: Arm, left (06/30/23 05:00:00) Mean Arterial Pressure: 90 mm Hg (06/29/23 17:50:00) Pulse Pressure: 57 mm Hg (06/30/23 05:00:00) Oxygen Saturation: 100 % (06/30/23 05:00:00) Mode of Delivery (Oxygen): Room air (06/30/23 05:00:00) Early Warning Score: 2 (06/30/23 05:11:53) ? . Physical Exam Constitutional: Alert, pacing hallway, no apparent acute distress Mental status: able to ask and answer questions but with obvious confusion based on some of her answers/questions. Respiratory: Clear to auscultation with good air movement bilaterally. No wheezing, rales or rhonchi. Cardiovascular: S1 S2??normal with regular rate.??No murmurs, rubs or gallops. Neurologic: Moves all extremities spontaneously. No gross focal deficits. Musculoskeletal: No cyanosis or clubbing. No gross deformities. Normal range of motion. Psychiatric:?? Oriented to person and time. Calm, cooperative. Clearly confused though. Pending Results No Pending Results Patient Education Titles Using Antidepressants (Adult)?? Amitriptyline Oral Tablet?? Cellulitis?? Preventing Falls at Home?? Follow-Up Appointments Added Follow Up ?Time Frame ?Comments Not on Staff, PCP?1 to 2 weeks Patient Instructions You were admitted after being found on the floor with concern for a fall. You were diagnosed with orthostatic hypotension which means your blood pressure goes too low when you stand up. We did an EKGand echocardiogram too look at the electrical activity and function of your heart and these reassured us that there was not a heart problem that caused you to fall.??Your??low??blood pressure??improved with IV fluid rehydration and you developed elevated blood pressures, so we increased your dose lisinopril to 40mg daily. There was some concern for a skin infection (cellulitis) in your R arm; this was treated with antibiotics (doxycycline) and improved quickly. It is likely the swelling was from an injury when you fell and not a true infection but it was adequately treated and is healing well. ?? Since your blood pressures are now improved and we did not find anything concerning with your heart, it is now safe for you to leave the hospital with outpatient followup. You were evaluated by physical therapy and they determined that you need 24hr care which will not be possible for your partner to provide, so you will be going to [facility] from here. You can continue working with your partner to find a place closer to home. ?? You should continue taking your blood pressure medications (Lisenopril 40mg daily) at the increaseddose and Seroquel 100mg, 3 times per day. Results Discharge Labs BLOOD COUNT & DIFF WBC 6.2 k/mm3 ()?? 06/25/2023 09:34 RBC 4.29 m/mm3 ()?? 06/25/2023 09:34 Hgb 13.2 Gm/dL ()?? 06/25/2023 09:34 Hct 39.3 % ()?? 06/25/2023 09:34 MCV 91.6 femtoliters ()?? 06/25/2023 09:34 MCH 30.8 pg ()?? 06/25/2023 09:34 MCHC 33.6 g/dL ()?? 06/25/2023 09:34 Platelet Count 257 k/mm3 ()?? 06/25/2023 09:34 RDW-SD 39.9 femtoliters ()?? 06/25/2023 09:34 MPV 10.3 femtoliters ()?? 06/25/2023 09:34 Nucleated RBC (Automated) 0.0 #/100 WBC'S ()?? 06/25/2023 09:34 Abs. NRBC 0.0 k/mm3 ()?? 06/25/2023 09:34 Abs. Neut 4.3 k/mm3 ()?? 06/25/2023 09:34 Abs. Lymph 1.1 k/mm3 ()?? 06/25/2023 09:34 Abs. Big Stone 0.6 k/mm3 ()?? 06/25/2023 09:34 Abs. Eo 0.1 k/mm3 ()?? 06/25/2023 09:34 Abs. Baso 0.0 k/mm3 ()?? 06/25/2023 09:34 Neut % 69.5 % ()?? 06/25/2023 09:34 Lymph % 18.2 % ()?? 06/25/2023 09:34 Big Stone % 9.5 % ()?? 06/25/2023 09:34 Eos % 1.9 % ()?? 06/25/2023 09:34 Baso % 0.6 % ()?? 06/25/2023 09:34 Imm Gran 0.3 % ()?? 06/25/2023 09:34 Abs. Imm Gran 0.0 k/mm3 ()?? 06/25/2023 09:34 ?? CARDIAC Nt-Probnp 267 pg/mL (High)?? 06/19/2023 07:57 High Sensitivity Troponin (HSTnT) 17 ng/L (High)?? 06/19/2023 09:57 ?? CHEM GENERAL Sodium 140 mmol/L ()?? 06/25/2023 00:41 Potassium 3.9 mmol/L ()?? 06/25/2023 00:41 Chloride 101 mmol/L ()?? 06/25/2023 00:41 Bicarbonate Level 27 mmol/L ()?? 06/25/2023 00:41 Anion Gap 12 ()?? 06/25/2023 00:41 Glucose Level 93 mg/dL ()?? 06/25/2023 00:41 Glucose, POC 103 mg/dL (High)?? 06/19/2023 08:13 BUN 40 mg/dL (High)?? 06/25/2023 00:41 Creatinine-Blood 1.0 mg/dL ()?? 06/25/2023 00:41 Estimated GFR Creatinine 62 ML/MIN/1.73 M2 ()?? 06/25/2023 00:41 Calcium 9.4 mg/dL ()?? 06/25/2023 00:41 Phosphorus 3.3 mg/dL ()?? 06/25/2023 00:41 Magnesium 1.7 mg/dL ()?? 06/25/2023 00:41 Protein, Total 7.6 Gm/dL ()?? 06/19/2023 07:57 Albumin 4.7 Gm/dL ()?? 06/19/2023 07:57 AG Ratio 1.6 ()?? 06/19/2023 07:57 Alkaline Phosphatase 124 units/L (High)?? 06/19/2023 07:57 AST (SGOT) 20 units/L ()?? 06/19/2023 07:57 ALT (SGPT) 16 units/L ()?? 06/19/2023 07:57 Bilirubin, Total 0.5 mg/dL ()?? 06/19/2023 07:57 ?? ENDOCRINE/TUMOR MARKER TSH 2.38 uIU/mL ()?? 06/19/2023 07:57 ? HEME OTHER Hold Lavender Top SPECIMEN DISCARDED AFTER 24 HOURS. ()?? 06/24/2023 04:00 ? MISC. CHEMISTRY Hold Gel Top SPECIMEN DISCARDED AFTER 1 WEEK ()?? 06/25/2023 09:34 ? UA/URINALYSIS Appear/Color, Urine YELLOW ()?? 06/19/2023 10:25 Specific Hel[place], Urine 1.019 ()?? 06/19/2023 10:25 pH, Urine 6.0 ()?? 06/19/2023 10:25 Albumin, Urine 1+ (Abnormal)?? 06/19/2023 10:25 Glucose, Urine NEGATIVE ()?? 06/19/2023 10:25 Ketones, Urine NEGATIVE ()?? 06/19/2023 10:25 Bilirubin, Urine NEGATIVE ()?? 06/19/2023 10:25 Hemoglobin, Urine NEGATIVE ()?? 06/19/2023 10:25 Nitrite, Urine NEGATIVE ()?? 06/19/2023 10:25 Leukocyte, Urine 1+ (Abnormal)?? 06/19/2023 10:25 Urobilinogen NORMAL mg/dL ()?? 06/19/2023 10:25 WBC's, Urine 2 /HPF ()?? 06/19/2023 10:25 RBC's, Urine <1 /HPF ()?? 06/19/2023 10:25 Bacteria SLIGHT HPF (Abnormal)?? 06/19/2023 10:25 Squamous Epith 1 /HPF ()?? 06/19/2023 10:25 Hyaline Cast 1 LPF ()?? 06/19/2023 10:25 Mucus SLIGHT /LPF ()?? 06/19/2023 10:25 Hold Urine Culture Testing available 48 hours from time of collection. ()?? 06/19/2023 10:25 ?? VIROLOGY COVID-19 by RT-PCR NEGATIVE ()?? 06/19/2023 06:50 ? 20??minutes spent on discharge Patient has been??seen and??discussed with Dr. Gisell Thompson PGY3 Pager: [phone] * Gisell SIMON, Clovis Zarco: PERFORM Event Display: Discharge/Transfer Note Hospital Authored Date: [id number] Attending Attestation: I have??seen and evaluated??SHIVAM DENIS, on 06/30/23. ??I have??reviewed the patient???s medical history, findings on examination, diagnosis, and treatment. I have discussed the case and its management with the resident and agree with the findings and plan as documented in the resident???s note.? _ ? * Angel Flower: PERFORM Event Display: Discharge/Transfer Note Hospital Authored Date: [id number] Nursing Discharge Note Entered On: 06/29/2023 16:31 EDT Performed On: 06/29/2023 16:31 EDT by Celsa Medina RN Nursing Discharge Note 2 Discharge Time : 06/30/2023 14:34 EDT Verbalized Understanding of D/C Plan By : Significant other Did Pt have Specialty Bed or Wound Vac : No Angel Flower - 06/30/2023 14:34 EDT Discharge Level of Care at Discharge : senior care facility Discharge Nursing Homes/Rehab Facilities : [facility] Patient Left Unit Via : Ambulance Patient Accompanied Off Unit with : Ambulance/Chair Van Personnel Handover Given to Transport Personnel : Yes Celsa Medina RN - 06/29/2023 16:31 EDT DC Instructions Provided & Signed by Pt : Unable Patient Understands D/C Instructions : Unable Angel Flower - 06/30/2023 14:34 EDT Patient Instructions Discharge Signed : Yes Celsa Medina RN - 06/29/2023 16:31 EDT * Alfredo Thompson MD: PERFORM Event Display: Discharge/Transfer Note Hospital Authored Date: Patient: ??CIRA SHIVAM ? Age:??68 Years?Sex:??Female?:??1955?? 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 Discharge Diagnosis Headache Dementia Hyperactive delirium Fall (W19.XXXA) Orthostatic hypotension Nonpurulent cellulitis (L03.90) Hypertensive urgency _ Discharge Medications amiTRIPTYLINE (amitriptyline 50 mg oral tablet)?1?tab(s)?50?Milligram?By Mouth?Daily at bedtime Lisinopril (lisinopril 20 mg oral tablet)?40?Milligram?By Mouth?Daily Lorazepam (LORazepam 1 mg oral tablet)?1?tab(s)?1?Milligram?By Mouth?3 times a day?as needed?for anxiety Quetiapine (QUEtiapine 100 mg oral tablet)?100?Milligram?1?tablet?By Mouth?3 times a day Timolol Ophthalmic (Timolol 0.5% Ophth)?1?Drops?Eyes, Both?2 times a day Trazodone (traZODone 50 mg oral tablet)?50?Milligram?By Mouth?Daily at bedtime?as needed?Agitation ? Medications Started Trazodone (traZODone 50 mg oral tablet)?50?Milligram?By Mouth?Daily at bedtime?as needed?Agitation Medications Discontinued None Doses Changed Lisinopril increased to 40mg daily (increased from 20mg daily) Allergies Allergies ?(Active and Proposed Allergies Only) morphine? (Severity: Unknown severity, Onset: Unknown) ?Reactions: dizzy codeine? (Severity: Unknown severity, Onset: Unknown) ?Reactions: nausea Antivert? (Severity: Unknown severity, Onset: Unknown) ?Reactions: double vision ibuprofen? (Severity: Unknown severity, Onset: Unknown) Leslie? (Severity: Unknown severity, Onset: Unknown) ?Reactions: liver enzymes off statins? (Severity: Unknown severity, Onset: Unknown) ?Reactions: swelling/rash fentaNYL? (Severity: Unknown severity, Onset: Unknown) ?Reactions: diff breathing ? PCP Follow-Up/Heads-Up Please follow up in 1-2 weeks - Repeat BMP to ensure lytes stable - Would repeat orthostatic vitals at next visit - Patient with chronic headaches needing Fioricet repeatedly. Unclear if this is related to her dementia or if true headaches. Never seemed to be in distress or with other secondary symptoms. Could trial Excedrin outpatient. Hospital Course Patient is a 68-year-old female with a past medical history of hypertension, chronic small vessel ischemia, lumbar disc disease, chronic headache, chronic pain, history of benzodiazepine and opioid use, dementia presented initially on 06/19 by EMS as she was found on the floor after an unwitnessed fall. She had full syncope work-up including remaining on chair and couch maker which did not show any abnormalities and echocardiogram on 06/23 which was within normal limits. There is also no concern for seizure-like activity while she was inpatient. PT did assess patient who felt that she was not appropriate for going home unless she had 24/7 supervision and roommate recommended transfer to a long-termcare facility. Overall it was felt that her fall/syncopal event was most likely mechanical in etiology and likely was not a true syncopal event. While inpatient there was also concern for possible cellulitis of the posterior aspect of the right wrist for which she received 3 days of doxycycline andhas resolved at this point. She likely also has progressing dementia for which she should continue o n her current regiment. Overall patient is doing well without any further medical issues and is ready for discharge. Family have opted to transfer patient to long-term care facility where she will have reliable 24/7 support as family are unable to provide this. ?? Headache Difficult to elicit clear history but seems consistent with tension type headache. No symptoms of migraine/cluster/sinus headache Requests Fioricet constantly and doesn't remember taking it. No secondary headache symptoms pointing towards any specific cause. Possibly medication overuse related. ?? Recommendations: - Could consider??Excedrin outpatient vs acetaminophen if patient agreeable (was refusing while inpatient) ?? Dementia Hyperactive delirium Patient has known history of cognitive impairment and dementia Evaluated by psych on 03/02/2023 and impression was dementia with behaviors. Reported previously to be tangential, agitated and restless and confirmed with partner that this is a gradual decline/baseline, not an acute change. ?? Recommendations: ??-Trazodone??50mg daily at bedtime as needed for agitation ??-Continue home Seroquel 100 mg 3 times a day ??-Can consider previous recommendations of psychiatry at [facility] to 50 mg twice daily and risperidone 0.5 mg twice daily if current regiment failing ?? Fall (W19.XXXA) vs Syncope (R55) ??Orthostatic hypotension - resolved Found on the floor by her partner, patient is unable to provide history. CT imaging of head and lumbar spine is largely unremarkable. Telemetry was unremarkable and EKG is nonsignificant. Falls most likely mechanical/orthostatic. Positive for orthostatic hypotension (Lying 155/57 HR 89. Sitting 102/85 HR 103. Standing 98/62 HR 97). Resolved after fluid bolus. Echo and EKG reassuring. ?? Recommendations: ??- blood pressure stable, no additional falls ??-??Discharge to shelter care facility ?? Nonpurulent cellulitis (L03.90) - resolved Patient noted to have some erythema and warmth on the posterior aspect of her right wrist. Wrist x-ray showed no evidence of fracture, but there was some moderate soft tissue edema noted. Patient thinks she may have fallen on something but poor historian. Likely edema from injury now converting to bruise rather than cellulitis. s/p 3 days of doxycycline with resolution. ?? Recommendations: - F/u outpatient and ensure no repeat symptoms ?? Hypertensive urgency vs emergency - resolved BP of 219/123 on 06/22, unable to determine if symptomatic due to delirium/dementia. Improved with increased dose of lisinopril ?? Recommendations: ??- Increased home lisinopril to??40mg daily (increase from 20mg daily) ?? Objective Vital Signs?? Temperature: 98.1 DegF (06/29/23 12:29:00) Temperature Route: Oral (06/29/23 12:29:00) Pulse Rate: 85 bpm (06/29/23 12:29:00) Respiratory Rate: 18 br/min (06/29/23 13:13:00) Systolic Blood Pressure: 128 mm Hg (06/29/23 12:29:00) Diastolic Blood Pressure: 70 mm Hg (06/29/23 12:29:00) Blood pressure sites: Arm, right (06/29/23 12:29:00) Mean Arterial Pressure: 89 mm Hg (06/29/23 12:29:00) Pulse Pressure: 58 mm Hg (06/29/23 12:29:00) Oxygen Saturation: 99 % (06/29/23 12:29:00) Mode of Delivery (Oxygen): Room air (06/29/23 12:29:00) Early Warning Score: 0 (06/29/23 13:14:58) ? . Physical Exam Constitutional: Alert, pacing hallway, no apparent acute distress Mental status: able to ask and answer questions but with obvious confusion based on some of her answers/questions. Respiratory: Clear to auscultation with good air movement bilaterally. No wheezing, rales or rhonchi. Cardiovascular: S1 S2??normal with regular rate.??No murmurs, rubs or gallops. Neurologic: Moves all extremities spontaneously. No gross focal deficits. Musculoskeletal: No cyanosis or clubbing. No gross deformities. Normal range of motion. Psychiatric:?? Oriented to person and time. Calm, cooperative. Clearly confused though. Patient Education Titles Preventing Falls at Home?? Follow-Up Appointments Added Follow Up ?Time Frame ?Comments Not on Staff, PCP?1 to 2 weeks Patient Instructions You were admitted after being found on the floor with concern for a fall. You were diagnosed with orthostatic hypotension which means your blood pressure goes too low when you stand up. We did an EKGand echocardiogram too look at the electrical activity and function of your heart and these reassured us that there was not a heart problem that caused you to fall.??Your??low??blood pressure??improved with IV fluid rehydration and you developed elevated blood pressures, so we increased your dose lisinopril to 40mg daily. There was some concern for a skin infection (cellulitis) in your R arm; this was treated with antibiotics (doxycycline) and improved quickly. It is likely the swelling was from an injury when you fell and not a true infection but it was adequately treated and is healing well. ?? Since your blood pressures are now improved and we did not find anything concerning with your heart, it is now safe for you to leave the hospital with outpatient followup. You were evaluated by physical therapy and they determined that you need 24hr care which will not be possible for your partner to provide, so you will be going to [facility] from here. You can continue working with your partner to find a place closer to home. ?? You should continue taking your blood pressure medications (Lisenopril 40mg daily) at the increaseddose and Seroquel 100mg, 3 times per day. Results Discharge Labs BLOOD COUNT & DIFF WBC 6.2 k/mm3 ()?? 06/25/2023 09:34 RBC 4.29 m/mm3 ()?? 06/25/2023 09:34 Hgb 13.2 Gm/dL ()?? 06/25/2023 09:34 Hct 39.3 % ()?? 06/25/2023 09:34 MCV 91.6 femtoliters ()?? 06/25/2023 09:34 MCH 30.8 pg ()?? 06/25/2023 09:34 MCHC 33.6 g/dL ()?? 06/25/2023 09:34 Platelet Count 257 k/mm3 ()?? 06/25/2023 09:34 RDW-SD 39.9 femtoliters ()?? 06/25/2023 09:34 MPV 10.3 femtoliters ()?? 06/25/2023 09:34 Nucleated RBC (Automated) 0.0 #/100 WBC'S ()?? 06/25/2023 09:34 Abs. NRBC 0.0 k/mm3 ()?? 06/25/2023 09:34 Abs. Neut 4.3 k/mm3 ()?? 06/25/2023 09:34 Abs. Lymph 1.1 k/mm3 ()?? 06/25/2023 09:34 Abs. Big Stone 0.6 k/mm3 ()?? 06/25/2023 09:34 Abs. Eo 0.1 k/mm3 ()?? 06/25/2023 09:34 Abs. Baso 0.0 k/mm3 ()?? 06/25/2023 09:34 Neut % 69.5 % ()?? 06/25/2023 09:34 Lymph % 18.2 % ()?? 06/25/2023 09:34 Big Stone % 9.5 % ()?? 06/25/2023 09:34 Eos % 1.9 % ()?? 06/25/2023 09:34 Baso % 0.6 % ()?? 06/25/2023 09:34 Imm Gran 0.3 % ()?? 06/25/2023 09:34 Abs. Imm Gran 0.0 k/mm3 ()?? 06/25/2023 09:34 ?? CARDIAC Nt-Probnp 267 pg/mL (High)?? 06/19/2023 07:57 High Sensitivity Troponin (HSTnT) 17 ng/L (High)?? 06/19/2023 09:57 ?? CHEM GENERAL Sodium 140 mmol/L ()?? 06/25/2023 00:41 Potassium 3.9 mmol/L ()?? 06/25/2023 00:41 Chloride 101 mmol/L ()?? 06/25/2023 00:41 Bicarbonate Level 27 mmol/L ()?? 06/25/2023 00:41 Anion Gap 12 ()?? 06/25/2023 00:41 Glucose Level 93 mg/dL ()?? 06/25/2023 00:41 Glucose, POC 103 mg/dL (High)?? 06/19/2023 08:13 BUN 40 mg/dL (High)?? 06/25/2023 00:41 Creatinine-Blood 1.0 mg/dL ()?? 06/25/2023 00:41 Estimated GFR Creatinine 62 ML/MIN/1.73 M2 ()?? 06/25/2023 00:41 Calcium 9.4 mg/dL ()?? 06/25/2023 00:41 Phosphorus 3.3 mg/dL ()?? 06/25/2023 00:41 Magnesium 1.7 mg/dL ()?? 06/25/2023 00:41 Protein, Total 7.6 Gm/dL ()?? 06/19/2023 07:57 Albumin 4.7 Gm/dL ()?? 06/19/2023 07:57 AG Ratio 1.6 ()?? 06/19/2023 07:57 Alkaline Phosphatase 124 units/L (High)?? 06/19/2023 07:57 AST (SGOT) 20 units/L ()?? 06/19/2023 07:57 ALT (SGPT) 16 units/L ()?? 06/19/2023 07:57 Bilirubin, Total 0.5 mg/dL ()?? 06/19/2023 07:57 ?? ENDOCRINE/TUMOR MARKER TSH 2.38 uIU/mL ()?? 06/19/2023 07:57 ? HEME OTHER Hold Lavender Top SPECIMEN DISCARDED AFTER 24 HOURS. ()?? 06/24/2023 04:00 ? MISC. CHEMISTRY Hold Gel Top SPECIMEN DISCARDED AFTER 1 WEEK ()?? 06/25/2023 09:34 ? UA/URINALYSIS Appear/Color, Urine YELLOW ()?? 06/19/2023 10:25 Specific Hel[place], Urine 1.019 ()?? 06/19/2023 10:25 pH, Urine 6.0 ()?? 06/19/2023 10:25 Albumin, Urine 1+ (Abnormal)?? 06/19/2023 10:25 Glucose, Urine NEGATIVE ()?? 06/19/2023 10:25 Ketones, Urine NEGATIVE ()?? 06/19/2023 10:25 Bilirubin, Urine NEGATIVE ()?? 06/19/2023 10:25 Hemoglobin, Urine NEGATIVE ()?? 06/19/2023 10:25 Nitrite, Urine NEGATIVE ()?? 06/19/2023 10:25 Leukocyte, Urine 1+ (Abnormal)?? 06/19/2023 10:25 Urobilinogen NORMAL mg/dL ()?? 06/19/2023 10:25 WBC's, Urine 2 /HPF ()?? 06/19/2023 10:25 RBC's, Urine <1 /HPF ()?? 06/19/2023 10:25 Bacteria SLIGHT HPF (Abnormal)?? 06/19/2023 10:25 Squamous Epith 1 /HPF ()?? 06/19/2023 10:25 Hyaline Cast 1 LPF ()?? 06/19/2023 10:25 Mucus SLIGHT /LPF ()?? 06/19/2023 10:25 Hold Urine Culture Testing available 48 hours from time of collection. ()?? 06/19/2023 10:25 ?? VIROLOGY COVID-19 by RT-PCR NEGATIVE ()?? 06/19/2023 06:50 ? 20??minutes spent on discharge Patient has been??seen and??discussed with Dr. Gisell Thompson PGY3 Pager: [phone] * Alfredo Thompson MD: PERFORM Event Display: Discharge/Transfer Note Hospital Authored Date: After sign out received message that patient refused to leave. Cross cover went to speak with patient but was unable to convince her. Plan for discharge 06/30 now. * Clovis Jameson MD: PERFORM Event Display: Discharge/Transfer Note Hospital Authored Date: Attending Attestation: I have??seen and evaluated??SHIVAM DENIS, on 06/29/23. ??I have??reviewed the patient???s medical history, findings on examination, diagnosis, and treatment. I have discussed the case and its management with the resident and agree with the findings and plan as documented in the resident???s note.? Additional Clarifying information:?? Let this serve as a progress note for 06/29/23.?? Patient is ather baseline and ready for DC. ? * Vanessa Murray RN: VERIFY, PERFORM, SIGN Event Display: Case Management Discharge Plan Authored Date: Patient: SHIVAM DENIS Age: 68 years Sex: Female : 1955 Associated Diagnoses: None Author: Vanessa Murray RN Discharge Plan Case Management Discharge Plan : Case Management Discharge Plan Data 06/29/2023 15:28 EDT Discharge Level of Care at Discharge senior care facility Discharge [facility] Dis[facility] Transportation Arranged [facility] [address] [place] [address] [id number] [phone] Discharge Arranged Transport Date/Time 06/29/2023 16:30 Mode of Transportation Arranged Ambulance Name of Agency #1 [facility] Service Categories #1 Occupational Therapy, Physical Therapy, Intermediate Service Comments #1 An ambulance was arranged through [facility] to transport patient today @ 430pm * Adam GORDON, Celsa: PERFORM, MODIFY Angel Flower: MODIFY Event Display: Patient Education/Instruction Authored Date: [id number] Inpatient Adult Discharge Instructions [address] [id number] Name: SHIVAM DENIS : 1955 Visit: 06/19/2023 14:01:00 Current Date: 06/29/2023 16:04 Account: [id number] Inpatient Adult Discharge Instructions We would like to thank you for allowing us to assist you with your healthcare needs. The following includes patient education materials and information regarding your injury/illness. Our entire staffstrives to provide an excellent experience for our patients and their families. PLEASE ENSURE YOU FOLLOW-UP PER THE INSTRUCTIONS BELOW! ?? YOUR OPINION IS IMPORTANT TO US! Please complete the survey you may receive by mail or email. Your feedback will be used to make improvements to the healthcare experiences of our patients and their families. Surveys are administered by [employer] ?? If further treatment with your primary care physician or another doctor is recommended, it is important for you to keep the appointment. Call your primary care physician or return to the Emergency Department immediately if your condition worsens, fails to improve, or new symptoms develop. If you need to find a doctor, you can call [facility] [employer] [facility] for a referral at [phone] or toll free at [phone]) or log in to [email or web address] ?? [facility], in keeping with [facility] guidance, no longer requires face masks for staff, patientsor visitors in most situations. Similiar to time spent indoors at other locations, there is the chance that you were exposed to repiratory viruses during your time with us (such as flu or COVID-19). If you develop symptoms concerning for a viral respiratory infection, please seek testing (and treatment if indicated) from your medical provider or home test kit. ?? You can view and manage your care through the patient portal or by using a health care selvin of your choosing. [employer] is a website that allows you to securely view your medical information including your hospital discharge summary, office visit summaries, medications and follow-up visits. You can also request appointments, renew medications, and request access to your medical information using a health care selvin of your choosing, or just ask a question. You can enroll at [email or web address] or register during your next office visit. You have been discharged from [facility], Patient Care Unit: S2. If you have any questions regarding these instructions after you leave, please call us and we will be happy to assist you. [facility] Your Care Team Attending Physician Gisell SIMON, Clovis Zarco Discharging Providers Alfredo Thompson MD Reason for Admission pt coming from home after witness fall by partner, no LOC, denies blood thinners, states it was mechanical, pt is confused, states has a brain disease , Your Diagnosis Fall Syncope Cellulitis Dementia Tests Performed Below is a partial list of the tests performed during your hospitalization. You may have had other tests and procedures not included in this list. Please discuss all test results with your provider. Basic Metabolic Panel BUN CBC CBC w/ Differential Comprehensive Metabolic Panel COVID-19 (Novel Coronavirus), Rapid PCR Creatinine GLUCOSE POC High??Sensitivity??Troponin T HOLD GEL TUBE HOLD LAVENDER TUBE Lytes Magnesium Level Phosphorus Level ProBNP Troponin T, High Sensitivity TSH with T4 Reflex (Adults Only) Urinalysis w/hold for Urine Culture CT Cervical Spine W/O Contrast CT Head/Brain W/O Contrast CT Lumbar Spine W/O Contrast XR Knee 1 or 2 Views Right XR Wrist Comp Min 3 Views Right Primary Care Provider Not on Staff, PCP Advance Directive Health Care Proxy on File Yes - Health Care Proxy Yes - MOLST Discharge Vitals Temperature: 98.1 DegF Weight: 67.5 kg Pulse Rate: 85 bpm ?? Respiratory Rate: 18 br/min ?? Systolic Blood Pressure: 128 mm Hg ?? Diastolic Blood Pressure: 70 mm Hg ?? Oxygen Saturation: 99 % ?? Studies Pending All tests and labs ordered during this hospital stay have been completed unless listed below. Please discuss all pending results with your provider listed above in these instructions. ?? No incomplete studies found What to do next Instructions From Your Doctor You were admitted after being found on the floor with concern for a fall. You were diagnosed with orthostatic hypotension which means your blood pressure goes too low when you stand up. We did an EKGand echocardiogram too look at the electrical activity and function of your heart and these reassured us that there was not a heart problem that caused you to fall.??Your??low??blood pressure??improved with IV fluid rehydration and you developed elevated blood pressures, so we increased your dose lisinopril to 40mg daily. There was some concern for a skin infection (cellulitis) in your R arm; this was treated with antibiotics (doxycycline) and improved quickly. It is likely the swelling was from an injury when you fell and not a true infection but it was adequately treated and is healing well. ?? Since your blood pressures are now improved and we did not find anything concerning with your heart, it is now safe for you to leave the hospital with outpatient followup. You were evaluated by physical therapy and they determined that you need 24hr care which will not be possible for your partner to provide, so you will be going to [facility] from here. You can continue working with your partner to find a place closer to home. ?? You should continue taking your blood pressure medications (Lisenopril 40mg daily) at the increaseddose and Seroquel 100mg, 3 times per day. Discharge Orders You Need to Schedule the Following Appointments Follow Up with??Not on Staff, PCP When:??Within 1 to 2 weeks Discharge Medications SHIVAM DENIS :1955 Visit Date:06/19/2023 Medications: Please continue your medications until treatment is completed or stopped by your provider. Medications not listed below should be discontinued. Discuss any questions related to medications with your provider. What How Much When Instructions Next Dose New Trazodone (traZODone 50 mg oral tablet) 50 Milligram Oral Daily at Bedtime as needed for Agitation 06/30/13 at 9pm Changed Lisinopril (lisinopril 20 mg oral tablet) 40 Milligram Oral Daily 07/01/23 at 9am Changed amiTRIPTYLINE (amitriptyline 50 mg oral tablet) 1 tab(s) Oral Daily at Bedtime 06/30/13 at 10pm Unchanged Lorazepam (LORazepam 1 mg oral tablet) 1 tab(s) Oral 3 times a day as needed for for anxiety 06/30/23 at 9pm Unchanged Quetiapine (QUEtiapine 100 mg oral tablet) 1 tab(s) Oral 3 times a day 06/30/23 at 9pm Unchanged Timolol Ophthalmic (Timolol 0.5% Ophth) 1 Drops Both eyes Twice a day 06/30/23 at 9pm ?? What How Much When Comments Stop Taking Aspirin (aspirin 325 mg oral capsule) 1 capsule Oral Daily Stop Taking Divalproex Sodium (divalproex sodium 500 mg oral enteric coated tablet) 500 Milligram Oral Twice a day Stop Taking Methyl Salicylate-Menthol Topical (Muscle Rub) back Topically 3 times a day as needed for as needed Stop Taking Olanzapine (olanzapine 5 mg oral tablet) 1 tab(s) Oral 3 times a day as needed for Agitation Stop Taking Olanzapine (Zyprexa Inj) 7.5 Milligram Intramuscular Every 12 hours as needed for Agitation Stop Taking Risperidone (RisperDAL 1 mg oral tablet) 1 tab(s) Oral Twice a day Test Results Below is a partial list of the most recent Laboratory test results done prior to this discharge. You may have had other tests and procedures not included in this list. Please discuss all test resultswith your provider. Basic Metabolic Panel (06/25/2023) ???Sodium - 140 mmol/L???Potassium - 3.9 mmol/L???Chloride - 101 mmol/L???Bicarbonate Level - 27 mmol/L???Anion Gap - 12???Glucose Level - 93 mg/dL???BUN - 40 mg/dL???Creatinine-Blood - 1.0 mg/dL???Estimated GFR Creatinine - 62 ML/MIN/1.73 M2???Calcium - 9.4 mg/dL BUN (06/22/2023) ???BUN - 23 mg/dL CBC (06/22/2023) ???WBC - 7.7 k/mm3???RBC - 4.67 m/mm3???Hgb - 14.2 Gm/dL???Hct - 42.6 %???MCV - 91.2 femtoliters???MCH - 30.4 pg???MCHC - 33.3 g/dL???Platelet Count - 272 k/mm3???RDW-SD - 38.7 femtoliters???MPV - 10.2 femtoliters???Nucleated RBC (Automated) - 0.0 #/100 WBC'S???Abs. NRBC - 0.0 k/mm3 CBC w/ Differential (06/25/2023) ???WBC - 6.2 k/mm3???RBC - 4.29 m/mm3???Hgb - 13.2 Gm/dL???Hct - 39.3 %???MCV - 91.6 femtoliters???MCH - 30.8 pg???MCHC - 33.6 g/dL???Platelet Count - 257 k/mm3???RDW-SD - 39.9 femtoliters???MPV - 10.3 femtoliters???Nucleated RBC (Automated) - 0.0 #/100 WBC'S???Abs. NRBC - 0.0 k/mm3???Abs. Neut - 4.3 k/mm3???Abs. Lymph - 1.1 k/mm3???Abs. [place] - 0.6 k/mm3???Abs. Eo - 0.1 k/mm3???Abs. Baso - 0.0 k/mm3???Neut % - 69.5 %???Lymph % - 18.2 %???[place] % - 9.5 %???Eos % - 1.9 %???Baso % - 0.6 %???Imm Gran - 0.3 %???Abs. Imm Gran - 0.0 k/mm3 Comprehensive Metabolic Panel (06/19/2023) ???Sodium - 138 mmol/L???Potassium - 3.7 mmol/L???Chloride - 98 mmol/L???Bicarbonate Level - 26 mmol/L???Anion Gap - 14???Glucose Level - 112 mg/dL???BUN - 21 mg/dL???Creatinine-Blood - 0.9 mg/dL???Estimated GFR Creatinine - 70 ML/MIN/1.73 M2???Calcium - 10.1 mg/dL???Protein, Total - 7.6 Gm/dL???Alb umin - 4.7 Gm/dL???AG Ratio - 1.6???Alkaline Phosphatase - 124 units/L???AST (SGOT) - 20 units/L???ALT (SGPT) - 16 units/L???Bilirubin, Total - 0.5 mg/dL COVID-19 (Novel Coronavirus), Rapid PCR (06/19/2023) ???COVID-19 by RT-PCR - NEGATIVE Creatinine (06/22/2023) ???Creatinine-Blood - 0.9 mg/dL???Estimated GFR Creatinine - 67 ML/MIN/1.73 M2 GLUCOSE POC (06/19/2023) ???Glucose, POC - 103 mg/dL High??Sensitivity??Troponin T (06/19/2023) ???High Sensitivity Troponin (HSTnT) - 18 ng/L HOLD GEL TUBE (06/25/2023) ???Hold Gel Top - SPECIMEN DISCARDED AFTER 1 WEEK HOLD LAVENDER TUBE (06/24/2023) ???Hold Lavender Top - SPECIMEN DISCARDED AFTER 24 HOURS. Lytes (06/22/2023) ???Sodium - 138 mmol/L???Potassium - 3.2 mmol/L???Chloride - 99 mmol/L???Bicarbonate Level - 27 mmol/L???Anion Gap - 12 Magnesium Level (06/25/2023) ???Magnesium - 1.7 mg/dL Phosphorus Level (06/25/2023) ???Phosphorus - 3.3 mg/dL ProBNP (06/19/2023) ???Nt-Probnp - 267 pg/mL Troponin T, High Sensitivity (06/19/2023) ???High Sensitivity Troponin (HSTnT) - 17 ng/L TSH with T4 Reflex (Adults Only) (06/19/2023) ???TSH - 2.38 uIU/mL Urinalysis w/hold for Urine Culture (06/19/2023) ???Appear/Color, Urine - YELLOW???Specific [place], Urine - 1.019???pH, Urine - 6.0???Albumin, Urine - 1+???Glucose, Urine - NEGATIVE???Ketones, Urine - NEGATIVE???Bilirubin, Urine - NEGATIVE???Hemoglobin, Urine - NEGATIVE???Nitrite, Urine - NEGATIVE???Leukocyte, Urine - 1+???Urobilinogen - NORMAL???WBC's, Urine - 2 /HPF? ?RBC's, Urine - <1 /HPF? ?Bacteria - SLIGHT? ?Squamous Epith - 1 /HPF? ?Hyaline Cast - 1 LPF???Mucus - SLIGHT???Hold Urine Culture - Testing available 48 hours from time ofcollection. Allergies (NKA means No Known Allergies) Leslie??(liver enzymes off) Antivert??(double vision) codeine??(nausea) fentaNYL??(diff breathing) ibuprofen morphine??(dizzy) statins??(swelling/rash) Problems Active Problems??(6) Benzodiazepine abuse, episodic?? Chronic dementia with behavioral disturbance?? Drug-seeking behavior?? Opiate abuse, episodic?? Opiate dependence, continuous?? Polypharmacy?? Education Materials Below is the list of Educational Leaflet Providered with your Discharge Instructions. Using Antidepressants (Adult)?? Amitriptyline Oral Tablet?? Cellulitis?? Preventing Falls at Home?? Valuables and Belongings I fully understand and agree that [facility] accepts no responsibility for all my personal property including clothing, toilet articles, radios, jewelry, dentures, hearing aids, rings, money, or any other property that is in my possession or is brought to me after admission. I understand certain valuables may be placed in a hospital safe for a short period of time. I understand that the hospital is not liable for loss or damage due to accident, fire, or other natural occurrence while said property is in the safe. I accept full responsibility for any personal property that I keep with me, and will not hold the hospital responsible in case of loss or disappearance. I acknowledge that i have been encouraged to send valuables and belongings home. ?? Date for Pt to Sign Valuables/Belongings: 06/19/23 16:17:00 ?? Other Discharge Information ? Case Management Discharge Plan?? Discharge Plan?? Discharge Agency Information?? Discharge Level of Care at Discharge: senior care facility Name of Agency #1: [facility] Discharge Transportation Arranged: [facility] [address] [facility] [id number] [phone] Service Categories #1: Occupational Therapy, Physical Therapy, Intermediate Mode of Transportation Arranged: Ambulance Service Comments #1: An ambulance was arranged through [facility] to transport patient today @ 430pm Discharge Arranged Transport Date/Time: 06/29/23 16:30:00 ?? Discharge Nursing Homes/Rehab Facilities: [facility] ? Pulmonary Rehab Status?? Pulmonary Rehab Discharge Status?? Respiratory Rate: 18 br/min ? Common Emergency Awareness Tips IS IT A STROKE? Act FAST and Check for these signs: FACE Does the face look uneven? ARM Does one arm drift down? SPEECH Does their speech sound strange? TIME Call 9-1-1 at any sign of stroke ?? Heart Attack Signs Chest discomfort: Most heart attacks involve discomfort in the center of the chest and lasts more than a few minutes, or goes away and comes back. It can feel like uncomfortable pressure, squeezing, fullness or pain. Discomfort in upper body: Symptoms can include pain or discomfort in one or both arms, back, neck, jaw or stomach. Shortness of breath: With or without discomfort. Other signs: Breaking out in a cold sweat, nausea, or lightheaded. Remember, MINUTES DO MATTER. If you experience any of these heart attack warning signs, call to get immediate medical attention! ?? Smoking can increase your chances of developing chronic health problems and can cause harmful effects to other family members in your house. If you smoke, you are strongly encouraged to quit. Please call [facility] at [phone] or [phone]) or log in to [email or web address] for referrals to smoking cessation programs. ?? 035 Suicide & Crisis Lifeline is available 20/04 if you or someone you know needs to find a reason to keep living. By calling 563 you'll be connected to a skilled, trained counselor at a crisis center in your area. INPATIENT DISCHARGE INSTRUCTIONS SIGNATURE SHIVAM HAMILTON Location:[facility] Registration Date and Time:06/19/2023 14:01 EDT Primary Care Physician: Not on Staff, PCP Attending Physician: Gisell SIMON, Clovis Zarco, I CIRASHIVAM, have received the above patient education materials/instructions and have verbalizedunderstanding. If ambulance or transport services are being used I further acknowledge being given a choice of service. ?? If you need to contact me, please call me at this number: . Patient/Curatorial Assistant Name: Patient/Curatorial Assistant Signature: Relationship to Patient: Witness Name/Signature: Date: * Celsa Medina RN: PERFORM Event Display: Patient Education Leaflets Authored Date: [id number] Using Antidepressants (Adult) ?? 38766 Using Antidepressants (Adult) Depression is a type of mood disorder. It affects the way you think and feel. The most common symptom is a feeling of deep sadness. This feeling doesn't go away or get better on its own. But most types of depression can be helped with therapy and antidepressant medicines. ( Note: This sheet covers antidepressant use in adults only.) What do antidepressants do? Antidepressants are medicines. They help restore the balance of certain chemicals in your brain. This can help ease your depression. You will likely feel better in 4 to 6 weeks. But depression can recur if you stop taking the medicine. It is usually advised that you keep taking medicine for 1 year or more. Some people need to take antidepressants for life. There are several types of these medicines. Your healthcare provider will advise a certain type of medicine based on the possible side effects, your specific symptoms, and other illnesses you may have. They will also look at your current medicines for possible drug-drug interactions. The main types of antidepressants are described below. Selective serotonin reuptake inhibitors (SSRIs) SSRIs are the most common category of antidepressants. They tend to have fewer side effects than other antidepressants. Side effects can include: ??? Anxiety ??? Trouble sleeping ??? Nausea ??? Diarrhea ??? Sexual dysfunction ??? Headaches In rare cases, they may make you more depressed. SSRIs shouldn???t be mixed with certain other medicines. Tell your healthcare provider all the medicines, vitamins, herbs, and supplements you are taking before you start an SSRI. Check with your pharmacist about possible drug interactions before buying and using any other tlua-ner-ikksflk medicines. Tricyclic antidepressants Tricyclics help severe or long-term depression. They have been used for many years with good results. Side effects can include: ??? Blurred vision ??? Dry mouth ??? Constipation Monoamine oxidase inhibitors (MAOIs) If tricyclics or SSRIs don't work for you, your healthcare provider may prescribe an MAOI. These types of medicines can work very well. But people taking MAOIs must stay away from certain foods and medicines. See below and ask your healthcare provider or pharmacist for more information. Ahw[place]nee Ahwahnee is a medicine that helps even out mood. It is used for: ??? Bipolar disorder ??? Unipolar depression not helped by other antidepressants ??? A sudden (acute) episode of unipolar depression ??? Maintenance medicine to prevent more unipolar depression Side effects can include: ??? Weight gain ??? Trembling ??? Loose poop ??? Nausea ?? Things to avoid if you take an MAOI If you take an MAOI, don???t have any of these foods, drinks, or medicines: ??? Beans ??? Aged cheese ??? Chocolate ??? Red wine ??? Most cold medicines ??? Other medicines. This includes prescribed medicines and iouj-gkb-pqubqnh medicines such as cold or pain remedies, vitamins, and supplements. Ask your healthcare provider or pharmacist for more information. ?? To reduce the risk of lithium poisoning Ahwahnee poisoning means there is too much of it in your body. This can happen if you take too much in 1 dose or over time. To reduce the risk of lithium poisoning: ??? Take only the prescribed amountof lithium. If your depressive symptoms get worse, contact your healthcare provider. Never change your medicine dose on your own. ??? Drink plenty of fluids other than coffee, tea, and soda. ??? Limit salt in your diet. ??? Talk with your pharmacist before you use any other medicines. This includesprescribed medicines and orzq-cza-tajpery medicines. This is to be sure the medicines won???t interact with the lithium. ??? Never share your medicines or use another person's medicines, even if it is the same medicine and dose. ??? Keep all of your follow-up appointments. ??? Have your lithium blood level routinely checked as advised, even when you are symptom-free. You will need blood tests more often when your symptoms are not in control. ?? If you have side effects The side effects of antidepressants are usually mild. But if you have side effects that bother you a lot, call your healthcare provider. They may change the dose or type of medicine to help. Never change your medicine dose or stop taking medicines on your own. ?? Last Reviewed Date: 2023 ?? [employer]. All rights reserved. This information is not intended as a substitute for professional medical care. Always follow your healthcare professional's instructions. ?? * Celsa Medina RN: PERFORM Event Display: Patient Education Leaflets Authored Date: [id number] Amitriptyline Oral Tablet ?? 67497-296 Amitriptyline Oral Tablet Brands: Elavil Uses This medicine is used for the following purposes: ??? anxiety ??? depression ??? eating disorders ??? irritable bowel syndrome ??? prevent migraine headaches ??? pain ??? post-traumatic stress disorder ??? sleeping ?? Instructions Take the medicine with 250 mL (1 cup) of water. To relieve dry mouth, chew gum, suck on hard candy/ice chips, drink extra water, or use a saliva substitute. This medicine will work best if you take it at about the same time every day. Store at room temperature away from heat, light, and moisture. Do not keep in the bathroom. To reduce constipation, eat high fiber foods, drink plenty of water and exercise. This medicine can make you sensitive to the sun. Use sunscreen or protective clothing when in sun. It may take several weeks for this medicine to fully work. It is important that you keep taking each dose of this medicine on time even if you are feeling well. If you forget to take a dose on time, take it as soon as you remember. If it is almost time for thenext dose, do not take the missed dose. Return to your normal schedule. Do not take 2 doses at one time. Tell your doctor and pharmacist about all your medicines. Include prescription and ilhz-vym-eplkwujttkvfxaxq, vitamins, and herbal medicines. Tell your doctor if symptoms do not get better or if they get worse. Do not suddenly stop taking this medicine. Check with your doctor before stopping. This medicine may affect your blood sugar levels. If you have diabetes, talk to your doctor before changing the dose of your diabetes medicine. ?? Cautions Tell your doctor and pharmacist if you ever had an allergic reaction to a medicine. This medicine is associated with an increased risk of serious heart problems, heart attack, and stroke. Please speak with your doctor about the risks and benefits of using this medicine. Contact yourdoctor immediately if you experience chest pain or difficulty breathing. Do not use the medication any more than instructed. If possible, avoid using with alcohol, marijuana, or other medicines that can cause dizziness or drowsiness. These include allergy/cold products, muscle relaxers, sleep aids, and pain relievers. Your ability to stay alert or to react quickly may be impaired by this medicine. Do not drive or operate machinery until you know how this medicine will affect you. Family should check on the patient often. Call the doctor if patient becomes more depressed, has thoughts of suicide, or shows changes in behavior. Call the doctor if there are any signs of confusion or unusual changes in behavior. Tell the doctor or pharmacist if you are , planning to be , or . Do not start or stop any other medicines without first speaking to your doctor or pharmacist. Call your doctor right away if you notice slow or shallow breathing. If you have had a heart attack within the past 6 months, talk to your doctor before using this medicine. Do not share this medicine with anyone who has not been prescribed this medicine. ?? Side Effects The following is a list of some common side effects from this medicine. Please speak with your doctor about what you should do if you experience these or other side effects. ??? agitated feeling or trouble sleeping ??? constipation ??? dizziness or drowsiness ??? lack of energy and tiredness ??? headaches ??? irritability ??? problems with sexual functions or desire ??? stomach upset or abdominal pain ??? sweating ??? unusual or unexplained tiredness or weakness ??? difficulty or discomfort urinating ??? blurring or changes of vision ??? weight gain If you have any of the following side effects, you may be getting too much medicine. Please contactyour doctor to let them know about these side effects. ??? difficulty concentrating ??? confusion ??? high fever ??? hallucinations (unusual thoughts, seeing or hearing things that are not real) ??? muscle pain or weakness ??? shakiness ??? cold, moist skin ??? slurred speech ??? stiffness of the arms or legs ??? unsteadiness while walking ??? vomiting Call your doctor or get medical help right away if you notice any of these more serious side effects: ??? decreased awareness or responsiveness ??? shallow, irregular breathing ??? fast or irregular heart beats ??? uncontrollable movement of face, tongue, arms or legs ??? muscle aches, spasms or abnormal movements ??? muscle trembling ??? dilation of the pupils ??? seizures A few people may have an allergic reaction to this medicine. Symptoms can include difficulty breathing, skin rash, itching, swelling, or severe dizziness. If you notice any of these symptoms, seek medical help quickly. ?? Extra Please speak with your doctor, nurse, or pharmacist if you have any questions about this medicine. ?? [email or web address] IMPORTANT NOTE: This document tells you briefly how to take your medicine, but it does not tell youall there is to know about it. Your doctor or pharmacist may give you other documents about your medicine. Please talk to them if you have any questions. Always follow their advice. There is a more complete description of this medicine available in Slovenian. Scan this code on your smartphone or tablet or use the web address below. You can also ask your pharmacist for a printout. If you have any questions, please ask your pharmacist. The display and use of this drug information is subject to Terms of Use. Copyright(c) 2022 [employer] 360. ?? [employer]. All rights reserved. This information is not intended as a substitute for professional medical care. Always follow your healthcare professional's instructions. ?? * Celsa Medina RN: PERFORM Event Display: Patient Education Leaflets Authored Date: [id number] Cellulitis ?? [id number] Cellulitis Cellulitis is an infection of the deep layers of skin. A break in the skin, such as a cut or scratch, can let bacteria under the skin. Cellulitis causes the affected skin to become red, swollen, warm, and sore. The reddened areas havea border you can see. An open sore may leak fluid (pus). You may have a fever, chills, and pain. Cellulitis is treated with antibiotics taken for 7 to 10 days. An open sore may be cleaned and covered with cool wet gauze. Symptoms should get better 1 to 2 days after treatment is started. Make sure to take all the antibiotics for the full number of days until they are gone. Keep taking the medicine even if your symptoms go away. If not treated, cellulitis can get into the bloodstream and lymph nodes. The infection can then spread throughout the body. This causes serious illness. Home care Follow these tips: ??? Limit the use of the part of your body with cellulitis.? If the infection is on your leg, keep your leg raised while sitting. This helps reduce swelling. ??? Take all of the antibiotic medicine exactly as directed until it is gone. Don't miss any doses, especially duringthe first 7 days. Finish taking all of the medicine even when your symptoms get better. ??? Keep the affected area clean and dry. ??? Wash your hands with soap and clean, running water before and after touching your skin. Anyone else who touches your skin should also wash his or her hands. Don't share towels. ?? Follow-up care Follow up with your healthcare provider, or as advised. If your infection doesn't go away after finishing the first antibiotic, your healthcare provider will prescribe a different one. ?? When to seek medical advice Call your healthcare provider right away if any of these occur: ??? Red areas that spread ??? Swelling or pain that gets worse ??? Fluid leaking from the skin (pus) ??? Fever higher of 100.4?? F (38.0?? C) or higher after 2 days on antibiotics ?? Last Reviewed Date: 2021 ?? 3623-0363 [employer]. All rights reserved. This information is not intended as a substitute for professional medical care. Always follow your healthcare professional's instructions. ?? * Event Display: Provider Clarification Note Please click on pdf link to open report Patient Care team information Care Team Personnel Name: Lizeth Vidal RN Position: [facility] Outreach Member Role: Primary Care Nurse Name: Mayela Panchal RN Position: [facility] RN Member Role: Primary Care Nurse Name: Guilherme Arriaga RN Position: [facility] RN Member Role: Primary Care Nurse Name: John Gibson RN Position: [facility] RN Member Role: Primary Care Nurse Name: Paolo Bello RN Position: [facility] RN Member Role: Primary Care Nurse Name: Not on Staff, PCP Position: [facility] Physician (General Medicine) Member Role: PCP Name: Giovana Figueredo RN Position: [facility] RN Member Role: Primary Care Nurse Name: Tosin Figueredo RN Position: [facility] RN Member Role: Primary Care Nurse Name: Fidel Brush RN Position: [facility] RN Member Role: Primary Care Nurse Name: Esperanza Barnes RN Position: [facility] RN Member Role: Primary Care Nurse Name: Janet Mckeon RN Position: [facility] RN Member Role: Primary Care Nurse Name: Geovanny ENCINAS Attending Position: [facility] ED Medicine MD Name: Pamella Bryan DO Position: [facility] Resident Member Role: ED Resident Address: Address: [address] [place] [address] Name: Mireya Ayon RN Position: [facility] ED RN W/OE and Tasks Member Role: Patient Care Provider Name: Qing Dhillon Position: [facility] ED TA [facility] Member Role: Evaporator Name: Samira Adan Position: [facility] ED OA Charge Member Role: ED Associate Name: Parth Mendoza RN Position: [facility] ED RN W/OE and Tasks Member Role: Patient Care Provider Care Team Related Persons Name: CHRIS HURTADO Address: home [address] [place] [address] Name: ESTEE DIAZ Address: home [address] [place] [address] Name: KELLY DIAZ Address: home [address] [place] [id number]
--- OUTSIDE RECORDS SUMMARY | 2023-09-02 05:38 | XMS_ITS | Continuity of Care Document ---
Author Name Unknown Organization [facility] Address [address], [address] Floor, [address] [place] [address]- Care Team Providers Care Brake Coupler Dinkey Name Role Phone Not on Staff, PCP Primary Care Physician Unavail able Encounter [facility] Date(s): 02/26/23 - 03/28/23 [facility] [address], [address] Floor, [address] [place] [address]- Allergies, Adverse Reactions, Alerts Substance Reaction Severity Status codeine nausea Active ibuprofen Active Antivert double vision Active fentaNYL diff breathing Active statins swelling/rash Active morphine dizzy Active Leslie liver enzymes off Active Immunizations Given and [...] Personnel Name: Monique Del Castillo RN Position: S RN Member Role: Primary Care Nurse Name: Guilherme Arriaga RN Position: S RN Member Role: Primary Care Nurse Name: Not on Staff, PCP Position: S Physician (General Medicine) Member Role: PCP Name: Yun Hill RN Position: S RN Member Role: Primary Care Nurse Name: Esperanza Barnes RN Position: S RN Member Role: Primary Care Nurse Care Team Related Persons Name: CHRIS HURTADO Address: home [address] [place] [address] Name: ESTEE DIAZ Address: home [address] [place] [address] Name: KELLY DIAZ Address: [address] [address]
--- OUTSIDE RECORDS SUMMARY | 2023-09-02 05:38 | XMS_ITS | Continuity of Care Document ---
Author Name Unknown Organization [facility] Address [address] [facility], 3r d Floor, [address] [place] [address]- Care Team Providers Care Precision Dyer Name Role Phone Not on Staff, PCP Primary Care Physician Unavail able Encounter [facility] Date(s): 03/25/23 - 07/23/23 [facility] [address], [address]rd Floor, [address] [place] [address]- Attending Physician: Santos Nieves MD Admitting Physician: Santos Nieves MD Allergies, Adverse Reactions, Alerts Substance Reaction Severity Status codeine nausea Active ibuprofen Active morphine dizzy Active Antivert double vision Active Leslie liver enzymes off Active statins swelling/rash Active fentaNYL diff breathing Active Immunizations Given and Recorded Vaccine Date Status Refusal Reason influenza virus vaccine, inactivated 12/14/22 [place] rded influenza virus vaccine, inactivated 06/06/21 [place] rded influenza virus vaccine, inactivated 06/02/12 [place] rded [id number] bivalent booster vax 09/13/22 Recorded SARS-CoV-2 (COVID-19) [...] Status: Ordered lisinopril 20 mg oral tablet 40 mg, [...] Team Personnel Name: Lizeth Vidal RN Position: [facility] Outreach Member Role: Primary Care Nurse Name: Mayela Panchal RN Position: S RN Member Role: Primary Care Nurse Name: Guilherme Arriaga RN Position: [facility] RN Member Role: Primary Care Nurse Name: John Gibson RN Position: [facility] RN Member Role: Primary Care Nurse Name: Paolo Bello RN Position: [facility] RN Member Role: Primary Care Nurse Name: Not on Staff, PCP Position: [facility] Physician (General Medicine) Member Role: PCP Name: Giovana Figueredo RN Position: [facility] RN Member Role: Primary Care Nurse Name: Tosin Figueredo RN Position: [facility] RN Member Role: Primary Care Nurse Name: Fidel Brush RN Position: [facility] RN Member Role: Primary Care Nurse Name: Esperanza Barnes RN Position: [facility] RN Member Role: Primary Care Nurse Name: Janet Mckeon RN Position: [facility] RN Member Role: Primary Care Nurse Care Team Related Persons Name: CHRIS HURTADO Address: home [address] [place] [address] Name: ESTEE DIAZ Address: home [address] [place] [address] Name: KELLY DIAZ Address: home [address] [place] [address]
--- OUTSIDE RECORDS SUMMARY | 2023-09-02 05:38 | XMS_ITS | Continuity of Care Document ---
Author Name Unknown Organization [facility] Primary Car e Bas[facility] Address [address] [place] [address]- Care Team Providers Care Cotton Stripper Name Role Phone Not on Staff, PCP Primary Care Physician Unavail able Encounter [facility] Date(s): 02/26/23 - 06/25/23 [facility] [address] [place] [address]- Encounter Diagnosis Establishing care with new doctor, encounter for(Discharge Diagnosis) - 05/26/23 Chronic dementia with behavioral disturbance(Discharge Diagnosis) - 05/26/23 Benzodiazepine abuse, episodic(Discharge Diagnosis) - 05/26/23 ZAK (acute kidney injury)(Discharge Diagnosis) - 05/26/23 Normocytic anemia(Discharge Diagnosis) - 05/26/23 Attending Physician: Robert Sanders Allergies, Adverse Reactions, Alerts Substance Reaction Severity Status codeine nausea Active ibuprofen Active morphine dizzy Active Antivert double vision Active Leslie liver enzymes off Active statins swelling/rash Active fentaNYL diff breathing Active Immunizations Given and Recorded Vaccine Date Status Refusal Reason influenza virus vaccine, inactivated 12/14/22 [place] rded influenza virus vaccine, inactivated 06/06/21 [place] rded influenza virus vaccine, inactivated 06/02/12 [place] rded [id number] bivalent booster vax 09/13/22 Recorded SARS-CoV-2 (COVID-19) [...] Condition Confirmation Course Effective Dates Status H ealt Status Informant Opiate dependence, continuous Confirmed Active Chronic dementia with behavioral disturbance Confirmed Active Drug-seeking behavior Confirmed Active Benzodiazepine abuse, episodic Confirmed Active Opiate abuse, episodic Confirmed Active Polypharmacy Confirmed Active Diagnosis Diagnosis Type Effective Dates Health Status Clinical Service Informant Establishing care with new doctor, encounter for Discharge Diagnosis 05/26/23 Chronic dementia with behavioral disturbance Discharge Diagnosis 05/26/23 Benzodiazepine abuse, episodic Discharge Diagnosis 05/26/23 ZAK (acute kidney injury) Discharge Diagnosis 05/26/23 Normocytic anemia Discharge Diagnosis 05/26/23 Social History Social History Type Response Smoking Status Former smoker; Tobac co user in household: No entered on: 03/27/14 Sex Patient Care team information Care Team Personnel Name: Vidal RN, Lizeth Position: [facility] Outreach Member Role: Primary Care Nurse Name: Mayela Panchal RN Position: [facility] RN Member Role: Primary Care Nurse Name: Guilherme Arriaga RN Position: [facility] RN Member Role: Primary Care Nurse Name: Paolo Bello RN Position: [facility] RN Member Role: Primary Care Nurse Name: Not on Staff, PCP Position: [facility] Physician (General Medicine) Member Role: PCP Name: Giovana Figueredo RN Position: [facility] RN Member Role: Primary Care Nurse Name: Tosin Figueredo RN Position: [facility] RN Member Role: Primary Care Nurse Name: Fidel Brush RN Position: [facility] RN Member Role: Primary Care Nurse Name: Esperanza Barnes RN Position: [facility] RN Member Role: Primary Care Nurse Name: Janet Mckeon RN Position: [facility] RN Member Role: Primary Care Nurse Name: Evelyn Mcfadden RN Position: [facility] RN Member Role: Primary Care Nurse Care Team Related Persons Name: GENESISCHRIS Address: home [address] [place] [address] [place] [address] Name: ESTEE DIAZ Address: home [address] [place] [address] Name: KELLY DIAZ Address: [place] [address]
--- OUTSIDE RECORDS SUMMARY | 2023-09-02 05:38 | XMS_ITS | Continuity of Care Document ---
Author Name Unknown Organization [facility] Address [address] [facility], 3r d Floor, [address] [place] [address]- Care Team Providers Care Refinery Operator Reforming Unit Name Role Phone Martir AUTO PARKER, Melany M Primary Care Physician Encounter [facility] Date(s): 12/31/22 - 03/05/23 [facility] [address], [address] Floor, [address] [place] [address]- Attending Physician: Santos Nieves MD Admitting Physician: [...] (COVID-19) mRNA BNT-162b2 vac 01/08/21 Given Medications amLODIPine 10 mg oral tablet 1 tablet = 10 mg, By Mouth, Daily, (LAST FILLED 01/25/23 30 FOR 30), Maintenance, 03/02/23 9:31:00 EDT, Partial fill upon patient request if the prescription is for a schedule II opioid drug. Start Date: 03/02/23 Status: Ordered aspirin 325 mg oral capsule 1 capsule = 325 mg, By Mouth, Daily, 0 Refills, Maintenance, 07/02/21 6:35:00 EDT, Partial fill upon patient request if the prescription is for a schedule II opioid drug. Start Date: 07/02/21 Status: Ordered Benadryl 25 mg oral capsule 1-2 capsule, By Mouth, Daily at bedtime, PRN as needed, Maintenance, 03/02/23 9:35:00 EDT, Capsule,Partial fill upon patient request if the prescription is for a schedule II opioid drug. Start Date: 03/02/23 Status: Ordered clonazePAM 1 mg oral tablet 1 tablet = 1 mg, By Mouth, 2 times a day, PRN Anxiety, (LAST FILLED 12/28/22 60 FOR 30), Maintenance,03/02/23 9:31:00 EDT, Partial fill upon patient request if the prescription is for a schedule II opioid drug. Start Date: 03/02/23 Status: Ordered Fioricet with Codeine 50 mg-300 mg-40 mg-30 mg oral capsule 1 capsule, By Mouth, Every 8 hours, PRN as needed for headache, Maintenance, 03/02/23 9:30:00 EDT, Capsule, Partial fill upon patient request if the prescription is for a schedule II opioid drug. Start Date: 03/02/23 Status: Ordered lisinopril 40 mg oral tablet 1 tablet = 40 mg, By Mouth, Daily, Maintenance, 03/02/23 9:29:00 EDT, Tablet, Partial fill upon patient request if the prescription is for a schedule II opioid drug. Start Date: 03/02/23 Status: Ordered Muscle Rub back, Topically, 3 times a day, PRN as needed, Maintenance, 03/02/23 9:36:00 EDT, Partial fill uponpatient request if the prescription is for a schedule II opioid drug. Start Date: 03/02/23 Status: Ordered Timolol 0.5% Ophth 1, drops, [...] RN Member Role: Primary Care Nurse Name: Melany Mcmahan NP Position: [facility] PCO Associate Professional Member Role: PCP Address: Address: [address] [place] [address]- Name: Yun Hill RN Position: [facility] RN Member Role: Primary Care Nurse Name: Esperanza Barnes RN Position: [facility] RN Member Role: Primary Care Nurse Care Team Related Persons Name: CHRIS HURTADO Address: home [address] [place], [place] Name: ESTEE DIAZ Address: home [address] [place], [place] Name: KELLY DIAZ Address: home [address] [place] [address]
--- OUTSIDE RECORDS SUMMARY | 2023-09-02 05:38 | XMS_ITS | Continuity of Care Document ---
Author Name Unknown Organization [facility] Address [address] [facility], 3r d Floor, [address] [place] [address]- Care Team Providers Care Operations Officer Trust Department Name Role Phone Martir SEMI CONDUCTOR ASSEMBLER, Melany Zarco Primary Care Physician [phone] Encounter [facility] Date(s): 01/26/23 - 02/25/23 [facility] [address], [address] Floor, [address] [place] [address]- Allergies, Adverse Reactions, Alerts Substance Reaction Severity [...] opioid drug. Start Date: 07/02/21 Status: Ordered atogepant 60 mg oral tablet 1 tablet = 60 mg, By Mouth, Daily, for headache prevention., # 30 tablet, 1 Refills, Maintenance, 02/17/23 8:50:00 EDT, [facility]/pharmacy #[id number], Partial fill upon patient request if the prescription is for a schedule II opioid drug., 160.02, cm, 02/17/23 8... Start Date: 02/17/23 Status: Ordered Docusate/Senna Tablet 2 tablet, By [...] Associate Professional Member Role: PCP Address: Address: [address] [place] [address]- Care Team Related Persons Name: CHRIS HURTADO Address: home [address] [place] [address] Name: ESTEE DIAZ Address: home [address] [place] [address] Name: KELLY DIAZ Address: [address] [address]
--- OUTSIDE RECORDS SUMMARY | 2023-09-02 05:38 | XMS_ITS | Continuity of Care Document ---
Author Name Unknown Organization [facility] Address [address] [place], [address] d Floor, [address] [place] [address]- Care Team Providers Care Inbound Customer Service Representative Name Role Phone Not on Staff, PCP Primary Care Physician Unavail able [place] [facility] [place](s): 02/24/23 - 03/26/23 [facility] [address], [address] Floor, [address] [place] [address]- Allergies, Adverse Reactions, Alerts Substance Reaction Severity [...] Personnel Name: Monique Del Castillo RN Position: [facility] RN Member Role: Primary Care Nurse Name: Guilherme Arriaga RN Position: S RN Member Role: Primary Care Nurse Name: Not on Staff, PCP Position: S Physician (General Medicine) Member Role: PCP Name: Yun Hill RN Position: S RN Member Role: Primary Care Nurse Name: Molly GORDON, Esperanza Position: [facility] RN Member Role: Primary Care Nurse Care Team Related Persons Name: CHRIS HURTADO Address: home [address] [place] [address] Name: ESTEE DIAZ Address: home [address] [place] [address] Name: KELLY DIAZ Address: [place] [address]
--- OUTSIDE RECORDS SUMMARY | 2023-09-02 05:38 | XMS_ITS | Continuity of Care Document ---
Author Name Unknown Organization [facility] Address [address] [place] [address]- Care Team Providers Care Milk Pickup Driver Name Role Phone Martir TABLE GAMES SHIFT MANAGER, Melany Zarco Primary Care Physician Encounter [id number] Date(s): 12/03/22 - 01/02/23 [facility] [address] [place] [address]- Attending Physician: Trudy Hinson Admitting Physician: Trudy [...] Associate Professional Member Role: PCP Address: Address: [address] [place], [place] [address] [place] [address]- Care Team Related Persons Name: CHRIS HURTADO Address: home [address] [place], [place] Name: ESTEE DIAZ Address: home [address] [place], [place] Name: KELLY DIAZ Address: home [address] [place] [address]
--- OUTSIDE RECORDS SUMMARY | 2023-09-02 05:38 | XMS_ITS | Continuity of Care Document ---
Author Name Unknown Organization [facility] Address [address] [place] [address]- Care Team Providers Care Stain Wiper Name Role Phone Not on Staff, PCP Primary Care Physician Unavail able Encounter [facility] Date(s): 06/17/23 - 07/17/23 [facility] [address] [place] [address]- [place] Allergies, Adverse Reactions, Alerts Substance Reaction Severity Status codeine nausea Active ibuprofen Active morphine dizzy Active Antivert double vision Active Leslie liver enzymes off Active statins swelling/rash Active fentaNYL diff breathing Active Immunizations Given and Recorded Vaccine Date Status Refusal Reason influenza virus vaccine, inactivated 12/14/22 [place] rded influenza virus vaccine, inactivated 06/06/21 [place] rded influenza virus vaccine, inactivated 06/02/12 [place] rded [id number] bivalent booster vax 09/13/22 Recorded SARS-CoV-2 (COVID-19) [...] mg, By Mouth, Daily, Refills 0, Maintenance, 10/02/23 14:26:00 EDT, Partial fill upon patient request [...] Team Personnel Name: Lizeth Vidal RN Position: [facility] Outreach Member Role: Primary Care Nurse Name: Mayela Panchal RN Position: S RN Member Role: Primary Care Nurse Name: Guilherme Arriaga RN Position: S RN Member Role: Primary Care Nurse Name: John Gibson RN Position: S RN Member Role: Primary Care Nurse Name: Paolo Bello RN Position: [facility] RN Member Role: Primary Care Nurse Name: Not on Staff, PCP Position: [facility] Physician (General Medicine) Member Role: PCP Name: Giovana Figueredo RN Position: [facility] RN Member Role: Primary Care Nurse Name: Tosin Figueredo RN Position: [facility] RN Member Role: Primary Care Nurse Name: Fidel Brush RN Position: [facility] RN Member Role: Primary Care Nurse Name: Esperanza Barnes RN Position: [facility] RN Member Role: Primary Care Nurse Name: Janet Mckeon RN Position: [facility] RN Member Role: Primary Care Nurse Care Team Related Persons Name: CHRIS HURTADO Address: home [address] [place] [address] Name: ESTEE DIAZ Address: home [address] [place] [address] Name: KELLY DIAZ Address: [place] [address]
--- OUTSIDE RECORDS SUMMARY | 2023-09-02 05:38 | XMS_ITS | Continuity of Care Document ---
Author Name Unknown Organization [facility] ter Address [address] [place] [id number]- Care Team Providers Care Rackman Name Role Phone Martir ELAM, Melany Zarco Primary Care Physician [id number] Date(s): 03/01/23 - 03/06/[address] [address]- Encounter Diagnosis Altered mental state(Final) - 03/01/23 Discharge Disposition: Transfer to Psych Facility Attending Physician: Liana Johnson DO Admitting Physician: Jethro Nj MD Referring Physician: Not on Staff, Referring MD Allergies, Adverse Reactions, Alerts Substance Reaction Severity Status codeine nausea Active fentaNYL diff breathing Active ibuprofen Active statins swelling/rash Active morphine dizzy Active Antivert double vision Active Leslie liver enzymes off Active Immunizations [...] episodic Confirmed Active Polypharmacy Confirmed Active Results Orders for Microbiology Reports Name Date Blood Culture 03/01/23 Blood Culture #2 03/01/23 Microbiology Reports TEST:Blood Culture, Second Order STATUS:Auth (Verified) BODY SITE: SOURCE:Blood COLLECTED DATE/TIME:03/01/23 6:09 PM Blood Culture, Second Order SPECIMEN DESCRIPTION : BLOOD NO SITE SPECIAL REQUESTS : NONE CULTURE : NO GROWTH 5 DAYS. REPORT STATUS : FINAL 03/06/2023 TEST:Blood Culture STATUS:Auth (Verified) BODY SITE: SOURCE:Blood COLLECTED DATE/TIME:03/01/23 4:51 PM Blood Culture SPECIMEN DESCRIPTION : BLOOD LAC SPECIAL REQUESTS : NONE CULTURE : NO GROWTH 5 DAYS. REPORT STATUS : FINAL 03/06/2023 Radiology Reports * Exam Date Time Procedure Performing Provider Status 03/02/23 3:[address] Head/Brain W/O Contrast Kwadwo Jag Polo; Auth (Verified) Notes: (CT Head/Brain W/O Contrast) Reason For Exam: ams, confusion;Other: RESULT: CT Head/Brain W/O Contrast CT Head/Brain W/O Contrast INDICATION: Reason: Other:; ams, confusion; Clinical Question(s): Other:; Hematoma Infarction TECHNIQUE: Noncontrast head CT using axial technique and reconstructed in axial and coronal planes.Iterative reconstruction techniques are used to optimize dose and image quality. CTDIvol Head: 45.80 mGy, DLP Head: 773 mGy*cm. COMPARISON: MR 11/10/2021. CT 10/25/2020. FINDINGS: Petal Cutter view findings, lines and tubes: None. BRAIN AND EXTRA-AXIAL SPACES: No parenchymal hemorrhage, midline shift, or mass effect. Sahu-white matter differentiation is wellpreserved. No acute infarct. Negative insular ribbon sign. Atherosclerotic vascular calcification of the carotid arteries but negative hyperdense vessel sign. Mild prominence of the ventricles and sulci consistent with parenchymal volume loss. Moderate low-density white matter changes. No subarachnoid hemorrhage. No subdural or epidural collection. CALVARIUM, SKULL BASE, AND SOFT TISSUES: No fractures or suspicious bony lesions. The paranasal sinuses and mastoid air cells are clear. Status-post bilateral lens extraction. The extracranial soft tissues are unremarkable. IMPRESSION: No acute intracranial pathology. I have personally reviewed the images and I agree with this report. WSN: [id number] Ordering Physician: Balta Sloan Dictated By: Balta Chen MD Dictated Date/Time: 03/02/23 7:16 am Reviewed By: Marcos Dan MD Signed By: Marcos Dan MD Signed Date/Time: 03/02/23 7:21 am Transcribed By: JAYLENE Transcribed Date/Time: 03/02/23 3:21 am Vital Signs Most recent to oldest [Reference Range]: 1 2 3 Weight 65.2 kg (03/03/23 6:00 AM) Oxygen Saturation [94-100 %] 95 % (03/06/23 3:00 PM) 97 % (03/06/23 11:20 AM) 96 % (03/06/23 5:00 AM) Pulse Rate [55-90 bpm] 91 bpm *H* (03/06/23 3:00 PM) 96 bpm *H* (03/06/23 11:20 AM) 83 bpm (03/06/23 5:00 AM) Blood Pressure [90-138/55-84 mm Hg] 146/79mm Hg *H* (03/06/23 3:00 PM) 128/82mm Hg (03/06/23 11:20 AM) 136/68mm Hg (03/06/23 5:00 AM) Respiratory Rate [16-30 br/min] 18 br/min (03/06/23 3:00 PM) 18 br/min (03/06/23 11:20 AM) 17 br/min (03/06/23 5:00 AM) Temperature [96.8-100.4 DegF] 98.2 DegF (03/06/23 3:00 PM) 98.2 DegF (03/06/23 11:20 AM) 97.9 DegF (03/06/23 5:00 AM) Liters per Minute 0 L/min (03/04/23 11:00 AM) Mode of Delivery (Oxygen) Room air (03/06/23 3:00 PM) Room air (03/06/23 11:20 AM) Room air (03/06/23 5:00 AM) Blood pressure sites Arm, left (03/06/23 3:00 PM) Arm, left (03/06/23 11:20 AM) Arm, right (03/06/23 5:00 AM) Temperature Route Oral (03/06/23 3:00 PM) Oral (03/06/23 11:20 AM) Axillary (03/06/23 5:00 AM) Weight Obtained Via Bed scale (03/03/23 6:00 AM) Social History Social History Type Response Smoking Status Former smoker; Tobac co user in household: No entered on: 03/27/14 Sex History and physical note * Nathalia SIMON, Balta Díaz: MODIFY, PERFORM Event Display: History and Physical Hospital Authored Date: Patient: ??SHIVAM DENIS ? Age:??67 Years?Sex:??Female?:??1955?? Chief Complaint/Reason for Consultation AMS History of Present Illness 6\4 ?? 67-year-old female with PMH including HTN,?? white matter brain disease , lumbar disc disease, chronic headache, chronic pain, benzodiazepine use, opiate use, documented drug-seeking behavior, cognitive impairment. Patient presented to ER due to altered neuro status. ??Very poor historian. ??Information obtained from chart review. ?? As per ER note, patient was brought in by EMS due to altered mental status. ??However no further evaluation on that. ??The patient herself complains of severe headache. ??She points to the occiput and states that she has 10/10 pain. ??She is unable to give me a timeline, says that she has the pain for about 4 hours although she has been in ER much longer than that. ??Patient says that she only takes Fioricet for the pain. ??However she ran out of of this medication and her provider will not refill it anymore. ??There is a recent note from Dr. Nieves documented that patient has been on Fioricet and benzos for some time and has had multiple prescriptions and refilled multiple times. ??Dr. Vasquez believes that this is not beneficial for the patient and he would not refill any benzo, opiate or Fioricet. ?? The patient denies any blurring of vision, double vision, auditory symptoms, focal weakness or numbness, fever, chills, chest pain, shortness of breath, cough, abdomen pain, nausea, vomiting, diarrhea, urinary symptoms. ??She did mention that she fell down recently (again difficult to ascertain theexact time), but says that it was mechanical, apparently she tripped on her own feet. ??No loss of consciousness. ??No trauma to head or neck. ?? Of note ER also documented on the patient's brother that patient may be abusing other opiates as well. ?? In ER patient was tachycardic 100s to 120s. ??Other vital stable. ??Labs mostly unremarkable, has mild normal anion gap metabolic acidosis, potassium 5.2, normal creatinine but BUN 31, TSH normal, acetaminophen and salicylate level normal. ??EKG showed sinus rhythm with heart rate of 104, QTc 449. ?? Patient received albuterol twice and received 1 L IV fluid. ?? Review of Systems All systems reviewed and negative except as in HPI. Objective ? Vital Signs?? Temperature: 98 DegF (03/01/23 16:09:00) Temperature Route: Oral (03/01/23 16:09:00) Pulse Rate:??123 bpm??High (03/01/23 17:30:00) Respiratory Rate: 26 br/min (03/01/23 17:30:00) Systolic Blood Pressure: 125 mm Hg (03/01/23 17:30:00) Diastolic Blood Pressure:??90 mm Hg??High (03/01/23 17:30:00) Blood pressure sites: Arm, left (03/01/23 17:30:00) Mean Arterial Pressure: 98 mm Hg (03/01/23 16:09:00) Pulse Pressure: 35 mm Hg (03/01/23 17:30:00) Oxygen Saturation: 100 % (03/01/23 17:30:00) Mode of Delivery (Oxygen): Room air (03/01/23 17:30:00) Early Warning Score: 4 (03/01/23 23:08:14) ? Physical Exam Constitutional: ??Alert,??no acute distress, co-operative, lying on the bed, saturating well on room air. ?? Mental state: Oriented to person and self but not date/time/place. Head: ??Normocephalic, atraumatic. ?? Eye:?No discharge. ENT: No discharge. Neck: ??Supple,??no JVD. Cardiovascular: ??S1, S2. Regular rhythm. No MRG. Respiratory: ??Lungs are clear to auscultation b/l, No RRR. ?? Gastrointestinal: ??Soft, Nontender, Non distended, ??Normal bowel sounds.?? Genitourinary: No costovertebral angle tenderness. Neurological: ??Cranial nerves intact. Motor and sensory intact. Back: ??Nontender. Musculoskeletal: ??Normal ROM.?? No edema Hematology: No lymphadenopathy Skin: ??Warm, dry. Psychiatric: ??Cooperative.?? Assessment/Plan Diagnoses Altered mental state ??(R41.82) Headache ??(R51.9) ?? Assessment:??67-year-old female with PMH including HTN, white matter brain disease , lumbar disc disease, chronic headache, chronic pain, benzodiazepine use, opiate use, documented drug-seeking behavior, cognitive impairment. Patient presented to ER due to altered neuro status. ?? Altered mental state (R41.82):??. Headache (R51.9):??. Patient brought in for altered mental status. ??However??no further??documentation of that. ??Patient is confused,??oriented only to??self and person.?? However only complains of??severe occipital headache.?? She is slightly tachycardic but??her labs mostly unremarkable.?? Patient is afebrile, no sign of any infection.?? It is difficult to ascertain what her baseline mental status is.? Continue neuro check. Continue telemetry. Monitor vitals closely. I will get a CT scan of the head??for further evaluation of altered mental status with headache. Follow blood culture. Holding antibiotic as there is no sign of any infection at this time. Follow-up UA, urine toxicology. Metabolic panel mostly unremarkable. Patient is asking for Fioricet, well documented previously by??neurology that patient does not need??Fioricet. Tylenol as needed. Previous MRI??indicates possible??MS. ??Please consult neurology in the morning. Will need??psych consult??to optimize medication. ?? Home medication: Patient unable to give me??her medication list. Please reconsult once??medication list is available from her pharmacy.?? Will need psych consult??in the morning??to optimize her medication. ?? VTE Prophylaxis:??as per guideline ?VTE Prophylaxis Assessment:??Risk Level documented as Low Risk ?? Code Status:??presume full code ?Order Code Status:??Code Status Ordered ?? Discharge Planning:? UPDATE: Cont to be agitated. Patient is not oriented to time/place and does not have insight. Unable to focus on topic while discussing, tangential. Patient at this time does not have capacity. Histories Allergies Allergies ?(Active and Proposed Allergies [...] dependence, continuous Polypharmacy ? Past Surgical History No surgery history documented. ? Social History Alcohol Details:??Use: Never. Substance Abuse Details:??Use: Past. ??Type: Marijuana. ??Other: had certificate, did reduce pain. Tobacco Details:??Use: Former smoker. ??Tobacco user in household: No. ? Family History No family history recorded. ? Medications Home Medications Acetaminophen/Butalbital/Caffeine (Fioricet Tablet)?1 tab every 6?By Mouth?as needed?Headache amiTRIPTYLINE (amitriptyline 25 mg oral tablet)?50?Milligram?2?tablet?By Mouth?Daily at bedtime Aspirin (aspirin 325 mg oral capsule)?2?capsule?650?Milligram?By Mouth?Daily atogepant (atogepant 60 mg oral tablet)?1?tab(s)?60?Milligram?By Mouth?Daily?for headache prevention. Docusate-Senna (Docusate/Senna Tablet)?2?tab(s)?By Mouth?2 times a day Duloxetine (duloxetine 30 mg oral enteric coated capsule)?1?capsule?30?Milligram?By Mouth?Daily Lisinopril?10?Milligram?By Mouth?Daily Risperidone (RisperDAL 0.25 mg oral tablet)?0.25?Milligram?1?tablet?By Mouth?Daily at bedtime Timolol Ophthalmic (Timolol 0.5% Ophth)?1?Drops?Eyes, Both?2 times a day ? Inpatient Medications Medications (9) Active SCHEDULED: (2) NaCl 0.9% Flush 3ml (NaCL 0.9% Flush) ??3 mL, IV Push, Every 8 hours Timolol 0.5% Ophthalmic Solution (Timolol 0.5% Ophth) ??1 drops, Eyes, Both, 2 times a day CONTINUOUS: (0) PRN: (7) Acetaminophen 325 mg Tablet (Acetaminophen Tablet) ??650 mg, By Mouth, Every 4 hours Dextromethorphan-Guaifenesin 20 mg-200 mg/10 mL Liqu UD (Robitussin DM Liquid) ??10 mL, By Mouth, Every 4 hours Melatonin 3 mg Tablet (Melatonin Tablet) ??3 mg, By Mouth, Daily at bedtime NaCl 0.9% Flush 3ml (NaCL 0.9% Flush) ??3 mL, IV Push, Every 8 hours Polyethylene Glycol 17 Gm Powder (MiraLax Powder) ??17 Gm 1 pack/packet, By Mouth, Daily Senna 8.6 mg / Docusate 50 mg tablet (Docusate/Senna Tablet) ??1 tablet, By Mouth, 2 times a day Simethicone 80 mg Chewable Tablet (Simethicone Tablet) ??80 mg, Chew, 3 times a day ? Results Recent Labs BLOOD COUNT & DIFF WBC 9.0 k/mm3 ()?? 03/01/2023 16:51 RBC 3.81 m/mm3 (Low)?? 03/01/2023 16:51 Hgb 11.6 Gm/dL (Low)?? 03/01/2023 16:51 Hct 35.3 % (Low)?? 03/01/2023 16:51 MCV 92.7 femtoliters ()?? 03/01/2023 16:51 MCH 30.4 pg ()?? 03/01/2023 16:51 MCHC 32.9 g/dL (Low)?? 03/01/2023 16:51 Platelet Count 304 k/mm3 ()?? 03/01/2023 16:51 RDW-SD 42.7 femtoliters ()?? 03/01/2023 16:51 MPV 11.0 femtoliters ()?? 03/01/2023 16:51 Nucleated RBC (Automated) 0.0 #/100 WBC'S ()?? 03/01/2023 16:51 Abs. NRBC 0.0 k/mm3 ()?? 03/01/2023 16:51 Abs. Neut 6.3 k/mm3 ()?? 03/01/2023 16:51 Abs. Lymph 1.9 k/mm3 ()?? 03/01/2023 16:51 Abs. Clarke 0.6 k/mm3 ()?? 03/01/2023 16:51 Abs. Eo 0.2 k/mm3 ()?? 03/01/2023 16:51 Abs. Baso 0.1 k/mm3 ()?? 03/01/2023 16:51 Neut % 69.8 % ()?? 03/01/2023 16:51 Lymph % 20.5 % ()?? 03/01/2023 16:51 Clarke % 6.7 % ()?? 03/01/2023 16:51 Eos % 2.0 % ()?? 03/01/2023 16:51 Baso % 0.6 % ()?? 03/01/2023 16:51 Imm Gran 0.4 % ()?? 03/01/2023 16:51 Abs. Imm Gran 0.0 k/mm3 ()?? 03/01/2023 16:51 ?? CHEM GENERAL Sodium 138 mmol/L ()?? 03/01/2023 16:51 Potassium 5.2 mmol/L ()?? 03/01/2023 16:51 Chloride 103 mmol/L ()?? 03/01/2023 16:51 Bicarbonate Level 21 mmol/L (Low)?? 03/01/2023 16:51 Anion Gap 14 ()?? 03/01/2023 16:51 Glucose Level 86 mg/dL ()?? 03/01/2023 16:51 Glucose, POC 119 mg/dL (High)?? 03/01/2023 16:07 BUN 31 mg/dL (High)?? 03/01/2023 16:51 Creatinine-Blood 1.0 mg/dL ()?? 03/01/2023 16:51 Estimated GFR Creatinine 62 ML/MIN/1.73 M2 ()?? 03/01/2023 16:51 Calcium 9.6 mg/dL ()?? 03/01/2023 16:51 Calcium, Ionized pH Corrected 1.24 mmol/L ()?? 03/01/2023 16:51 Magnesium 1.7 mg/dL ()?? 03/01/2023 16:51 Protein, Total 6.8 Gm/dL ()?? 03/01/2023 16:51 Albumin 3.9 Gm/dL ()?? 03/01/2023 16:51 AG Ratio 1.3 ()?? 03/01/2023 16:51 Alkaline Phosphatase 121 units/L (High)?? 03/01/2023 16:51 Lipase 28 units/L ()?? 03/01/2023 16:51 AST (SGOT) 23 units/L ()?? 03/01/2023 16:51 ALT (SGPT) 22 units/L ()?? 03/01/2023 16:51 Bilirubin, Total 0.2 mg/dL ()?? 03/01/2023 16:51 ?? ENDOCRINE/TUMOR MARKER TSH 2.71 uIU/mL ()?? 03/01/2023 16:51 ?? TOXICOLOGY/TDM Salicylate Level 3.5 mg/dL ()?? 03/01/2023 16:51 Acetaminophen Level <5 mg/L (Low)?? 03/01/2023 16:51 ? EKG study * Event Display: EKG Authored Date: * Event Display: ECG 12-Lead Authored Date: Please click on pdf link to open report * Event Display: ECG 12-Lead Authored Date: Ventricular Rate: 107 BPM Atrial Rate: 107 BPM P-R Interval: 190 ms QRS Duration: 90 ms Q-T Interval: 344 ms QTC Calculation(Bazett): 459 ms P Goodman: 53 degrees R Goodman: 15 degrees T Goodman: 53 degrees Sinus tachycardia Septal infarct (cited on or before 02-MAR-2023) Abnormal ECG When compared with ECG of 02-DEC-2020 19:58, Questionable change in initial forces of Septal leads Confirmed by AURY PATEL MD ([id number]) on 03/04/2023 6:19:18 PM Walker: AURY PATEL MD Cardiology * Event Display: Cardiac Rhythm Strips Authored Date: Hospital Progress note * Francia Mcrae DO P: PERFORM Event Display: Progress [facility] Authored Date: Patient: ??SHIVAM DENIS ? Age:??67 Years?Sex:??Female?:??1955?? Subjective Overnight events:??Yesterday afternoon patient was quite agitated and wanted to leave??the unit, code yellow was called.?? Required IM Haldol??and frequent reorientation.?? Spoke to patient's partneron the phone who??emphasized that she does not wish to speak to or visit the patient right now??dueto personal issues.?? Would??prefer her to go to??[facility] rehab facility in [place]. ?? Today: Patient??says her headache is better. ??Does not have any other complaints. Review of Systems A full review of systems was completed and is otherwise negative except as mentioned in history of present illness. Objective Vital Signs?? Temperature: 97.9 DegF (03/06/23 05:00:00) Temperature Route: Axillary (03/06/23 05:00:00) Pulse Rate: 83 bpm (03/06/23 05:00:00) Respiratory Rate: 17 br/min (03/06/23 05:00:00) Systolic Blood Pressure: 136 mm Hg (03/06/23 05:00:00) Diastolic Blood Pressure: 68 mm Hg (03/06/23 05:00:00) Blood pressure sites: Arm, right (03/06/23 05:00:00) Mean Arterial Pressure: 76 mm Hg (03/05/23 16:49:00) Pulse Pressure: 68 mm Hg (03/06/23 05:00:00) Oxygen Saturation: 96 % (03/06/23 05:00:00) Mode of Delivery (Oxygen): Room air (03/06/23 05:00:00) Early Warning Score: 2 (03/06/23 06:45:22) ? Physical Exam General Appearance: The patient is in NAD. Cardiovascular: RRR S1 and S2 heard with no M/R/G. Respiratory: ??Breath sounds clear to auscultation bilaterally. No wheezing. Good air movement throughout both lungs. MS: ??No edema or erythema in the lower extremities.?? Neuro: ??No slurred speech. ??Patient seen moving their upper and lower extremities independently. Results Abnormal Labs ?? CHEM GENERAL ??BUN ??31 mg/dL (High) ??03/06/2023 01:03 ??Creatinine-Blood ??1.5 mg/dL (High) ??03/06/2023 01:03 ??Estimated GFR Creatinine ??36 ML/MIN/1.73 M2 () ??03/06/2023 01:03 ? VIROLOGY ??COVID-19 PCR Result ??NEGATIVE () ??03/05/2023 11:55 ??COVID-19 PCR Specimen Source ??NASAL () ??03/05/2023 11:55 ? Note: Critical results are displayed in red. Assessment/Plan 67-year-old female with PMH including HTN, white matter brain disease , lumbar disc disease, chronic headache, chronic pain, benzodiazepine use, opiate use, documented drug-seeking behavior, cognitive impairment. Patient presented to ER due to altered neuro status. ?? Altered mental state (R41.82):?? agitation/restlessness: Headache (R51.9):??. Patient brought in for altered mental status.??Patient is confused,??oriented only to??self and person.?? However only complains of??severe occipital headache.?? No obvious etiology of her altered mental status. during the admission day, very agitated and restless, not oriented, confused, psych consulted, reccs appreciated can not leave AMA cleared medically for gil psych admission. ???Increase??risperidone to 1 twice daily per??psych ???Increase Depakote to 500 twice daily per psych ?As needed Zyprexa ?? Headache Patient complaining of occipital headache Reports taking 2 30 mg pills of amitriptyline at home and Fioricet. Previous documented Fioricet seeking behavior,??will continue to hold. ??? Continue amitriptyline 50 mg ??? Continue??as needed??acetaminophen ?? HTN: cont home meds. ?? VTE Prophylaxis:??as per guideline ?VTE Prophylaxis Assessment:??Risk Level documented as Low Risk ?? Code Status:??presume full code ?Order Code Status:??Code Status Ordered ?? needs psych admission. cleared medically ?? Patient discussed with attending physician, Dr. Alex Mcrae, DO Internal Medicine PGY1 ? * Jerrod GORDON, Bernardo: PERFORM, SIGN, VERIFY Event Display: Progress Note Hospital Authored Date: [id number] Patient: SHIVAM DENIS Age: 67 years Sex: Female : 1955 Associated Diagnoses: None Author: Jerrod RN, Bernardo Pt alert and cooperative. Fall precautions in place. Call light in reach. Pt not in acute crisis. Received hand off shift report from the previous nurse. Reviewed medications and orders for the shift. 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 Pt wanting to leave and keeps trying to call roommate. Pt redirected to stay in bed. Discharge Information Rehabilitation Discharge : Rehab Discharge Index 03/04/2023 6:25 EDT Comments on treatment indicated Patient demonstrates independence c all functional ADL's, however, may need higher level of care 2' cognition. Full chart review completed Yes Hospital course Dementia in other diseases classified elsewhere with behavioral disturbance (F02.81) Other findings Patient demonstrates independence c all functional ADL's, however, may need higher level of care 2' cognition. * Sydnie Rae MD: PERFORM Event Display: Progress Note Hospital Authored Date: Patient: ??SHIVAM DENIS ? Age:??67 Years?Sex:??Female?:??1955?? Subjective Pt resting in bed, poor historian, continues to endorse REZA. As per records, medication compliant however continues to try to leave the unit. Requires prns throughout the day. ? Review of Systems 10 point review of systems negative except Pertinent positives as above noted.?? Objective Vital Signs?? Temperature: 98.3 DegF (03/05/23 05:00:00) Temperature Route: Oral (03/05/23 05:00:00) Pulse Rate:??93 bpm??High (03/05/23 05:00:00) Respiratory Rate: 17 br/min (03/05/23 05:00:00) Systolic Blood Pressure:??139 mm Hg??High (03/05/23 08:17:00) Diastolic Blood Pressure:??87 mm Hg??High (03/05/23 08:17:00) Blood pressure sites: Arm, right (03/05/23 05:00:00) Mean Arterial Pressure: 100 mm Hg (03/04/23 21:16:00) Pulse Pressure: 69 mm Hg (03/04/23 21:16:00) Oxygen Saturation: 98 % (03/05/23 05:00:00) Mode of Delivery (Oxygen): Room air (03/05/23 05:00:00) Early Warning Score: 0 (03/05/23 08:17:59) ? Physical Exam Mental Status Exam: Appearance: hospital garb Attitude: cooperative. ? Motor activity:??restless? Mood: anxious. ? Affect: appropriate. ? Speech: rapid, pressure Perception: possible delusional content, hallucinations Orientation:??limited ?? Memory: poor Judgment: poor Insight: poor Thought process: tangential Reliability: uncertain. ? Suicidality/self-destructive behavior: none. ? Homicidality/violence: none. _ Inpatient Medications Medications (16) Active SCHEDULED: (7) Amitriptyline 25 mg Tablet (amitriptyline 25 mg oral tablet) ??50 mg, By Mouth, Daily at bedtime Aspirin 325 mg EC Tablet (aspirin 325 mg oral tablet) ??325 mg, By Mouth, Daily Divalproex 250 mg Tablet (Depakote Tablet) ??250 mg, By Mouth, 2 times a day Lisinopril 20 mg Tablet (lisinopril 10 mg oral tablet) ??40 mg, By Mouth, Daily NaCl 0.9% Flush 3ml (NaCL 0.9% Flush) ??3 mL, IV Push, Every 8 hours Risperidone 0.25 mg Tablet (RisperDAL 0.25 mg oral tablet) ??0.5 mg, By Mouth, 2 times a day Timolol 0.5% Ophthalmic Solution (Timolol 0.5% Ophth) ??1 drops, Eyes, Both, 2 times a day CONTINUOUS: (0) PRN: (9) Acetaminophen 325 mg Tablet (Acetaminophen Tablet) ??650 mg, By Mouth, Every 4 hours Dextromethorphan-Guaifenesin 20 mg-200 mg/10 mL Liqu UD (Robitussin DM Liquid) ??10 mL, By Mouth, Every 4 hours Melatonin 3 mg Tablet (Melatonin Tablet) ??3 mg, By Mouth, Daily at bedtime NaCl 0.9% Flush 3ml (NaCL 0.9% Flush) ??3 mL, IV Push, Every 8 hours Olanzapine 10 mg Inj (Zyprexa Inj) ??7.5 mg, Intramuscular, Every 12 hours Olanzapine 5 mg Tablet (olanzapine 5 mg oral tablet) ??5 mg, By Mouth, 3 times a day Polyethylene Glycol 17 Gm Powder (MiraLax Powder) ??17 Gm 1 pack/packet, By Mouth, Daily Senna 8.6 mg / Docusate 50 mg tablet (Docusate/Senna Tablet) ??1 tablet, By Mouth, 2 times a day Simethicone 80 mg Chewable Tablet (Simethicone Tablet) ??80 mg, Chew, 3 times a day ? Results Recent Labs CHEM GENERAL Sodium 138 mmol/L ()?? 03/04/2023 08:43 Potassium 4.3 mmol/L ()?? 03/04/2023 08:43 Chloride 101 mmol/L ()?? 03/04/2023 08:43 Bicarbonate Level 25 mmol/L ()?? 03/04/2023 08:43 Anion Gap 12 ()?? 03/04/2023 08:43 Glucose Level 129 mg/dL (High)?? 03/04/2023 08:43 BUN 24 mg/dL (High)?? 03/04/2023 08:43 Creatinine-Blood 1.2 mg/dL (High)?? 03/04/2023 08:43 Estimated GFR Creatinine 49 ML/MIN/1.73 M2 ()?? 03/04/2023 08:43 Calcium 9.9 mg/dL ()?? 03/04/2023 08:43 ? Assessment/Plan Pt is a 67-year-old female with PMH including HTN,??Dementia with behavioral disturbance, lumbar disc disease, chronic headache, chronic pain as well as hx of chronic benzo and opiate use with concern for dependence who??presented to ER due to altered neuro status. ?? 03/02: Pt this afternoon presenting fairly tangential, confused and restless in the ED and is a poor historian as well. There appears to be a known hx of Dementia with behavioral disturbances although recent [facility] records indicate Pt has had some level of functioning in the community. She appears to live with a partner who recently reported??Pt's behaviors and confusion has been worsening in recent times and expressed challenges with her care and mental health at home as well. I tried reaching out to partner but have not been able to.?? Meanwhile Pt does present fairly tangential, agitated and restless??in the ED. She does have a hx of benzo and opiate overuse and dependence but does not appear that she has had a klonopin script filled since December 2022 and utox was??negative as well. Would recommend to restart previous Depakote at 250mg BID and Risperidone 0.5mg BID ??as it appearsit helped with behaviors during her Wing admission.? 03/03: Pt medically cleared today. While some improvements in acute agitation, Pt remains fairly pressured, tangential with ongoing periods of restlessness and agitation. Have been unable to obtain collateral from partner thus far. Given her current presentation, will refer for [facility] admission ? 03/05: Pt more calm and cooperative then initial presentation however continues to require prns and continues to elope off the unit, requires 1:1. Sleep appears to be a challenge as well. Feedback from [facility] thus far has been that Pt likely would benefit from SNF. Will continue to adjustment medications on the med floor. May need to consider alternative dispo options (home vs SNFif she stablizes). ? Dx: Dementia in other diseases classified elsewhere with behavioral disturbance ??(F02.81) ? Recommendations: -Increase??Risperidone to 1mg BID target agitation -Increase ??Depakote??to 500mg BID to target restlessness - Offer Zyprexa 5mg TID prn for agitation PO -Offer Zyprexa 7.5mg BID prn for agitation IM -Cannot leave AMA - [facility]??bed search ? Note * Monique Del Castillo RN: PERFORM Event Display: Discharge/Transfer Note Hospital Authored Date: [id number] Nursing Discharge Note Entered On: 03/06/2023 16:21 EDT Performed On: 03/06/2023 16:21 EDT by Monique Del Castillo RN Nursing Discharge Note 2 Discharge Level of Care at Discharge : Psychiatric Facility/Unit Patient Left Unit Via : Ambulance Patient Accompanied Off Unit with : Ambulance/Chair Van Personnel Handover Given to Transport Personnel : Yes DC Instructions Provided & Signed by Pt : No Patient Understands D/C Instructions : No Patient Instructions Discharge Signed : Yes Did Pt have Specialty Bed or Wound Vac : No Monique Del Castillo RN - 03/06/2023 16:21 EDT * Francia Mcrae DO: PERFORM Event Display: Discharge/Transfer Note Hospital Authored Date: [id number] Patient: ??CIRA, SHIVAM ? Age:??67 Years?Sex:??Female?:??1955?? Patient Information Discharge Location: Primary Care Physician: Melany Mcmahan NP Admit Date/Time: 03/01/23 23:11 Discharge Disposition Discharge Disposition: [facility] Facility/Rehab Discharge Diagnosis Altered mental state (R41.82) Headache (R51.9) _ Discharge Medications amiTRIPTYLINE (amitriptyline 25 mg oral tablet)?50?Milligram?2?tablet?By Mouth?Daily at bedtime Aspirin (aspirin 325 mg oral capsule)?1?capsule?325?Milligram?By Mouth?Daily Divalproex Sodium (divalproex sodium 500 mg oral enteric coated tablet)?500?Milligram?By Mouth?2 times a day Methyl Salicylate-Menthol Topical (Muscle Rub)?back?Topically?3 times a day?as needed?as needed Olanzapine (olanzapine 5 mg oral tablet)?5?Milligram?1?tablet?By Mouth?3 times a day?as needed?Agitation Olanzapine (Zyprexa Inj)?7.5?Milligram?Intramuscular?Every 12 hours?as needed?Agitation Risperidone (RisperDAL 1 mg oral tablet)?1?Milligram?1?tablet?By Mouth?2 times a day Timolol Ophthalmic (Timolol 0.5% Ophth)?1?Drops?Eyes, Both?2 times a day ?? Medications Started amiTRIPTYLINE (amitriptyline 25 mg oral tablet)?50?Milligram?2?tablet?By Mouth?Daily at bedtime Divalproex Sodium (divalproex sodium 500 mg oral enteric coated tablet)?500?Milligram?By Mouth?2 times a day Olanzapine (olanzapine 5 mg oral tablet)?5?Milligram?1?tablet?By Mouth?3 times a day?as needed?Agitation Olanzapine (Zyprexa Inj)?7.5?Milligram?Intramuscular?Every 12 hours?as needed?Agitation Risperidone (RisperDAL 1 mg oral tablet)?1?Milligram?1?tablet?By Mouth?2 times a day Medications Discontinued Fioricet Amlodipine Clonazepam Benadryl Lisinopril Doses Changed None Allergies Allergies ?(Active and Proposed Allergies Only) [...] Unknown severity, Onset: Unknown) ?Reactions: diff breathing PCP Follow-Up/Heads-Up Patient was admitted with??agitation and altered mental status. She??was treated for agitation with??twice daily 1 mg risperidone and 500 mg of Depakote twice daily.?? Occasionally required??as needed Zyprexa. She developed what looks like an prerenal ZAK while in the hospital, has not improved. ??Please follow-up kidney function. She??she developed an ZAK??so her home lisinopril was held. ??Please follow-up blood pressures and consider resuming when ZAK resolves. She was not taking amlodipine/would not continue in the hospital, now with??DC'd??lisinopril??please follow-up blood pressures and control as necessary. Stopped home??Fioricet, Benadryl clonazepam,??as could be contributing to her??worsening agitation. Blood cultures drawn in the emergency room, no growth to date. ??Please follow- up final reads. Future Appointments Thursday 1:40 PM EDT ?? With: Robert Sanders Where: [facility] [address] [place] [address]- Status: Pending Hospital Course 67-year-old female with PMH including HTN, white matter brain disease , lumbar disc disease, chronic headache, chronic pain, benzodiazepine use, opiate use, documented drug-seeking behavior, cognitive impairment. Patient presented to ER due to altered neuro status.?She was??seen by??psychiatry who??did not think she had capacity,??recommend she could not leave AMA.?She was treated??for agitation with??scheduled risperidone and Depakote??and as needed Zyprexa, occasionally requiring IM Haldol.??Psych recommended placement to [facility]hospital.?? Per patient's , she is not ready to??see or speak with the patient and not ready to accept her home??yet. ??She would like her to be mo re rehabilitated before considering this. ?? Objective Assessment and Plan 67-year-old female with PMH including HTN, white matter brain disease , lumbar disc disease, chronic headache, chronic pain, benzodiazepine use, opiate use, documented drug-seeking behavior, cognitive impairment. Patient presented to ER due to altered neuro status. ?? Altered mental state (R41.82):?? agitation/restlessness: Headache (R51.9):??. Patient brought in for altered mental status.??Patient is confused,??oriented only to??self and person.?? However only complains of??severe occipital headache.?? No obvious etiology of her altered mental status. during the admission day, very agitated and restless, not oriented, confused, psych consulted, reccs appreciated can not leave AMA ???Increase??risperidone to 1 twice daily per??psych ???Increase Depakote to 500 twice daily per psych ?As needed Zyprexa ?? Headache Patient complaining of occipital headache Reports taking 2 30 mg pills of amitriptyline at home and Fioricet. Previous documented Fioricet seeking behavior,??will continue to hold. ??? Continue amitriptyline 50 mg ??? Continue??as needed??acetaminophen ?? Prerenal??ZAK Patient developed an ZAK??that is likely prerenal with a Gretel of 0.8% Probably exacerbated by continued lisinopril use. Encourage oral hydration. ??? Please follow-up??kidney function and??encourage hydration ???Holding home lisinopril, consider restarting if kidney function improves ?? Vital Signs?? Temperature: 98.2 DegF (03/06/23 11:20:00) Temperature Route: Oral (03/06/23 11:20:00) Pulse Rate:??96 bpm??High (03/06/23 11:20:00) Respiratory Rate: 18 br/min (03/06/23 11:20:00) Systolic Blood Pressure: 128 mm Hg (03/06/23 11:20:00) Diastolic Blood Pressure: 82 mm Hg (03/06/23 11:20:00) Blood pressure sites: Arm, left (03/06/23 11:20:00) Mean Arterial Pressure: 97 mm Hg (03/06/23 11:20:00) Pulse Pressure: 46 mm Hg (03/06/23 11:20:00) Oxygen Saturation: 97 % (03/06/23 11:20:00) Mode of Delivery (Oxygen): Room air (03/06/23 11:20:00) Early Warning Score: 0 (03/06/23 11:20:25) ?? Intake/Output? 03/01 23:11 03/06 07:00 0608 07:00 03/04 07:00 03/03 07:00 ?? 03/06 15:27 03/06 15:27 03/06 06:59 08 06:59 03/04 06:59 Intake ? 2542 ?472 ?780 ?472 ?538 Output ?0 ?0 ?0 ?0 ?0 Net Total ? 2542 ?472 ?780 ?472 ?538 ? Urine Count ? 17 ?0 ?5 ?4 ?8 ? . Physical Exam General Appearance: The patient is in NAD. Cardiovascular: RRR S1 and S2 heard with no M/R/G. Respiratory: ??Breath sounds clear to auscultation bilaterally. No wheezing. Good air movement throughout both lungs. MS: ??No edema or erythema in the lower extremities.?? Neuro: ??No slurred speech. ??Patient seen moving their upper and lower extremities independently. Consultants Butch SIMON, Sydnie ordoñez Pending Results Blood Culture ordered on 03/01/2023 Blood Culture #2 ordered on 03/01/2023 Patient Education Titles Discharge Instructions for Acute Kidney Injury?? Follow-Up Appointments Added Follow Up ?Time Frame ?Comments Martir H[employer] CLEANER, Melany M?1 to 2 weeks Patient Instructions You came in with altered behavior. ??You were treated with medicine to help keep you calm. Please take??Depakote 100 mg twice daily as prescribed. Please take risperidone 1 mg twice daily as prescribed.?? For headaches please continue amitriptyline 50 mg at night. Post Discharge Care Discharge ?03/06/23 15:25:00 EDT Discharge Prescriptions ?ePrescribed, ??03/06/23 15:25:00 EDT Results Discharge Labs BLOOD COUNT & DIFF WBC 6.7 k/mm3 ()?? 03/02/2023 05:57 RBC 3.67 m/mm3 (Low)?? 03/02/2023 05:57 Hgb 11.1 Gm/dL (Low)?? 03/02/2023 05:57 Hct 33.8 % (Low)?? 03/02/2023 05:57 MCV 92.1 femtoliters ()?? 03/02/2023 05:57 MCH 30.2 pg ()?? 03/02/2023 05:57 MCHC 32.8 g/dL (Low)?? 03/02/2023 05:57 Platelet Count 339 k/mm3 ()?? 03/02/2023 05:57 RDW-SD 42.4 femtoliters ()?? 03/02/2023 05:57 MPV 9.5 femtoliters ()?? 03/02/2023 05:57 Nucleated RBC (Automated) 0.0 #/100 WBC'S ()?? 03/02/2023 05:57 Abs. NRBC 0.0 k/mm3 ()?? 03/02/2023 05:57 Abs. Neut 4.5 k/mm3 ()?? 03/02/2023 05:57 Abs. Lymph 1.4 k/mm3 ()?? 03/02/2023 05:57 Abs. Clarke 0.6 k/mm3 ()?? 03/02/2023 05:57 Abs. Eo 0.2 k/mm3 ()?? 03/02/2023 05:57 Abs. Baso 0.0 k/mm3 ()?? 03/02/2023 05:57 Neut % 67.2 % ()?? 03/02/2023 05:57 Lymph % 21.1 % ()?? 03/02/2023 05:57 Clarke % 8.5 % ()?? 03/02/2023 05:57 Eos % 2.2 % ()?? 03/02/2023 05:57 Baso % 0.6 % ()?? 03/02/2023 05:57 Imm Gran 0.4 % ()?? 03/02/2023 05:57 Abs. Imm Gran 0.0 k/mm3 ()?? 03/02/2023 05:57 ?? CHEM GENERAL Sodium 138 mmol/L ()?? 03/06/2023 01:03 Potassium 4.3 mmol/L ()?? 03/06/2023 01:03 Chloride 100 mmol/L ()?? 03/06/2023 01:03 Bicarbonate Level 27 mmol/L ()?? 03/06/2023 01:03 Anion Gap 11 ()?? 03/06/2023 01:03 Glucose Level 89 mg/dL ()?? 03/06/2023 01:03 Glucose, POC 119 mg/dL (High)?? 03/01/2023 16:07 BUN 31 mg/dL (High)?? 03/06/2023 01:03 Creatinine-Blood 1.5 mg/dL (High)?? 03/06/2023 01:03 Estimated GFR Creatinine 36 ML/MIN/1.73 M2 ()?? 03/06/2023 01:03 Calcium 9.1 mg/dL ()?? 03/06/2023 01:03 Calcium, Ionized pH Corrected 1.24 mmol/L ()?? 03/01/2023 16:51 Magnesium 1.7 mg/dL ()?? 03/01/2023 16:51 Protein, Total 6.8 Gm/dL ()?? 03/01/2023 16:51 Albumin 3.9 Gm/dL ()?? 03/01/2023 16:51 AG Ratio 1.3 ()?? 03/01/2023 16:51 Alkaline Phosphatase 121 units/L (High)?? 03/01/2023 16:51 Lipase 28 units/L ()?? 03/01/2023 16:51 AST (SGOT) 23 units/L ()?? 03/01/2023 16:51 ALT (SGPT) 22 units/L ()?? 03/01/2023 16:51 Bilirubin, Total 0.2 mg/dL ()?? 03/01/2023 16:51 ? ENDOCRINE/TUMOR MARKER TSH 2.71 uIU/mL ()?? 03/01/2023 16:51 ? TOXICOLOGY/TDM Salicylate Level 3.5 mg/dL ()?? 03/01/2023 16:51 Barbiturate Screen, Urine NONE DETECTED ()?? 03/02/2023 10:40 Cannabinoid Screen, Urine NONE DETECTED ()?? 03/02/2023 10:40 Cocaine Metabolite Screen, Urine NONE DETECTED ()?? 03/02/2023 10:40 Benzodiazepine Screen, Urine NONE DETECTED ()?? 03/02/2023 10:40 Amphetamine Screen, Urine NONE DETECTED ()?? 03/02/2023 10:40 Opiate Screen, Urine NONE DETECTED ()?? 03/02/2023 10:40 Acetaminophen Level <5 mg/L (Low)?? 03/01/2023 16:51 ?? UA/URINALYSIS Appear/Color, Urine COLORLESS ()?? 03/02/2023 10:40 Specific [place], Urine 1.006 ()?? 03/02/2023 10:40 pH, Urine 6.0 ()?? 03/02/2023 10:40 Albumin, Urine NEGATIVE ()?? 03/02/2023 10:40 Glucose, Urine NEGATIVE ()?? 03/02/2023 10:40 Ketones, Urine NEGATIVE ()?? 03/02/2023 10:40 Bilirubin, Urine NEGATIVE ()?? 03/02/2023 10:40 Hemoglobin, Urine NEGATIVE ()?? 03/02/2023 10:40 Nitrite, Urine NEGATIVE ()?? 03/02/2023 10:40 Leukocyte, Urine NEGATIVE ()?? 03/02/2023 10:40 Urobilinogen NORMAL mg/dL ()?? 03/02/2023 10:40 WBC's, Urine <1 /HPF ()?? 03/02/2023 10:40 RBC's, Urine <1 /HPF ()?? 03/02/2023 10:40 Mucus SLIGHT /LPF ()?? 03/02/2023 10:40 Hold Urine Culture Testing available 48 hours from time of collection. ()?? 03/02/2023 10:40 ? URINE OTHER Creatinine, Urine Random 58.2 mg/dL ()?? 03/06/2023 09:47 Sodium, Urine Random 41 mmol/L ()?? 03/06/2023 09:47 ?? VIROLOGY COVID-19 PCR Specimen Source NASAL ()?? 03/05/2023 11:55 COVID-19 PCR Result NEGATIVE ()?? 03/05/2023 11:55 ? 03/02/2023 03:[address] Head/Brain W/O Contrast IMPRESSION: ?? No acute intracranial pathology. ?? Patient discussed with attending physician, Dr. Alex Mcrae, DO Internal Medicine PGY1 ?? _30 minutes spent on discharge * Liana Johnson DO: PERFORM Event Display: Discharge/Transfer Note Hospital Authored Date: I have seen and evaluated this patient. ??I have discussed the case and its management with the resident and agree with the findings and plan as documented in the resident???s note. * Monique Del Castillo RN: PERFORM Event Display: Patient Education/Instruction Authored Date: Inpatient Adult Discharge Instructions [address] [address] Name: SHIVAM DENIS : 1955 Visit: 03/01/2023 23:11:00 Current Date: 03/06/2023 16:22 Account: [id number] Inpatient Adult Discharge Instructions We would like [...] and their families. Surveys are administered by [facility] ?? If further treatment with your primary care physician or another doctor is recommended, it is important for you to keep the appointment. Call your primary care physician or return to the Emergency Department immediately if your condition worsens, fails to improve, or new symptoms develop. If you need to find a doctor, you can call [facility] for a referral at [phone] or toll free at [phone]) or log in to [email or web address] ?? You can view and manage your care through the patient portal or by using a health care selvin of your choosing. [employer] is a website that allows you to securely view your medical information including your hospital discharge summary, office visit summaries, medications and follow-up visits. You can also request appointments, renew medications, and request access to your medical information using a health care selvin of your choosing, or just ask a question. You can enroll at [email or web address] or register during your next office visit. You have been discharged from [facility], Patient Care Unit: S2. If you have any questions regarding these instructions after you leave, please call us and we will be happy to assist you. [facility] Your Care Team Attending Physician Liana Johnson DO Consulting Providers Sydnie Rae MD Discharging Providers Francia Mcrae DO Reason for Admission AMS Your Diagnosis Altered mental state Headache Tests Performed Below is a partial list of the tests performed during your hospitalization. You may have had other tests and procedures not included in this list. Please discuss all test results with your provider. Acetaminophen Level Amphetamine Urine Screen Aspirin Level Barbiturate Urine Screen Benzodiazepine Urine Screen BUN Calcium Ionized Cannabinoid Urine Screen CBC w/ Differential Cocaine Urine Screen Comprehensive Metabolic Panel COVID-19 (2019 Novel Coronavirus) PCR Creatinine Electrolytes Glucose Level GLUCOSE POC Lipase Magnesium Level Opiate Screen Urine Sodium Urine TSH with T4 Reflex (Adults Only) Urinalysis w/hold for Urine Culture Urine Creatinine CT Head/Brain W/O Contrast Primary Care Provider Martir ELAM, Melany Zarco Advance Directive Health Care Proxy on File Yes - Health Care Proxy Yes - MOLST Discharge Vitals Temperature: 98.2 DegF Weight: 65.2 kg Pulse Rate:??91 bpm??High ?? Respiratory Rate: 18 br/min ?? Systolic Blood Pressure:??146 mm Hg??High ?? Diastolic Blood Pressure: 79 mm Hg ?? Oxygen Saturation: 95 % ?? Studies Pending All tests and labs ordered during this hospital stay have been completed unless listed below. Please discuss all pending results with your provider listed above in these instructions. ?? Basic Metabolic Panel Blood Culture Blood Culture #2 What to do next Instructions From Your Doctor You came in with altered behavior. ??You were treated with medicine to help keep you calm. Please take??Depakote 100 mg twice daily as prescribed. Please take risperidone 1 mg twice daily as prescribed.?? For headaches please continue amitriptyline 50 mg at night. Discharge Orders Scheduled Follow-Up Appointments Thursday 1:40 PM EDT ?? With: Robert Sanders Where: [facility] [address] [place] [id number]- Status: Pending You Need to Schedule the Following Appointments Follow Up with??Martir ELAM, Melany Zarco When:??Within 1 to 2 weeks Where: [address] [place] [id number] Discharge Medications SHIVAM DENIS :1955 Visit Date:03/01/2023 Medications: Please continue your medications until treatment is completed or stopped by your provider. Medications not listed below should be discontinued. Discuss any questions related to medications with your provider. What How Much When Instructions Next Dose New amiTRIPTYLINE (amitriptyline 25 mg oral tablet) 2 tab(s) Oral Daily at Bedtime 03/06 8 pm New Divalproex Sodium (divalproex sodium 500 mg oral enteric coated tablet) 500 Milligram Oral Twice a day 03/06 8 pm New Olanzapine (olanzapine 5 mg oral tablet) 1 tab(s) Oral 3 times a day as needed for Agitation already given once today as needed New Olanzapine (Zyprexa Inj) 7.5 Milligram Intramuscular Every 12 hours as needed for Agitation as needed New Risperidone (RisperDAL 1 mg oral tablet) 1 tab(s) Oral Twice a day 03/06 8 pm Changed Aspirin (aspirin 325 mg oral capsule) 1 capsule Oral Daily 03/07 9 am Unchanged Methyl Salicylate-Menthol Topical (Muscle Rub) back Topically 3 times a day as needed for as needed as needed Unchanged Timolol Ophthalmic (Timolol 0.5% Ophth) 1 Drops Both eyes Twice a day 03/06 8 pm ?? What How Much When Comments Stop Taking Amlodipine (amLODIPine 10 mg oral tablet) 1 tab(s) Oral Daily (LAST FILLED 30 FOR 30) ?? Stop Taking Apap/ Butalbital/ Caffeine/ Codeine (Fioricet with Codeine 50 mg-300 mg-40 mg-30 mg oral capsule) 1 capsule Oral Every 8 hours as needed for as needed for headache Stop Taking Clonazepam (clonazePAM 1 mg oral tablet) 1 tab(s) Oral Twice a day as needed for Anxiety (LAST FILLED 60 FOR 30) ?? Stop Taking DiphenhydrAMINE (Benadryl 25 mg oral capsule) 1-2 capsule Oral Daily at Bedtime as needed for as needed Stop Taking Lisinopril (lisinopril 40 mg oral tablet) 1 tab(s) Oral Daily Test Results Below is a partial list of the most recent Laboratory test results done prior to this discharge. You may have had other tests and procedures not included in this list. Please discuss all test resultswith your provider. Acetaminophen Level (03/01/2023) ? ?Acetaminophen Level - <5 mg/L Amphetamine Urine Screen (03/02/2023) ???Amphetamine Screen, Urine - NONE DETECTED Aspirin Level (03/01/2023) ???Salicylate Level - 3.5 mg/dL Barbiturate Urine Screen (03/02/2023) ???Barbiturate Screen, Urine - NONE DETECTED Benzodiazepine Urine Screen (03/02/2023) ???Benzodiazepine Screen, Urine - NONE DETECTED BUN (03/02/2023) ???BUN - 21 mg/dL Calcium Ionized (03/01/2023) ???Calcium, Ionized pH Corrected - 1.24 mmol/L Cannabinoid Urine Screen (03/02/2023) ???Cannabinoid Screen, Urine - NONE DETECTED CBC w/ Differential (03/02/2023) ???WBC - 6.7 k/mm3???RBC - 3.67 m/mm3???Hgb - 11.1 Gm/dL???Hct - 33.8 %???MCV - 92.1 femtoliters???MCH - 30.2 pg???MCHC - 32.8 g/dL???Platelet Count - 339 k/mm3???RDW-SD - 42.4 femtoliters???MPV - 9.5 femtoliters???Nucleated RBC (Automated) - 0.0 #/100 WBC'S???Abs. NRBC - 0.0 k/mm3???Abs. Neut - 4.5 k/mm3???Abs. Lymph - 1.4 k/mm3???Abs. Clarke - 0.6 k/mm3???Abs. Eo - 0.2 k/mm3???Abs. Baso - 0.0 k/mm3???Neut % - 67.2 %???Lymph % - 21.1 %???Clarke % - 8.5 %???Eos % - 2.2 %???Baso % - 0.6 %???Imm Gran- 0.4 %???Abs. Imm Gran - 0.0 k/mm3 Cocaine Urine Screen (03/02/2023) ???Cocaine Metabolite Screen, Urine - NONE DETECTED Comprehensive Metabolic Panel (03/01/2023) ???Sodium - 138 mmol/L???Potassium - 5.2 mmol/L???Chloride - 103 mmol/L???Bicarbonate Level - 21 mmol/L???Anion Gap - 14???Glucose Level - 86 mg/dL???BUN - 31 mg/dL???Creatinine-Blood - 1.0 mg/dL???Estimated GFR Creatinine - 62 ML/MIN/1.73 M2???Calcium - 9.6 mg/dL???Protein, Total - 6.8 Gm/dL???Albumin - 3.9 Gm/dL???AG Ratio - 1.3???Alkaline Phosphatase - 121 units/L???AST (SGOT) - 23 units/L???ALT (SGPT) - 22 units/L???Bilirubin, Total - 0.2 mg/dL COVID-19 (2019 Novel Coronavirus) PCR (03/05/2023) ???COVID-19 PCR Specimen Source - NASAL???COVID-19 PCR Result - NEGATIVE Creatinine (03/02/2023) ???Creatinine-Blood - 0.9 mg/dL???Estimated GFR Creatinine - 69 ML/MIN/1.73 M2 Electrolytes (03/02/2023) ???Sodium - 137 mmol/L???Potassium - 3.8 mmol/L???Chloride - 100 mmol/L???Bicarbonate Level - 24 mmol/L???Anion Gap - 13 Glucose Level (03/02/2023) ???Glucose Level - 103 mg/dL GLUCOSE POC (03/01/2023) ???Glucose, POC - 119 mg/dL Lipase (03/01/2023) ???Lipase - 28 units/L Magnesium Level (03/01/2023) ???Magnesium - 1.7 mg/dL Opiate Screen Urine (03/02/2023) ???Opiate Screen, Urine - NONE DETECTED Sodium Urine (03/06/2023) ???Sodium, Urine Random - 41 mmol/L TSH with T4 Reflex (Adults Only) (03/01/2023) ???TSH - 2.71 uIU/mL Urinalysis w/hold for Urine Culture (03/02/2023) ???Appear/Color, Urine - COLORLESS???Specific [place], Urine - 1.006???pH, Urine - 6.0???Albumin, Urine - NEGATIVE???Glucose, Urine - NEGATIVE???Ketones, Urine - NEGATIVE???Bilirubin, Urine - NEGATIVE???Hemoglobin, Urine - NEGATIVE???Nitrite, Urine - NEGATIVE???Leukocyte, Urine - NEGATIVE???Urobilinogen - NORMAL? ?WBC's, Urine - <1 /HPF? ?RBC's, Urine - <1 /HPF? ?Mucus - SLIGHT? ?Hold UrineCulture - Testing available 48 hours from time of collection. Urine Creatinine (03/06/2023) ???Creatinine, Urine Random - 58.2 mg/dL Allergies (NKA means No Known Allergies) Leslie??(liver enzymes off) Antivert??(double vision) codeine??(nausea) fentaNYL??(diff breathing) ibuprofen morphine??(dizzy) statins??(swelling/rash) Problems Active Problems??(6) Benzodiazepine abuse, episodic?? Chronic dementia with behavioral disturbance?? Drug-seeking behavior?? Opiate abuse, episodic?? Opiate dependence, continuous?? Polypharmacy?? Education Materials Below is the list of Educational Leaflet Providered with your Discharge Instructions. Discharge Instructions for Acute Kidney Injury?? Valuables and Belongings I fully understand and agree that [facility] accepts no responsibility for all my personal [...] to send valuables and belongings home. ?? Review of Valuable and Belonging List: With witness Date for Pt to Sign Valuables/Belongings: 03/03/23 00:45:00 ?? Other Discharge Information ? Case Management Discharge Plan?? Discharge Plan?? Discharge Level of Care at Discharge: Psychiatric Facility/Unit ?? Pulmonary Rehab Status?? Pulmonary Rehab Discharge Status?? Respiratory Rate: 18 br/min ? Common Emergency Awareness Tips IS IT A STROKE? Act FAST and Check for these signs: FACE Does the face look uneven? ARM Does one arm drift down? SPEECH Does their speech sound strange? TIME Call at any sign of stroke ?? Heart [...] are strongly encouraged to quit. Please call [facility] [employer] Link at [phone] or [phone] or log in to [email or web address] for referrals to smoking cessation programs. ?? 819 Suicide & Crisis Lifeline is available 20/04 if you or someone you know needs to find a reason to keep living. By calling 644 you'll be connected to a skilled, trained counselor at a crisis center in your area. INPATIENT DISCHARGE INSTRUCTIONS SIGNATURE BHARATH SHIVAM DENIS Location:[facility] Registration Date and Time:03/01/2023 23:11 EDT Primary Care Physician: Melany Mcmahan NP, Attending Physician: Liana Johnson DO, I SHIVAM DENIS, have received the above patient education materials/instructions and have verbalizedunderstanding. If ambulance or transport services are being used I further acknowledge being given a choice of service. ?? If you need to contact me, please call me at this number: . Patient/Assembly Machine Set Up Mechanic Name: Patient/Assembly Machine Set Up Mechanic Signature: Relationship to Patient: Witness Name/Signature: Date: * Francia Mcrae DO: PERFORM Event Display: Patient Education Leaflets Authored Date: [id number] Discharge Instructions for Acute Kidney Injury ?? 82760 Discharge Instructions for Acute Kidney Injury You have been diagnosed with acute kidney injury. This means that you have had a sudden episode of kidney failure or damage that causes your kidneys not to work correctly. When both kidneys are healthy, they help filter out fluid and waste from the blood and body.??Acute kidney injury has many causes. These include urinary blockages, infection, lack of enough blood supply, and medicines that can injure??kidneys. In some cases, acute kidney injury is short-term (temporary). This type lasts several days to a few months. This is because the kidney can repair itself. Acute kidney injury can also result in chronic kidney disease or end stage renal failure. Here are some directions for you to follow as you recover. Home care ??? Follow any directions for eating and drinking given to you by your healthcare provider. o Drink less fluid, if directed by your healthcare provider. o Keep a record of everything you eat and drink. ??? Measure the amount of urine and stool you have each day. ??? Weigh yourself every day, at the same time of day, and in the same kind of clothes. Keep a daily record of your daily weights. ??? Take your temperature every day. Keep a record of the results. ??? Learn to take your own blood pressure (BP). Your healthcare provider can teach you how to correctly measure your BP. Keep a record of your results. Bring the record to your follow-up appointments. Ask your healthcare provider when you should seek emergency medical attention. Your provider will tell you what blood pressure reading is dangerous. ??? Stay away from people who have infections. This includes people with colds, bronchitis, or skin conditions. ??? Practice good personal??hygiene. Wash your hands often. This is especially important if you have a catheter in place when you leave the hospital. Doing so helps keep you safe from infection. ??? Take your medicines exactly as directed. ??? You may need frequent blood and urine tests. These are done to keep track of your kidney function. ?? Follow-up care Follow up with your healthcare provider, or as advised. ?? When to call your healthcare provider Call your??healthcare provider??right away if any of the following occur: ??? Signs of bladder infection, such as urinating more often, burning or pain when you pee, pain above your pubic bone, bloodin your urine, or trouble starting your urine stream ??? Signs of infection around your catheter, such as redness, swelling, warmth, or fluid leaking ??? Rapid weight loss or weight gain, such as 3??pounds or more in 24 hours or 6 pounds or more in 7 days ??? Fever above 100.4?? F ( 38??C ) or as directed by your healthcare provider ??? Chills ??? Muscle aches ??? Night sweats ??? Very little or no urine output ??? Swelling of your hands, legs, or feet ??? Back pain ??? Abdominal (belly) pain ??? Extreme tiredness ?? Last Reviewed Date: 2022 ?? 3650-1379 [employer]. All rights reserved. This information is not intended as a substitute for professional medical care. Always follow your healthcare professional's instructions. ?? * Mona Mota RN: PERFORM Event Display: Discharge/Transfer Note Hospital Authored Date: [id number] Discharge Planning Nursing Entered On: 03/03/2023 16:51 EDT Performed On: 03/03/2023 16:51 EDT by Mona Mota RN Discharge Planning Nursing Anticipated discharge : senior living facility Mona Mota RN - 03/03/2023 16:[address] Head WO contrast * BHSPowerscribe , CIS S: TRANSCRIBE Marcos Dan MD: VERIFY Gustavo SIMON, Balta: SIGN Event Display: Result: Authored Date: [id number] CT Head/Brain W/O Contrast INDICATION: Reason: Other:; ams, confusion; Clinical Question(s): Other:; Hematoma Infarction TECHNIQUE: Noncontrast head CT using axial technique and reconstructed in axial and coronal planes.Iterative reconstruction techniques are used to optimize dose and image quality. CTDIvol Head: 45.80 mGy, DLP Head: 773 mGy*cm. COMPARISON: MR 11/10/2021. CT 10/25/2020. FINDINGS: Petal Cutter view findings, lines and tubes: None. BRAIN AND EXTRA-AXIAL SPACES: No parenchymal hemorrhage, midline shift, or mass effect. Sahu-white matter differentiation is wellpreserved. No acute infarct. Negative insular ribbon sign. Atherosclerotic vascular calcification of the carotid arteries but negative hyperdense vessel sign. Mild prominence of the ventricles and sulci consistent with parenchymal volume loss. Moderate low-density white matter changes. No subarachnoid hemorrhage. No subdural or epidural collection. CALVARIUM, SKULL BASE, AND SOFT TISSUES: No fractures or suspicious bony lesions. The paranasal sinuses and mastoid air cells are clear. Status-post bilateral lens extraction. The extracranial soft tissues are unremarkable. IMPRESSION: No acute intracranial pathology. I have personally reviewed the images and I agree with this report. WSN: [id number] Ordering Physician: Balta Sloan Dictated By: Balta Chen MD Dictated Date/Time: 03/02/23 7:16 am Reviewed By: Marcos Dan MD Signed By: Marcos Dan MD Signed Date/Time: 03/02/23 7:21 am Transcribed By: JAYLENE Transcribed Date/Time: 03/02/23 3:21 am Patient Care team information Care Team Personnel Name: Monique Del Castillo RN Position: [facility] RN Member Role: Primary Care Nurse Name: Guilherme Arriaga RN Position: [facility] RN Member Role: Primary Care Nurse Name: Melany Mcmahan NP Position: [facility] PCO Associate Professional Member Role: PCP Address: Address: [address] [place] [id number] Name: Yun Hill RN Position: [facility] RN Member Role: Primary Care Nurse Name: Esperanza Barnes RN Position: [facility] RN Member Role: Primary Care Nurse Name: Geovanny ENCINAS Attending Position: [facility] ED Medicine MD Name: Ese GORDON, Santino Position: [facility] ED RN W/OE and Tasks Member Role: Patient Care Provider Name: Cortney Gill Position: [facility] ED TA [facility] Member Role: Industrial Truck Mechanic Care Team Related Persons Name: CHRIS HURTADO Address: [address] [place] [address] Name: ESTEE DIAZ Address: home [address] [place] [address] Name: KELLY DIAZ Address: home [address] [place] [address]
--- OUTSIDE RECORDS SUMMARY | 2023-09-02 05:38 | XMS_ITS | Continuity of Care Document ---
Author Name Unknown Organization [facility] Address [address] [facility], 3r d Floor, [address] [place] [address]- Care Team Providers Care Tattoo Technician Name Role Phone Martir MANUFACTURING MECHANIC, Melany Zarco Primary Care Physician Encounter [facility] [place] Date(s): 01/30/23 - 03/01/23 [facility] [address], 3rd Floor, [address] [place] [address]- Allergies, Adverse Reactions, Alerts Substance Reaction Severity [...] 2, tablet, By Mouth, Daily at bedtime, # 60 tablet, Refills 0, Tot. Refills 0, Maintenance, 02/28/23 8:41:00 EDT, Route to Pharmacy Electronically, [facility]/pharmacy #[id number], Partial fill upon patient request if the prescription is for a schedule II o... Start Date: 02/28/23 Status: Ordered aspirin 325 mg oral capsule 2 capsule [...] tablet, 1 Refills, Maintenance, 02/17/23 8:50:00 EDT, [facility]/pharmacy #[id number], Partial fill upon patient request if [...] Associate Professional Member Role: PCP Address: Address: [address] [place] [address]- Care Team Related Persons Name: CHRIS HURTADO Address: home [address] [facility] [address] [place] [address] Name: ESTEE DIAZ Address: home [address] [place] [address] Name: KELLY DIAZ Address: home [address] [place] [address]
--- OUTSIDE RECORDS SUMMARY | 2023-09-02 05:38 | XMS_ITS | Continuity of Care Document ---
Author Name Unknown Organization [facility] Address [address] [place] [address]- Care Team Providers Care Manager State Name Role Phone Martir NANOSCIENCE TECHNICIAN, Melany Zarco Primary Care Physician [phone] Encounter [facility] Date(s): 02/25/23 - 02/25/[address] [address]- Discharge Disposition: A-D/C Home Attending Physician: Neo Liz MD Admitting Physician: Neo iLz MD Referring Physician: Not on Staff, Referring MD Allergies, Adverse Reactions, Alerts Substance Reaction Severity Status codeine nausea Active Antivert double vision Active ibuprofen Active statins swelling/rash Active morphine dizzy Active fentaNYL diff breathing Active Leslie liver enzymes off Active Immunizations [...] tablet, 1 Refills, Maintenance, 02/17/23 8:50:00 EDT, [facility]/pharmacy #[id number], Partial fill upon patient request [...] oldest [Reference Range]: 1 Height 160 cm (02/25/23 1:07 PM) Weight 64 kg (02/25/23 1:07 PM) Oxygen Saturation [94-100 %] 98 % (02/25/23 1:10 PM) Pulse Rate [55-90 bpm] 97 bpm *H* (02/25/23 1:10 PM) Blood Pressure [90-138/55-84 mm Hg] 114/ 64mm Hg (02/25/23 1:10 PM) Respiratory Rate [16-30 br/min] 18 br/mi n (02/25/23 1:10 PM) Temperature [96.8-100.4 DegF] 98.1 DegF (02/25/23 1:10 PM) Mode of Delivery (Oxygen) Room air (02/25/23 1:10 PM) Blood pressure sites Arm, left (02/25/23 1:10 PM) Temperature Route Temporal (02/25/23 1:10 PM) Dry Weight 64 kg (02/25/23 1:07 PM) Weight Obtained Via scale (02/25/23 1:07 PM) Social History Social History Type Response Smoking Status Former smoker; Tobac co user in household: No entered on: 03/27/14 Sex Note * Meli Bailey: PERFORM Event Display: Patient Education Leaflets Authored Date: [id number] Headache, Unspecified ?? [id number] Headache, Unspecified A number of things can cause headaches. The cause of your headache isn???t clear. But it doesn???t seem to be a sign of any serious illness. Headache affects almost everyone at some time. It's the most common reason people miss days from work or school. A physical and nervous system exam can help rule out any serious causes of headache. Sometimes you may need more testing. This could include blood work or imaging tests of the head, such as a CAT scan or MRI. You could have a tension headache or a migraine headache. Stress can cause a tension headache. This can happen if you tense the muscles of your shoulders, neck, and scalp without knowing it. If this stress lasts long enough, you may develop a tension headache. It's not clear why migraines occur, but certain things called triggers can raise the risk of havinga migraine attack. Migraine triggers may include emotional stress or depression, or by hormone changes during the menstrual cycle. Other triggers include control pills and other medicines, alcohol or caffeine, foods with tyramine, such as aged cheese or wine, eyestrain, weather changes, missed meals, and lack of sleep or oversleeping. Other causes of headache include: ??? Viral illness with high fever ??? Head injury with concussion ??? Sinus, ear, or throat infection ??? Dental pain and jaw joint (TMJ) pain More serious but less common causes of headache include stroke, brain hemorrhage, brain tumor, meningitis, and encephalitis. Home care Follow these tips when taking care of yourself at home: ??? Don???t drive yourself home if you weregiven pain medicine for your headache. Instead, have someone else drive you home. Try to sleep whenyou get home. You should feel much better when you wake up. ??? Apply heat to the back of your neckto ease a neck muscle spasm. Take care of a migraine headache by putting an ice pack on your forehead or at the base of your skull. ??? If you have nausea or vomiting, eat a light diet until your headache eases. ??? If you have a migraine headache, use sunglasses when in the daylight or around bright indoor lighting until your symptoms get better. Bright glaring light can make this type of headache worse. ?? Follow-up care Follow up with your healthcare provider, or as advised. Talk with your provider if you have frequent headaches. They can help figure out a treatment plan. By knowing the earliest signs of headache, and starting treatment right away, you may be able to stop the pain yourself. ?? When to get medical advice Call your healthcare provider right away??if any of the following occur: ??? Your head pain suddenly gets worse after sexual intercourse or strenuous activity ??? Your head pain doesn???t get better within 24 hours ??? You have new symptoms ??? You aren???t able to keep liquids down (repeated vomiting) ??? Fever of 100.4??F (38??C) or higher, or as directed by your healthcare provider ??? Stiff neck ??? Extreme drowsiness, confusion, or fainting ??? Dizziness or dizziness with spinning sensation (vertigo) ??? Weakness in an arm or leg or one side of your face ??? You have trouble talking or seeing ?? Last Reviewed Date: 2022 ?? 8770-4047 [employer]. All rights reserved. This information is not intended as a substitute for professional medical care. Always follow your healthcare professional's instructions. ?? Patient Care team information Care Team Personnel Name: Martir ELAM, Melany Zarco Position: [facility] PCO Associate Professional Member Role: PCP Address: Address: [address] [place] [address] - Name: Lizeth Navas RN Position: [facility] ED RN W/OE and Tasks Member Role: Patient Care Provider Name: Meli Bailey Position: [facility] Associate Professional Member Role: ED Physician Pulp Making Plant Operator Address: Address: [address] [place] [address] [place] [address]- Name: Charanjit Benoit Position: [facility] ED TA [facility] Member Role: Tobacco Sieve Operator Name: Francia Corona RN Position: [facility] ED RN W/OE and Tasks Member Role: Patient Care Provider Care Team Related Persons Name: CHRIS HURTADO Address: home [address] [facility] [address] [place], [place] Name: ESTEE DIAZ Address: home [address] [place], [place] Name: KELLY DIAZ Address: home [address] [place] [address]
--- OUTSIDE RECORDS SUMMARY | 2023-09-02 05:38 | XMS_ITS | Continuity of Care Document ---
Author Name Unknown Organization [facility] Address [address], [address] Floor, [address] [place] [address]- Care Team Providers Care Casket Upholsterer Name Role Phone Martir SUPERVISOR BACKFILLING, Melany Zarco Primary Care Physician [place] [facility] [place]14[place]23 - 02/13/23 [facility] [address], [address] Floor, [address] [place] [address]- Allergies, Adverse Reactions, Alerts Substance Reaction Severity [...] Associate Professional Member Role: PCP Address: Address: [address] [place] [address] Adult [place], [place] - Care Team Related Persons Name: CHRIS HURTADO Address: home [address] [facility] [address] [place], [place] Name: ESTEE DIAZ Address: home [address] [place], [place] Name: KELLY DIAZ Address: home [address] [place] [address]
--- OUTSIDE RECORDS SUMMARY | 2023-09-02 05:38 | XMS_ITS | Continuity of Care Document ---
Author Name Unknown Organization [facility] Address [address], [address] Floor, [address] [place] [address]- Care Team Providers Care Theatre Instructor Name Role Phone Not on Staff, PCP Primary Care Physician Unavail able Encounter [facility] Date(s): 02/20/23 - 03/22/23 [facility] [address], 3[address] Floor, [address] [place] [address]- Allergies, Adverse Reactions, Alerts Substance Reaction Severity [...] Persons Name: CHRIS HURTADO Address: home [address] [facility] [address] [place] [address] Name: ESTEE DIAZ Address: home [address] [place] [address] Name: KELLY DIAZ Address: [address] [address]
--- OUTSIDE RECORDS SUMMARY | 2023-09-02 05:38 | XMS_ITS | Continuity of Care Document ---
Author Name Unknown Organization [facility] Address [address] [facility], 3r d Floor, [address] [place] [address]- Care Team Providers Care Foreign Banknote Teller Trader Name Role Phone Martir ELAM, Melany Zarco Primary Care Physician Encounter [facility] [place] Date(s): 11/27/22 - 01/02/23 [facility] [address], [address] Floor, [address] [place] [address]- Attending Physician: Lizbeth SIMON, Santos Polo Admitting Physician: Santos Nieves MD Referring Physician: Melany Mcmahan NP Allergies, Adverse Reactions, Alerts Substance Reaction [...] Associate Professional Member Role: PCP Address: Address: [address] [place] [address] [place] [address]- Care Team Related Persons Name: CHRIS HURTADO Address: home [address] [facility] [address] [place], [place] Name: ESTEE DIAZ Address: home [address] [place], [place] Name: KELLY DIAZ Address: home [address] [place] [address]
--- OUTSIDE RECORDS SUMMARY | 2023-09-02 05:39 | XMS_ITS | Continuity of Care Document ---
Author Name Unknown Organization [facility] Address [address] [facility], 3r d Floor, [address] [place] [address]- Care Team Providers Care Yarn Worker Name Role Phone Martir SUPERVISOR LACE TEARING, Melany Zarco Primary Care Physician Encounter [facility] Date(s): 01/21/23 - 02/20/23 [facility] [address], 3[address] Floor, [address] [place] [address]- Allergies, Adverse Reactions, Alerts Substance Reaction Severity [...] tablet, 1 Refills, Maintenance, 02/17/23 8:50:00 EDT, [facility]/pharmacy #[id number], Partial fill upon patient request [...] Associate Professional Member Role: PCP Address: Address: [address] [place] [address]- Care Team Related Persons Name: CHRIS HURTADO Address: home [address] [place] [address] Name: ESTEE DIAZ Address: home [address] [place] [address] Name: KELLY DIAZ Address: [address] [address]
--- OUTSIDE RECORDS SUMMARY | 2023-09-02 05:39 | XMS_ITS | Continuity of Care Document ---
Author Name Unknown Organization [facility] Address [address] [place], [address] Floor, [address] [place] [address]- Care Team Providers Care Payroll Secretary Name Role Phone Martir POWER PRESS TENDER, Melany Zarco Primary Care Physician [phone] Encounter [facility] [place] Date(s): 01/14/23 - 02/13/23 [facility] [address], [address] Floor, [address] [place] [address]- Allergies, Adverse Reactions, Alerts Substance Reaction Severity [...] Associate Professional Member Role: PCP Address: Address: [address] [place] [address] Adult [place], [place] - Care Team Related Persons Name: CHRIS HURTADO Address: home [address] [facility] [address] [place], [place] Name: ESTEE DIAZ Address: home [address] [place], [place] Name: KELLY DIAZ Address: home [address] [place] [address]
--- OUTSIDE RECORDS SUMMARY | 2023-09-02 05:39 | XMS_ITS | Continuity of Care Document ---
Author Name Unknown Organization [facility] Address [address], [address] Floor, [address] [place] [address]- Care Team Providers Care Chucking And Sawing Machine Operator Name Role Phone Not on Staff, PCP Primary Care Physician Unavail able [place] [facility] [place]24[place]23 - 03/26/23 [facility] [address], 3[address] Floor, [address] [place] [address]- Allergies, Adverse Reactions, Alerts Substance Reaction Severity [...] Personnel Name: Monique Del Castillo RN Position: [facility] RN Member Role: Primary Care Nurse Name: Guilherme Arriaga RN Position: S RN Member Role: Primary Care Nurse Name: Not on Staff, PCP Position: S Physician (General Medicine) Member Role: PCP Name: Yun Hill RN Position: S RN Member Role: Primary Care Nurse Name: Molly GORDON, Esperanza Position: [facility] RN Member Role: Primary Care Nurse Care Team Related Persons Name: CHRIS HURTADO Address: home [address] [facility] [facility] [address] [place] [address] Name: ESTEE DIAZ Address: home [address] [place] [address] Name: KELLY DIAZ Address: [place] [address]
--- OUTSIDE RECORDS SUMMARY | 2023-09-02 05:39 | XMS_ITS | Continuity of Care Document ---
Author Name Unknown Organization [facility] Address [address] [place] [address]- Care Team Providers Care Handle Sewer Name Role Phone Not on Staff, PCP Primary Care Physician Unavail able Encounter [facility] Date(s): 06/17/23 - 07/17/23 [facility] [address] [place] [address]- [place] Allergies, Adverse Reactions, Alerts Substance Reaction Severity Status codeine nausea Active ibuprofen Active morphine dizzy Active Antivert double vision Active Leslie liver enzymes off Active statins swelling/rash Active fentaNYL diff breathing Active Immunizations Given and Recorded Vaccine Date Status Refusal Reason influenza virus vaccine, inactivated 12/14/22 [place] rded influenza virus vaccine, inactivated 06/06/21 [place] rded influenza virus vaccine, inactivated 06/02/12 [place] rded [id number] bivalent booster vax 09/13/22 Recorded SARS-CoV-2 (COVID-19) [...] Team Personnel Name: Lizeth Vidal RN Position: [facility] Outreach Member Role: Primary Care Nurse Name: Mayela Panchal RN Position: S RN Member Role: Primary Care Nurse Name: Guilherme Arriaga RN Position: S RN Member Role: Primary Care Nurse Name: John Gibson RN Position: S RN Member Role: Primary Care Nurse Name: Paolo Bello RN Position: [facility] RN Member Role: Primary Care Nurse Name: Not on Staff, PCP Position: [facility] Physician (General Medicine) Member Role: PCP Name: Giovana Figueredo RN Position: [facility] RN Member Role: Primary Care Nurse Name: Tosin Figueredo RN Position: [facility] RN Member Role: Primary Care Nurse Name: Fidel Brush RN Position: [facility] RN Member Role: Primary Care Nurse Name: Esperanza Barnes RN Position: [facility] RN Member Role: Primary Care Nurse Name: Janet Mckeon RN Position: [facility] RN Member Role: Primary Care Nurse Care Team Related Persons Name: CHRIS HURTADO Address: home [address] [facility] [address] [place] [address] Name: ESTEE DIAZ Address: home [address] [place] [address] Name: KELLY DIAZ Address: [place] [address]
--- OUTSIDE RECORDS SUMMARY | 2023-09-02 05:39 | XMS_ITS | Continuity of Care Document ---
Author Name Unknown Organization [facility] Address [address] [place] [address]- Care Team Providers Care Fagoter Name Role Phone Martir ELAM, Melany Zarco Primary Care Physician [place] [facility] [place]/23 [facility] [address] [place] [address]- [place] Allergies, Adverse Reactions, Alerts Substance Reaction [...] Associate Professional Member Role: PCP Address: Address: [address] [place] [address] [place] [facility] [place], [place] - Care Team Related Persons Name: CHRIS HURTADO Address: home [address] [place], [place] Name: ESTEE DIAZ Address: home [address] [place], [place] Name: KELLY DIAZ Address: home [address] [place] [address]
--- OUTSIDE RECORDS SUMMARY | 2023-09-02 05:39 | XMS_ITS | Continuity of Care Document ---
Author Name Unknown Organization [facility] Address [address], [address] Floor, [address] [place] [address]- Care Team Providers Care Coverstitch Elastic Attacher Name Role Phone Martir FENCE MAKER, Melany Zarco Primary Care Physician [phone] [facility] [place] Date(s): 11/27/22 - 12/27/22 [facility] [address], [address], [address] [place] [address]- Allergies, Adverse Reactions, Alerts Substance Reaction Severity [...] Associate Professional Member Role: PCP Address: Address: [address] [place] [address] [facility] [place] [address]- Care Team Related Persons Name: CHRIS HURTADO Address: home [address] [place], [place] Name: ESTEE DIAZ Address: home [address] [place], [place] Name: KELLY DIAZ Address: home [address] [place] [address]
--- OUTSIDE RECORDS SUMMARY | 2023-09-02 05:39 | XMS_ITS | Continuity of Care Document ---
Author Name Unknown Organization [facility] Address [address] [facility], [address] Floor, [address] [place] [address]- Care Team Providers Care Sectionizer Name Role Phone Martir MODERN AND CONTEMPORARY ART CURATOR, Melany Zarco Primary Care Physician [phone] [place] [facility] [place]/22/23 - 02/21/23 [facility] [address], [address], [address] [place] [address]- Allergies, Adverse Reactions, Alerts Substance Reaction Severity Status codeine nausea Active ibuprofen Active statins swelling/rash Active morphine [...] tablet, 1 Refills, Maintenance, 02/17/23 8:50:00 EDT, [facility]/pharmacy #[id number], Partial fill upon patient request [...] Professional Member Role: PCP Address: Address: [address] [place] [address]- Care Team Related Persons Name: CHRIS HURTADO Address: home [address] [place] [address] Name: ESTEE DIAZ Address: home [address] [place] [address] Name: KELLY DIAZ Address: [address] [address]
--- OUTSIDE RECORDS SUMMARY | 2023-09-02 05:40 | XMS_ITS | Continuity of Care Document ---
Author Name Unknown Organization [facility] Address [address] [facility], [address] Floor, [address] [place] [address]- Care Team Providers Care Maintenance Construction Helper Name Role Phone Martir SALES ORDER COORDINATOR, Melany M Primary Care Physician [phone] Encounter [facility] [place] Date(s): 01/15/23 - 02/27/23 [facility] [address], [address], [address] [place] [address]- Attending Physician: Santos Nieves MD Admitting Physician: [...] tablet, 1 Refills, Maintenance, 02/17/23 8:50:00 EDT, [facility]/pharmacy #[id number], Partial fill upon patient request [...] Associate Professional Member Role: PCP Address: Address: [address] [place] [address] Care Team Related Persons Name: CHRIS HURTADO Address: home [address] [place], [place] Name: ESTEE DIAZ Address: home [address] [place] [address] Name: KELLY DIAZ Address: home [address] [place] [address]
--- OUTSIDE RECORDS SUMMARY | 2023-09-02 05:40 | XMS_ITS | Continuity of Care Document ---
Author Name Unknown Organization [facility] Address [address] [place] [address]- Care Team Providers Care Mottler Operator Name Role Phone Martir ELAM, Melany Zarco Primary Care Physician [facility]counter [facility] Date(s): 02/25/23 - 02/25/[address] [address]- Discharge Disposition: A-D/C Walkout Attending Physician: Not on Staff, Attending MD Admitting Physician: Not on Staff, Admitting MD Referring Physician: Not on Staff, Referring [...] Associate Professional Member Role: PCP Address: Address: [address] [place] [address], [place] - [place] Care Team Related Persons Name: CHRIS HURTADO Address: home [address] [place], [place] Name: ESTEE DIAZ Address: home [address] [place], [place] Name: KELLY DIAZ Address: home [address] [place] [address]
--- NOTE | 2023-09-02 06:36 | ED_ITS ---
HPI - Headache General Chief Complaint: Headache Stated Complaint: headache Time Seen by Provider: 09/02/23 06:34 Source: patient, EMS, RN notes reviewed and old records reviewed Mode of arrival: EMS History of Present Illness HPI Narrative: 68-year-old female with a past medical history of migraines, HTN, white matter brain disease, chronic migraines, presenting to the ED complaining of acute on chronic headache x 2 hours. Patient states Fioricet and amitriptyline are the only medications that work for her. States is not currently following with a neurologist. Denies headache be maximal in onset, nausea/vomiting, vision change/loss, weakness, numbness/tingling MD elicited complaint: migraine Related Data Previous Rx's Medication Instructions Recorded baluielyzz-atwkicmzuvtgu-mrgnoaen 1 cap PO Q6H PRN pain #10 caps 07/10/21 50 mg-300 mg-40 mg capsule (Fioricet) cyclobenzaprine 10 mg tablet 10 mg PO TID PRN muscle spasm #10 07/10/21 tabs lidocaine 5 % topical patch 1 patch topical DAILY #15 ea 07/10/21 (Lidoderm) tnaejdulev-pwdjpwlrswrnh-gxtzzxfo 1 cap PO Q6H PRN headache #10 caps 08/08/22 50 mg-300 mg-40 mg capsule (Fioricet) amlodipine 5 mg tablet 5 mg PO DAILY #30 tabs 08/14/22 euvgijsltq-chpcwlzzypjvz-vjqndzvo 1 cap PO Q6H PRN pain #20 caps 08/14/22 50 mg-300 mg-40 mg capsule (Fioricet) xdvuhvbkdo-kckmwvbotwzuv-cywzkkye 1 cap PO Q4H PRN pain #30 caps 08/20/22 50 mg-300 mg-40 mg capsule (Fioricet) xnbcandzkq-txyedhgauidra-fylihnlx 1 cap PO .B.i.d. PRN pain #14 caps 08/26/22 50 mg-300 mg-40 mg capsule (Fioricet) amlodipine 5 mg tablet 5 mg PO DAILY #30 tabs 08/30/22 fgqrtifjbs-hhrozklqeitpj-zxqaxoxp 2 cap PO QAM #30 caps 08/30/22 50 mg-300 mg-40 mg capsule (Fioricet) euawjxmjzm-mefpugeeeeepv-gqrbihqz 2 tab PO Q6H PRN pain #12 tabs 12/10/22 50 mg-325 mg-40 mg tablet cvljbnktex-bqugkreysxuhy-ismgjreu 1 cap PO BID PRN pain #6 caps 10/06/22 50 mg-300 mg-40 mg capsule (Fioricet) iulhqxseho-hbszahxokqqji-vxzhvxho 1 cap PO Q6H PRN headache #20 caps 11/16/22 50 mg-300 mg-40 mg capsule (Fioricet) lisinopril 10 mg tablet 10 mg PO DAILY #30 tabs 11/16/22 lisinopril 40 mg tablet 40 mg PO DAILY #30 tabs 12/05/22 clazsmgjro-psikfdpfppgfg-pkemsisx 2 cap PO Q4-6H PRN pain #30 caps 12/17/22 50 mg-300 mg-40 mg capsule (Fioricet) amitriptyline 50 mg tablet 50 mg PO BEDTIME #20 tabs 01/20/23 jhlndhyovd-bwfrglozpkyej-fvcyhdge 1 cap PO TID PRN pain #12 caps 01/23/23 50 mg-300 mg-40 mg capsule (Fioricet) ikyzyllmfz-eqxsnkxzfqgan-vojachtc 1 cap PO Q8H PRN pain #6 caps 01/29/23 50 mg-300 mg-40 mg capsule (Fioricet) coofzxtyhp-ikcmnmyoyixwa-elzjgpde 1 cap PO Q8H PRN pain #10 caps 01/30/23 50 mg-300 mg-40 mg capsule (Fioricet) Allergies Allergy/AdvReac Type Severity Reaction Status Date / Time fentanyl AdvReac Intermediate felt like Verified 09/02/23 05:38 everything was spinning morphine AdvReac Intermediate pass out Verified 09/02/23 05:38 Review of Systems Review of Systems: Constitutional: No Fever, No Chills, No Fatigue, No Malaise ENT/Mouth: No Ear Pain, No Nasal Congestion, No sore throat, No Rhinorrhea, No Swallowing Difficulty Eyes: No Eye Pain, No Swelling, No Redness, No Vision Changes Cardiovascular: No Chest Pain, No SOB, No Edema, No Palpitations Respiratory: No Cough, No Sputum, No Dyspnea Gastrointestinal: No Nausea, No Vomiting, No Diarrhea, No Constipation, No Abdominal pain, Musculoskeletal: No joint pain, No Myalgias, No Joint Swelling Skin: No Skin Lesions, No rash Neuro: No Weakness, No Numbness, No Paresthesias, No Loss of Consciousness, No Dizziness, + Headache Yes all other systems are reviewed and are negative Constitutional: Constitutional: Reports as per [facility] Past Medical History Attestation statement: The following information was validated with the patient. 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 Migraines HTN (hypertension) Social History Social History Alcohol intake: former Patient Tobacco Use Status: Never used Tobacco Smoked in Last 30 Days: No Use of substances other than those prescribed or required for medical reasons: No Advance Directives: No Advance Directives Information Provided: Yes Physical Exam Vital Signs: Vital Signs: Last Vital Signs Temp 98.7 F 09/02/23 05:24 Pulse 95 09/02/23 05:24 Resp 16 09/02/23 05:24 BP 148/79 H 09/02/23 05:24 Pulse Ox 97 09/02/23 05:24 O2 Del Method Room Air 09/02/23 05:24 BMI result Body Mass Index 28.3 Const: General: cooperative, healthy appearing and no acute distress Orientation/consciousness: patient oriented x3 Limitations: no limitations HEENT: Head: Yes normal to inspection and Yes atraumatic Ears: hearing grossly normal bilaterally and external ears normal General nose exam: Normal external nose present Face and sinus: Yes normal facial exam Mouth: Normal oral and palatal mucosa present Throat: Yes posterior oropharynx normal, Yes tonsils normal, Yes uvula midline, No uvula laterally displaced and No uvular edema Eyes: General: appearance normal, both eyes and all related structures Pupils: Equal, round and reactive pupils present EOM: EOMs intact bilaterally Neck: Neck: Yes normal visual inspection and Yes no meningeal signs Resp: Effort & Inspection: normal respiratory effort and no respiratory distress Auscultation: clear to auscultation bilaterally Cardio: Rate: regular rate Heart sounds: S1 normal heart sound present and S2 normal heart sound present GI: Inspection: Yes normal to inspection Palpation (GI): Soft to palpation, nontender, no guarding and not rigid Skin: Rashes: no rashes Wounds: no wounds Neuro: General: patient oriented x3, gait normal, tone normal, moves all extremities, no meningeal signs, no focal motor deficits and CN's II-XI intact bilaterally Cranial nerves: Yes CN's II-XII intact bilaterally and Yes Equal, round and reactive pupils present Cognition (Neuro): normal cognition Gait exam (Neuro): Normal gait present Motor exam (neuro): 5/5 motor strength present throughout and no tremor noted Extrem: General: Yes normal to inspection Medications Administered Discontinued Medications Generic Name Dose Route Start Last Admin Trade Name Freq PRN Reason Stop Dose Admin Acetaminophen/Butalbital/Caffeine 1 tab 09/02/23 06:44 09/02/23 07:06 Butalb/Acetamin/Caff 50/325/40 Tablet PO 09/02/23 06:45 1 tab ONCE ONE Administration Medical Decision Making Medical Decision Making [facility] Narrative: 68-year-old female with a past medical history of migraines, HTN, white matter brain disease, chronic migraines, presenting to the ED complaining of acute on chronic headache x 2 hours. On exam vital signs stable, NAD, nontoxic appearing, no focal neuro deficits. Concern for acute on chronic migraine headache. Low suspicion for SAH, meningitis/encephalitis, or CVA/TIA. Per Geovani last year sent prescription filled in January Discussed at length with patient she needs to establish care with Neurology & the ED is not the proper place for pain management for her chronic headaches. Will give 1 time dose of Fioricet in the ED and refer to neuro Please refer to course for remaining clinical decision making, interpretation of labs/imaging results, and discussions with consultants and/or family members. Results discussed with patient including worrisome signs and symptoms and strict return precautions, and when to return to the emergency department. They verbalized understanding and feel safe for discharge at this time. Differential Diagnosis Differential Diagnoses: The differential diagnosis associated with the presentation includes As above Lab Data [facility] Lab Attestation statement: I reviewed the patient's lab results. Radiology Impression Discussion of test interpretation with radiology: I have reviewed the radiologist's reading. Independent Historian Clinical information obtained from an independent historian. History obtained from or confirmed by: EMS External Record Review External record reviewed: Inpatient record, Office record, Outpatient record, Prior outpatient labs, Prior outpatient radiology, Primary care record and Outside ED record Tests considered The following testing was considered but not selected: As above Prescription Management I considered prescription management with: Pain Medication Chronic Conditions Patient?s care impacted by: Hypertension Discharge Plan Discharge Clinical Impression: Chronic headache Patient Disposition: Home, Self-Care Instructions: Acute Headache (DC) Additional Instructions: You need to establish care with Neurology. Take Tylenol/ Motrin at home as needed If symptoms persist or worsen, headache becomes unbearable, you weakness or nausea/vomiting return to the ED Prescriptions: No Action cpxodzfzqj-ojlkkgqxxfsst-vehc [Fioricet] 50-300-40 mg capsule 1 cap PO Q6H PRN (Reason: headache) Qty: 10 0RF mgrwfnhxfa-zlvxqdvwcgmhi-qyyx [Fioricet] 50-300-40 mg capsule 1 cap PO Q6H PRN (Reason: pain) Qty: 20 0RF amlodipine 5 mg tablet 5 mg PO DAILY Qty: 30 0RF zphmwfwdnk-wesrifzserqwp-eakj [Fioricet] 50-300-40 mg capsule 1 cap PO Q4H PRN (Reason: pain) Qty: 30 0RF vckcwmpgky-srxuwqlczubwt-axar [Fioricet] 50-300-40 mg capsule 1 cap PO .B.i.d. PRN (Reason: pain) Qty: 14 0RF opblbjrrcy-okmvvzzbbciju-qxbn 50-325-40 mg tablet 2 tab PO Q6H PRN (Reason: pain) Qty: 12 0RF Rx Instructions: do not exceed 6 tabs per 24 hrs ucbksralfa-afntxdghzdsvg-iauc [Fioricet] 50-300-40 mg capsule 1 cap PO BID PRN (Reason: pain) Qty: 6 0RF jrcppwfnjr-prlpqsaaerzgd-wawf [Fioricet] 50-300-40 mg capsule 1 cap PO Q6H PRN (Reason: headache) Qty: 20 0RF lisinopril 10 mg tablet 10 mg PO DAILY Qty: 30 0RF upjrufzeye-vukgtflvrtdfh-irko [Fioricet] 50-300-40 mg capsule 2 cap PO Q4-6H PRN (Reason: pain) Qty: 30 0RF Rx Instructions: do not exceed 6 caps per day dkhjsyvwpa-elxaadwkeiwon-xblk [Fioricet] 50-300-40 mg capsule 1 cap PO Q6H PRN (Reason: pain) Qty: 10 0RF cyclobenzaprine 10 mg tablet 10 mg PO TID PRN (Reason: muscle spasm) Qty: 10 0RF lidocaine [Lidoderm] 5 % adhesive patch,medicated 1 patch topical DAILY Qty: 15 0RF Rx Instructions: leave on most painful area for up to 12 hrs amlodipine 5 mg tablet 5 mg PO DAILY Qty: 30 0RF klmrxhltnw-khiocnsvrbmed-uceo [Fioricet] 50-300-40 mg capsule 2 cap PO QAM Qty: 30 0RF Rx Instructions: do not exceed 6 caps per day lisinopril 40 mg tablet 40 mg PO DAILY Qty: 30 2RF amitriptyline 50 mg tablet 50 mg PO BEDTIME Qty: 20 0RF gqvxicdjsg-liwseplzbpgfj-tdaf [Fioricet] 50-300-40 mg capsule 1 cap PO TID PRN (Reason: pain) Qty: 12 0RF jcqfrcqtuy-qrhginksqzfmc-qbrg [Fioricet] 50-300-40 mg capsule 1 cap PO Q8H PRN (Reason: pain) Qty: 6 0RF yciinfahjk-fcuqvdusgkhmq-zivd [Fioricet] 50-300-40 mg capsule 1 cap PO Q8H PRN (Reason: pain) Qty: 10 0RF Ref[place]: [facility] [place] [facility] [place] Group] Interventions: ED Discharge Assessment Last Done: 09/02/23 07:09 Discharge Date/Time: 09/02/23 07:10
[2023-09-02] MEDS: Butalb/Acetamin/Caff 50/325/40 TABLET 1 TAB PO (07:06)
== END 2023-09-02 07:10 | disposition home or self-care (01) ==
PROVIDERS: Emergency Provider Emergency Medicine Emergency Medical Services
DX: R51.9 Headache, unspecified (principal); I10 Essential (primary) hypertension; Z79.899 Other long term (current) drug therapy
CPT/HCPCS: 99283; 99284

== ENCOUNTER 2023-11-17 12:27 | Outpatient (AMB) | payer OTHER, SELFPAY ==
--- NOTE | 2023-11-17 07:51 | MHC.PC.OV ---
Vital Signs 11/17/23 12:40 Height 5 ft 3 in Weight 157 lb BMI 27.8 BP 132/80 Blood Pressure Location Lt brachial Position Sitting Respiration 14 Pulse 92 Pulse Source Pulse Oximeter Pulse Oximetry (%) 98 Oxygen Delivery Method Room Air Intake Visit Reasons: [place] REPRESENTATIVE/Brain Bleed Intake Note: Patient is a U.[place]. REPRESENTATIVE establishing care. Patient reports having a recent fall, was seen at [facility], had a CT scan and was informed of having a brain bleed. Terminal Computer Operator Required: No Accompanied by: Self / Same As Patient Allergies fentanyl Adverse Reaction (Intermediate, Verified 11/17/23 13:04) felt like everything was spinning morphine Adverse Reaction (Intermediate, Verified 11/17/23 13:04) pass out Medication List - Last Reconciled 11/17/23 by Lillian Caceres, CEMENT CRUSHER OPERATOR- amlodipine 5 mg PO DAILY etxrxdmmha-frqjlnxmjembu-dfnk 50-300-40 mg (Fioricet) 1 cap PO Q8H PRN cyclobenzaprine 10 mg PO TID PRN Tobacco use date assessed: 11/17/23 Fall risk assessment: 1 Fall in past year Last assessed Fall Risk: 11/17/23 Dental Screening Dental Screen Date: 11/17/23 Did you have a dental visit in the last 12 months?: Yes Did you have a dental problem in the last 6 months where you did not have access to dental care?: No Was dental information given to patient?: Patient has dentist HPI HPI Comments History of Present Illness Details 68-year-old female with brain lesion, white matter disease, degenerative disc disease, osteoarthritis, glaucoma, hypertension, daily headache, cerebrovascular disease, 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 Admitted to [facility] on 11/03/2023 through 11/04/2023 for a left subarachnoid hemorrhage. The CT scan showed that it was stable. Neurosurgery was consulted. The patient left against medical advice. She left as she didnt think she needed any further f/u. Presents today in her usual state of health. She has no interest in following up with Neurosurgery. HPI difficult to obtain as the patient has tangential speech. Recites things from the past. Requesting over an over a prescription for Fioricet. When asked about general wellness and care follow through she only responds with needing Fioricet. asks for a referral to [facility]rology for further management of her chronic migraines and for ongoing care of the subarachnoid hemorrhage. Referral was placed today. Made aware that there may be an issue processing this due to insurance. I tried to discuss other management in regards to helping her, she reports the only thing that will help her as her Fioricet. I did advise her as well as her partner that I will not be filling a prescription for Fioricet. I would entertain referring her to pain management to see if there were any other treatment modalities that would help her. I also encouraged physical therapy to help her with her strength and balance as she has had several falls according to the [facility] nurse who called to give a report. Patient adamantly declined physical therapy. I did let her know that if she was looking for someone to prescribe chronic high doses of Fioricet that I was not the right provider for her. She thanked me for my time. 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 Migraines HTN (hypertension) Family History Mother Alzheimer disease Father Cancer Social History Household Members: Spouse Both parents involved: No Caregiver staying overnight: No Housing: House Are you a primary lawn care professional to a significant other at home: No Do you presently have visiting nurse or other home services: No 75 years or older and lives alone: No Alcohol intake: former Patient Tobacco Use Status: Current everyday Tobacco user Tobacco use type: Cigarette Cigarette Packs Per Day: 3 e-Cigarette/Vaping Use: Never Used service: No Current occupational status: disabled Sexual orientation: Unable to collect Gender identity: Unable to collect Cognitive needs: No Hearing needs: No Vision needs: No Questionnaire PHQ-9 Over the last 2 weeks, how often have you been bothered by any of the following problems? 1. Little interest or pleasure in doing things: not at all 2. Feeling down, depressed, or hopeless: not at all 3. Trouble falling or staying asleep, or sleeping too much: not at all 4. Feeling tired or having little energy: not at all 5. Poor appetite or overeating: several days 6. Feeling bad about yourself - or that you are a failure or have let yourself or your family down: not at all 7. Trouble concentrating on things, such as reading the newspaper or watching television: not at all 8. Moving or speaking so slowly that other people could have noticed. Or the opposite - being so fidgety or restless that you have been moving around a lot more than usual: not at all 9. Thoughts that you would be better off or of hurting yourself in some way: not at all Total score: 1 Depression Screening Interpretation: Negative Depression Screening Done: Yes 90821 - PHQ-9 Billing: Yes Source: Developed by Drs. Monty Ellis, Celsa Cuello, Bob Acharya and colleagues, with an educational joshua from [employer]. Thrive Questionnaire Date Thrive assessed: 11/17/23 I am a: Patient What is your living situation today?: I have a steady place to live Within the past 12 months, did the food you bought not last and you didn't have the money to get more?: Never true Within the past 12 months, did you worry whether your food would run out before you got money to buy more?: Never true Do you have trouble paying for medicines?: No Do you have trouble getting transportation to medical appointments?: No Do you have trouble paying your heating and electricity bill?: No Do you have trouble taking care of your child, family member or friend?: No Do you have trouble with day-to-day activities such as bathing, preparing meals, shopping, managing finances, etc.?: No Are you currently unemployed and looking for a job?: No Are you interested in more education?: No Please select the resources that you would like help with: None Currently or been in a relationship where the following occur: no concerns reported THRIVE Score: 0 AUDIT C Alcohol Use Questionnaire (AUDIT-C) 1. How often do you have a drink containing alcohol?: Never 3. How often do you have six or more drinks on one occasion?: Never Total Score: 0 Score Reviewed/Action Taken: Yes ALEK-7 AMB Questionnaire ALEK-7 Date ALEK - 7 assessed: 11/17/23 Feeling nervous, anxious, or on edge: 0 = Not at all Not being able to stop or control worryin = Not at all Worrying too much about different things: 0 = Not at all Trouble relaxin = Not at all Being so restless that it is hard to sit still: 0 = Not at all Becoming easily annoyed or irritable: 0 = Not at all Feeling afraid as if something awful might happen: 0 = Not at all Total ALEK-7 score (0-4 normal; 5-9 mild; 10-14 moderate; 15-21 severe): 0 Source: Developed by Drs. Monty Ellis, Celsa Cuello, Bob Acharya and colleagues, with an educational joshua from [employer]. ALEK-7 Assessment Billing ALEK-7 Assessment Tool: ALEK-7 Assessment 51493 Review of Systems Const All systems reviewed & are unremarkable except as noted in HPI and below Physical exam (Primary Care) Tobacco/Smoking Status: Tobacco use Status Patient Tobacco Use Status Never used Tobacco 11/17/23 07:52 Depression Screening Interpretation: Negative Currently or been in a relationship where the following occur: no concerns reported Const Other: Awake alert oriented accompanied by Scabbed laceration to top of scalp on the left side Resolving ecchymosis to right side of face PERRLA, EOMI Moves all extremities x4 Regular rate and rhythm Lung sounds clear to auscultation bilat No edema bilateral lower extremities Tangental speech, mood expansive, poor historian Assessment and Plan Assessment & Plan (1) Hospital discharge follow-up: Comment: Complex patient. Noncompliant. Only wishes for Fioricet and nothing else. Declines physical therapy to help her prevent falls. Unsure if she will follow appear with further care given this discussion today. She does not wish to follow up with a local neurosurgeon for the subarachnoid hemorrhage. She appears at baseline today. Refer to her for hospital Neurology per request. Code(s): Z09 - Encounter for follow-up examination after completed treatment for conditions other than malignant neoplasm (2) Migraines: Comment: I have referred her to [facility]rology per request. Made aware I will not refill her Fioricet. Educated as to why. I have referred her to pain management for further evaluation and treatment. I doubt that she will go to this as she was adamant she does not want to. Her did request this referral to be placed. Code(s): G43.909 - Migraine, unspecified, not intractable, without status migrainosus Qualifiers: Migraine type: chronic migraine (15 or more days per month) without aura (3) HTN (hypertension): Comment: Managed on amlodipine. Monitored by [facility] nurse. At goal today. Continue Code(s): I10 - Essential (primary) hypertension Qualifiers: Hypertension type: primary hypertension Qualified Code(s): I10 - Essential (primary) hypertension Plan This note is constructed using voice recognition software. While every effort has been made to ensure accuracy in food and beverage coordinator, still errors may have been included Sometimes, these errors may affect the content or meaning of the given sentence . Total time spent caring for the patient today was 60 minutes. This includes time spent before the visit reviewing the chart, time spent during the visit, and time spent after the visit on documentation Orders: Referrals Neurology Referral Z09 - Encounter for follow-up examination after completed treatment for conditions other than malignant neoplasm Pain Management Referral G43.909 - Migraine, unspecified, not intractable, without status migrainosus Coding Level of Care Code TCM High MDM <= 14 days Diagnoses Hospital discharge follow-up Z09 Migraines G43.909 Migraine type: chronic migraine (15 or more days per month) without aura Primary hypertension I10 Hypertension type: primary hypertension Additional Codes ALEK-7 Assessment Billing - ALEK-7 Assessment Tool: ALEK-7 Assessment 58221 ([id number])
--- OUTSIDE RECORDS SUMMARY | 2023-11-17 12:30 | XMS_ITS | Continuity of Care Document ---
Author Name Unknown Organization [facility] ter Address [address] [place] [id number] Care Team Providers Care Swedger Name Role Phone Not on Staff, PCP Primary Care Physician Unavail able Encounter [facility] [place] Date(s): 11/03/23 - 11/04/[address] [id number] Encounter Diagnosis SAH (subarachnoid hemorrhage)(Final) - 11/03/23 Discharge Disposition: A-D/C AMA Attending Physician: Carlos Alberto Chandler MD Admitting Physician: Carlos Alberto Chandler MD Referring Physician: Not on Staff, Referring [...] influenza virus vaccine, inactivated 06/02/12 [place] rded [id number] bivalent booster vax 09/13/22 Recorded SARS-CoV-2 (COVID-19) mRNA-1273 vaccine 08/07/21 R ecorded SARS-CoV-2 (COVID-19) mRNA BNT-162b2 vac 01/29/21 Given SARS-CoV-2 (COVID-19) mRNA BNT-162b2 vac 01/08/21 Given tetanus-diphtheria toxoids (Td) 06/10/18 Recorded tetanus/diphtheria/pertussis, acel(Tdap) 05/25/12 Recorded Medications amitriptyline 50 mg oral tablet 1 tablet = 50 mg, By Mouth, Daily, 0 Refills, Maintenance, 06/20/23 3:22:00 EDT, Tablet, Partial fill upon patient request if the prescription is for a schedule II opioid drug. Start Date: 06/20/23 Status: Ordered amLODIPine 2.5 mg oral tablet 2.5 mg, 1, tablet, By Mouth, Daily, Maintenance, 11/03/23 19:02:00 EST, Partial fill upon patient request if the prescription is for a schedule II opioid drug. Start Date: 11/03/23 Status: Ordered aspirin 81 mg oral delayed release tablet 162 mg, 2, tablet, By Mouth, Daily, Maintenance, 11/03/23 19:02:00 EST, Partial fill upon patient request if the prescription is for a schedule II opioid drug. Start Date: 11/03/23 Status: Ordered Fioricet Tablet 1 tablet, Tablet, By Mouth, Every 4 hours, PRN for Headache, Routine, 11/03/23 17:24:00 EST Notes: acetaminophen/butalbital/caffeine 325 mg-50 mg-40 mg oral tablet Start Date: 11/03/23 Stop Date: 11/04/23 Status: Discontinued Fioricet Tablet 1 tablet, By Mouth, Every 6 hours, PRN Headache, Maintenance, 11/03/23 19:03:00 EST, Partial fill upon patient request if the prescription is for a schedule II opioid drug. Start Date: 11/03/23 Status: Ordered lisinopril 40 mg oral tablet 1 tablet = 40 mg, By Mouth, Daily, Maintenance, 11/03/23 19:02:00 EST, Partial fill upon patient request if the prescription is for a schedule II opioid drug. Start Date: 11/03/23 Status: Ordered QUEtiapine 100 mg oral tablet 100 mg, 1, tablet, By Mouth, 2 times a day, Refills 0, Maintenance, 06/20/23 3:21:00 EDT, Partial [...] Exam Date Time Procedure Performing Provider Status 11/03/23 10:[address] Head/Brain W/O Contrast Aj Murillo; Auth (Verified) Notes: (CT Head/Brain W/O Contrast) Reason For Exam: SAH;Other: RESULT: CT Head/Brain W/O Contrast CT Head/Brain W/O Contrast, 10:04 PM INDICATION: Reason: Other:; SAH; Clinical Question(s): Other:; Blossoming of SAH; Special Instructions: To be performed at 2130 - 6 hours from prior scan; Order Comment: TECHNIQUE: Noncontrast head CT using axial technique and reconstructed in axial and coronal planes.Iterative reconstruction techniques are used to optimize dose and image quality. CTDIvol Head: 48.30 mGy, DLP Head: 773 mGy*cm. COMPARISON: 11/03/2023 3:23 PM. FINDINGS: Head Sampler view findings, lines and tubes: None. BRAIN AND EXTRA-AXIAL SPACES: No intraparenchymal hemorrhage, midline shift, or mass effect. Sahu-white matter differentiation iswell preserved. No acute infarct. Ventricles, sulci, and basilar cisterns are normal. No white matter lesions. Again seen is a tiny focus of hyperdense hemorrhage along the LEFT paramidline falx (202:80, 81) measuring 8 mm in length, 2 mm in thickness. No mass effect. No new areas of subdural or subarachnoid hemorrhage. CALVARIUM, SKULL BASE, AND SOFT TISSUES: No fractures or suspicious bony lesions. There is mild mucosal thickening in the inferior RIGHT maxillary sinus. Mastoid air cells are clear. Visualized orbits and globes are intact. There is a posterior scalp hematoma measuring approximately 3.5 cm. IMPRESSION: 1. No significant interval change in LEFT parafalcine tiny focus of hemorrhage. 2. No new areas of intracranial hemorrhage. 3. Unchanged posterior scalp hematoma. 4. No acute skull fracture. WSN: [id number] Ordering Physician: Zackery Cintron Dictated By: Liz Horta MD Dictated Date/Time: 11/03/23 10:24 p Reviewed By: Liz Horta MD Signed By: Liz Horta MD Signed Date/Time: 11/03/23 10:24 pm Transcribed By: JAYLENE Transcribed Date/Time: 11/03/23 10:18 pm * Exam Date Time Procedure Performing Provider Status 11/03/23 3:[address] Cervical Spine W/O Contrast Joy Murillo; Auth (Verified) Notes: (CT Cervical Spine W/O Contrast) Reason For Exam: Neck trauma, dangerous injury mechanism;Other: RESULT: CT Cervical Spine W/O Contrast CT Head/Brain W/O Contrast, CT Cervical Spine W/O Contrast CLINICAL INDICATION: Hx of Present Illness: BIBA for fall, stepped off sidewalk and tripped. Was holding puppy and fell backward striking head. Pt unable to control bleeding from head. PRIOR EXAMS: 06/19/2023. TECHNIQUE: Incremental CT without contrast through the head was formatted in axial and coronal plane. Spiral CT without contrast through the cervical spine was formatted in 3 planes. Automatic tube modulation was used for the cervical spine and iterative dose reconstruction was used for both the head and cervical spine to optimize scan parameters and image quality. RADIATION DOSE PARAMETERS: FINDINGS: BRAIN There is no infarct. There is no intracerebral hemorrhage. There is no mass. VENTRICLES AND SULCI: The ventricles and sulci are symmetrical and normal for age.. WHITE MATTER: Trace white matter abnormality. EXTRA AXIAL SPACES: There is a tiny focus of subarachnoid blood along the left lateral margin of the falx left frontal region. On axial image 76/2 2 and coronal image 20, it measures 8 mm in AP and craniocaudal diameter and 2 mm in thickness. There is no other extra-axial hemorrhage.. SKULL: There is no skull fracture. There is a posterior scalp hematoma.. PARANASAL SINUSES: Clear. TEMPORAL BONES: The mastoid air cells are clear, as are the middle ear cavities. CERVICAL VERTEBRAL BODIES: There is no fracture. There is no focal bony lesion.. ALIGNMENT OF CERVICAL SPINE: The cervical vertebral bodies are in normal alignment.. CERVICAL DEGENERATIVE CHANGES: Mild degenerative change. LUNG APICES: No pneumothorax. IMPRESSION: HEAD 1. Solitary subcentimeter focus acute subarachnoid blood adjacent to the falx left frontal region. 2. No other intracranial abnormality. 3. No skull fracture. 4. Scalp hematoma posteriorly CERVICAL SPINE: 1. There is no fracture. There is no focal bony lesion. 2. Normal alignment. 3. Mild degenerative change. Results were communicated by myself by telephone to Dr. Miller of the emergency department at 1540 hours on 11/03/2023. WSN: [id number] Ordering Physician: Jammie Grigsby Dictated By: Pradeep Vázquez MD Dictated Date/Time: 11/03/23 3:43 pm Reviewed By: Pradeep Vázquez MD Signed By: Pradeep Vázquez MD Signed Date/Time: 11/03/23 3:43 pm Transcribed By: JAYLENE Transcribed Date/Time: 11/03/23 3:29 pm * Exam Date Time Procedure Performing Provider Status 11/03/23 3:[address] Head/Brain W/O Contrast Kelsy Murillo na; Auth (Verified) Notes: (CT Head/Brain W/O Contrast) Reason For Exam: Trauma RESULT: CT Head/Brain W/O Contrast CT Head/Brain W/O Contrast, CT Cervical Spine W/O Contrast CLINICAL INDICATION: Hx of Present Illness: BIBA for fall, stepped off sidewalk and tripped. Was holding puppy and fell backward striking head. Pt unable to control bleeding from head. PRIOR EXAMS: 06/19/2023. TECHNIQUE: Incremental CT without contrast through the head was formatted in axial and coronal plane. Spiral CT without contrast through the cervical spine was formatted in 3 planes. Automatic tube modulation was used for the cervical spine and iterative dose reconstruction was used for both the head and cervical spine to optimize scan parameters and image quality. RADIATION DOSE PARAMETERS: FINDINGS: BRAIN There is no infarct. There is no intracerebral hemorrhage. There is no mass. VENTRICLES AND SULCI: The ventricles and sulci are symmetrical and normal for age.. WHITE MATTER: Trace white matter abnormality. EXTRA AXIAL SPACES: There is a tiny focus of subarachnoid blood along the left lateral margin of the falx left frontal region. On axial image 76/2 2 and coronal image 20, it measures 8 mm in AP and craniocaudal diameter and 2 mm in thickness. There is no other extra-axial hemorrhage.. SKULL: There is no skull fracture. There is a posterior scalp hematoma.. PARANASAL SINUSES: Clear. TEMPORAL BONES: The mastoid air cells are clear, as are the middle ear cavities. CERVICAL VERTEBRAL BODIES: There is no fracture. There is no focal bony lesion.. ALIGNMENT OF CERVICAL SPINE: The cervical vertebral bodies are in normal alignment.. CERVICAL DEGENERATIVE CHANGES: Mild degenerative change. LUNG APICES: No pneumothorax. IMPRESSION: HEAD 1. Solitary subcentimeter focus acute subarachnoid blood adjacent to the falx left frontal region. 2. No other intracranial abnormality. 3. No skull fracture. 4. Scalp hematoma posteriorly CERVICAL SPINE: 1. There is no fracture. There is no focal bony lesion. 2. Normal alignment. 3. Mild degenerative change. Results were communicated by myself by telephone to Dr. Miller of the emergency department at 1540 hours on 11/03/2023. WSN: [id number] Ordering Physician: Jammie Grigsby Dictated By: Pradeep Vázquez MD Dictated Date/Time: 11/03/23 3:43 pm Reviewed By: Pradeep Vázquez MD Signed By: Pradeep Vázquez MD Signed Date/Time: 11/03/23 3:43 pm Transcribed By: JAYLENE Transcribed Date/Time: 11/03/23 3:29 pm Vital Signs Most recent to oldest [Reference Range]: 1 2 3 Oxygen Saturation [94-100 %] 97 % (11/04/23 6:00 AM) 97 % (11/04/23 4:00 AM) 97 % (11/04/23 2:00 AM) Pulse Rate [55-90 bpm] 93 bpm *H* (11/03/23 8:36 PM) 97 bpm *H* (11/03/23 6:09 PM) 97 bpm *H* (11/03/23 6:04 PM) Blood Pressure [90-138/55-84 mm Hg] 119/74mm Hg (11/04/23 7:00 AM) 143/86mm Hg *H* (11/04/23 6:00 AM) 117/76mm Hg (11/04/23 4:00 AM) Respiratory Rate [16-30 br/min] 19 br/min (11/04/23 6:35 AM) 13 br/min *L* (11/04/23 12:00 AM) 20 br/min (11/03/23 10:45 PM) Temperature [96.8-100.4 DegF] 97.3 DegF (11/04/23 4:00 AM) 97.1 DegF (11/04/23 12:00 AM) 97.5 DegF (11/03/23 11:00 PM) Mode of Delivery (Oxygen) Room air (11/04/23 6:00 AM) Room air (11/04/23 4:00 AM) Room air (11/04/23 2:00 AM) Blood pressure sites Arm, right (11/03/23 11:00 PM) Arm, left (11/03/23 10:13 PM) Arm, left (11/03/23 10:00 PM) Temperature Route Temporal (11/04/23 4:00 AM) Temporal (11/04/23 12:00 AM) Oral (11/03/23 11:00 PM) Social History Social History Type Response Smoking Status Former smoker; Tobac co user in household: No entered on: 03/27/14 Sex Consult note * Andrew WRIGHT, Britni Zarco: PERFORM Event Display: Consult Authored Date: [id number] Patient: ??ROSA ELENA DENIS ? Age:??68 Years?Sex:??Female?:??1955?? Chief Complaint/Reason for Consult ?Neurosurgery Consult Note?Reason for consult:??trace tSAH, left frontal ?Attending Neurosurgeon:??Dr. Gamez History of Present Illness Rosa Elena is a 68-year-old female on daily ASA who presented after a mechanical fall.?? She reports that she was walking out of her friend's house with the dog when she slipped and fell backwards striking her head, negative LOC.?? Currently she is feeling well and asking to leave AMA.?? Denies headache, lightheadedness, dizziness, changes in vision, changes in speech, seizure-like activity, numbness/tingling of extremities, weakness of extremities, pain in extremities. Review of Systems All other systems reviewed as negative Physical Exam Vitals & Measurements T:??98.1?F?? HR:??103??(Peripheral)?? RR:??19?? BP:??153/59?? SpO2:??100%?? 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 5/5 R?5/5 L ?Dorsiflexion:?5/5 R?5/5 L ?EHL:?5/5 R?5/5 L Sensation Intact to light touch throughout upper and lower extremities Assessment/Plan Rosa Elena is a 68-year-old female on daily ASA who presented after a mechanical fall, -LOC. She is GCS [address] head demonstrates??trace tSAH in left frontal area. ?? Recommendations: No acute??neurosurgical intervention Q4hr neuro checks Hold ASA x 10 days Hold chemical DVT prophylaxis -- encourage ambulation STAT CT head for decline in GCS or 2 or greater Neurosurgery signing off -- no routine follow up ?Please page [phone] with any questions or concerns. ?Discussed with neurosurgery attending, Dr. Gamez. Problem List/Past Medical History Ongoing Benzodiazepine abuse, episodic Chronic dementia with behavioral disturbance Drug-seeking behavior Opiate abuse, episodic Opiate dependence, continuous Polypharmacy Procedure/Surgical History No qualifying data available. Home Medications amiTRIPTYLINE: 50 mg = 1 tablet, By Mouth, Daily at bedtime Lisinopril: 40 mg, By Mouth, Daily Lorazepam: 1 mg = 1 tablet, By Mouth, 3 times a day, PRN (for anxiety) Quetiapine: 100 mg = 1 tablet, By Mouth, 3 times a day Timolol Ophthalmic: 1 drops, Eyes, Both, 2 times a day Trazodone: 50 mg, By Mouth, Daily at bedtime, PRN (Agitation) Allergies Leslie??(liver enzymes off) Antivert??(double vision) codeine??(nausea) fentaNYL??(diff breathing) ibuprofen morphine??(dizzy) statins??(swelling/rash) Social History Alcohol Use: Never. Substance Abuse Use: Past. Type: Marijuana. Other: had certificate, did reduce pain. Tobacco Use: Former smoker. Tobacco user in household: No. Family History No family history recorded. Radiology Imaging personally reviewed. Radiology impression provided below:? RESULT: CT Head/Brain W/O Contrast ?? IMPRESSION: ?? HEAD 1. Solitary subcentimeter focus acute subarachnoid blood adjacent to the falx left frontal region. 2. No other intracranial abnormality. ?? 3. No skull fracture. 4. Scalp hematoma posteriorly ?? CERVICAL SPINE: 1. There is no fracture. There is no focal bony lesion. 2. Normal alignment. ?? 3. Mild degenerative change. ?? * Zackery Cintron MD: PERFORM, MODIFY, MODIFY Event Display: Consultation Note Authored Date: Patient: ??ROSA ELENA DENIS ? Age:??68 Years?Sex:??Female?:??1955?? Chief Complaint/Reason for Consult SAH after fall History of Present Illness Rosa Elena Denis is a 68M hypertension,??dementia,??and anxiety??who??presented to [facility] after??a mechanical fall from standing with a resultant left subarachnoid hemorrhage.?? Patient??reported she was playing with her new puppy at her neighbors house when the puppy suddenly started to wiggle, and??in an??attempt to prevent the puppy from falling, she lost her balance and fell??headfirst into??the curb of the street.?? She denies loss of consciousness.?? Her neighbor??and partner ??witnessed the event. ??They helped her get up back to her feet, and waited for EMS arrival.?? She noted that she had posterior scalp pain with??profuse??bleeding. ??Per EMS patient was at??baseline mental status, she was collared, and transferred to the emergency department for further evaluation. ??In the emergency department her main complaint was??headache. She has no focal neurologic deficits. She??underwent a CT scan??of the head??which revealed an 8 mm (length)??subarachnoid hemorrhage along the left??cerebral falx.?? On evaluation, patient was alert and oriented, mostly complaining of headache from her posterior scalp wound. Review of Systems Constitutional:??No weight loss, fever, chills, weakness or fatigue. Respiratory: No SOB, cough, or dyspnea Cardiovascular: No chest pain, flutters or palpitations?? Gastrointestinal:??No N/V, pain, diarrhea or constipation Genitourinary:??No frequency or burning with urination. Neurologic:??No REZA, dizziness, syncope,??no changes in motor or sensory function.??No change in bowel or bladder control. Skin:??No rashes, bruises??or itching. Endocrine:??No heat or cold intolerance. Psychiatric:??No depression or anxiety. Physical Exam Vitals & Measurements T:??98.1?F?? HR:??87??(Peripheral)?? RR:??17?? BP:??173/85?? SpO2:??100%?? General: No acute distress, alert, awake Head: Posterior scalp??with??large area of??scalp hematoma.?? Scattered areas of abrasions, with nodefined??lacerations. ??Diffusely tender to palpation. Face: no ecchymosis, no abrasions, no wounds Eyes: pupils are 3mm, equal, round, and reactive; extraocular movement intact Ears: no hemotympanum, no blood in external auditory canal, no abrasions, no camara's sign Nose: no epistaxis, no deformity Mandible: no deformity, no malocclusion Neck:??No hematoma, no ecchymosis, no wounds, trachea midline Chest: Symmetric, no deformity, sternum, chest wall, and clavicles are nontender to palpation, no crepitus appreciated Heart: regular rate and rhythm Lungs: clear to auscultation bilaterally Abdomen: soft, nondistended, nontender, no wounds, no ecchymosis, no hematoma Pelvis: stable, nontender Back: no ecchymosis, no abrasions, no hematoma, no wounds Cervical spine: no midline deformities or step offs, no tenderness, cervical- collar in place Thoracic spine: no midline deformities or step offs, no tenderness Lumbar spine: no midline deformities or step offs, no tenderness Extremities: no long bone deformities, no wounds, no abrasions, no ecchymosis, no hematomas, full active range of motion Neurologic: GCS15; 5/5 strength and sensation to light touch intact in the bilateral upper and lower extremities Vascular: palpable dorsalis pedis and radial pulses bilaterally?? Assessment/Plan Rosa Elena Denis is a 68F with history of hypertension,??dementia,??and anxiety??who??presented to [facility] [place] [facility] after??a mechanical fall from standing with a resultant left subarachnoid hemorrhage. ??Patient has a nonfocal??neurological exam. ??Posterior scalp wound??only shows??an abrasion.?CT scan shows a??8 mm??subarachnoid measuring 8 mm in length along the left falx.?This patient is currently on aspirin 81, he meets criteria for being 3.?? Trauma surgery and neurosurgery consulted. ??Neurosurgery pending evaluation. ?? Recommendations - Admit to trauma - NPO IVF until repeat head CT - Neurosurgery c/s??- pend formal recs - Until NSx eval will plan on SBP < 140, Hold ASA, hold DVT PPX, Repeat CT head at 2130 - Tert in AM ? Discussed with Dr. Chandler Trauma Surgery [id number] ? Problem List/Past Medical History Hypertension Dementia Anxiety Procedure/Surgical History None Home Medications amiTRIPTYLINE: 50 mg = 1 tablet, By Mouth, Daily at bedtime Lisinopril: 40 mg, By Mouth, Daily Lorazepam: 1 mg = 1 tablet, By Mouth, 3 times a day, PRN (for anxiety) Quetiapine: 100 mg = 1 tablet, By Mouth, 3 times a day Timolol Ophthalmic: 1 drops, Eyes, Both, 2 times a day Trazodone: 50 mg, By Mouth, Daily at bedtime, PRN (Agitation) Allergies Leslie??(liver enzymes off) Antivert??(double vision) codeine??(nausea) fentaNYL??(diff breathing) ibuprofen morphine??(dizzy) statins??(swelling/rash) Social History Alcohol Use: Never. Substance Abuse Use: Past. Type: Marijuana. Other: had certificate, did reduce pain. Tobacco Use: Former smoker. Tobacco user in household: No. Family History No family history recorded. Radiology RESULT: CT Head/Brain W/O Contrast CT Head/Brain W/O Contrast, CT Cervical Spine W/O Contrast? CLINICAL INDICATION: Hx of Present Illness: BIBA for fall, stepped off sidewalk and tripped. Was holding puppy and fell backward striking head. Pt unable to control bleeding from head.? PRIOR EXAMS: ??06/19/2023. ?? TECHNIQUE:?? Incremental CT without contrast through the head was formatted in axial and coronal plane. Spiral CT without contrast through the cervical spine was formatted in 3 planes. Automatic tube modulation was used for the cervical spine and iterative dose reconstruction was used for both the head and cervical spine to optimize scan parameters and image quality.? RADIATION DOSE PARAMETERS: ?? FINDINGS: BRAIN?? There is no infarct. There is no intracerebral hemorrhage. There is no mass. ?? VENTRICLES AND SULCI: ??The ventricles and sulci are symmetrical and normal for age.. ?? WHITE MATTER: ??Trace white matter abnormality. ?? EXTRA AXIAL SPACES: There is a tiny focus of subarachnoid blood along the left lateral margin of the falx left frontal region. On axial image 76/2 2 and coronal image 20, it measures 8 mm in AP and craniocaudal diameter and 2 mm in thickness. There is no other extra-axial hemorrhage.. ?? SKULL: There is no skull fracture. There is a posterior scalp hematoma.. ?? PARANASAL SINUSES: Clear. ?? TEMPORAL BONES: The mastoid air cells are clear, as are the middle ear cavities. ? CERVICAL VERTEBRAL BODIES: There is no fracture. There is no focal bony lesion.. ?? ALIGNMENT OF CERVICAL SPINE: The cervical vertebral bodies are in normal alignment.. ?? CERVICAL DEGENERATIVE CHANGES: Mild degenerative change. ?? LUNG APICES: No pneumothorax. ?? IMPRESSION: ?? HEAD 1. Solitary subcentimeter focus acute subarachnoid blood adjacent to the falx left frontal region. 2. No other intracranial abnormality. ?? 3. No skull fracture. 4. Scalp hematoma posteriorly ?? CERVICAL SPINE: 1. There is no fracture. There is no focal bony lesion. 2. Normal alignment. ?? 3. Mild degenerative change. Lab Results Labs Last 24 Hours No qualifying data available. * Ramesh SIMON, Carlos Alberto: PERFORM Event Display: Consultation Note Authored Date: [id number] I have seen and evaluated this patient on the above documented date. I have discussed the case and its management with the resident team and APPs as documented in the progress note. ?? Seen as a Trauma consultation to the ED> ?? -68 F -FFS resulting in -SAH - 8 mm along the falx, patient on ASA 81 mg, GCS 15, sensory motor grossly intact. ?? Plan -Admission to Trauma Surgery -Neurosurgery consultation. -Repeat CT head at 6hrs ? [facility] Progress note * Bandar Bonner RN: PERFORM, SIGN, VERIFY Event Display: Progress Note Hospital Authored Date: Patient: ROSA ELENA DENIS Age: 68 years Sex: Female : 1955 Associated Diagnoses: None Author: Bandar Bonner RN Findings Evaluation at 0800, patient alert and oriented, found OOG removing hospital gown and informing me she is readyto leave and is going home. Attempt made to advise patient to stay in room and wait for MD to come to bedside and discuss plan of care with patient. Patient unwilling to wait and continued to leave her room and induction coordination engineer hallway. Pt said she has a ride home waiting for her. 2 peripheral IVs removed from patients forearm. AMA paperwokr provided to patient, Pt signed paper and was educated on that if she is to experience new neurological signs/symptoms she should return to the ED for further evaluation.. * Martin Medeiros MD: SIGN Martin Medeiros MD: SIGN, MODIFY Martin Medeiros MD: MODIFY, SIGN, VERIFY, MODIFY, SIGN Event Display: Progress Note Hospital Authored Date: [id number] Patient: ROSA ELENA DENIS Age: 68 years Sex: Female : 1955 Associated Diagnoses: None Author: Marcos Bourne Subjective Patient seen during AM rounds, AREN overnight, voiding and passin gas. Her pain is well controlled and no complaints. She denies any fever, chills, nausea, vomiting, chest pain or shortness of breath. Objective Vital Signs Vitals : VITALS 11/04/2023 4:00 EST Temperature 97.3 DegF Temperature Route Temporal Heart Rate Monitored 78 bpm Systolic Blood Pressure 117 mm Hg Diastolic Blood Pressure 76 mm Hg Pulse Pressure 41 mm Hg Oxygen Saturation 97 % Mode of Delivery (Oxygen) Room air . General: No acute distress, alert, awake Head: Posterior scalp with large area of scalp hematoma. Scattered areas of abrasions, with no defined lacerations. Diffusely tender to palpation. Face: no ecchymosis, no abrasions, no wounds Eyes: pupils are 3mm, equal, round, and reactive; extraocular movement intact Ears: no hemotympanum, no blood in external auditory canal, no abrasions, no camara's sign Nose: no epistaxis, no deformity Mandible: no deformity, no malocclusion Neck: No hematoma, no ecchymosis, no wounds, trachea midline Chest: Symmetric, no deformity, sternum, chest wall, and clavicles are nontender to palpation, no crepitus appreciated Heart: regular rate and rhythm Lungs: clear to auscultation bilaterally Abdomen: soft, nondistended, nontender, no wounds, no ecchymosis, no hematoma Pelvis: stable, nontender Back: no ecchymosis, no abrasions, no hematoma, no wounds Cervical spine: no midline deformities or step offs, no tenderness, cervical- collar in place Thoracic spine: no midline deformities or step offs, no tenderness Lumbar spine: no midline deformities or step offs, no tenderness Extremities: no long bone deformities, no wounds, no abrasions, no ecchymosis, no hematomas, full active range of motion Neurologic: GCS15; 5/5 strength and sensation to light touch intact in the bilateral upper and lower extremities Vascular: palpable dorsalis pedis and radial pulses bilaterally Results Review 7 Day Results Results Laboratory : LABORATORY 11/04/2023 6:26 EST WBC 5.8 k/mm3 RBC 4.33 m/mm3 Hgb 12.6 Gm/dL Hct 37.9 % MCV 87.5 femtoliters MCH 29.1 pg MCHC 33.2 g/dL Platelet Count 283 k/mm3 RDW-SD 41.3 femtoliters MPV 9.4 femtoliters Nucleated RBC (Automated) 0.0 #/100 WBC'S Abs. NRBC 0.0 k/mm3 Abs. Neut 4.0 k/mm3 Abs. Lymph 0.9 k/mm3 Abs. [place] 0.7 k/mm3 Abs. Eo 0.2 k/mm3 Abs. Baso 0.0 k/mm3 Neut % 68.8 % Lymph % 15.1 % [place] % 11.8 % H Eos % 3.3 % Baso % 0.7 % Imm Gran 0.3 % Abs. Imm Gran 0.0 k/mm3 Impression and Plan Rosa Elena Denis is a 68F with history of hypertension, dementia, and anxiety who presented to [facility] after a mechanical fall from standing with a resultant left subarachnoid hemorrhage. Patient has a nonfocal neurological exam. Posterior scalp wound only shows an abrasion. CT scan shows a 8 mm subarachnoidmeasuring 8 mm in length along the left falx. This patient is currently on aspirin 81, due to this neurosurgery was consulted and recommendations as seen below. Tertiary Performed on 11/04 with no additional findings, will get PT, clean head abrasion site, and possible discharge later today. Consultants: Neurosurgery: Recommendations: No acute neurosurgical intervention Q4hr neuro checks Hold ASA x 10 days Hold chemical DVT prophylaxis -- encourage ambulation STAT CT head for decline in GCS or 2 or greater Neurosurgery signing off -- no routine follow up Injury: L SAH (8mm length) Plan: Acute lvl care PT Pain control Bowel reg prn Likely dispo today Case discussed with Dr. [place] [phone] for any questions or concerns * Mala SIMON, Martin: PERFORM Event Display: Progress Note Hospital Authored Date: I have seen and examined the patient, the above note summarizes my encounter on the recorded date * Mireya Lyon RN: PERFORM, SIGN, VERIFY, MODIFY, SIGN, MODIFY, SIGN Event Display: Progress Note Hospital Authored Date: Patient: ROSA ELENA DENIS [facility]: [id number] Age: 68 years Sex: Female : 1955 Associated Diagnoses: None Author: Mireya Lyon RN Findings Problem Related to Alteration in Neurological : Alteration in Neurological Function/new 11/04/2023 0:00 EST Alteration in Neuro status Related to Other: traumatic SAH Goals & Outcomes, Neurological Lab studies/diagnostic tests within pt specific limits, Pt is safe with transfers & activities, Pt will be hemodynamically stable, Pt will be Neurologically stable, Pt will maintain intact skin integrity, Pt will remain free from injury, Pt/caregiver will receive psychosocial support as needed, Pt/caregiver will state understanding of plan/goals of care Interventions, Neurological Assess/monitor neurologic status, Assess/monitor VS per unit standards & prn, Maintain patient safety if unsteady gait, Monitor for headaches, nausea, vomiting, Monitor speech fluency, aphasia, word finding difficulty, Physical assessment per unit standards, Provide emotional support to Pt/caregiver, Teach pt/caregiver on plan of care, treatment, s/s & meds Goals/Interventions, Neurological Yes Neurological, Problem Start 11/04/2023 1:14 Reviewed plan with, Neurological Patient Patient Progression, Neurological Plan Initiation . Nursing Data Neurological Data. : Neurological Data. 11/03/2023 22:45 EST Tongue Disposition Midline Neurological Symptoms Headache: persistent, changing or sudden, Other: traumatic SAH Level of Consciousness Full Consciousness Orientated to person, place, time Person, Place, Time, Event Facial Symmetry Intact Characteristics of Speech Clear and normal Swallowing Difficulty None Pupil description, left Regular Pupil description, right Regular Pupil reaction, left Brisk Pupil reaction, right Brisk Strength LUE 5-Active movement against gravity & full resistance Strength RUE 5-Active movement against gravity & full resistance Strength LLE 5-Active movement against gravity & full resistance Strength RLE 5-Active movement against gravity & full resistance Tone LUE Normal Tone RUE Normal Tone LLE Normal Tone RLE Normal Sensation LUE Intact Sensation RUE Intact Sensation LLE Intact Sensation RLE Intact Movement LUE Spontaneous, To command Movement RUE Spontaneous, To command Movement LLE Spontaneous, To command Movement RLE Spontaneous, To command Gait Steady Response Eye Opening Spontaneously Motor Response-Adult Obeys commands Verbal Response-Adult Oriented and converses [place] Coma Score 15 Pain Intensity 4 Neuro WNL except Corneal/Blink Reflex Intact right, Intact left Eyes and Movements Conjugate gaze: Move in same direction at same speed Headache Mild Swallow - Neuro Normal . Narrative/Incidental Patient arrived from ED, adamant that if there are no changes between now and five thirty, I am taking myself home, despite education regarding the seriousness of her diagnosis and being on IV BP medicine. Repeat CT scan completed prior to arrival. Results still pending. Reports headache. I always have a headache with the white matter disease and the lesions. Denied dizziness/vision changes. PERRL. Face is symmetrical. Speech is clear. Tongue is midline with intact swallow. Moving all extremities equal and strong, 5/5. Has neuropathy at baseline in fingers from her arthritis. +CMS/pulses distally. Patient denies shortness of breath and difficulty breathing. Maintaining sat 100 on room air. Last BM 11/03/2023. Refused colace. Denies nausea. Voiding in the BR without issue. IV fluids infusing. Resting in bed. SR on telemetry, HR 80s-90s. Goal SBP less than 140. Nicardipine turned off due to IV occlusion. Recheck BP 135/81. Skin is warm and dry. Some oozing continues from posterior scalp hematoma caused by fall. Please refer to [facility] flowsheet for further assessment details. Will continue to monitor for and document any changes in patient's status. Addendum 11/04/2023 0759: Patient SBP remained under goal off of IV nicardipine. Fioricet given for headache. Appeared asleep in between care with even, unlabored respirations.. Note * Marcos Bourne: PERFORM, SIGN, VERIFY Event Display: Discharge/Transfer Note Hospital Authored Date: [id number] Patient: ROSA ELENA DENIS Age: 68 years Sex: Female : 1955 Associated Diagnoses: None Author: Marcos Bourne Discharge Information Admission Date: 11/03/2023 Discharge Date 11/04/2023 Principal Discharge Diagnosis Medications MEDICATION LIST (Selected) Documented Medications Documented Fioricet Tablet: 1 tablet, By Mouth, Every 6 hours, PRN Headache, Maintenance, 11/03/23 19:03:00 EST, Partial fill upon patient request if the prescription is for a schedule II opioid drug. QUEtiapine 100 mg oral tablet: 100 mg, 1, tablet, By Mouth, 2 times a day, Refills 0, Maintenance, 06/20/23 3:21:00 EDT, Partial fill upon patient request if the prescription is for a schedule II opioid drug. Timolol 0.5% Ophth: 1, drops, Eyes, Both, 2 times a day, Refills 0, Maintenance, 11/27/20 14:53:00 EST, Ophth Solution amLODIPine 2.5 mg oral tablet: 2.5 mg, 1, tablet, By Mouth, Daily, Maintenance, 11/03/23 19:02:00 EST, Partial fill upon patient request if the prescription is for a schedule II opioid drug. amitriptyline 50 mg oral tablet: 1 tablet = 50 mg, By Mouth, Daily, 0 Refills, Maintenance, 06/20/23 3:22:00 EDT, Tablet, Partial fill upon patient request if the prescription is for a schedule II opioid drug. aspirin 81 mg oral delayed release tablet: 162 mg, 2, tablet, By Mouth, Daily, Maintenance, 11/03/23 19:02:00 EST, Partial fill upon patient request if the prescription is for a schedule II opioid drug. lisinopril 40 mg oral tablet: 1 tablet = 40 mg, By Mouth, Daily, Maintenance, 11/03/23 19:02:00 EST, Partial fill upon patient request if the prescription is for a schedule II opioid drug.. Chief Complaint/Reason for Admission 68F mFFS -LOC - AC - EtOH Inj L SAH (8mm length) PMH Dementia, HTN, chronic headaches Aware of diagnosis: patient. Discharge condition: good Compared to admission: improved Hospital Course Hospital course Rosa Elena Denis is a 68F with history of hypertension, dementia, and anxiety who presented to [facility] after a mechanical fall from standing with a resultant left subarachnoid hemorrhage. Patient has a nonfocal neurological exam. Posterior scalp wound only shows an abrasion. CT scan shows a 8 mm subarachnoidmeasuring 8 mm in length along the left falx. This patient is currently on aspirin 81, due to this neurosurgery was consulted and recommendations as seen below. Tertiary Performed on 11/04 with no additional findings, however patient left AMA prior to discharge. Phone call made to patient to iterate that she is to stop ASA x10 days and report back with deterioration. Neurosurgery: Recommendations: No acute neurosurgical intervention Q4hr neuro checks Hold ASA x 10 days Hold chemical DVT prophylaxis -- encourage ambulation STAT CT head for decline in GCS or 2 or greater Neurosurgery signing off -- no routine follow up PE: General: No acute distress, alert, awake Head: Posterior scalp with large area of scalp hematoma. Scattered areas of abrasions, with no defined lacerations. Diffusely tender to palpation. Face: no ecchymosis, no abrasions, no wounds Eyes: pupils are 3mm, equal, round, and reactive; extraocular movement intact Ears: no hemotympanum, no blood in external auditory canal, no abrasions, no camara's sign Nose: no epistaxis, no deformity Mandible: no deformity, no malocclusion Neck: No hematoma, no ecchymosis, no wounds, trachea midline Chest: Symmetric, no deformity, sternum, chest wall, and clavicles are nontender to palpation, no crepitus appreciated Heart: regular rate and rhythm Lungs: clear to auscultation bilaterally Abdomen: soft, nondistended, nontender, no wounds, no ecchymosis, no hematoma Pelvis: stable, nontender Back: no ecchymosis, no abrasions, no hematoma, no wounds Cervical spine: no midline deformities or step offs, no tenderness, cervical- collar in place Thoracic spine: no midline deformities or step offs, no tenderness Lumbar spine: no midline deformities or step offs, no tenderness Extremities: no long bone deformities, no wounds, no abrasions, no ecchymosis, no hematomas, full active range of motion Neurologic: GCS15; 5/5 strength and sensation to light touch intact in the bilateral upper and lower extremities Vascular: palpable dorsalis pedis and radial pulses bilaterally Postoperative Events Unexpected Return to the OR: no. Significant Results Results: Vital signs : VITAL SIGNS SECTION 11/04/2023 4:00 EST Temperature 97.3 DegF Temperature Route Temporal Heart Rate Monitored 78 bpm Systolic Blood Pressure 117 mm Hg Diastolic Blood Pressure 76 mm Hg Pulse Pressure 41 mm Hg Oxygen Saturation 97 % Mode of Delivery (Oxygen) Room air , Laboratory : LABORATORY 11/04/2023 6:26 EST WBC 5.8 k/mm3 RBC 4.33 m/mm3 Hgb 12.6 Gm/dL Hct 37.9 % MCV 87.5 femtoliters MCH 29.1 pg MCHC 33.2 g/dL Platelet Count 283 k/mm3 RDW-SD 41.3 femtoliters MPV 9.4 femtoliters Nucleated RBC (Automated) 0.0 #/100 WBC'S Abs. NRBC 0.0 k/mm3 Abs. Neut 4.0 k/mm3 Abs. Lymph 0.9 k/mm3 Abs. [place] 0.7 k/mm3 Abs. Eo 0.2 k/mm3 Abs. Baso 0.0 k/mm3 Neut % 68.8 % Lymph % 15.1 % [place] % 11.8 % H Eos % 3.3 % Baso % 0.7 % Imm Gran 0.3 % Abs. Imm Gran 0.0 k/mm3 , Imaging : RADIOLOGY 11/03/2023 22:[address] Head/Brain W/O Contrast CT Head/Brain W/O Contrast . CT Head/Brain W/O Contrast Event Date: 11/03/2023 22:14:55 EST Updated: 11/03/2023 22:[address] Head/Brain W/O Contrast This document has an image Reason For Exam SAH;Other: RESULT: CT Head/Brain W/O Contrast CT Head/Brain W/O Contrast, 10:04 PM INDICATION: Reason: Other:; SAH; Clinical Question(s): Other:; Blossoming of SAH; Special Instructions: To be performed at 2130 - 6 hours from prior scan; Order Comment: TECHNIQUE: Noncontrast head CT using axial technique and reconstructed in axial and coronal planes.Iterative reconstruction techniques are used to optimize dose and image quality. CTDIvol Head: 48.30 mGy, DLP Head: 773 mGy*cm. COMPARISON: 11/03/2023 3:23 PM. FINDINGS: Head Sampler view findings, lines and tubes: None. BRAIN AND EXTRA-AXIAL SPACES: No intraparenchymal hemorrhage, midline shift, or mass effect. Sahu-white matter differentiation iswell preserved. No acute infarct. Ventricles, sulci, and basilar cisterns are normal. No white matter lesions. Again seen is a tiny focus of hyperdense hemorrhage along the LEFT paramidline falx (202:80, 81) measuring 8 mm in length, 2 mm in thickness. No mass effect. No new areas of subdural or subarachnoid hemorrhage. CALVARIUM, SKULL BASE, AND SOFT TISSUES: No fractures or suspicious bony lesions. There is mild mucosal thickening in the inferior RIGHT maxillary sinus. Mastoid air cells are clear. Visualized orbits and globes are intact. There is a posterior scalp hematoma measuring approximately 3.5 cm. IMPRESSION: 1. No significant interval change in LEFT parafalcine tiny focus of hemorrhage. 2. No new areas of intracranial hemorrhage. 3. Unchanged posterior scalp hematoma. 4. No acute skull fracture. WSN: [id number] Ordering Physician: Zackery Cintron Signature Line Dictated By: Liz Horta MD Dictated Date/Time: 11/03/23 10:24 p Reviewed By: Liz Horta MD Signed By: Liz Horta MD Signed Date/Time: 11/03/23 10:24 pm Transcribed By: JAYLENE Transcribed Date/Time: 11/03/23 10:[address] Head/Brain W/O Contrast Discharge Plan Discharge Disposition Discharge: home. Patient Care team information Care Team Personnel Name: Lizeth Vidal RN Position: [facility] Outreach Member Role: Primary Care Nurse Name: Guilherme Arriaga RN Position: [facility] RN Member Role: Primary Care Nurse Name: John Gibson RN Position: [facility] RN Member Role: Primary Care Nurse Name: Bandar Bonner RN Position: [facility] RN Member Role: Primary Care Nurse Name: Paolo Bello RN Position: [facility] RN Member Role: Primary Care Nurse Name: Not on Staff, PCP Position: [facility] Physician (General Medicine) Member Role: PCP Name: Mireya Lyon RN Position: [facility] RN Member Role: Primary Care Nurse Name: Giovana Figueredo RN Position: [facility] RN Member Role: Primary Care Nurse Name: Fidel Brush RN Position: [facility] ED RN W/OE and Tasks Member Role: Primary Care Nurse Name: Esperanza Barnes RN Position: [facility] RN Member Role: Primary Care Nurse Name: Evelyn Mcfadden RN Position: [facility] RN Member Role: Primary Care Nurse Care Team Related Persons Name: GENESISCHRIS Address: home [address] [place] [address] Name: ESTEE DIAZ Address: home [address] [place] [address] Name: KELLY DIAZ Address: [place] [address]
--- OUTSIDE RECORDS SUMMARY | 2023-11-17 12:32 | XMS_ITS | Continuity of Care Document ---
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 Name Role Phone Not on Staff, PCP Primary Care Physician Unavail able Encounter [facility] Date(s): 09/18/23 - 10/18/23 [facility] [address], [address] [place] [id number]- Allergies, Adverse Reactions, Alerts Substance Reaction Severity Status codeine nausea Active ibuprofen Active morphine dizzy Active Antivert double vision Active Leslie liver enzymes off Active statins swelling/rash Active fentaNYL diff breathing Active Immunizations Given and Recorded Vaccine Date Status Refusal Reason influenza virus vaccine, inactivated 12/14/22 [place] rded influenza virus vaccine, inactivated 06/06/21 [place] rded influenza virus vaccine, inactivated 06/02/12 [place] rded [id number] bivalent booster vax 09/13/22 Recorded SARS-CoV-2 (COVID-19) [...] Team Personnel Name: Lizeth Vidal RN Position: [facility] Outreach Member Role: Primary Care Nurse Name: Guilherme Arriaga RN Position: [facility] RN Member Role: Primary Care Nurse Name: John Gibson RN Position: [facility] RN Member Role: Primary Care Nurse Name: Paolo Bello RN Position: [facility] RN Member Role: Primary Care Nurse Name: Not on Staff, PCP Position: [facility] Physician (General Medicine) Member Role: PCP Name: Giovana Figueredo RN Position: [facility] RN Member Role: Primary Care Nurse Name: Esperanza Barnes RN Position: [facility] RN Member Role: Primary Care Nurse Name: Evelyn Mcfadden RN Position: [facility] RN Member Role: Primary Care Nurse Care Team Related Persons Name: CHRIS HURTADO Address: [address] [facility] [address] [place] [address] Name: ESTEE DIAZ Address: [address] [place] [address] Name: KELLY DIAZ Address: [address] [address]
[2023-11-17 12:40] VITALS: BP 132/80; PULSE 92; RESP 14; O2SAT 98; BMI 27.8
== END 2023-11-17 13:20 | disposition home or self-care (01) ==
LOC: HO.HMGFM 12:27
PROVIDERS: PCP Nurse Practitioner Family; Visit Provider Nurse Practitioner Family
DX: G43.909 Migraine, unspecified, not intractable, without status migrainosus (principal); Z09 Encounter for follow-up examination after completed treatment for conditions other than malignant neoplasm; I10 Essential (primary) hypertension
CPT/HCPCS: 99214

== ENCOUNTER 2023-12-31 11:53 | Outpatient (AMB) | payer OTHER, SELFPAY ==
[2023-12-31 11:55] VITALS: BP 140/77; PULSE 68; RESP 14; TEMP 36.4; O2SAT 99; BMI 28.3
--- NOTE | 2023-12-31 11:55 | A.OFFPC_ITS ---
Vital Signs 12/31/23 11:55 Height 5 ft 3 in Weight 160 lb BMI 28.3 BP 140/77 H Blood Pressure Location Rt brachial Position Sitting Respiration 14 Pulse 68 Pulse Source Pulse Oximeter Temp 97.5 F Temp Source Temporal Artery Scan Pulse Oximetry (%) 99 Oxygen Delivery Method Room Air Intake Visit Reasons: Refill on medication Intake Note: Patient is here to follow up for medication. Patient reports she has white meta brain disease and she is not sleeping right now and she is experiencing severe headaches. Patient would like a referral to [place] for some one to discuss her white meta brain disease with. 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 Required: No Accompanied by: Self / Same As Patient Allergies fentanyl Adverse Reaction (Intermediate, Verified 12/31/23 12:05) felt like everything was spinning morphine Adverse Reaction (Intermediate, Verified 12/31/23 12:05) pass out Medication List - Last Reconciled 12/31/23 by Lillian Caceres, [facility]- amitriptyline 50 mg PO BEDTIME amlodipine 5 mg PO DAILY aspirin 81 mg PO DAILY lisinopril 40 mg PO DAILY quetiapine (Seroquel) 100 mg PO BID timolol 0.5% 2 drps ophthalmic (eye) BID Tobacco use date assessed: 11/17/23 Fall risk assessment: No Falls in past year Last assessed Fall Risk: 12/31/23 Dental Screening Dental Screen Date: 11/17/23 HPI HPI Comments History of Present Illness Details 68-year-old female with brain lesion, wh ite matter disease, degenerative disc disease, osteoarthritis, glaucoma, hypertension, daily headache, cerebrovascular disease, 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 insurance do not take private pay wants to see someone in [place]; does not have any info; reports aware once she gets MD name and NPI referral can be processed. I advised her to have [facility] Core Analyst help them with this. Pt here today requesting pain meds. Made aware once again I will not fill. She no showed her Pain mgmt referral as she only wants meds and not interventions. Not sleeping; taking amitriptyline for headaches and sleep. reports she will see a new [facility] in January out of [place]. No name. Advised they can ask Psych for med recs for insomnia. Unclear if she is or isnt taking her meds. She does have [facility] and [facility]. Reports a lock box.Pt states no one unlocks it for her. does not corroborate one way or another. [facility] did call and ask for med refills on meds listed and i have sent these. 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 Migraines HTN (hypertension) Surgical History No pertinent past surgical history Family History Mother Alzheimer disease Father Cancer Social History Household Members: Spouse Both parents involved: No Caregiver staying overnight: No Housing: House Are you a primary healthcare facility administrator to a significant other at home: No Do you presently have visiting nurse or other home services: No 75 years or older and lives alone: No Alcohol intake: former Patient Tobacco Use Status: Current everyday Tobacco user Tobacco use type: Cigarette Cigarette Packs Per Day: 3 e-Cigarette/Vaping Use: Never Used service: No Current occupational status: disabled Sexual orientation: Unable to collect Gender identity: Unable to collect Cognitive needs: No Hearing needs: No Vision needs: No Questionnaire Thrive Questionnaire Date Thrive assessed: 11/17/23 ALEK-7 AMB Questionnaire ALEK-7 Date ALEK - 7 assessed: 11/17/23 Source: Developed by Drs. Monty Ellis, Celsa Cuello, Bob Acharya and colleagues, with an educational joshua from [id number]. Review of Systems Const All systems reviewed & are unremarkable except as noted in HPI and below Physical exam (Primary Care) Vital Signs: Last Vital Signs Temp 97.5 F 12/31/23 11:55 Pulse 68 12/31/23 11:55 Resp 14 12/31/23 11:55 BP 140/77 H 12/31/23 11:55 Pulse Ox 99 12/31/23 11:55 Oxygen Delivery Method Room Air 12/31/23 11:55 BMI result Body Mass Index 28.3 Tobacco/Smoking Status: Tobacco use Status Tobacco use date assessed 11/17/23 12/31/23 11:55 Patient Tobacco Use Status Current everyday Tobacco 12/31/23 11:55 Tobacco use type Cigarette 12/31/23 11:55 e-Cigarette/Vaping Use Never Used 12/31/23 11:55 Thrive Assessment: Date of Thrive Assessment Date Thrive assessed 11/17/23 12/31/23 11:55 Const Other: Awake alert oriented accompanied by Wearing sunglasses during entire exam Moves all extremities x4 Regular rate and rhythm Lung sounds clear to auscultation bilat No edema bilateral lower extremities Tangental speech, mood expansive, poor historian Assessment and Plan Assessment & Plan (1) HTN (hypertension): Comment: Managed on amlodipine & lisinopril, refills sent. Monitored by [facility] nurse. At goal today. Continue Code(s): I10 - Essential (primary) hypertension Qualifiers: Hypertension type: primary hypertension Qualified Code(s): I10 - Essential (primary) hypertension (2) Migraines: Comment: I have referred her to [facility]rology per request but this is out of network. Made aware I will not refill her Fioricet. Educated as to why. I have referred her to pain management for further evaluation and treatment, she no showed as she only wants meds no interventions. Advised to get info for appt in [place] and call referrals &/or ask [facility] master machinist to help get this appt Code(s): G43.909 - Migraine, unspecified, not intractable, without status migrainosus Qualifiers: Migraine type: chronic migraine (15 or more days per month) without aura Status migrainosus presence: without status migrainosus Intractability: not intractable Qualified Code(s): G43.709 - Chronic migraine without aura, not intractable, without status migrainosus Plan This note is constructed using voice recognition software. While every effort has been made to ensure accuracy in automat watcher, still errors may have been included Sometimes, these errors may affect the content or meaning of the given sentence . Total time spent caring for the patient today was 45 minutes. This includes time spent before the visit reviewing the chart, time spent during the visit, and time spent after the visit on documentation Medications: Refilled amlodipine 5 mg PO DAILY 90 tabs 0RF amitriptyline 50 mg PO BEDTIME 90 tabs 0RF lisinopril 40 mg PO DAILY 90 tabs 0RF quetiapine (Seroquel) 100 mg PO BID 180 tabs 0RF Patient Instructions: RTO 6 months routine f/u Coding Level of Care Code Est Pt Level 5 (41058) Diagnoses Primary hypertension I10 Hypertension type: primary hypertension Chronic migraine without aura without status migrainosus, not intractable G43.709 Migraine type: chronic migraine (15 or more days per month) without aura Status migrainosus presence: without status migrainosus Intractability: not intractable
== END 2023-12-31 12:32 | disposition home or self-care (01) ==
PROVIDERS: PCP Nurse Practitioner Family; Visit Provider Nurse Practitioner Family
DX: I10 Essential (primary) hypertension (principal); G43.709 Chronic migraine without aura, not intractable, without status migrainosus
CPT/HCPCS: 99215